=== PATIENT | female | born 1950 | race Caucasian/White ===

== ENCOUNTER 2019-05-23 21:09 | Emergency (ER) | payer OTHER ==
--- OUTSIDE RECORDS SUMMARY | 2019-05-23 21:11 | XMS REPORT ---
:1950 [facility] Address [address] [place] [address] Care Team Providers Name Role Phone Unavailable Unavailable Unavailable Problems This patient has no known problems. Allergies, Adverse Reactions, Alerts This patient has no known allergies or adverse reactions. Medications This patient has no known medications.
[2019-05-24] MEDS ORDERED: LIDOCAINE VISCOUS 2% SOLN 15 ML UDC ONE ×2 (00:35→01:09)
[2019-05-24] MEDS ORDERED: KETOROLAC 30 MG/ML INJ ONE (00:35)
[2019-05-24] MEDS ORDERED: TRAMADOL HCL 50 MG TAB ONE (00:35)
[2019-05-24] MEDS ORDERED: FLEET ENEMA ADULT PR ONE (01:15)
--- NOTE | 2019-05-24 01:43 | ER ---
Nurse's Notes [facility] [place] Name: Alejandra Coto Age: 68 yrs Sex: Female : 1950 Arrival Date: 05/23/2019 Time: 21:11 Bed 13 Private MD: Diagnosis: Constipation, unspecified Presentation: 05/23 21:28 Presenting complaint: Patient states: constipated X 1 week, Dr. Simental called in meds, iw has taken two doses, not getting relief. Transition of care: patient was not received from another setting of care. Onset of symptoms was May 17, 2019. Risk Assessment: Do you want to hurt yourself or someone else? Patient reports no desire to harm self or others. Initial Sepsis Screen: Does the patient meet any 2 criteria? No. Patient's initial sepsis screen is negative. Does the patient have a suspected source of infection? No. Patient's initial sepsis screen is negative. Care prior to arrival: None. 21:28 Method Of Arrival: Ambulatory iw 21:28 Acuity: JACOBY 3 iw Historical: - Allergies: 21:30 No Known Allergies; iw - PMHx: 21:30 allergies; constipation; Diabetes - IDDM; GERD; heart disease; High Cholesterol; iw Hypertension; meningitis; Myocardial infarction (August 2015); Pancreatitis; Vulva Cancer; ADD/ADHD; - PSHx: 21:30 Hysterectomy; Knee surgery; Vulva Cancer; Cholecystectomy; Heart stents; iw - Immunization history:: Adult Immunizations up to date. - Social history:: Smoking status: Patient/guardian denies using tobacco. - Ebola Screening: : Patient negative for fever greater than or equal to 101.5 degrees Fahrenheit, and additional compatible Ebola Virus Disease symptoms Patient denies exposure to infectious person Patient denies travel to an Ebola-affected area in the 21 days before illness onset No symptoms or risks identified at this time. Screenin:35 Abuse screen: Denies threats or abuse. Nutritional screening: No deficits noted. jb4 Tuberculosis screening: No symptoms or risk factors identified. Fall Risk None identified. Assessment: 21:35 General: Appears in no apparent distress. uncomfortable, Behavior is calm, cooperative, jb4 appropriate for age. Pain: Complains of pain in abdomen Pain does not radiate. Pain currently is 10 out of 10 on a pain scale. Quality of pain is described as crampy. Neuro: Level of Consciousness is awake, alert, obeys commands, Oriented to person, place, time, situation. Cardiovascular: Patient's skin is warm and dry. Respiratory: Airway is patent Respiratory effort is even, unlabored, Respiratory pattern is regular, symmetrical. GI: Abdomen is obese, Bowel sounds present X 4 quads. Abd is soft X 4 quads Abd is non tender in right upper quadrant and left upper quadrant Abdomen is tender to palpation in right lower quadrant and left lower quadrant. : No signs and/or symptoms were reported regarding the genitourinary system. EENT: No signs and/or symptoms were reported regarding the EENT system. Derm: Skin is intact, Skin is pink, warm \T\ dry. Musculoskeletal: Circulation, motion, and sensation intact. Range of motion: intact in all extremities. 22:30 Reassessment: Patient appears in no apparent distress at this time. Patient and/or jb4 family updated on plan of care and expected duration. Pain level reassessed. Patient is alert, oriented x 3, equal unlabored respirations, skin warm/dry/pink. 23:06 Reassessment: Patient appears in no apparent distress at this time. Patient and/or jb4 family updated on plan of care and expected duration. Pain level reassessed. Patient is alert, oriented x 3, equal unlabored respirations, skin warm/dry/pink. 05/24 00:03 Reassessment: Patient appears in no apparent distress at this time. Patient and/or jb4 family updated on plan of care and expected duration. Pain level reassessed. Patient is alert, oriented x 3, equal unlabored respirations, skin warm/dry/pink. 01:30 Reassessment: Patient appears in no apparent distress at this time. Patient and/or jb4 family updated on plan of care and expected duration. Pain level reassessed. Patient is alert, oriented x 3, equal unlabored respirations, skin warm/dry/pink. Patient states feeling better. 01:52 Reassessment: Patient appears in no apparent distress at this time. Patient and/or jb4 family updated on plan of care and expected duration. Pain level reassessed. Patient is alert, oriented x 3, equal unlabored respirations, skin warm/dry/pink. Vital Signs: 05/23 21:30 BP 124 / 58; Pulse 90; Resp 16; Temp 97.8; Pulse Ox 96% on R/A; Weight 129.27 kg; iw Height 5 ft. 3 in. (160.02 cm); Pain 10/10; 23:00 BP 129 / 82; Pulse 87; Resp 16; Pulse Ox 96% on R/A; jb4 05/24 00:15 BP 132 / 85; Pulse 72; Resp 16; Pulse Ox 97% on R/A; jb4 01:45 BP 145 / 90; Pulse 86; Resp 16; Pulse Ox 98% on R/A; jb4 05/23 21:30 Body Mass Index 50.48 (129.27 kg, 160.02 cm) iw ED Course: 05/23 21:11 Patient arrived in ED. ds1 21:29 Triage completed. iw 21:30 Arm band placed on. iw 21:35 Patient has correct armband on for positive identification. Bed in low position. Call jb4 light in reach. Side rails up X 1. Pulse ox on. NIBP on. 21:43 Craig Song RN is Primary Nurse. jb4 21:49 Jacobo Pleitez MD is Attending Physician. tw4 05/24 01:05 XRAY Abdomen 1 View (KUB) In Process Unspecified. EDMS 01:54 No provider procedures requiring assistance completed. Patient did not have IV access jb4 during this emergency room visit. Administered Medications: 00:40 Drug: TORadol 60 mg Route: IM; Site: right gluteus; jb4 01:10 Follow up: Response: No adverse reaction; Pain is decreased jb4 00:40 Drug: traMADol 50 mg {Note: rass score 0.} Route: PO; jb4 01:10 Follow up: Response: No adverse reaction; Pain is decreased jb4 01:00 Drug: Viscous Lidocaine Liquid (4 %) 2 application {Note: administered by ER jb4 provider..} Route: Mucous Membrane; 01:58 Follow up: Response: No adverse reaction jb4 01:25 Drug: Fleet Enema 133 ml Route: UT; jb4 01:29 Follow up: Response: No adverse reaction jb4 Outcome: 01:42 Discharge ordered by . tw4 01:54 Discharged to home ambulatory, with family. jb4 01:54 Condition: stable 01:54 Discharge instructions given to patient, family, Instructed on discharge instructions, follow up and referral plans. medication usage, Demonstrated understanding of instructions, follow-up care, medications, Prescriptions given X 3. 01:58 Patient left the ED. jb4 Signatures: Dispatcher [employer] [facility] Viviana Moe ds1 Anila Lopez, RN Craig Roblero RN RN jb4 Jacobo Pleitez MD MD tw4
--- NOTE | 2019-05-24 01:43 | EDPHYS ---
Physician Documentation [facility] Name: Alejandra Coto Age: 68 yrs Sex: Female : 1950 Arrival Date: 05/23/2019 Time: 21:11 Bed 13 Private MD: ED Physician Jacobo Plietez HPI: 05/24 03:24 This 68 yrs old Female presents to ER via Ambulatory with complaints of tw4 Constipation. 03:24 The patient presents to the emergency department with pain in the rectal area, that is tw4 moderate. 03:24 Onset: The symptoms/episode began/occurred 1 week(s) ago. Context: the patient has no tw4 known special context relating to the rectal area complaint(s). Modifying factors: The symptoms are alleviated by nothing, The symptoms are aggravated by bowel movement. The patient has not experienced similar symptoms in the past. Historical: - Allergies: 05/23 21:30 No Known Allergies; iw - PMHx: 21:30 allergies; constipation; Diabetes - IDDM; GERD; heart disease; High Cholesterol; iw Hypertension; meningitis; Myocardial infarction (August 2015); Pancreatitis; Vulva Cancer; ADD/ADHD; - PSHx: 21:30 Hysterectomy; Knee surgery; Vulva Cancer; Cholecystectomy; Heart stents; iw - Immunization history:: Adult Immunizations up to date. - Social history:: Smoking status: Patient/guardian denies using tobacco. - Ebola Screening: : Patient negative for fever greater than or equal to 101.5 degrees Fahrenheit, and additional compatible Ebola Virus Disease symptoms Patient denies exposure to infectious person Patient denies travel to an Ebola-affected area in the 21 days before illness onset No symptoms or risks identified at this time. ROS: 05/24 03:24 Constitutional: Negative for fever, chills, and weight loss, Eyes: Negative for injury, tw4 pain, redness, and discharge, Cardiovascular: Negative for chest pain, palpitations, and edema, Respiratory: Negative for shortness of breath, cough, wheezing, and pleuritic chest pain. MS/Extremity: Negative for injury and deformity, Skin: Negative for injury, rash, and discoloration. Abdomen/GI: Positive for constipation, Negative for abdominal pain, nausea and vomiting, nausea, vomiting, and diarrhea, nausea, vomiting, diarrhea, abdominal cramps, abdominal distension, anorexia, dysphagia, hematemesis, black/tarry stool, rectal pain. Exam: 03:24 Constitutional: This is a well developed, well nourished patient who is awake, alert, tw4 and in no acute distress. Head/Face: Normocephalic, atraumatic. Chest/axilla: Normal chest wall appearance and motion. Nontender with no deformity. No lesions are appreciated. Cardiovascular: Regular rate and rhythm with a normal S1 and S2. No gallops, murmurs, or rubs. Normal PMI, no JVD. No pulse deficits. Respiratory: Lungs have equal breath sounds bilaterally, clear to auscultation and percussion. No rales, rhonchi or wheezes noted. No increased work of breathing, no retractions or nasal flaring. Back: No spinal tenderness. No costovertebral tenderness. Full range of motion. MS/ Extremity: Pulses equal, no cyanosis. Neurovascular intact. Full, normal range of motion. Neuro: Awake and alert, GCS 15, oriented to person, place, time, and situation. Cranial nerves II-XII grossly intact. Motor strength 5/5 in all extremities. Sensory grossly intact. Cerebellar exam normal. Normal gait. 03:24 Abdomen/GI: Inspection: abdomen appears normal, Bowel sounds: normal, Palpation: abdomen is soft and non-tender, Rectal exam: rectal tone normal, Stool: hemorrhoid(s), external, without bleeding, without inflammation, without thrombosis, without pain, mass, is not appreciated, fecal impaction, that is mild. Vital Signs: 05/23 21:30 BP 124 / 58; Pulse 90; Resp 16; Temp 97.8; Pulse Ox 96% on R/A; Weight 129.27 kg; iw Height 5 ft. 3 in. (160.02 cm); Pain 10/10; 23:00 BP 129 / 82; Pulse 87; Resp 16; Pulse Ox 96% on R/A; jb4 05/24 00:15 BP 132 / 85; Pulse 72; Resp 16; Pulse Ox 97% on R/A; jb4 01:45 BP 145 / 90; Pulse 86; Resp 16; Pulse Ox 98% on R/A; jb4 05/23 21:30 Body Mass Index 50.48 (129.27 kg, 160.02 cm) iw Procedures: 03:24 Fecal disimpaction: digital disimpaction was performed, with a small amount of stool tw4 expressed. The patient tolerated the intervention well. MDM: 05/23 21:49 Patient medically screened. tw4 05/24 03:24 Differential diagnosis: hemorrhoids. Data reviewed: vital signs, nurses notes. Data tw4 interpreted: Pulse oximetry: Interpretation: normal. Counseling: I had a detailed discussion with the patient and/or guardian regarding: the historical points, exam findings, and any diagnostic results supporting the discharge/admit diagnosis. Medication response: FLEETS. Response to treatment: the patient's symptoms have mildly improved after treatment, and as a result, I will discharge patient. Special discussion: Based on the patient's Hx, exam, and Dx evaluation, there is no indication for emergent surgery or inpatient Tx. It is understood by the patient/guardian that if the Sx's persist or worsen they need to return immediately for re-evaluation. I discussed with the patient/guardian in detail that at this point there is no indication for admission to the hospital. It is understood, however, that if the symptoms persist or worsen the patient needs to return immediately for re-evaluation. 05/23 22:54 Order name: XRAY Abdomen 1 View (KUB) ak1 Administered Medications: 00:40 Drug: TORadol 60 mg Route: IM; Site: right gluteus; jb4 01:10 Follow up: Response: No adverse reaction; Pain is decreased jb4 00:40 Drug: traMADol 50 mg {Note: rass score 0.} Route: PO; jb4 01:10 Follow up: Response: No adverse reaction; Pain is decreased jb4 01:00 Drug: Viscous Lidocaine Liquid (4 %) 2 application {Note: administered by ER jb4 provider..} Route: Mucous Membrane; 01:58 Follow up: Response: No adverse reaction jb4 01:25 Drug: Fleet Enema 133 ml Route: HI; jb4 01:29 Follow up: Response: No adverse reaction [facility] Disposition: 05/24/19 01:42 Discharged to Home. Impression: Constipation, unspecified. - Condition is Stable. - Discharge Instructions: Constipation, Adult, High-Fiber Diet. - Prescriptions for Fleet Enema Extra - insert 1 application by RECTAL route 1-2 times daily; 1 Container. Colace 100 mg Oral Tablet - take 1 tablet by ORAL route every 12 hours; 14 tablet. Dulcolax 10 mg Rectal Suppository - insert 1 suppository by RECTAL route every 6 hours As needed; 10 suppository. - Medication Reconciliation Form, Thank You Letter, Antibiotic Education, Prescription Opioid Use form. - Follow up: Private Physician; When: Upon discharge from the Emergency Department; Reason: Recheck today's complaints, Continuance of care. - Problem is new. - Symptoms have improved. Signatures: Dispatcher [employer] EDAnila Kuhn RN RN Craig Song RN RN jb4 Jacobo Pleitez MD MD tw4 Corrections: (The following items were deleted from the chart) 01:58 01:42 05/24/2019 01:42 Discharged to Home. Impression: Constipation, unspecified. jb4 Condition is Stable. Forms are Medication Reconciliation Form, Thank You Letter, Antibiotic Education, Prescription Opioid Use. Follow up: Private Physician; When: Upon discharge from the Emergency Department; Reason: Recheck today's complaints, Continuance of care. Problem is new. Symptoms have improved. tw4
[2019-05-24 03:42] VITALS: TEMP 97.8
[2019-05-24 03:46] VITALS: BP 145/90; O2SAT 98
--- NOTE | 2019-05-24 08:58 | RAD REPORT ---
EXAM DESCRIPTION: RAD - Abdomen 1 View (KUB) - 05/24/2019 1:02 am CLINICAL HISTORY: CONSTIPATION Abdominal pain COMPARISON: No comparisons FINDINGS: Large stool volume dilates the rectum. There is moderate stool volume filling but not dila ting distal sigmoid colon. There is moderate stool volume in the cecum, ascending and descending port ions of the colon. Air is present without dilatation of the transverse colon. No small bowel dilatation. No obstruction, free air or pneumatosis. No suspicious calcifications. No significant bony findings IMPRESSION: Moderate stool volume filling but not dilating the majority of the colon. There is a large stool volume dilating the rectum. No small bowel obstruction, free air or other emergent finding.
== END 2019-05-24 01:58 | disposition home or self-care (01) ==
LOC: ER 21:09
DX: K59.00 Constipation, unspecified (principal); I10 Essential (primary) hypertension; Z85.44 Personal history of malignant neoplasm of other female genital organs; Z95.818 Presence of other cardiac implants and grafts
CPT/HCPCS: 74018; 96372; 99284

== ENCOUNTER 2020-12-24 17:55 | Emergency (ER) | payer OTHER ==
--- OUTSIDE RECORDS SUMMARY | 2020-12-24 17:58 | XMS REPORT | Continuity of Care Document ---
:1950 Author Organization [facility] t Address [address] [place] [address] Care Team Providers Name Role Phone Unavailable Unavailable Unavailable Problems This patient has no known problems. Allergies, Adverse Reactions, Alerts This patient has no known allergies or adverse reactions. Social History Social Habit Start Date Stop Date Quantity Comments Source Sex Assigned At [birth year] [facility]ist 00:00:00 00:00:00 Medications Ordered Filled Start Stop Current Ordering Indication Dosage Frequency Signature Comments Components Source Medication Medication Date Date Medication? Clinician (SIG) Name Name Allopurinol Allopurinol 0 2020- No Jose A [address] [facility] 9-03 10-03 [facility] One Touch One Touch 0 Yes Jose A [address] [facility] Ultra Test Ultra Test 1-06 [facility] k[facility] - Strips Strips 00:00: [facility] Esomeprazol Esomeprazol Yes Jose A [address] [facility] Magnesium e Magnesium [facility] Nexium Nexium Yes Jose A [address] [facility] Aspirin 81 Aspirin 81 Yes Jose A [address] [facility] Linzess Linzess Yes Jose A [address] [facility] [address] [facility] at least [facility] 30 minutes [facility] before the l first meal Outpati of the day ent on an Clinics empty stomach Flonase Flonase Yes Jose A USE ONE [facility] SPRAY IN [facility] EACH [facility] NOSTRIL l ONCE DAILY Outpati ent Clinics Tradjenta Tradjenta Yes Jose A take [address] [facility] tablet by [facility] day [facility] HydrALAZINE HydrALAZINE Yes Jose A [address] [facility] HCl HCl [facility] with food [facility] OneTouch OneTouch Yes Jose A TEST ONCE [facility] Ultra Test Ultra Test [facility] A DAY [facility] Allopurinol Allopurinol Yes Jose A take [address] [facility] tablet by [facility] every day [facility] Zyrtec Zyrtec Yes Jose A [facility] Niacin Niacin Yes Jose [facility] with food [facility] Carvedilol Carvedilol Yes Jose A [address] [facility] Gabapentin Gabapentin Yes Jose A [address] [facility] Bumetanide Bumetanide Yes Jose A 1 1/[address] [facility] Dulcolax Dulcolax Yes Jose A [address] [facility] as needed [facility] BuPROPion BuPROPion Yes Jose A [address] [facility] HCl ER (SR) HCl ER (SR) [facility] orally bid [facility] Metolazone Metolazone Yes Jose A [address] [facility] Colace Colace Yes Jose A [address] [facility] Levemir Levemir Yes Jose A [address] [facility] FlexTouch FlexTouch [facility] units/Ml [facility] Zetia Zetia Yes Jose A [address] [facility] Atorvastati Atorvastati Yes Jose A take [address] [facility] n Calcium n Calcium [facility] tablet by [facility] day [facility] Victoza Victoza Yes Jose A inject [facility] 1.8mg [facility] daily [facility] subcutaneo l usly [facility] ent [facility] Atorvastati Atorvastati Yes Jose A take [address] [facility] n Calcium n Calcium [facility] tablet by [facility] every day [facility] Zetia Zetia Yes Jose A [address] [facility] Myrbetriq Myrbetriq Yes Jose A [address] [facility] Victoza Victoza Yes Ojse A inject [facility] 1.8mg [facility] daily [facility] subcutaneo l [facility]ly [facility] Procedures This patient has no known procedures. Plan of Care Planned Activity Planned Date Details Comments Source Future Scheduled 2021-01-18 INFLUENZA VACCINE [place] [facility] 00:00:00 [code = INFLUENZA VACCINE] Future Scheduled 2016-12-20 65+ PNEUMOCOCCAL [place] [facility] 00:00:00 VACCINE (1 of 1 - PPSV23) [code = 65+ PNEUMOCOCCAL VACCINE (1 of 1 - PPSV23)] Future Scheduled 2001-12-20 BREAST CANCER [facility] Test 00:00:00 SCREENING [code = BREAST CANCER SCREENING] Future Scheduled 2001-12-20 COLONOSCOPY SCREENING [facility] Test 00:00:00 [code = COLONOSCOPY SCREENING] Future Scheduled 2001-12-20 SHINGLES VACCINES (#1) [facility] 00:00:00 [code = SHINGLES VACCINES (#1)] Future Scheduled 1963 COVID-19 VACCINE (1) [facility] 00:00:00 [code = COVID-19 VACCINE (1)] Encounters Start End Encounter Admission Attending Care Care Encounter Source Date/Time Date/Time Type Type Clinicians Facility Department ID 2020-12-17 2020-12-17 Outpatient [facility] [id number] [facility] 2020-10-08 2020-10-08 Outpatient [facility] [id number] [facility] 2020-08-21 2020-08-21 Outpatient [facility] [id number] [facility] 2020-08-11 2020-08-11 Out[facility] [id number] [facility] 2020-07-04 2020-07-04 Out[facility] [id number] [facility] 2020-05-22 2020-05-22 Outpatient [facility] [id number] [facility] 2020-04-07 2020-04-07 Outpatient [facility] [id number] [facility] 2020-04-01 2020-04-01 Outpatient [facility] [id number] [facility] 2020-03-20 2020-03-20 Outpatient [facility] [id number] [facility] 2020-03-14 2020-03-14 Outpatient [facility] [id number] [facility] 2020-02-21 2020-02-21 [facility] [id number] [facility] 08:40:00 08:40:[address] [place] [address] [facility] Outpat[facility] ent Clinics 2019-11-21 2019-11-21 [facility] [id number] [facility] 14:00:00 14:00:[address] [place] [address] [facility] Out[facility] Clinics 2019-11-21 2019-11-21 [facility] [id number] [facility] 14:00:00 14:00:[address] [place] [address] [facility] Medicine l Medicine Outpati ent Clinics 2019-11-14 2019-11-14 [facility] [id number] [address] 10:33:00 10:33:00 t Flare Code [facility] Medicine Outpat[facility] Clinics 2019-07-09 2019-07-09 [facility] [id number] [facility] 15:31:00 15:31:00 t Flare Code [facility] Outpat[facility] Clin[facility] 2019-07-04 2019-07-04 [facility] [id number] [facility] 17:01:00 17:01:00 t Flare Code [facility] Out[facility] Clin[facility] 2019-07-04 2019-07-04 [facility] [id number] [facility] 13:30:00 13:30:00 t Flare Code [facility] Medicine Outpat[facility] Clinics Results This patient has no known results.
[2020-12-24 19:32] LABS: Absolute Lymphocytes (CBC) 1.5 K/uL (0.7-4.9); Hematocrit 44.2 % (36.0-45.0); MPV 9.3 fL (7.6-11.3); RBC Red Blood Cell Count 5.25 M/uL (3.86-4.86)
[2020-12-24] MEDS ORDERED: INSULIN -REGULAR HUMAN 50 UNIT/0.5 ML ML ONE (19:36)
[2020-12-24 19:47] LABS: Potassium 4.7 mmol/L (3.5-5.1)
[2020-12-24] MEDS ORDERED: ONDANSETRON 4 MG/2 ML VIAL ONE (19:50)
[2020-12-24] MEDS ORDERED: MORPHINE 4 MG/ML SYR ONE (19:50)
[2020-12-24 20:08] LABS: Urine Blood Negative (Negative); Urine Glucose 2+ (Negative); Urine Protein Negative (Negative); Urine Specific Gravity 1.015 (1.005-1.030); Urine pH 5.5 (5.0-7.0)
[2020-12-24 20:28] LABS: Blood Morphology Comment NOT SEEN (NOT SEEN); Platelet Estimate ADEQ; White Blood Cell Scan OK (OK)
--- NOTE | 2020-12-24 20:39 | EDPHYS ---
Physician Documentation [facility] Name: Alejandra Coto Age: 70 yrs Sex: Female : 1950 Arrival Date: 12/24/2020 Time: 17:58 Bed 5 Private MD: ED Physician Jacobo Pleitez HPI: 12/24 18:36 This 70 yrs old Female presents to ER via Ambulatory with complaints of High kdr Blood Sugar. 18:36 The patient or guardian reports diaphoresis, generalized fatigue, generalized weakness, kdr hyperglycemia, that was potentially precipitated by Unknown - the patient had a steroid injection in her knee by Dr. Marrero yesterday. Onset: The symptoms/episode began/occurred this morning. Associated signs and symptoms: Pertinent positives: diaphoresis, nausea, skin flushing. Current symptoms: In the emergency department the patient's symptoms are unchanged from the initial presentation. The patient has not experienced similar symptoms in the past. The patient has been recently seen by a physician: Dr. Urias. Historical: - Allergies: 18:21 No Known Drug Allergies; ll1 - PMHx: 18:21 constipation; Hypertension; Myocardial infarction (); Pancreatitis; meningitis; ll1 heart disease; High Cholesterol; GERD; Diabetes - IDDM; Vulva Cancer; allergies; ADD/ADHD; - Immunization history:: Client reports receiving the 2nd dose of the Covid vaccine, Flu vaccine is up to date. - Social history:: Smoking status: Patient denies any tobacco usage or history of. ROS: 18:36 Constitutional: Negative for fever, chills, and weight loss, Eyes: Negative for injury, kdr pain, redness, and discharge, ENT: Negative for injury, pain, and discharge, Neck: Negative for injury, pain, and swelling, Cardiovascular: Negative for chest pain, palpitations, and edema, Respiratory: Negative for shortness of breath, cough, wheezing, and pleuritic chest pain, Abdomen/GI: Negative for abdominal pain, nausea, vomiting, diarrhea, and constipation, Back: Negative for injury and pain, : Negative for injury, bleeding, discharge, and swelling, MS/Extremity: Negative for injury and deformity, Psych: Negative for depression, anxiety, suicide ideation, homicidal ideation, and hallucinations, Allergy/Immunology: Negative for hives, rash, and allergies, Endocrine: Negative for neck swelling, polydipsia, polyuria, polyphagia, and marked weight changes, Hematologic/Lymphatic: Negative for swollen nodes, abnormal bleeding, and unusual bruising. 18:36 Skin: Positive for diaphoresis, diffusely. 18:36 Neuro: Positive for dizziness, headache, weakness, Negative for altered mental status, seizure activity, speech changes, syncope, near syncope, tinnitus, tremor, visual changes. Exam: 18:36 Constitutional: This is a well developed, well nourished patient who is awake, alert, kdr and in no acute distress. Head/Face: Normocephalic, atraumatic. Eyes: Pupils equal round and reactive to light, extra-ocular motions intact. Lids and lashes normal. Conjunctiva and sclera are non-icteric and not injected. Cornea within normal limits. Periorbital areas with no swelling, redness, or edema. Neck: Trachea midline, no thyromegaly or masses palpated, and no cervical lymphadenopathy. Supple, full range of motion without nuchal rigidity, or vertebral point tenderness. No Meningismus. Chest/axilla: Normal chest wall appearance and motion. Nontender with no deformity. No lesions are appreciated. Cardiovascular: Regular rate and rhythm with a normal S1 and S2. No gallops, murmurs, or rubs. Normal PMI, no JVD. No pulse deficits. Respiratory: Lungs have equal breath sounds bilaterally, clear to auscultation and percussion. No rales, rhonchi or wheezes noted. No increased work of breathing, no retractions or nasal flaring. Abdomen/GI: Soft, non-tender, with normal bowel sounds. No distension or tympany. No guarding or rebound. No evidence of tenderness throughout. Back: No spinal tenderness. No costovertebral tenderness. Full range of motion. Skin: Warm, dry with normal turgor. Normal color with no rashes, no lesions, and no evidence of cellulitis. MS/ Extremity: Pulses equal, no cyanosis. Neurovascular intact. Full, normal range of motion. Neuro: Awake and alert, GCS 15, oriented to person, place, time, and situation. Cranial nerves II-XII grossly intact. Motor strength 5/5 in all extremities. Sensory grossly intact. Cerebellar exam normal. Normal gait. Psych: Awake, alert, with orientation to person, place and time. Behavior, mood, and affect are within normal limits. Vital Signs: 18:19 BP 160 / 76; Pulse 84; Resp 18; Temp 97.5; Pulse Ox 93% on R/A; Weight 130.18 kg; ll1 Height 5 ft. 3 in. (160.02 cm); Pain 7/10; 20:36 BP 132 / 103; Pulse 74; Resp 18 S; Pulse Ox 98% on R/A; ad5 18:19 Body Mass Index 50.84 (130.18 kg, 160.02 cm) ll1 MDM: 18:36 Data reviewed: vital signs, nurses notes, lab test result(s), radiologic studies. kdr Counseling: I had a detailed discussion with the patient and/or guardian regarding: the historical points, exam findings, and any diagnostic results supporting the discharge/admit diagnosis, lab results. 20:38 Patient medically screened. [facility] 12/24 18:26 Order name: CBC with Diff; Complete Time: 20:28 kdr 12/24 20:28 Interpretation: Normal except: RBC 5.25; WBC 16.30; LYM% 9.0; RACIEL% 86.5; NEUT A 14.1. [facility] 12/24 18:26 Order name: Chem 7; Complete Time: 20:28 kdr 12/24 20:29 Interpretation: Normal except: NA 133; GLUC 375; BUN 33; CRE 1.56; GFR 33. [facility] 12/24 20:07 Order name: Urine Dipstick-Ancillary; Complete Time: 20:28 [facility] 12/24 20:29 Interpretation: Normal except: UGLUC 2+. [facility] 12/24 20:28 Order name: CBC Smear Scan; Complete Time: 20:29 [facility] 12/24 20:29 Interpretation: Within normal limits. [facility] 12/24 20:34 Order name: Glucose, Ancillary Testing [facility] 12/24 18:26 Order name: Urine Dipstick-Ancillary (obtain specimen); Complete Time: 20:37 kdr Administered Medications: 19:23 Drug: Insulin Regular Human 10 units {Co-Signature: ad5 (Justice Rodriguez).} Route: IVP; ea Site: right antecubital; 20:37 Follow up: Response: No adverse reaction; RASS: Alert and Calm (0) ad5 19:32 Drug: morphine 4 mg Route: IVP; Site: right antecubital; ea 20:37 Follow up: Response: No adverse reaction; Pain is unchanged, physician notified; RASS: ad5 Alert and Calm (0) 19:33 Drug: Zofran (Ondansetron) 4 mg Route: IVP; Site: right antecubital; ea 20:36 Follow up: Response: No adverse reaction ad5 Disposition Summary: 12/24/20 20:38 Discharge Ordered Location: Home tw4 Problem: new tw4 Symptoms: have improved tw4 Condition: Stable tw4 Diagnosis - Hyperglycemia, unspecified tw4 Followup: tw4 - With: Private Physician - When: Upon discharge from the Emergency Department - Reason: Recheck today's complaints, Continuance of care, Re-evaluation by your physician Discharge Instructions: - Discharge Summary Sheet tw4 - Hyperglycemia tw4 Forms: - Medication Reconciliation Form tw4 - Thank You Letter tw4 - Antibiotic Education tw4 - Prescription Opioid Use tw4 Signatures: Dispatcher [employer] Santi Pyle MD MD kdr Heaven Maldonado RN RN Jacobo Nix MD MD tw4 Yani Marlow RN RN ll1 Justice Rodriguez ad5 Justice Rodriguez ad5
--- NOTE | 2020-12-24 20:39 | ER ---
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 Had ll1 steroid injection to knee yesterday, knee feels better. Her RN daughter made her come in for eval. Coronavirus screen: Client denies travel out of the [place] in the last 14 days. At this time, the client does not indicate any symptoms associated with coronavirus-19. Ebola Screen: Patient denies travel to an Ebola-affected area in the 21 days before illness onset. Initial Sepsis Screen: Does the patient meet any 2 criteria? No. Patient's initial sepsis screen is negative. Does the patient have a suspected source of infection? No. Patient's initial sepsis screen is negative. Risk Assessment: Do you want to hurt yourself or someone else? Patient reports no desire to harm self or others. Onset of symptoms was December 24, 2020. 18:19 Method Of Arrival: Ambulatory ll1 18:19 Acuity: JACOBY 3 ll1 Historical: - Allergies: 18:21 No Known Drug Allergies; ll1 - PMHx: 18:21 constipation; Hypertension; Myocardial infarction (); Pancreatitis; meningitis; ll1 heart disease; High Cholesterol; GERD; Diabetes - IDDM; Vulva Cancer; allergies; ADD/ADHD; - Immunization history:: Client reports receiving the 2nd dose of the Covid vaccine, Flu vaccine is up to date. - Social history:: Smoking status: Patient denies any tobacco usage or history of. Screenin:23 Abuse screen: Denies threats or abuse. Nutritional screening: No deficits noted. ea Tuberculosis screening: No symptoms or risk factors identified. Fall Risk None identified. Assessment: 19:24 General: Appears in no apparent distress. Behavior is calm, cooperative, appropriate ea for age. Pain: Denies pain. Neuro: Level of Consciousness is awake, alert, obeys commands, Oriented to person, place, time. Respiratory: Airway is patent Respiratory effort is even, unlabored, Respiratory pattern is regular, symmetrical. Derm: Skin is pink, warm \T\ dry. 20:35 Reassessment: Patient appears in no apparent distress at this time. Patient and/or ad5 family updated on plan of care and expected duration. Pain level reassessed. pt reports continued headache, MD aware. Resp even/unlabored, VSS. Will continue to monitor. Vital Signs: 18:19 BP 160 / 76; Pulse 84; Resp 18; Temp 97.5; Pulse Ox 93% on R/A; Weight 130.18 kg; ll1 Height 5 ft. 3 in. (160.02 cm); Pain 7/10; 20:36 BP 132 / 103; Pulse 74; Resp 18 S; Pulse Ox 98% on R/A; ad5 18:19 Body Mass Index 50.84 (130.18 kg, 160.02 cm) ll1 ED Course: 17:58 Patient arrived in ED. ds1 18:19 Arm band placed on Patient placed in an exam room, on a stretcher. ll1 18:20 Santi Montes MD is Attending Physician. kdr 18:21 Triage completed. ll1 19:11 Justice Rodriguez is Primary Nurse. ad5 19:23 Inserted saline lock: 20 gauge in right antecubital area, using aseptic technique. ea 19:24 Patient has correct armband on for positive identification. Bed in low position. Call ea light in reach. 20:24 Attending Physician role handed off by Santi Montes MD tw4 20:24 Jacobo Pleitez MD is Attending Physician. tw4 20:55 No provider procedures requiring assistance completed. IV discontinued, intact, ad5 bleeding controlled, No redness/swelling at site. Pressure dressing applied. Administered Medications: 19:23 Drug: Insulin Regular Human 10 units {Co-Signature: ad5 (Justice Rodriguez).} Route: IVP; ea Site: right antecubital; 20:37 Follow up: Response: No adverse reaction; RASS: Alert and Calm (0) ad5 19:32 Drug: morphine 4 mg Route: IVP; Site: right antecubital; ea 20:37 Follow up: Response: No adverse reaction; Pain is unchanged, physician notified; RASS: ad5 Alert and Calm (0) 19:33 Drug: Zofran (Ondansetron) 4 mg Route: IVP; Site: right antecubital; ea 20:36 Follow up: Response: No adverse reaction ad5 Outcome: 20:38 Discharge ordered by MD. bradshaw 20:55 Discharged to home ambulatory, with significant other. ad5 20:55 Condition: stable 20:55 Discharge instructions given to patient, Instructed on discharge instructions, follow up and referral plans. Demonstrated understanding of instructions, follow-up care. 20:56 Patient left the ED. ad5 Signatures: Santi Montes MD MD kdr Sanford, Demi ds1 Heaven Maldonado RN RN ea Wadley, Terrence, MD MD tw4 Yani Marlow RN RN ll1 Justice Rodriguez ad5 Justice Rodriguez ad5
[2020-12-24 21:27] VITALS: TEMP 97.5
[2020-12-24 21:28] VITALS: BP 132/103; O2SAT 98
== END 2020-12-24 20:56 | disposition home or self-care (01) ==
LOC: ER 17:55
DX: E11.65 Type 2 diabetes mellitus with hyperglycemia (principal); I10 Essential (primary) hypertension
CPT/HCPCS: 85025; 80048; 36415; 82947; 81003; 96375; 96374; 99283; J2405

== ENCOUNTER 2022-11-22 05:58 | Inpatient (IN) | payer OTHER ==
[2022-11-19 12:04] LABS: Absolute Lymphocytes (CBC) 1.6 K/uL (0.7-4.9); Hematocrit 37.6 % (36.0-45.0); Lymphocytes % 20.4 % (15.3-44.8); MCV 88.7 fL (80-100); MPV 8.4 fL (7.6-11.3); RBC Red Blood Cell Count 4.25 M/uL (3.86-4.86)
[2022-11-19 12:26] LABS: Potassium 3.7 mEq/L (3.5-5.1)
[2022-11-22] MEDS ORDERED: NA CHLORIDE 0.9% 1,000 ML ONE ×2 (06:26→08:54)
[2022-11-22] MEDS ORDERED: LIDOCAINE 2% MPF 5 ML VIAL ONE (06:29)
[2022-11-22] MEDS ORDERED: FENTANYL CITR 250 MCG/5 ML ONE (06:29)
[2022-11-22] MEDS ORDERED: dexAMETHasone 10 MG/ML VIAL ONE (06:29)
[2022-11-22] MEDS ORDERED: MIDAZOLAM HCL 2 MG/2 ML INJ ONE (06:29)
[2022-11-22] MEDS ORDERED: propofoL 200 MG/20 ML VIAL IV ONE ×5 (06:29→10:11)
[2022-11-22] MEDS ORDERED: ROCURONIUM 50 MG/5 ML VIAL IV ONE (06:29)
[2022-11-22] MEDS ORDERED: ONDANSETRON 4 MG/2 ML VIAL ONE (06:31)
[2022-11-22] MEDS ORDERED: THROMBIN 5000 UNITS/VIAL TOP ONE (06:44)
[2022-11-22] MEDS ORDERED: VANCOMYCIN 1 GM/VIAL ONE (06:44)
[2022-11-22] MEDS ORDERED: EPHEDRINE SULF 50 MG/ML VIAL ONE (07:17)
[2022-11-22] MEDS ORDERED: Phenylephrine HCl 10 MG/ML 1 ML VIAL ONE (07:17)
[2022-11-22] MEDS: CEFAZOLIN SODIUM 2 GM/VIAL ONE ×2 (07:45→08:39)
[2022-11-22] MEDS ORDERED: SUCCINYLCHOLINE 20 MG/ML (10 ML) IV ONE (07:50)
[2022-11-22] MEDS ORDERED: Mastisol Adhesive Liq ONE (08:02)
[2022-11-22] MEDS ORDERED: HYDRALAZINE HCL 20 MG/ML VIAL ONE (08:49)
[2022-11-22] MEDS ORDERED: NALOXONE 0.4 MG/ML VIAL ONE (10:47)
[2022-11-22] MEDS ORDERED: FLUMAZENIL 0.1 MG/ML (5 mL VIAL) IV ONE (11:04)
[2022-11-22] MEDS ORDERED: ALBUTEROL 2.5 MG/3 ML NEB SOL ONE (11:12)
[2022-11-22] MEDS: FENTANYL CITR 100 MCG/2 ML ONE ×2 (11:27→12:38)
[2022-11-22] MEDS ORDERED: KETOROLAC 30 MG/ML INJ ONE (11:27)
--- NOTE | 2022-11-22 11:39 | RAD REPORT ---
EXAM DESCRIPTION: RAD - Fluoroscopy <1 Hour - 11/22/2022 11:27 am CLINICAL HISTORY: C-spine discectomy FINDINGS: Localization of the cervical spine obtained prior to surgery The examination was performed by Dr. Baker Eleven fluoroscopic spot images obtained. Fluoroscopy time 0.3 minutes
--- OUTSIDE RECORDS SUMMARY | 2022-11-22 11:54 | XMS REPORT | Continuity of Care Document ---
:1950 Author Organization [facility] t Address [address] [place] [address]. [address] [place] [address] Care Team Providers Name Role Phone Jose A Addison DO Primary Care Physician [phone] Jose A Addison Attending Clinician Unavailable GARRICK HYMAN Attending Clinician Unavailable GARRICK HYMAN Attending Clinician Unavailable Garrick Hyman MD Attending Clinician GARRICK HYMAN Admitting Clinician Unavailable Payers Payer Name Policy Type Policy Number Effective Date Expiration Date S rossi AETNA MEDICARE [id number] 2022 PPO 00:00:00 AETNA 53 [id number] [facility] MEDICARE PART [id number] A \T\ B - MEDICARE INDEMNITY/TRAD [id number] 2021 ITIONAL CHOICE 00:00:00 - AETNA PPO/EPO - BCBS [id number] MEDICARE MB [id number] [facility] NOVITAS - [facility] Problems Condition Condition Condition Status Onset Resolution Last Treating Co mments Source Name Details Category Date Date Treatment Clinician Date 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 vascular 06-30 Colleg e disorder disorder 00:00: of due to due to 00 Medicin diabetes diabetes e mellitus mellitus (HCCode) (HCCode) Morbid Morbid Disease Active [facility] obesity obesity 06-30 College (HCCode) (HCCode) 00:00: of 00 Medicin e Other Other Disease Active [facility] allergy allergy 06-30 Cataract status, status, 00:00: of other than other than 00 Me dicin to drugs to drugs e and and biological biological substances substances Sciatica Sciatica Disease [place]act 00:00: of 00 Medicin e Peripheral Peripheral Disease [facility] venous venous 06-30 Cataract insufficie insufficie 00:00: of ncy ncy 00 Medicin e Significan Significan Disease Active April seay t disease t disease 06-30 [facility] of of 00:00: of coronary coronary 00 Medici n bypass bypass e graft graft Mixed Mixed Disease Active [facility] incontinen incontinen 06-30 Co llege ce ce 00:00: of 00 Medicin e Left Left Disease Active 2020-[address] [facility] rotator 0[facility]15 [facility] cuff tear cuff tear 00:00: Medi althea 00 Center Immunizati Immunizati Disease Active 2017-06 April seay on on 06-25 Cataract counseling counseling 00:00: of 00 Medicin e Positive Positive Disease Active 2017-06 [facility] MITCHELL MITCHELL 06-25 Cataract (antinucle (antinucle 00:00: of ar ar 00 Medicin antibody) antibody) e Primary Primary Disease Active 2017-06 [facility] osteoarthr osteoarthr 06-25 Co llege itis itis 00:00: of involving involving 00 Medi dylan multiple multiple e joints joints Biliary Biliary Disease Active [facility] stricture stricture 09-14 [facility] 00:00: of 00 Medicin e Obstructio Obstructio Disease Active B [facility] n of n of 09-14 College common common 00:00: of bile duct bile duct 00 Medi dylan e Carpal Carpal Problem Active 2022-04-30 Francesco koko tunnel tunnel 23:29:01 l syndrome syndrome Constantine n (disorder) (disorder) Active Problem 04/30/2022 [facility] Cervical Cervical Problem Active 2022-04-30 Memoria radiculopa radiculopa 23:29:01 l thy thy Deshawn (disorder) (disorder) Active Problem 04/30/2022 [facility] Diabetes Diabetes Problem Active 2022-04-30 Memoria mellitus mellitus 23:29:01 l (disorder) (disorder) He rmann Active Problem 04/30/2022 [facility] Hypertensi Problem Active 2022-04-30 M luricam ve Hypertensi 23:29:01 l disorder, ve [place] systemic disorder, arterial systemic (disorder) arterial (disorder) Active Problem 04/30/2022 [facility] Lumbar Lumbar Problem Active 2022-04-30 Francesco koko radiculopa radiculopa 23:29:01 l thy thy Deshawn (disorder) (disorder) Active Problem 04/30/2022 [facility] Renal Renal Problem Active 2022-04-30 Memor ia impairment impairment 23:29:01 l (disorder) (disorder) He rmann Active Problem 04/30/2022 [facility] [id number] Pain, Problem Commo n [id number] joint, [facility] shoulder, - [facility] right [facility] [id number] Primary Problem Comm on osteoarthr Spirit itis of - [facility]I right knee [facility] [id number] [place], [place] [id number] joint, [facility] knee, - [facility] right [facility] [id number] Pain, Problem Commo n [id number] joint, Spirit foot, - [facility] right [facility] [id number] Achilles Problem Commo n tendinitis Spirit of right - [facility] lower [facility] [id number] Primary Problem Comm on osteoarthr Spirit itis of [facility] left knee [facility] [id number] Pain in Problem Comm on left knee [facility] Obstructiv TESHA Problem Commo n e sleep (obstructi Spiri t apnea ve sleep - CHI syndrome apnea) [facility] [id number] Moderate Problem Comm on episode of Spirit [facility] major 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[facility] stage 3B disease (disorder) [facility] Vitamin D Vitamin D Problem Com mon deficiency deficiency Sp macarena - [facility] [id number] Body mass Problem Com mon index [facility] (BMI) - [facility] 50.0-59.9, [facility] [id number] Chronic Problem Commo n kidney Spirit disease, - [facility] stage IV (severe) [facility] [id number] Venous Problem Common insufficie Spirit ncy of - [facility] both lower [facility] [id number] Polyp of Problem Commo n colon, [facility] unspecifie - [facility] d part of [facility] unspecifie Medica l d type Center Hyperlipid Hyperlipid Problem C ommon emia emia [facility] Urine Urine Problem Common incontinen incontinen macarena ce ce [facility] [id number] Depression Problem Co mmon with Spirit anxiety [facility] Diabetes Diabetes Problem Commo n mellitus mellitus Spirit type 2 type 2, - [facility] uncontroll [facility] [id number] Environmen Problem Co mmon lexie Spirit allergies [facility] [id number] Coronary Problem Comm on artery Spirit disease - [facility] involving coronary [facility] bypass Medical graft of Center [place] [facility] without angina pectoris [id number] Lumbago Problem Commo n with Spirit sciatica, - CHI right side [facility] [id number] USP Problem Com mon (current) Spirit use of - [facility]I insulin [facility] [id number] Current Problem Common moderate Spirit episode of - CHI major depressive [facility] Medical without Center prior episode [id number] History of Problem Co mmon cancer of Spirit vulva - [facility] [id number] Mixed Problem Common stress and Spirit urge - CHI urinary [facility] [id number] Morbid Problem Commo n 9104 (severe) Spirit obesity - [facility] due to [facility] [id number] Constipati Problem Com mon on, Spirit unspecifie - CHI d constipati [facility] on type Medical Center [id number] Neuropathy Problem Co mmon Spirit - [facility] [id number] Glaucoma Problem Commo n of both Spirit eyes with - [facility]I increased episcleral [facility] venous Medical pressure Center [id number] Other Problem Common chronic Spirit pain - [facility] [id number] Generalize Problem Com mon d anxiety Spirit disorder - [facility] [id number] Overactive Problem Co mmon bladder Spirit - [facility] [id number] Iron Problem Common deficiency Spirit anemia, - CHI unspecifie St d iron [facility] deficiency Medica l anemia Center type [id number] +5th digit Problem Co mmon eff Spirit 03/20/20*Ch - CHI ronic kidney [facility] disease, Medical stage 3 Center (moderate) [id number] Chronic Problem Commo n respirator Spirit y failure - [facility] with [facility] [id number] Dependence Problem C ommon 07 on Spirit supplement - CHI al oxygen [facility] Anemia Anemia Disease Active [facility] of Medicin e Allergies, Adverse Reactions, Alerts Allergy Allergy Status Severity Reaction(s) Onset Inactive Treating Comm ents Source Name Type Date Date Clinician NIACIN Allergy Active Med Rash 2020-[address] [facility] [facility] Niacin Propensi Active Rash 2020-06 pills [facility] ty to 0-13 Cataract adverse 00:00: of reaction 00 Medicin s to e drug Niacin Drug Active Rash 2020-[address] [facility] OTHER Allergy Active Low Rash 2020-[address] [facility] [facility] Center Other Propensi Active Rash 2020-[address] ty to 0-11 [facility] adverse 00:00: Medical reaction 00 Center s CONTACT Allergy Active 2020-06 [facility] METAL 0-11 AGENT 00:00: 00 Other Propensi Active Rash 1999-0 Metals [facility] ty to 4-11 College adverse 00:00: of reaction 00 Medicin s e No Known No Known Active Memori a Medicati Medicati l on on Deshawn hutson Social History Social Habit Start Date Stop Date Quantity Comments Source History of Tobacco [facility] - Use [facility] Gender identity [facility] Sexual orientation [facility] Exposure to Not sure [facility] Colleg e SARS-CoV-2 (event) of Med icine Alcohol intake 2021-04-06 2021-04-06 Ex-drinker SANJUANA Nelson es 00:00:00 00:00:00 (finding) [facility] Tobacco use and 2021-04-02 2021-04-02 Smokeless SANJUANA Kelly exposure 00:00:00 00:00:00 tobacco non-user [facility] Tobacco Comment 2021-04-02 2021-04-02 Quit at age 33 SANJUANA Lord 00:00:00 00:00:00 [facility] Sex Assigned At [birth year] SANJUANA Kelly 00:00:00 00:00:00 [facility] Smoking Status Start Date Stop Date Source Tobacco smoking [facility] consumption unknown Tobacco smoking status 2021-01-08 16:24:41 2021-01-08 Memor shirley Hess 16:24:41 Never smoked tobacco [facility] Medications Ordered Filled Start Stop Current Ordering Indication Dosage Frequency Signature Comments Components Source Medication Medication Date Date Medication? Clinician (SIG) Name Name May Olvera No 40mg Common (Triamcinol (Triamcinol 1-25 S pirit one) one) 00:00: - [facility] Lidocaine Lidocaine No 10mg Com mon 1-25 Spirit 00:00: - [facility] Mounjaro 5 Mounjaro 5 2021-06- No Mounjaro 5 MG/0.5ML MG/0.5ML -28 12-28 MG/0.5ML 00:00: 00:00 00 :00 Mounjaro Mounjaro 2021-06- No Mounjaro 7.5 7.5 -28 12-28 7.5 MG/0.5ML MG/0.5ML 00:00: 00:00 MG/0.5ML 00 :00 Mounjaro Mounjaro 2021-06- No Mounjaro 2.5 2.5 - 12-28 2.5 MG/0.5ML MG/0.5ML 00:00: 00:00 MG/0.5ML 00 :00 Amoxicillin Amoxicillin 2021-06- No 1{table BID Amoxicilli -Pot -Pot 0-14 10-24 t} n-Pot Clavulanate Clavulanate 00:00: 00:00 Clavulanat 875-125 MG 875-125 MG 00 :00 e 875-125 MG Amoxicillin Amoxicillin 2021-06- No 1{table BID Amoxicilli -Pot -Pot 0-14 10-24 t} n-Pot Clavulanate Clavulanate 00:00: 00:00 Clavulanat 875-125 MG 875-125 MG 00 :00 e 875-125 MG gabapentin 2021-06 Yes = 1 cap, Mem oria 300 mg oral 0-11 PO, Daily, l capsule 16:32: # 30 [place] 00 unknown unit, 5 Refill(s), Pharmacy: [facility] STORE [id number], 160.02, cm, 10/21/21 10:53:00 CDT, Height, 133.636, kg, 10/21/21 10:53:00 CDT, Weight Benzonatate Benzonatate 2021-06- No 1{capsu Benzonatat 200 MG 200 MG 0-04-05 le_as_n e 200 MG 00:00: 00:00 eeded} 00 :00 Benzonatate Benzonatate 2021-06- No 1{capsu Benzonatat 200 MG 200 MG 0-04-05 le_as_n e 200 MG 00:00: 00:00 eeded} 00 :00 Benzonatate Benzonatate 2021-06- No 1{capsu Benzonatat 200 MG 200 MG 0-04-05 le_as_n e 200 MG 00:00: 00:00 eeded} 00 :00 Benzonatate Benzonatate 2021-06- No 1{capsu Benzonatat 200 MG 200 MG 0-03 10-17 le_as_n e 200 MG 00:00: 00:00 eeded} 00 :00 Escitalopra Escitalopra No 1{table QD Escitalopr m Oxalate m Oxalate 8-09 t} am Oxalate 20 MG 20 MG 00:00: 20 MG 00 Escitalopra Escitalopra 2-0 No 1{table QD Escitalopr m Oxalate m Oxalate 8-09 t} am Oxalate 20 MG 20 MG 00:00: 20 MG 00 Escitalopra Escitalopra 2021-0 No 1{table QD Escitalopr m Oxalate m Oxalate 7-08 t} am Oxalate 10 MG 10 MG 00:00: 10 MG 00 Escitalopra Escitalopra 2021-0 No 1{table QD Escitalopr m Oxalate m Oxalate 7-08 t} am Oxalate 10 MG 10 MG 00:00: 10 MG 00 Escitalopra Escitalopra 2-0 No 1{table QD Escitalopr m Oxalate m Oxalate 7-08 t} am Oxalate 10 MG 10 MG 00:00: 10 MG 00 Escitalopra Escitalopra 2021-0 No 1{table QD Escitalopr m Oxalate m Oxalate 7-08 t} am Oxalate 20 MG 20 MG 00:00: 20 MG 00 Lidocaine Lidocaine 2-0 No 10mg Com 09-16 Spirit 00:00: - [facility]I 00 [facility] Kenalog Kenalog 2-0 No 40mg Common (Triamcinol (Triamcinol 3-30 S pirit one) one) 00:00: - [facility] Lidocaine Lidocaine 2-0 No 10mg Com 09-16 Spirit 00:00: - [facility]I 00 [facility] Kenalog Kenalog 2-0 No 40mg Common (Triamcinol (Triamcinol 3-30 S pirit one) one) 00:00: - CHI 00 [facility] Lidocaine Lidocaine 2-0 No 10mg Com 09-16 Spirit 00:00: - [facility]I 00 [facility] Kenalog Kenalog 2-0 No 40mg Common (Triamcinol (Triamcinol 3-30 S pirit one) one) 00:00: - CHI 00 [facility] Lidocaine Lidocaine 2-0 No 10mg Com 09-16 Spirit 00:00: - [facility] Kenalog Kenalog 2-0 No 40mg Common (Triamcinol (Triamcinol 3-30 S pirit one) one) 00:00: - [facility] Lidocaine Lidocaine 2-0 No 10mg Com mon 3-30 Spirit 00:00: - [facility] Kenalog Kenalog 2-0 No 40mg Common (Triamcinol (Triamcinol 3-30 S pirit one) one) 00:00: - CHI 00 [facility] Lidocaine Lidocaine 2-0 No 10mg Com mon 330 Spirit 00:00: - [facility]I 00 [facility] Kenalog Kenalog 2-0 No 40mg Common (Triamcinol (Triamcinol 3-30 S pirit one) one) 00:00: - [facility]I 00 [facility] Lidocaine Lidocaine 2-0 No 10mg Com mon 330 [facility] 00:00: - [facility] Kenalog Kenalog 2-0 No 40mg Common (Triamcinol (Triamcinol 3-30 S pirit one) one) 00:00: - [facility] Lidocaine Lidocaine 2-0 No 10mg Com tue 3 Spirit 00:00: - [facility] Kenalog Kenalog 2-0 No 40mg Common (Triamcinol (Triamcinol 3-30 S pirit one) one) 00:00: - [facility] Lidocaine Lidocaine 2-0 No 10mg Com mon 330 [facility] 00:00: - [facility] Kenalog Kenalog 2-0 No 40mg Common (Triamcinol (Triamcinol 3-30 S pirit one) one) 00:00: - [facility] Lidocaine Lidocaine 2-0 No 10mg Com mon 330 [facility] 00:00: - CHI 00 [facility] Kenalog Kenalog 2-0 No 40mg Common (Triamcinol (Triamcinol 3-30 S pirit one) one) 00:00: - [facility] Lidocaine Lidocaine 2022-0 No 10mg Com mon 330 [facility] 00:00: - CHI 00 [facility] Kenalog Kenalog 2-0 No 40mg Common (Triamcinol (Triamcinol 3-30 S pirit one) one) 00:00: - [facility] Lidocaine Lidocaine 2022-0 No 10mg Com mon 3-30 Spirit 00:00: - [facility] Kenalog Kenalog 2021-0 No 40mg Common (Triamcinol (Triamcinol 3-30 S pirit one) one) 00:00: - [facility] Lidocaine Lidocaine 2021-0 No 10mg Com 09-16 Spirit 00:00: - [facility] Kenalog Kenalog 2021-0 No 40mg Common (Triamcinol (Triamcinol 3-30 S pirit one) one) 00:00: - [facility] Lidocaine Lidocaine 2021-0 No 10mg Com 09-16 Spirit 00:00: - [facility] Kenalog Kenalog 2021-0 No 40mg Common (Triamcinol (Triamcinol 3-30 S pirit one) one) 00:00: - [facility] Lidocaine Lidocaine 2-0 No 10mg Com 09-16 Spirit 00:00: - [facility] Kenalog Kenalog 2021-0 No 40mg Common (Triamcinol (Triamcinol 3-30 S pirit one) one) 00:00: - [facility] Lidocaine Lidocaine 2021-0 No 10mg Com 09-16 Spirit 00:00: - [facility] Kenalog Kenalog 2021-0 No 40mg Common (Triamcinol (Triamcinol 3-30 S pirit one) one) 00:00: - [facility] gabapentin 2021-0 Yes = 1 cap, Mem oria 300 MG Oral 3-21 PO, Daily, l Capsule 16:35: # 30 cap, Elma nn 00 5 Refill(s), Pharmacy: [facility] cy #[id number], 160.02, cm, 09/07/21 11:05:00 CDT, Height, 134.205, kg, 09/07/21 11:05:00 CDT, Weight oxybutynin Yes TAKE 1 Memor ia 5 mg oral 3-21 TABLET BY l tablet 16:29: MOUTH [place] 00 EVERY DAY losartan 25 2021- Yes TAKE 1/2 Me moria mg oral 3-21 TABLET BY l tablet 16:29: MOUTH Deshawn 00 DAILY Docusate Yes 50 mg = 1 Francesco koko Sodium 50 3-21 cap, PO, l MG Oral 16:29: BID, 0 [place] Capsule 00 Refill(s) [Colace] Vitamin C 0 Yes Daily, 0 Francesco koko 3-21 Refill(s) l 16:29: [place] 00 Colace 50 Yes 50 mg = 1 Mem oria mg oral 3-21 cap, PO, l capsule 16:29: BID, 0 [place] 00 Refill(s) lubiproston Yes 24 Memori a e 0.024 MG 3-21 microgram l Oral 16:28: = 1 cap, Deshawn Capsule 00 PO, BID, # [Amitiza] 60 cap, 0 Refill(s) 24 HR Yes 2.5 mg = 1 Memori a Glipizide 3-21 tab, PO, l 2.5 MG 16:28: Breakfast, Elma nn Extended 00 # 30 tab, Release 1 Tablet Refill(s) Niacin Yes PO, 0 Memoria 3-21 Refill(s) l 16:28: [place] 00 Amitiza 24 0 Yes 24 Memoria mcg oral 3-21 microgram l capsule 16:28: = 1 cap, Constantine n 00 PO, BID, # 60 cap, 0 Refill(s) glipiZIDE Yes 2.5 mg = 1 Me moria 2.5 mg oral 3-21 tab, PO, l tablet, 16:28: Breakfast, Herm johnny extended 00 # 30 tab, release 1 Refill(s) niacin 0 Yes PO, 0 Memoria 3-21 Refill(s) l 16:28: Deshawn 00 Esomeprazol Yes 0 Memori a e 3-21 Refill(s) l 16:27: [place] esomeprazol 0 Yes 0 Memori a e 3-21 Refill(s) l 16:27: [place] 00 ondansetron Yes 4 mg = 1 Me moria 4 mg oral 3-21 tab, PO, l tablet 16:26: BID, # 10 Constantine n 00 tab, 0 Refill(s) Claritin 2-0 Yes Daily, 0 Memor ia 3-21 Refill(s) l 16:26: [place] 00 spironolact 2-0 Yes 50 mg = 1 M emoria one 50 mg 3-21 tab, PO, l oral tablet 16:26: Daily, # He rmann 00 30 tab, 1 Refill(s) Claritin 2022-0 Yes Daily, 0 Memor ia 3-21 Refill(s) l 16:26: [place] 00 Lidocaine Lidocaine 2-0 No 10mg Com tue 2 Spirit 00:00: - [facility] Kenalog Kenalog 2-0 No 40mg Common (Triamcinol (Triamcinol 2-24 S pirit one) one) 00:00: - [facility] Lidocaine Lidocaine 2-0 No 10mg Com 08-13 Spirit 00:00: - [facility] Kenalog Kenalog 2-0 No 40mg Common (Triamcinol (Triamcinol 2-24 S pirit one) one) 00:00: - [facility] Lidocaine Lidocaine 2-0 No 10mg Com 08-13 Spirit 00:00: - [facility] Kenalog Kenalog 2-0 No 40mg Common (Triamcinol (Triamcinol 2-24 S pirit one) one) 00:00: - [facility] Lidocaine Lidocaine 2-0 No 10mg Com 08-13 Spirit 00:00: - [facility] Kenalog Kenalog 2-0 No 40mg Common (Triamcinol (Triamcinol 2-24 S pirit one) one) 00:00: - [facility] Lidocaine Lidocaine 2-0 No 10mg Com 08-13 Spirit 00:00: - [facility] Kenalog Kenalog 2-0 No 40mg Common (Triamcinol (Triamcinol 2-24 S pirit one) one) 00:00: - [facility] Lidocaine Lidocaine 2022-0 No 10mg Com mon 2 Spirit 00:00: - [facility] Kenalog Kenalog 2-0 No 40mg Common (Triamcinol (Triamcinol 2-24 S pirit one) one) 00:00: - CHI 00 [facility] Lidocaine Lidocaine 2-0 No 10mg Com mon 2-24 Spirit 00:00: - CHI 00 [facility] Kenalog Kenalog 2-0 No 40mg Common (Triamcinol (Triamcinol 2-24 S pirit one) one) 00:00: - CHI 00 [facility] Lidocaine Lidocaine 2022-0 No 10mg Com mon 2-24 Spirit 00:00: - CHI 00 [facility] Kenalog Kenalog 2-0 No 40mg Common (Triamcinol (Triamcinol 2-24 S pirit one) one) 00:00: - CHI 00 [facility] Lidocaine Lidocaine 2-0 No 10mg Com mon 2- Spirit 00:00: - [facility] Kenalog Kenalog 2-0 No 40mg Common (Triamcinol (Triamcinol 2-24 S pirit one) one) 00:00: - CHI 00 [facility] Lidocaine Lidocaine 2-0 No 10mg Com mon 2- Spirit 00:00: - CHI 00 [facility] Kenalog Kenalog 2-0 No 40mg Common (Triamcinol (Triamcinol 2-24 S pirit one) one) 00:00: - CHI 00 [facility] Lidocaine Lidocaine 2-0 No 10mg Com mon 2-24 Spirit 00:00: - CHI 00 [facility] Kenalog Kenalog 2-0 No 40mg Common (Triamcinol (Triamcinol 2-24 S pirit one) one) 00:00: - CHI 00 [facility] Lidocaine Lidocaine 2-0 No 10mg Com mon 2-24 Spirit 00:00: - [facility] Kenalog Kenalog 2-0 No 40mg Common (Triamcinol (Triamcinol 2-24 S pirit one) one) 00:00: - CHI 00 [facility] Lidocaine Lidocaine 2022-0 No 10mg Com mon 2-24 Spirit 00:00: - CHI 00 [facility] Kenalog Kenalog 2-0 No 40mg Common (Triamcinol (Triamcinol 2-24 S pirit one) one) 00:00: - CHI 00 [facility] Lidocaine Lidocaine 2-0 No 10mg Com mon 08-13 Spirit 00:00: - CHI 00 [facility] Kenalog Kenalog 2021-0 No 40mg Common (Triamcinol (Triamcinol 2-24 S pirit one) one) 00:00: - [facility] Lidocaine Lidocaine 2-0 No 10mg Com 08-13 Spirit 00:00: - CHI 00 [facility] Kenalog Kenalog 2021-0 No 40mg Common (Triamcinol (Triamcinol 2-24 S pirit one) one) 00:00: - CHI 00 [facility] Lidocaine Lidocaine 2-0 No 10mg Com 08-13 Spirit 00:00: - [facility] Kenalog Kenalog 2021-0 No 40mg Common (Triamcinol (Triamcinol 2-24 S pirit one) one) 00:00: - CHI 00 [facility] Lidocaine Lidocaine 2-0 No 10mg Com 08-13 Spirit 00:00: - CHI 00 [facility] Kenalog Kenalog 2021-0 No 40mg Common (Triamcinol (Triamcinol 2-24 S pirit one) one) 00:00: - CHI 00 [facility] Lidocaine Lidocaine 2-0 No 10mg Com 08-13 Spirit 00:00: - [facility] Kenalog Kenalog 2021-0 No 40mg Common (Triamcinol (Triamcinol 2-24 S pirit one) one) 00:00: - CHI 00 [facility] cetirizine, 2021-0 Yes 10mg Take 10 mg [facility] ZYRTEC, 10 2-22 by mouth Colle ge MG tablet 13:10: daily. of 30 Medicin e aspirin 81 2021-0 Yes 81mg Take 81 mg B aylor MG tablet 2-22 by mouth Colleg e 13:10: daily. of 30 Medicin e oxybutynin 2021-0 Yes 5mg Take 5 mg Ba ylor (DITROPAN) 2-22 by mouth 3 Col lege 5 MG tablet 13:10: times of 30 daily. Medicin e albuterol Yes 2{puff} 2 Puffs by [facility] 108 (90 2-22 Inhalation Colleg e base) 13:10: -By Mouth of mcg/act 30 route Medicin inhaler every 6 e hours as needed. cyanocobala Yes 500ug Take 500 B aylor min 500 MCG 2-22 mcg by Colleg e tablet 13:10: mouth of 30 daily. Medicin e Ferrous Yes Take by [facility] Sulfate 142 2-22 mouth. Colleg e (45 Fe) MG 13:10: of TBCR 30 Medicin e ondansetron Yes 4mg Take 4 mg B aylor (ZOFRAN) 4 2-22 by mouth. [facility] MG tablet 13:10: of 30 Medicin e niacin 500 Yes 500mg Take 500 Ba ylor MG tablet 2-22 mg by Cataract 13:10: mouth. of 30 Medicin e Cholecalcif Yes 2000U Take 2,000 [facility] kaitlynn 50 MCG 2-22 Units by [facility] (1999 [place]) 13:10: mouth. of TABS 30 Medicin e Insulin Yes Inject [facility] Detemir 2- into the College (LEVEMIR 13:10: skin. of FLEXTOUCH) 30 Medicin 100 UNIT/ML e SOPN [place] Yes TAKE 1 Bayl or e 24 MCG 2-09 CAPSULE BY Disha ge CAPS 00:00: MOUTH of 00 TWICE A Medicin DAY e nystatin-tr Yes APPLY Baylo r iamcinolone 1-12 DAILY TO Carson ramone (MYCOLOG) 00:00: SKIN TO of ointment 00 AFFECTED Medicin AREA TWICE e A DAY FOR 30 DAYS cetirizine, 0 Yes 10mg Take 10 mg Robin ZYRTEC, 10 1-11 by mouth Colle ge MG tablet 13:29: daily. of 36 Medicin e aspirin 81 Yes 81mg Take 81 mg B aylor MG tablet 1-11 by mouth Colleg e 13:29: daily. of 36 Medicin e oxybutynin Yes 5mg Take 5 mg Ba ylor (DITROPAN) 1-11 by mouth 3 [facility] 5 MG tablet 13:29: times of 36 daily. Medicin e albuterol Yes 2{puff} 2 Puffs by [facility] 108 (90 -11 Inhalation [facility] [employer]) 13:29: -By Mouth of mcg/act 36 route Medicin inhaler every 6 e hours as needed. cyanocobala Yes 500ug Take 500 [facility] min 500 MCG -11 mcg by [facility] e tablet 13:29: mouth of 36 daily. Medicin e Ferrous Yes Take by [facility] Sulfate 142 11 mouth. Dishag e (45 Fe) MG 13:29: of TBCR 36 Medicin e ondansetron Yes 4mg Take 4 mg [facility] (ZOFRAN) 4 11 by mouth. [facility] MG tablet 13:29: of 36 Medicin e niacin 500 Yes 500mg Take 500 [facility] MG tablet 11 mg by [facility] 13:29: mouth. of 36 Medicin e Cholecalcif Yes 2000U Take 2,000 [facility] kaitlynn 50 MCG -11 Units by [facility] egnevin (1999 UT) 13:29: mouth. of TABS 36 Medicin e Insulin Yes Inject [facility] Detemir 11 into the College (LEVEMIR 13:29: skin. of FLEXTOUCH) 36 Medicin 100 UNIT/ML e SOPN atenolol 2021- No 100mg Take 100 [place] lori (TENORMIN) 06-30 mg by [facility] 100 MG 13:29: 00:00 mouth of tablet 21 :00 daily. Medicin e ascorbic 2021- No 500mg Take 500 [place] lori acid 500 [facility] 00:00 mouth of 18 :00 daily. Medicin e fenofibrate 2021- No 145mg Take 145 [facility] (TRICOR) 06-3011 mg by [facility] 145 MG 13:28: 00:00 mouth of tablet 23 :00 daily. Medicin e pioglitazon 2021-2021- No 30mg Take 30 mg [facility] e (ACTOS) 1-11 01-11 by mouth [facility]le [facility] 30 MG 13:28: 00:00 daily. of tablet 05 :00 Medicin e lorazepam 2021- No .5mg Take 0.5 [place] lori (ATIVAN) 06-30 mg by College 0.5 MG 13:25: 00:00 mouth of tablet 27 :00 every 8 Medicin hours as e needed. losartan 2020-06 Yes [facility] (COZAAR) 25 2-02 [facility] MG tablet 00:00: of 00 Medicin e losartan 2020-06 Yes [facility] (COZAAR) 25 2-02 [facility] MG tablet 00:00: of 00 Medicin e acetaminoph 2020-06 Yes [facility] en-codeine 2 [facility] (TYLENOL 00:00: of #3) 300-30 00 Medicin MG per e tablet acetaminoph 2020-06 Yes [facility] en-codeine 07-21 [facility] (TYLENOL 00:00: of #3) 300-30 00 Medicin MG per e tablet esomeprazol 2020-06- No 40mg Take 40 mg [facility] e (NEXIUM) 07-19 11-30 by mouth [facility] 40 MG 13:51: 00:00 every of capsule 18 :00 morning Medicin (before e breakfast) . zolpidem 2020-06- No 10mg Take 10 mg [facility] (AMBIEN) 10 07-19 11-30 by mouth [facility] MG tablet 13:28: 00:00 nightly as o f 02 :00 needed. Medicin e pioglitazon 2020-06 Yes 30mg Take 30 mg [facility] e (ACTOS) 1-30 by mouth Colleg e 30 MG 13:27: daily. of tablet 40 Medicin e cetirizine, 2020-06 Yes 10mg Take 10 mg [facility] ZYRTEC, 10 1-30 by mouth Colle [facility] MG tablet 13:27: daily. of 40 Medicin e atenolol 2020-06 Yes 100mg Take 100 [facility] (TENORMIN) 1-30 mg by [facility] 100 MG 13:27: mouth of tablet 40 daily. Medicin e aspirin 81 2020-06 Yes 81mg Take 81 mg [facility] MG tablet 1-30 by mouth Colleg e 13:27: daily. of 40 Medicin e fenofibrate 2020-06 Yes 145mg Take 145 [facility] (TRICOR) 1-30 mg by [facility] 145 MG 13:27: mouth of tablet 40 daily. Medicin e oxybutynin 2020-06 Yes 5mg Take 5 mg [facility] (DITROPAN) 1-30 by mouth 3 [facility] 5 MG tablet 13:27: times of 40 daily. Medicin e albuterol 2020-06 Yes 2{puff} 2 Puffs by [facility] 108 (90 1-30 Inhalation [facility] [employer]) 13:27: -By Mouth of mcg/act 40 route Medicin inhaler every 6 e hours as needed. cyanocobala 2020-06 Yes 500ug Take 500 [facility] min 500 MCG 1-30 mcg by [facility] e tablet 13:27: mouth of 40 daily. Medicin e lorazepam 2020-06 Yes .5mg Take 0.5 [facility] (ATIVAN) 1-30 mg by [facility] 0.5 MG 13:27: mouth of tablet 40 every 8 Medicin hours as e needed. ascorbic 2020-06 Yes 500mg Take 500 [facility] acid 500 MG 1-30 mg by [facility] tablet 13:27: mouth of 40 daily. Medicin e Ferrous 2020-06 Yes Take by [facility] Sulfate 142 1-30 mouth. Disha nevin (45 Fe) MG 13:27: of TBCR 40 Medicin e ondansetron 2020-06 Yes 4mg Take 4 mg [facility] (ZOFRAN) 4 1-30 by mouth. [place] [facility] MG tablet 13:27: of 40 Medicin e niacin 500 2020-06 Yes 500mg Take 500 [facility] MG tablet 1-30 mg by [facility] 13:27: mouth. of 40 Medicin e Cholecalcif 2020-06 Yes 2000U Take 2,000 [facility] kaitlynn 50 MCG 1-30 Units by [facility] argueta (1999 [place]) 13:27: mouth. of TABS 40 Medicin e Insulin 2020-06 Yes Inject [facility] Detemir 1-30 into the [facility] (LEVEMIR 13:27: skin. of FLEXTOUCH) 40 Medicin 100 UNIT/ML e SOPN Insulin 2020-06 Yes Inject [facility] Detemir 0-21 into the [facility] (LEVEMIR 14:26: skin. of FLEXTOUCH) 34 Medicin 100 UNIT/ML e SOPN Cholecalcif 2020-06 Yes 2000U Take 2,000 [facility] kaitlynn 50 MCG 0-21 Units by [facility] (1999) 14:25: mouth. of TABS 54 Medicin e pioglitazon 2020-06 Yes 30mg Take 30 mg [facility] e (ACTOS) 0-21 by mouth Colleg e 30 MG 14:25: daily. of tablet 54 Medicin e cetirizine 2020-06 Yes 10mg Take 10 mg [facility] (ZYRTEC) 10 0-21 by mouth [facility] MG tablet 14:25: daily. of 54 Medicin e atenolol 2020-06 Yes 100mg Take 100 [facility] (TENORMIN) 0-21 mg by [facility] 100 MG 14:25: mouth of tablet 54 daily. Medicin e aspirin 81 2020-06 Yes 81mg Take 81 mg [facility] MG tablet 0-21 by mouth Colleg e 14:25: daily. of 54 Medicin e esomeprazol 2020-06 Yes 40mg Take 40 mg [facility] e (NEXIUM) 0-21 by mouth Colle [facility] 40 MG 14:25: every of capsule 54 morning Medicin (before e breakfast) . fenofibrate 2020-06 Yes 145mg Take 145 [facility] (TRICOR) 0-21 mg by [facility] 145 MG 14:25: mouth of tablet 54 daily. Medicin e oxybutynin 2020-06 Yes 5mg Take 5 mg [facility] (DITROPAN) 0-21 by mouth 3 [facility] 5 MG tablet 14:25: times of 54 daily. Medicin e albuterol 2020-06 Yes 2{puff} 2 Puffs by [facility] (PROAIR 0-21 Inhalation [facility] HFA) 108 14:25: -By Mouth of (90 BASE) 54 route Medicin MCG/ACT every 6 e inhaler hours as needed. zolpidem 2020-06 Yes 10mg Take 10 mg [place] lori (AMBIEN) 10 0-21 by mouth [facility] MG tablet 14:25: nightly as of 54 needed. Medicin e cyanocobala 2020-06 Yes 500ug Take 500 [facility] min (B-12) 0-21 mcg by [facility] 500 MCG 14:25: mouth of tablet 54 daily. Medicin e lorazepam 2020-06 Yes .5mg Take 0.5 [facility] (ATIVAN) 0-21 mg by [facility] 0.5 MG 14:25: mouth of tablet 54 every 8 Medicin hours as e needed. ascorbic 2020-06 Yes 500mg Take 500 [facility] acid 500 MG 0-21 mg by College tablet 14:25: mouth of 54 daily. Medicin e Ferrous 2020-06 Yes Take by [facility] Sulfate 0-21 mouth. College (SLOW FE) 14:25: of 142 (45 FE) 54 Medicin MG TBCR e ondansetron 2020-06 Yes 4mg Take 4 mg [facility] (ZOFRAN) 4 0-21 by mouth. [facility] MG tablet 14:25: of 54 Medicin e niacin 500 2020-06 Yes 500mg Take 500 [facility] MG tablet 0-21 mg by [facility] 14:25: mouth. of 54 Medicin e aspirin 2020-06 Yes QD daily . [facility] (Aspir-81) 0-15 [facility] 81 MG EC 19:08: Medical tablet 12 [place] carvediloL 2020-06 Yes 2 (two) [facility] (COREG) 25 0-15 times [facility] MG tablet 19:08: daily with Va dical 12 breakfast Center and dinner . gabapentin 2020-06 Yes 1{capsu QD [address] [facility] (NEURONTIN) 0-15 le} daily HS. [facility] 300 MG 19:08: Medical capsule 12 [facility] insulin 2020-06 Yes QD Inject [facility] detemir 0-15 subcutaneo [facility] U-100 19:08: [facility] Medical (LEVEMIR) 12 nightly SS Cent er 100 unit/mL BID (3 mL) InPn usually injection 30-40 units BID . ondansetron 2020-06 Yes 4mg Take [address] (ZOFRAN) 4 0-15 by mouth 2 [facility] MG tablet 19:08: (two) Medical 12 times [facility] daily as needed for Nausea. atorvastati 2020-06 Yes 80mg QD Take [address] [facility] n (LIPITOR) 0-15 by mouth [facility] 80 MG 19:08: daily. Medical tablet 12 [facility] liraglutide 2020-[address] [facility] 0.6 mg/0.1 0-15 subcutaneo [facility] es mL (18 mg/3 19:08: usly 1.8 Me dical mL) PnIj 12 mg daily . Cente r fluticasone 2020-06 Yes 2{spray QD [address] [facility] (VERAMYST) 0-15 } by Nasal [facility] 27.5 19:08: route Medical mcg/actuati 12 daily. Center on nasal spray levocetiriz 2020-06 Yes 5mg QD Take [address] ine (XYZAL) 0-15 by mouth Luke s 5 MG tablet 19:08: every Medic al 12 evening. [facility] oxybutynin 2020-06 Yes 5mg QD Take [address] [facility] [address] [facility] (DITROPAN-X 0-15 by mouth [facility] L) 5 MG 24 19:08: daily. Medic al hr tablet 12 [facility] esomeprazol 2020-06 Yes 40mg QD Take [address] [facility] e (NexIUM) 0-15 by mouth [facility] 40 MG 19:08: daily. Medical capsule 12 [facility] ezetimibe 2020-06 Yes 10mg QD Take [address] [facility] [address] [facility] (ZETIA) 10 0-15 by mouth [facility] mg tablet 19:08: daily. Medica l 12 [facility] lubiproston 2020-06 Yes 24ug Q.5D Take [address] [facility] e (AMITIZA) 0-15 mcg by [facility] 24 MCG 19:08: mouth 2 Medical capsule 12 (two) Center times daily. ferrous 2020-06 Yes 325mg Take 325 [facility] sulfate 325 0-15 mg by [facility] (65 FE) MG 19:08: mouth Medica l tablet 12 daily with Center breakfast. acetaminoph 2020-06 Yes 1{tbl} Take [address] [facility] [address] [facility] en-codeine 0-15 tablet by Luke [facility] (TYLENOL 19:08: mouth Medical #3) 300-30 12 every 6 Center mg per (six) tablet hours as needed for Pain (Q 12 PRN). TiZANidine 2020-06 Yes 4mg QD Take [address] [facility] [address] [facility] (ZANAFLEX) 0-15 by mouth [facility] 4 MG 19:08: daily HS . Medical capsule 12 [place] niacin 250 2020-06 Yes 250mg Take [address] [facility] MG tablet 0-15 mg by [facility] 19:08: mouth Medical 12 daily with Center breakfast. docusate 2020-06 Yes 50 Q.5D Take by [facility] sodium 0-15 mouth 2 [facility] (COLACE) 50 19:08: (two) Medic al MG capsule 12 times Center daily. cholecalcif 2020-06 Yes QD Take by [facility] kaitlynn, 0-15 mouth [facility] vitamin D3, 19:08: daily. Medi althea 50 mcg 12 Center (2,000 unit) Cap ascorbic 2020-06 Yes 500mg QD Take [address] [facility] acid, 0-15 mg by [facility] vitamin C, 19:08: mouth Medica l (VITAMIN C) 12 daily. Center 500 MG tablet aspirin 2020-06 Yes QD daily . [facility] (Aspir-81) 0-15 [facility] 81 MG EC 19:08: Medical tablet 12 [facility] carvediloL 2020-06 Yes 2 (two) [facility] (COREG) 25 0-15 times [facility] MG tablet 19:08: daily with Me dical 12 breakfast Center and dinner . gabapentin 2020-06 Yes 1{capsu QD [address] [facility] (NEURONTIN) 0-15 le} daily HS. [facility] 300 MG 19:08: Medical capsule 12 [facility] insulin 2020-06 Yes QD Inject [facility] detemir 0-15 subcutaneo [facility] U-100 19:08: usly Medical (LEVEMIR) 12 nightly SS Cent er 100 unit/mL BID (3 mL) InPn usually injection 30-40 units BID . ondansetron 2020-06 Yes 4mg Take [address] (ZOFRAN) 4 0-15 by mouth 2 [facility] MG tablet 19:08: (two) Medical 12 times Center daily as needed for Nausea. atorvastati 2020-06 Yes 80mg QD Take [address] [facility] n (LIPITOR) 0-15 by mouth [facility] 80 MG 19:08: daily. Medical tablet 12 Center liraglutide 2020-[address] [facility] 0.6 mg/0.1 0-15 subcutaneo [facility] mL (18 mg/3 19:08: usly 1.8 Me dical mL) PnIj 12 mg daily . Cente r fluticasone 2020-06 Yes 2{spray QD [address] [facility] (VERAMYST) 0-15 } by Nasal [facility] 27.5 19:08: route Medical mcg/actuati 12 daily. Center on nasal spray levocetiriz 2020-06 Yes 5mg QD Take [address] ine (XYZAL) 0-15 by mouth Luke s 5 MG tablet 19:08: every Medic al 12 evening. [facility] oxybutynin 2020-06 Yes 5mg QD Take [address] [facility] [address] [facility] (DITROPAN-X 0-15 by mouth Luke s L) 5 MG 24 19:08: daily. Medic al hr tablet 12 [facility] esomeprazol 2020-06 Yes 40mg QD Take [address] [facility] e (NexIUM) 0-15 by mouth [facility] 40 MG 19:08: daily. Medical capsule 12 [facility] ezetimibe 2020-06 Yes 10mg QD Take [address] [facility] [address] [facility] (ZETIA) 10 0-15 by mouth [facility] mg tablet 19:08: daily. Medica l 12 [facility] lubiproston 2020-06 Yes 24ug Q.5D Take [address] [facility] e (AMITIZA) 0-15 mcg by [facility] 24 MCG 19:08: mouth 2 Medical capsule 12 (two) Center times daily. ferrous 2020-06 Yes 325mg Take 325 [facility] sulfate 325 0-15 mg by [facility] (65 FE) MG 19:08: mouth Medica l tablet 12 daily with Center breakfast. acetaminoph 2020-06 Yes 1{tbl} Take [address] [facility] [address] [facility] en-codeine 0-15 tablet by Luke s (TYLENOL 19:08: mouth Medical #3) 300-30 12 every 6 Center mg per (six) tablet hours as needed for Pain (Q 12 PRN). TiZANidine 2020-06 Yes 4mg QD Take [address] [facility] [address] [facility] (ZANAFLEX) 0-15 by mouth [facility] 4 MG 19:08: daily HS . Medical capsule 12 [place] niacin 250 2020-06 Yes 250mg Take [address] MG tablet 0-15 mg by [facility] 19:08: mouth Medical 12 daily with Center breakfast. docusate 2020-06 Yes 50 Q.5D Take by [facility] sodium 0-15 mouth 2 [facility] (COLACE) 50 19:08: (two) Medic al MG capsule 12 times Center daily. cholecalcif 2020-06 Yes QD Take by [facility] kait[facility]nn, 0-15 mouth [facility] vitamin D3, 19:08: daily. Medi althea 50 mcg 12 Center (2,000 unit) Cap ascorbic 2020-06 Yes 500mg QD Take [address] [facility] acid, 0-15 mg by [facility] vitamin C, 19:08: mouth Medica l (VITAMIN C) 12 daily. Center 500 MG tablet hydrocodone 2020-06 Yes [id number] Take 1 tab [facility] -acetaminop 0-15 by mouth [facility] hen ([place]) 00:00: every 6 of 7.5-325 MG 00 hours as Medic in per tablet needed for e pain. promethazin 2020-06 Yes [id number] 25mg Take 1 [facility] e 0-15 Tablet by [facility] (PHENERGAN) 00:00: mouth of 25 MG 00 every 6 Medicin tablet hours as e needed. hydrocodone 2020-06 Yes [id number] Take 1 tab [facility] -acetaminop 0-15 by mouth [facility] hen ([place]) 00:00: every 6 of 7.5-325 MG 00 hours as Medic in per tablet needed for e pain. promethazin 2020-06 Yes [id number] 25mg Take 1 [facility] e 0-15 Tablet by [facility] (PHENERGAN) 00:00: mouth of 25 MG 00 every 6 Medicin tablet hours as e needed. hydrocodone 2020-06 Yes [id number] Take 1 tab [facility] -acetaminop 0-15 by mouth [facility] hen ([place]) 00:00: every 6 of 7.5-325 MG 00 hours as Medic in per tablet needed for e pain. promethazin 2020-06 Yes [id number] 25mg Take 1 [facility] e 0-15 Tablet by [facility] (PHENERGAN) 00:00: mouth of 25 MG 00 every 6 Medicin tablet hours as e needed. hydrocodone 2020-06 Yes [id number] Take 1 tab [facility] -acetaminop 0-15 by mouth [facility] hen (NORCO) 00:00: every 6 of 7.5-325 MG 00 hours as Medic in per tablet needed for e pain. promethazin 2020-06 Yes [id number] 25mg Take 1 [facility] e 0-15 Tablet by [facility] (PHENERGAN) 00:00: mouth of 25 MG 00 every 6 Medicin tablet hours as e needed. carvedilol 2020-06 Yes [facility] (COREG) 25 0-12 College MG tablet 00:00: of 00 Medicin e carvedilol 2020-06 Yes [facility] (COREG) 25 0-12 College MG tablet 00:00: of 00 Medicin e carvedilol 2020-06 Yes [facility] (COREG) 25 0-12 College MG tablet 00:00: of 00 Medicin e carvedilol 2020-06 Yes [facility] (COREG) 25 0-12 College MG tablet 00:00: of 00 Medicin e tizanidine 2020-06 Yes [facility] (ZANAFLEX) 0-07 College 4 MG tablet 00:00: of 00 Medicin e tizanidine 2020-06 Yes [facility] (ZANAFLEX) 0-07 College 4 MG tablet 00:00: of 00 Medicin e tizanidine 2020-06 Yes [facility] (ZANAFLEX) 0-07 [facility] 4 MG tablet 00:00: of 00 Medicin e tizanidine 2020-06 Yes [facility] (ZANAFLEX) 0-07 [facility] 4 MG tablet 00:00: of 00 Medicin e ondansetron 2020-06 Yes 4mg Take 4 mg [facility] (ZOFRAN) 4 0-05 by mouth. [facility] MG tablet 15:10: of 49 Medicin e niacin 500 2020-06 Yes 500mg Take 500 [facility] MG tablet 0-05 mg by College 15:10: mouth. of 49 Medicin e Cholecalcif 2020-06 Yes 2000U Take 2,000 [facility] kaitlynn 50 MCG 0-05 Units by [facility] (1999 [place]) 15:10: mouth. of TABS 49 Medicin e bumetanide 2020-06- No 1mg Take 1 mg [facility] (BUMEX) 1 0-05 10-05 by mouth Colle ge MG tablet 15:10: 00:00 daily. of 03 :00 Medicin e pioglitazon 2020-06 Yes 30mg Take 30 mg [facility] e (ACTOS) 0-05 by mouth Colleg e 30 MG 15:04: daily. of tablet 30 Medicin e cetirizine 2020-06 Yes 10mg Take 10 mg [facility] (ZYRTEC) 10 0-05 by mouth [facility] MG tablet 15:04: daily. of 30 Medicin e atenolol 2020-06 Yes 100mg Take 100 [facility] (TENORMIN) 0-05 mg by [facility] 100 MG 15:04: mouth of tablet 30 daily. Medicin e aspirin 81 2020-06 Yes 81mg Take 81 mg [facility] MG tablet 0-05 by mouth Colleg e 15:04: daily. of 30 Medicin e esomeprazol 2020-06 Yes 40mg Take 40 mg [facility] e (NEXIUM) 0-05 by mouth Colle ge 40 MG 15:04: every of capsule 30 morning Medicin (before e breakfast) . fenofibrate 2020-06 Yes 145mg Take 145 [facility] (TRICOR) 0-05 mg by College 145 MG 15:04: mouth of tablet 30 daily. Medicin e oxybutynin 2020-06 Yes 5mg Take 5 mg [facility] (DITROPAN) 0-05 by mouth 3 [facility] 5 MG tablet 15:04: times of 30 daily. Medicin e albuterol 2020-06 Yes 2{puff} 2 Puffs by [facility] (PROAIR 0-05 Inhalation Colleg [facility] HFA) 108 15:04: -By Mouth of (90 BASE) 30 route Medicin MCG/ACT every 6 e inhaler hours as needed. zolpidem 2020-06 Yes 10mg Take 10 mg [place] [facility] (AMBIEN) 10 0-05 by mouth [facility] MG tablet 15:04: nightly as of 30 needed. Medicin e cyanocobala 2020-06 Yes 500ug Take 500 [facility] min (B-12) 0-05 mcg by [facility] 500 MCG 15:04: mouth of tablet 30 daily. Medicin e lorazepam 2020-06 Yes .5mg Take 0.5 [facility] (ATIVAN) 0-05 mg by [facility] 0.5 MG 15:04: mouth of tablet 30 every 8 Medicin hours as e needed. ascorbic 2020-06 Yes 500mg Take 500 [facility] acid 500 MG 0-05 mg by [facility] tablet 15:04: mouth of 30 daily. Medicin e Ferrous 2020-06 Yes Take by [facility] Sulfate 0-05 mouth. College (SLOW FE) 15:04: of 142 (45 FE) 30 Medicin MG TBCR e ezetimibe 2020-06 Yes [facility] (ZETIA) 10 0-03 College MG tablet 00:00: of 00 Medicin e ezetimibe 2020-06 Yes [facility] (ZETIA) 10 0-03 College MG tablet 00:00: of Medicin e ezetimibe 2020-06 Yes [facility] (ZETIA) 10 0-03 College MG tablet 00:00: Medicin e ezetimibe 2020-06 Yes [facility] (ZETIA) 10 0-03 College MG tablet 00:00: Medicin e ezetimibe 2020-06 Yes [facility] (ZETIA) 10 0-03 College MG tablet 00:00: of 00 Medicin e spironolact Yes 1{tbl} QD Take [address] [facility] [address] [facility] one 9-26 tablet by [facility] (ALDACTONE) 00:00: mouth Medic al 50 MG 00 daily. Center tablet spironolact Yes 1{tbl} QD Take [address] [facility] one 9-26 tablet by [facility] (ALDACTONE) 00:00: mouth Medic al 50 MG 00 daily. Center tablet spironolact Yes TAKE 1 [facility] one 9-26 TABLET BY [facility] (ALDACTONE) 00:00: MOUTH of 50 MG 00 EVERY DAY Medicin tablet e spironolact Yes TAKE 1 [facility] one 9-26 TABLET BY [facility] (ALDACTONE) 00:00: MOUTH of 50 MG 00 EVERY DAY Medicin tablet e spironolact Yes TAKE 1 [facility] one 9-26 TABLET BY [facility] (ALDACTONE) 00:00: MOUTH of 50 MG 00 EVERY DAY Medicin tablet e spironolact Yes TAKE 1 [facility] one 9-26 TABLET BY [facility] (ALDACTONE) 00:00: MOUTH of 50 MG 00 EVERY DAY Medicin tablet e spironolact 0 Yes TAKE 1 [facility] one 9-26 TABLET BY [facility] (ALDACTONE) 00:00: MOUTH of 50 MG 00 EVERY DAY Medicin tablet e VICTOZA 18 Yes INJECT [facility] MG/3ML SOPN 9-23 1.8MG [facility] 00:00: DAILY of 00 SUBCUTANEO Medicin USLY ONCE e A DAY FOR 90 DAYS VICTOZA 18 Yes INJECT [facility] MG/3ML SOPN 9-23 1.8MG [facility] 00:00: DAILY of 00 SUBCUTANEO Medicin USLY ONCE e A DAY FOR 90 DAYS VICTOZA 18 Yes INJECT [facility] MG/3ML SOPN 9-23 1.8MG [facility] 00:00: DAILY of 00 SUBCUTANEO Medicin USLY ONCE e A DAY FOR 90 DAYS VICTOZA 18 Yes INJECT [facility] MG/3ML SOPN 9-23 1.8MG [facility] 00:00: DAILY of 00 SUBCUTANEO Medicin USLY ONCE e A DAY FOR 90 DAYS VICTOZA Yes INJECT [facility] MG/3ML SOPN 9-23 1.8MG [facility] 00:00: DAILY of 00 SUBCUTANEO Medicin USLY ONCE e A DAY FOR 90 DAYS atorvastati Yes TAKE 1 [facility] (LIPITOR) 8-31 TABLET BY Col [facility]ge 80 MG 00:00: MOUTH of tablet 00 EVERY DAY Medicin e bumetanide Yes TAKE 1 [facility] (BUMEX) 2 8-31 TABLET BY Colle ge MG tablet 00:00: MOUTH of 00 EVERY DAY Medicin e atorvastati Yes TAKE 1 [facility] (LIPITOR) 8-31 TABLET BY [facility] 80 MG 00:00: MOUTH of tablet 00 EVERY DAY Medicin e bumetanide Yes TAKE 1 [facility] (BUMEX) 2 8-31 TABLET BY Colle ge MG tablet 00:00: MOUTH of 00 EVERY DAY Medicin e atorvastati Yes TAKE 1 [facility] (LIPITOR) 8-31 TABLET BY [facility] 80 MG 00:00: MOUTH of tablet 00 EVERY DAY Medicin e bumetanide Yes TAKE 1 [facility] (BUMEX) 2 8-31 TABLET BY Colle ge MG tablet 00:00: MOUTH of 00 EVERY DAY Medicin e atorvastati Yes TAKE 1 [facility] (LIPITOR) 8-31 TABLET BY [facility] 80 MG 00:00: MOUTH of tablet 00 EVERY DAY Medicin e bumetanide Yes TAKE 1 [facility] (BUMEX) 2 8-31 TABLET BY Colle ge MG tablet 00:00: MOUTH of 00 EVERY DAY Medicin e atorvastati Yes TAKE 1 [facility] (LIPITOR) 8-31 TABLET BY Col [facility]ge 80 MG 00:00: MOUTH of tablet 00 EVERY DAY Medicin e bumetanide Yes TAKE 1 [facility] (BUMEX) 2 8-31 TABLET BY Colle ge MG tablet 00:00: MOUTH of 00 EVERY DAY Medicin e allopurinoL Yes 1{tbl} QD Take [address] [facility] [address] [facility] (ZYLOPRIM) 8-27 tablet by [facility] 100 MG 00:00: mouth Medical tablet 00 daily. [facility] allopurinoL Yes 1{tbl} QD Take [address] [facility] (ZYLOPRIM) 8-27 tablet by [facility] 100 MG 00:00: mouth Medical tablet 00 daily. [facility] allopurinol Yes TAKE 1 [facility] (ZYLOPRIM) 8-27 TABLET BY [facility] 100 MG 00:00: MOUTH of tablet 00 EVERY DAY Medicin e allopurinol Yes TAKE 1 [facility] (ZYLOPRIM) 8-27 TABLET BY [facility] 100 MG 00:00: MOUTH of tablet 00 EVERY DAY Medicin e allopurinol Yes TAKE 1 [facility] (ZYLOPRIM) 8-27 TABLET BY [facility] 100 MG 00:00: MOUTH of tablet 00 EVERY DAY Medicin e allopurinol Yes TAKE 1 [facility] (ZYLOPRIM) 8-27 TABLET BY [facility] 100 MG 00:00: MOUTH of tablet 00 EVERY DAY Medicin e allopurinol Yes TAKE 1 [facility] (ZYLOPRIM) 8-27 TABLET BY [facility] 100 MG 00:00: MOUTH of tablet 00 EVERY DAY Medicin e glipiZIDE Yes 1{tbl} Take [address] [facility] (GLUCOTROL 8-25 tablet by [facility] XL) 2.5 MG 00:00: mouth 2 [facility]i [facility]a 24 hr 00 (two) Center tablet times daily with breakfast and dinner. glipiZIDE Yes 1{tbl} Take [address] [facility] (GLUCOTROL 8-25 tablet by [facility] XL) 2.5 MG 00:00: mouth 2 Medi althea 24 hr 00 (two) Center tablet times daily with breakfast and dinner. glipiZIDE Yes TAKE 1 [facility] (GLUCOTROL) 8-25 TABLET BY Col [facility]ge 2.5 MG CR 00:00: MOUTH of tablet 00 TWICE A Medicin DAY WITH e FOOD glipiZIDE Yes TAKE 1 [facility] (GLUCOTROL) 8-25 TABLET BY Col [facility]ge 2.5 MG CR 00:00: MOUTH of tablet 00 TWICE A Medicin DAY WITH e FOOD glipiZIDE Yes TAKE 1 [facility] (GLUCOTROL) 8-25 TABLET BY Col [facility]ge 2.5 MG CR 00:00: MOUTH of tablet 00 TWICE A Medicin DAY WITH e FOOD glipiZIDE Yes TAKE 1 [facility] (GLUCOTROL) 8-25 TABLET BY Col [facility]ge 2.5 MG CR 00:00: MOUTH of tablet 00 TWICE A Medicin DAY WITH e FOOD glipiZIDE Yes TAKE 1 [facility] (GLUCOTROL) 8-25 TABLET BY Col lege 2.5 MG CR 00:00: MOUTH of tablet 00 TWICE A Medicin DAY WITH e FOOD esomeprazol Yes TAKE 1 [facility] (NEXIUM) 8-05 CAPSULE BY Col [facility]ge 40 MG 00:00: MOUTH of capsule 00 EVERY DAY Medicin e esomeprazol Yes TAKE 1 [facility] (NEXIUM) 8-05 CAPSULE BY Col [facility]ge 40 MG 00:00: MOUTH of capsule 00 EVERY DAY Medicin e esomeprazol Yes TAKE 1 [facility] (NEXIUM) 8-05 CAPSULE BY Col [facility] 40 MG 00:00: MOUTH of capsule 00 EVERY DAY Medicin e esomeprazol Yes TAKE 1 [facility] (NEXIUM) 8-05 CAPSULE BY Col [facility] 40 MG 00:00: MOUTH of capsule 00 EVERY DAY Medicin e esomeprazol Yes TAKE 1 [facility] (NEXIUM) 8-05 CAPSULE BY Col [facility] 40 MG 00:00: MOUTH of capsule 00 EVERY DAY Medicin e buPROPion Yes [address] [facility] (WELLBUTRIN 7-18 orally bid Sade kes SR) 150 MG 00:00: Medical 12 hr 00 Center tablet buPROPion Yes [address] [facility] (WELLBUTRIN 7-18 orally bid Sade kes SR) 150 MG 00:00: Medical 12 hr 00 Center tablet buPROPion Yes TAKE 1 [facility] (WELLBUTRIN 7-18 TABLET BY CHRISTIANA Baker) 00:00: MOUTH of 150 MG SR 00 TWICE A Medicin tablet DAY e buPROPion Yes TAKE 1 [facility] (WELLBUTRIN 7-18 TABLET BY CHRISTIANA Baker) 00:00: MOUTH of 150 MG SR 00 TWICE A Medicin tablet DAY e buPROPion Yes TAKE 1 [facility] (WELLBUTRIN 7-18 TABLET BY CHRISTIANA Baker) 00:00: MOUTH of 150 MG SR 00 TWICE A Medicin tablet DAY e buPROPion Yes TAKE 1 [facility] (WELLBUTRIN 7-18 TABLET BY CHRISTIANA Baker) 00:00: MOUTH of 150 MG SR 00 TWICE A Medicin tablet DAY e buPROPion Yes TAKE 1 [facility] (WELLBUTRIN 7-18 TABLET BY CHRISTIANA Baker) 00:00: MOUTH of 150 MG SR 00 TWICE A Medicin tablet DAY e Niacin Yes See Memoria 07-17 Instructio l 20:30: ns, PO, 0 Deshawn 00 Refill(s) Vitamin D3 Yes 1,000 Memori a 1000 intl 07-17 IntlUnit = l units oral 20:30: 1 cap, PO, H ermann capsule 00 Daily, # 100 cap, 0 Refill(s) ferrous Yes 325 mg = 1 Francesco koko sulfate 325 07-17 tab, PO, l mg oral 20:30: Daily, # [place] n enteric 00 30 tab, 0 coated Refill(s) tablet Vitamin D3 Yes 1,000 Memori a 1000 intl 07-17 IntlUnit = l units oral 20:30: 1 cap, PO, H ermann capsule 00 Daily, # 100 cap, 0 Refill(s) cetirizine Yes 10 mg = 1 Me moria hydrochlori 07-17 tab, PO, l de 10 MG 20:24: Daily, # Elma nn Oral Tablet 00 90 tab, 0 [Zyrtec] Refill(s) Fluticasone Yes 1 spray, Me moria propionate 07-17 NASAL, l 0.05 20:24: BID, # 16 Deshawn MG/ACTUAT 00 gm, 0 Metered Refill(s) Dose Nasal [place] [Flonase] 24 HR Yes 50 mg = 1 Memoria mirabegron 07-17 tab, PO, l 50 MG 20:24: Daily, # [place] Extended 00 30 tab, 0 Release Refill(s) Tablet [Myrbetriq] Esomeprazol Yes 40 mg = 1 M emoria e 40 MG 07-17 cap, PO, l Enteric 20:24: Daily, # [place] n Coated 00 30 cap, 0 Capsule Refill(s) Aspirin Yes 81 mg, PO, Francesco koko 07-17 Daily, 0 l 20:24: Refill(s) Deshawn 00 Docusate Yes 100 mg = 1 Mem oria Sodium 100 07-17 cap, PO, l MG Oral 20:24: BID, 0 [place] Capsule 00 Refill(s) [Colace] Flonase Yes 1 spray, Memori a 0.05 mg/inh 07-17 NASAL, l nasal spray 20:24: BID, # 16 H ermann 00 gm, 0 Refill(s) aspirin Yes 81 mg, PO, Francesco koko 07-17 Daily, 0 l 20:24: Refill(s) Deshawn 00 tizanidine 2019-06 Yes See Memoria 0-23 Instructio l 14:56: ns, 4 mg Deshawn 00 PO, 0 Refill(s) Acetaminoph 2019-06 Yes 1 tab, PO, Memoria en 300 MG / 0-23 PRN, 0 l Codeine 14:56: Refill(s) Elma nn Phosphate 00 30 MG Oral Tablet [Tylenol with Codeine #3] tizanidine 2019-06 Yes See Memoria 0-23 Instructio l 14:56: ns, 4 mg [place] 00 PO, 0 Refill(s) Tylenol 2019-06 Yes 1 tab, PO, Francesco koko with 0-23 PRN, 0 l Codeine #3 14:56: Refill(s) He rmann oral tablet 00 Allopurinol Allopurinol 2020-0 2020- No Jose A 1 tablet Common 02-20 10 [facility] 00:00: 00:00 - [facility] 00 :00 [facility] Famotidine 2019-0 Yes 20 mg = 1 Me moria 4-29 tab, PO, l 15:13: BID, # 60 [place] 00 tab, 0 Refill(s) gabapentin 2020-0 Yes 300 mg = 1 M emoria 300 MG Oral 1-30 cap, PO, l Capsule 01:40: Daily, # [place] n 00 30 cap, 3 Refill(s), Pharmacy: [facility] #[id number] One Touch One Touch 2019-0 Yes Jose A 1 strip Common Ultra Test Ultra Test 1-06 [facility] Strips Strips 00:00: - [facility] 00 [facility] One Touch One Touch 2019-0 No QD One Touch Ultra Test Ultra Test 1-06 Ultra Test Strips 1 Strips 1 00:00: Strips 1 00 One Touch One Touch 2019-0 No QD One Touch Ultra Test Ultra Test 1-06 Ultra Test Strips 1 Strips 1 00:00: Strips 1 00 One Touch One Touch 2020-0 No QD One Touch Ultra Test Ultra Test 1-06 Ultra Test Strips 1 Strips 1 00:00: Strips 1 00 One Touch One Touch 2020-0 No QD One Touch Ultra Test Ultra Test 1-06 Ultra Test Strips 1 Strips 1 00:00: Strips 1 00 One Touch One Touch 2020-0 No QD One Touch Ultra Test Ultra Test 1-06 Ultra Test Strips 1 Strips 1 00:00: Strips 1 00 One Touch One Touch 2020-0 No QD One Touch Ultra Test Ultra Test 1-06 Ultra Test Strips 1 Strips 1 00:00: Strips 1 00 One Touch One Touch 2020-0 No QD One Touch Ultra Test Ultra Test 1-06 Ultra Test Strips 1 Strips 1 00:00: Strips 1 00 One Touch One Touch 2020-0 No QD One Touch Ultra Test Ultra Test 1-06 Ultra Test Strips 1 Strips 1 00:00: Strips 1 00 One Touch One Touch 2019-0 No QD One Touch Ultra Test Ultra Test 1-06 Ultra Test Strips 1 Strips 1 00:00: Strips 1 00 One Touch One Touch 2020-0 No QD One Touch Ultra Test Ultra Test 1-06 Ultra Test Strips 1 Strips 1 00:00: Strips 1 00 One Touch One Touch 2019-0 No QD One Touch Ultra Test Ultra Test 1-06 Ultra Test Strips 1 Strips 1 00:00: Strips 1 00 One Touch One Touch No QD One Touch Ultra Test Ultra Test 1-06 Ultra Test Strips 1 Strips 1 00:00: Strips 1 00 One Touch One Touch No QD One Touch Ultra Test Ultra Test 1-06 Ultra Test Strips 1 Strips 1 00:00: Strips 1 00 One Touch One Touch No QD One Touch Ultra Test Ultra Test 1-06 Ultra Test Strips 1 Strips 1 00:00: Strips 1 00 One Touch One Touch No QD One Touch Ultra Test Ultra Test 1-06 Ultra Test Strips 1 Strips 1 00:00: Strips 1 00 gabapentin 2018-06 Yes 300 mg = 1 M emoria 300 MG Oral 2-17 cap, PO, l Capsule 18:19: BID, # 60 Elma nn 00 cap, 3 Refill(s), Pharmacy: [facility] #[id number] Lorazepam 2018-06 Yes See Memoria 0.5 MG Oral 1-06 Instructio l Tablet 14:31: ns, Take 1 Elma nn [Ativan] 00 tab po 1 hour prior to MRI, may repeat q 15 min. if still anxious, # 5 tab, 0 Refill(s), called to pharmacy 3 ML 2018-06 Yes 0 Memoria liraglutide 1-06 Refill(s) l 6 MG/ML 00:19: Deshawn Prefilled 00 Syringe [Victoza] Linagliptin 2018-06 Yes 0 Memori a 5 MG Oral 1-06 Refill(s) l Tablet 00:19: [place] [Tradjenta] 00 oxybutynin 2018-06 Yes 0 Memoria 5 mg oral 1-06 Refill(s) l tablet, 00:19: Deshawn extended 00 release 3 ML 2018-06 Yes 0 Memoria insulin 1-06 Refill(s) l detemir 100 00:19: [place] n UNT/ML 00 Prefilled Syringe [Levemir] Victoza 18 2018-06 Yes 0 Memoria mg/3 mL 1-06 Refill(s) l subcutaneou 00:19: [place] n s injection 00 Levemir 2018-06 Yes 0 Memoria FlexTouch 1-06 Refill(s) l 100 00:19: Deshawn units/mL 00 subcutaneou s solution allopurinol 2019-1 Yes 0 Memori a 100 mg oral 1-06 Refill(s) l tablet 00:18: atorvastati 2018- Yes 0 Memori a n 80 mg 1-06 Refill(s) l oral tablet 00:18: [place] n 00 bumetanide 2018- Yes 0 Memoria 2 mg oral 1-06 Refill(s) l tablet 00:18: [place] buPROPion 2018-06 Yes 0 Memoria 150 mg/12 1-06 Refill(s) l hours (SR) 00:18: oral 00 tablet, extended release carvedilol 2018-06 Yes 0 Memoria 25 mg oral 1-06 Refill(s) l tablet 00:18: Esomeprazol 2018-06 Yes 0 Memori a e 40 MG 1-06 Refill(s) l Enteric 00:18: Deshawn Coated 00 Capsule ezetimibe 2018-06 Yes 0 Memoria 10 mg oral 1-06 Refill(s) l tablet 00:18: Hydralazine 2018-06 Yes 0 Memori a Hydrochlori 1-06 Refill(s) l de 10 MG 00:18: Oral Tablet 00 tramadol Yes 50mg Take 50 mg [place] lori (ULTRAM) 50 4-07 by mouth 3 [facility] MG tablet 00:00: times of 00 daily. Medicin e docusate Yes 100mg Take 100 [place] or sodium 4-07 mg by [place] (COLACE) 00:00: mouth of 100 MG 00 daily. Medicin capsule e Coenzyme Yes 400mg Take 400 [place] or Q10 (CO Q 4-07 mg by College 10 OR) 00:00: mouth of 00 daily. Medicin e Hydrocodone Yes Take by [place] lori -APAP-Dieta 4-07 mouth as [place] ege ry Prod 00:00: needed. of (HYDROCODON 00 Medicin E-APAP-NUTR e IT SUPP) 5-500 MG MISC docusate Yes 100mg Take 100 [place] or sodium 4-07 mg by [facility] (COLACE) 00:00: mouth of 100 MG 00 daily. Medicin capsule e docusate Yes 100mg Take 100 [place] or sodium 4-07 mg by [place] (COLACE) 00:00: mouth of 100 MG 00 daily. Medicin capsule e tramadol Yes 50mg Take 50 mg [place] lori (ULTRAM) 50 4-07 by mouth 3 [facility] MG tablet 00:00: times of 00 daily. Medicin e docusate Yes 100mg Take 100 [place] sodium 4-07 mg by [place] (COLACE) 00:00: mouth of 100 MG 00 daily. Medicin capsule e Coenzyme Yes 400mg Take 400 [place] or Q10 (CO Q 4-07 mg by [facility] 10 OR) 00:00: mouth of 00 daily. Medicin e Hydrocodone Yes Take by [place] lori -APAP-Dieta 09-24 mouth as [place] ege ry Prod 00:00: needed. of (HYDROCODON Medicin E-APAP-NUTR e IT SUPP) 5-500 MG MISC tramadol Yes 50mg Take 50 mg [place] lori (ULTRAM) 50 4-07 by mouth 3 [facility] MG tablet 00:00: times of 00 daily. Medicin e docusate Yes 100mg Take 100 [place] sodium 4-07 mg by [place] (COLACE) 00:00: mouth of 100 MG 00 daily. Medicin capsule e Coenzyme Yes 400mg Take 400 [place] or Q10 (CO Q 4-07 mg by [place] 10 OR) 00:00: mouth of 00 daily. Medicin e Hydrocodone Yes Take by [place] lori -APAP-Dieta 09-24 mouth as [place] ege ry Prod 00:00: needed. of (HYDROCODON Medicin E-APAP-NUTR e IT SUPP) 5-500 MG MISC tramadol 2021- No 50mg Take 50 mg [place] (ULTRAM) 50 09-24 by mouth 3 C [facility] MG tablet 00:00: 00:00 times of 00 :00 daily. Medicin e Coenzyme 2021- No 400mg Take 400 [place] lori Q10 (CO Q 09-24-11 mg by [facility] 10 OR) 00:00: 00:00 mouth of 00 :00 daily. Medicin e Hydrocodone 2021- No Take by [place] -APAP-Dieta 09-24 mouth as [facility] lege ry Prod 00:00: 00:00 needed. of (HYDROCODON 00 :00 Medicin E-APAP-NUTR e IT SUPP) 5-500 MG MISC hydrALAZINE hydrALAZINE No 1{table hydrALAZIN HCl 25 MG HCl 25 MG t_with_ E HCl 25 food} MG Spironolact Spironolact No Spironolac one 50 MG one 50 MG tone 50 MG Levemir Levemir No BID Levemir FlexTouch FlexTouch FlexTouch 100 UNIT/ML 100 UNIT/ML 100 UNIT/ML Losartan Losartan No QD Losartan Potassium Potassium Potassium 25 MG 25 MG 25 MG Esomeprazol Esomeprazol No 1{capsu QD Esomeprazo e Magnesium e Magnesium le} le 40 MG 40 MG Magnesium 40 MG Bumetanide Bumetanide No QD Bumetanide 2 MG 2 MG 2 MG Carvedilol Carvedilol No 1{table BID Carvedilol 25 mg 25 mg t} 25 mg Ipratropium Ipratropium No 2{spray TID Ipratropiu [place] s_in_ea m [place] 0.06 % 0.06 % ch_nost 0.06 % ril} Gabapentin Gabapentin No 1{capsu BID Gabapentin 300 MG 300 MG le} 300 MG Zetia 10 MG Zetia 10 MG No 1{table QD Zetia 10 t} MG Myrbetriq Myrbetriq No 1{table QD Myrbetriq 50 MG 50 MG t} 50 MG Ferrous Ferrous No 1{table BID Ferrous Sulfate 325 Sulfate 325 t} Sulfate (65 Fe) MG (65 Fe) MG 325 (65 Fe) MG Oxybutynin Oxybutynin No Oxybutynin Chloride 5 Chloride 5 Chloride 5 MG MG MG glipiZIDE glipiZIDE No 1{table BID glipiZIDE ER 2.5 MG ER 2.5 MG t_with_ ER 2.5 MG food} Lubiproston Lubiproston No BID Lubiprosto e 24 MCG e 24 MCG ne 24 MCG glipiZIDE glipiZIDE No glipiZIDE ER 2.5 MG ER 2.5 MG ER 2.5 MG Escitalopra Escitalopra No 1{table QD Escitalopr m Oxalate m Oxalate t} am Oxalate 20 MG 20 MG 20 MG Colace 50 Colace 50 No 1{capsu QD Colace 50 MG MG le} MG Atorvastati Atorvastati No QD Atorvastat n Calcium n Calcium in Calcium 80 MG 80 MG 80 MG Ondansetron Ondansetron No 1{table QD Ondansetro HCl 4 MG HCl 4 MG t} n HCl 4 MG Escitalopra Escitalopra No Escitalopr m Oxalate m Oxalate am Oxalate 20 MG 20 MG 20 MG Aspirin 81 Aspirin 81 No 1{table QD Aspirin 81 81 MG 81 MG t} 81 MG Allopurinol Allopurinol No Allopurino 100 MG 100 MG l 100 MG Ezetimibe Ezetimibe No Ezetimibe 10 MG 10 MG 10 MG Dulcolax 5 Dulcolax 5 No 1{table Dulcolax 5 MG MG t_as_ne MG eded} Atorvastati Atorvastati No Atorvastat n Calcium n Calcium in Calcium 80 MG 80 MG 80 MG Levemir Levemir No Levemir FlexTouch FlexTouch FlexTouch 100 UNIT/ML 100 UNIT/ML 100 UNIT/ML Flonase 50 Flonase 50 No QD Flonase 50 MCG/DOSE MCG/DOSE MCG/DOSE Levemir Levemir No Levemir FlexTouch FlexTouch FlexTouch 100 UNIT/ML 100 UNIT/ML 100 UNIT/ML Niacin 250 Niacin 250 No 1{table QD Niacin 250 MG MG t_with_ MG food} hydrALAZINE hydrALAZINE No 1{table hydrALAZIN HCl 25 MG HCl 25 MG t_with_ E HCl 25 food} MG Escitalopra Escitalopra No Escitalopr m Oxalate m Oxalate am Oxalate 20 MG 20 MG 20 MG OneTouch OneTouch No OneTouch Ultra Test Ultra Test Ultra Test - - - Esomeprazol Esomeprazol No 1{capsu QD Esomeprazo e Magnesium e Magnesium le} le 40 MG 40 MG Magnesium 40 MG glipiZIDE glipiZIDE No glipiZIDE ER 2.5 MG ER 2.5 MG ER 2.5 MG ZyrTEC ZyrTEC No 1{table QD ZyrTEC Allergy 10 Allergy 10 t} Allergy 10 MG MG MG Atorvastati Atorvastati No Atorvastat n Calcium n Calcium in Calcium 80 MG 80 MG 80 MG metOLazone metOLazone No 1{table metOLazone Areds2 Areds2 t} Areds2 Ferrous Ferrous No 1{table BID Ferrous Sulfate 325 Sulfate 325 t} Sulfate (65 Fe) MG (65 Fe) MG 325 (65 Fe) MG Myrbetriq Myrbetriq No 1{table QD Myrbetriq 50 MG 50 MG t} 50 MG Allopurinol Allopurinol No Allopurino 100 MG 100 MG l 100 MG Carvedilol Carvedilol No 1{table BID Carvedilol 25 mg 25 mg t} 25 mg Gabapentin Gabapentin No 1{capsu BID Gabapentin 300 MG 300 MG le} 300 MG Allopurinol Allopurinol No Allopurino 100 MG 100 MG l 100 MG Lubiproston Lubiproston No BID Lubiprosto e 24 MCG e 24 MCG ne 24 MCG Dulcolax 5 Dulcolax 5 No 1{table Dulcolax 5 MG MG t_as_ne MG eded} Ezetimibe Ezetimibe No Ezetimibe 10 MG 10 MG 10 MG Aspirin 81 Aspirin 81 No 1{table QD Aspirin 81 81 MG 81 MG t} 81 MG tiZANidine tiZANidine No tiZANidine HCl 4 MG HCl 4 MG HCl 4 MG Spironolact Spironolact No Spironolac one 50 MG one 50 MG tone 50 MG Colace 50 Colace 50 No 1{capsu QD Colace 50 MG MG le} MG Linzess 72 Linzess 72 No QD Linzess 72 MCG MCG MCG Zetia 10 MG Zetia 10 MG No 1{table QD Zetia 10 t} MG Bumetanide Bumetanide No QD Bumetanide 2 MG 2 MG 2 MG Oxybutynin Oxybutynin No Oxybutynin Chloride 5 Chloride 5 Chloride 5 MG MG MG Flonase 50 Flonase 50 No QD Flonase 50 MCG/DOSE MCG/DOSE MCG/DOSE Tylenol Tylenol No Tylenol with with with Codeine #4 Codeine #4 Codeine #4 Ondansetron Ondansetron No 1{table QD Ondansetro HCl 4 MG HCl 4 MG t} n HCl 4 MG Victoza Victoza No Victoza Ipratropium Ipratropium No 2{spray TID Ipratropiu [place] s_in_ea m [place] 0.06 % 0.06 % ch_nost 0.06 % ril} Losartan Losartan No QD Losartan Potassium Potassium Potassium 25 MG 25 MG 25 MG buPROPion buPROPion No buPROPion HCl ER (SR) HCl ER (SR) HCl ER 150 MG 150 MG (SR) 150 MG Atorvastati Atorvastati No Atorvastat n Calcium n Calcium in Calcium 80 MG 80 MG 80 MG buPROPion buPROPion No buPROPion HCl ER (SR) HCl ER (SR) HCl ER 150 MG 150 MG (SR) 150 MG Ferrous Ferrous No 1{table BID Ferrous Sulfate 325 Sulfate 325 t} Sulfate (65 Fe) MG (65 Fe) MG 325 (65 Fe) MG glipiZIDE glipiZIDE No glipiZIDE ER 2.5 MG ER 2.5 MG ER 2.5 MG Levemir Levemir No BID Levemir FlexTouch FlexTouch FlexTouch 100 UNIT/ML 100 UNIT/ML 100 UNIT/ML glipiZIDE glipiZIDE No 1{table BID glipiZIDE ER 2.5 MG ER 2.5 MG t_with_ ER 2.5 MG food} Allopurinol Allopurinol No Allopurino 100 MG 100 MG l 100 MG glipiZIDE glipiZIDE No glipiZIDE ER 5 MG ER 5 MG ER 5 MG Aspirin 81 Aspirin 81 No 1{table QD Aspirin 81 81 MG 81 MG t} 81 MG OneTouch OneTouch No OneTouch Ultra - Ultra - Ultra - Oxybutynin Oxybutynin No Oxybutynin Chloride 5 Chloride 5 Chloride 5 MG MG MG Linzess 72 Linzess 72 No QD Linzess 72 MCG MCG MCG Niacin 250 Niacin 250 No 1{table QD Niacin 250 MG MG t_with_ MG food} Bumetanide Bumetanide No QD Bumetanide 2 MG 2 MG 2 MG Gabapentin Gabapentin No 1{capsu BID Gabapentin 300 MG 300 MG le} 300 MG hydrALAZINE hydrALAZINE No 1{table hydrALAZIN HCl 25 MG HCl 25 MG t_with_ E HCl 25 food} MG Ezetimibe Ezetimibe No Ezetimibe 10 MG 10 MG 10 MG Esomeprazol Esomeprazol No 1{capsu QD Esomeprazo e Magnesium e Magnesium le} le 40 MG 40 MG Magnesium 40 MG Atorvastati Atorvastati No QD Atorvastat n Calcium n Calcium in Calcium 80 MG 80 MG 80 MG Tradjenta 5 Tradjenta 5 No Tradjenta MG MG 5 MG Colace 50 Colace 50 No 1{capsu QD Colace 50 MG MG le} MG tiZANidine tiZANidine No tiZANidine HCl 4 MG HCl 4 MG HCl 4 MG Myrbetriq Myrbetriq No 1{table QD Myrbetriq 50 MG 50 MG t} 50 MG OneTouch OneTouch No OneTouch Ultra Test Ultra Test Ultra Test - - - Victoza 18 Victoza 18 No QD Victoza 18 MG/3ML MG/3ML MG/3ML NexIUM 40 NexIUM 40 No 1{capsu QD NexIUM 40 MG MG le} MG Spironolact Spironolact No Spironolac one 50 MG one 50 MG tone 50 MG Carvedilol Carvedilol No 1{table BID Carvedilol 25 mg 25 mg t} 25 mg Ferrous Ferrous No Ferrous Sulfate 325 Sulfate 325 Sulfate (65 Fe) MG (65 Fe) MG 325 (65 Fe) MG Zetia 10 MG Zetia 10 MG No 1{table QD Zetia 10 t} MG Dulcolax 5 Dulcolax 5 No 1{table Dulcolax 5 MG MG t_as_ne MG eded} Flonase 50 Flonase 50 No QD Flonase 50 MCG/DOSE MCG/DOSE MCG/DOSE ZyrTEC ZyrTEC No 1{table QD ZyrTEC Allergy 10 Allergy 10 t} Allergy 10 MG MG MG Amitiza 24 Amitiza 24 No Amitiza 24 MCG MCG MCG Flonase 50 Flonase 50 No Flonase 50 MCG/DOSE MCG/DOSE MCG/DOSE Myrbetriq Myrbetriq No 1{table QD Myrbetriq 50 MG 50 MG t} 50 MG Victoza 18 Victoza 18 No Victoza 18 MG/3ML MG/3ML MG/3ML metOLazone metOLazone No 1{table metOLazone Areds2 Areds2 t} Areds2 glipiZIDE glipiZIDE No glipiZIDE ER 5 MG ER 5 MG ER 5 MG Victoza 18 Victoza 18 No Victoza 18 MG/3ML MG/3ML MG/3ML Atorvastati Atorvastati No Atorvastat n Calcium n Calcium in Calcium 80 MG 80 MG 80 MG Levemir Levemir No Levemir FlexTouch FlexTouch FlexTouch 100 UNIT/ML 100 UNIT/ML 100 UNIT/ML metOLazone metOLazone No 1{table metOLazone Areds2 Areds2 t} Areds2 Carvedilol Carvedilol No 1{table BID Carvedilol 25 mg 25 mg t} 25 mg Ezetimibe Ezetimibe No Ezetimibe 10 MG 10 MG 10 MG glipiZIDE glipiZIDE No glipiZIDE ER 2.5 MG ER 2.5 MG ER 2.5 MG Bumetanide Bumetanide No QD Bumetanide 2 MG 2 MG 2 MG Colace 50 Colace 50 No 1{capsu QD Colace 50 MG MG le} MG Gabapentin Gabapentin No 1{capsu BID Gabapentin 300 MG 300 MG le} 300 MG ZyrTEC ZyrTEC No 1{table QD ZyrTEC Allergy 10 Allergy 10 t} Allergy 10 MG MG MG Ferrous Ferrous No Ferrous Sulfate 325 Sulfate 325 Sulfate (65 Fe) MG (65 Fe) MG 325 (65 Fe) MG Dulcolax 5 Dulcolax 5 No 1{table Dulcolax 5 MG MG t_as_ne MG eded} Flonase 50 Flonase 50 No QD Flonase 50 MCG/DOSE MCG/DOSE MCG/DOSE buPROPion buPROPion No buPROPion HCl ER (SR) HCl ER (SR) HCl ER 150 MG 150 MG (SR) 150 MG buPROPion buPROPion No buPROPion HCl ER (SR) HCl ER (SR) HCl ER 150 MG 150 MG (SR) 150 MG hydrALAZINE hydrALAZINE No 1{table hydrALAZIN HCl 25 MG HCl 25 MG t_with_ E HCl 25 food} MG Linzess 72 Linzess 72 No QD Linzess 72 MCG MCG MCG Tradjenta 5 Tradjenta 5 No Tradjenta MG MG 5 MG OneTouch OneTouch No OneTouch Ultra - Ultra - Ultra - Zetia 10 MG Zetia 10 MG No 1{table QD Zetia 10 t} MG OneTouch OneTouch No OneTouch Ultra Test Ultra Test Ultra Test - - - Amitiza 24 Amitiza 24 No Amitiza 24 MCG MCG MCG Spironolact Spironolact No Spironolac one 50 MG one 50 MG tone 50 MG Oxybutynin Oxybutynin No Oxybutynin Chloride 5 Chloride 5 Chloride 5 MG MG MG Allopurinol Allopurinol No Allopurino 100 MG 100 MG l 100 MG Myrbetriq Myrbetriq No 1{table QD Myrbetriq 50 MG 50 MG t} 50 MG tiZANidine tiZANidine No tiZANidine HCl 4 MG HCl 4 MG HCl 4 MG Niacin 250 Niacin 250 No 1{table QD Niacin 250 MG MG t_with_ MG food} Aspirin 81 Aspirin 81 No 1{table QD Aspirin 81 81 MG 81 MG t} 81 MG Flonase 50 Flonase 50 No Flonase 50 MCG/DOSE MCG/DOSE MCG/DOSE Myrbetriq Myrbetriq No 1{table QD Myrbetriq 50 MG 50 MG t} 50 MG Esomeprazol Esomeprazol No 1{capsu QD Esomeprazo e Magnesium e Magnesium le} le 40 MG 40 MG Magnesium 40 MG NexIUM 40 NexIUM 40 No 1{capsu QD NexIUM 40 MG MG le} MG Zetia 10 MG Zetia 10 MG No 1{table QD Zetia 10 t} MG Niacin 250 Niacin 250 No 1{table QD Niacin 250 MG MG t_with_ MG food} glipiZIDE glipiZIDE No 1{table BID glipiZIDE ER 2.5 MG ER 2.5 MG t_with_ ER 2.5 MG food} tiZANidine tiZANidine No tiZANidine HCl 4 MG HCl 4 MG HCl 4 MG glipiZIDE glipiZIDE No glipiZIDE ER 2.5 MG ER 2.5 MG ER 2.5 MG Allopurinol Allopurinol No Allopurino 100 MG 100 MG l 100 MG Myrbetriq Myrbetriq No 1{table QD Myrbetriq 50 MG 50 MG t} 50 MG hydrALAZINE hydrALAZINE No 1{table hydrALAZIN HCl 25 MG HCl 25 MG t_with_ E HCl 25 food} MG Amitiza 24 Amitiza 24 No Amitiza 24 MCG MCG MCG Atorvastati Atorvastati No QD Atorvastat n Calcium n Calcium in Calcium 80 MG 80 MG 80 MG Atorvastati Atorvastati No Atorvastat n Calcium n Calcium in Calcium 80 MG 80 MG 80 MG Ferrous Ferrous No 1{table BID Ferrous Sulfate 325 Sulfate 325 t} Sulfate (65 Fe) MG (65 Fe) MG 325 (65 Fe) MG Spironolact Spironolact No Spironolac one 50 MG one 50 MG tone 50 MG Oxybutynin Oxybutynin No Oxybutynin Chloride 5 Chloride 5 Chloride 5 MG MG MG Levemir Levemir No Levemir FlexTouch FlexTouch FlexTouch 100 UNIT/ML 100 UNIT/ML 100 UNIT/ML Esomeprazol Esomeprazol No 1{capsu QD Esomeprazo e Magnesium e Magnesium le} le 40 MG 40 MG Magnesium 40 MG Myrbetriq Myrbetriq No 1{table QD Myrbetriq 50 MG 50 MG t} 50 MG Aspirin 81 Aspirin 81 No 1{table QD Aspirin 81 81 MG 81 MG t} 81 MG Tradjenta 5 Tradjenta 5 No Tradjenta MG MG 5 MG Ezetimibe Ezetimibe No Ezetimibe 10 MG 10 MG 10 MG Linzess 72 Linzess 72 No QD Linzess 72 MCG MCG MCG NexIUM 40 NexIUM 40 No 1{capsu QD NexIUM 40 MG MG le} MG Levemir Levemir No BID Levemir FlexTouch FlexTouch FlexTouch 100 UNIT/ML 100 UNIT/ML 100 UNIT/ML Dulcolax 5 Dulcolax 5 No 1{table Dulcolax 5 MG MG t_as_ne MG eded} OneTouch OneTouch No OneTouch Ultra - Ultra - Ultra - Ferrous Ferrous No Ferrous Sulfate 325 Sulfate 325 Sulfate (65 Fe) MG (65 Fe) MG 325 (65 Fe) MG OneTouch OneTouch No OneTouch Ultra Test Ultra Test Ultra Test - - - buPROPion buPROPion No buPROPion HCl ER (SR) HCl ER (SR) HCl ER 150 MG 150 MG (SR) 150 MG Carvedilol Carvedilol No 1{table BID Carvedilol 25 mg 25 mg t} 25 mg Gabapentin Gabapentin No 1{capsu BID Gabapentin 300 MG 300 MG le} 300 MG Victoza 18 Victoza 18 No Victoza 18 MG/3ML MG/3ML MG/3ML ZyrTEC ZyrTEC No 1{table QD ZyrTEC Allergy 10 Allergy 10 t} Allergy 10 MG MG MG Flonase 50 Flonase 50 No Flonase 50 MCG/DOSE MCG/DOSE MCG/DOSE glipiZIDE glipiZIDE No glipiZIDE ER 5 MG ER 5 MG ER 5 MG Bumetanide Bumetanide No QD Bumetanide 2 MG 2 MG 2 MG Victoza 18 Victoza 18 No QD Victoza 18 MG/3ML MG/3ML MG/3ML metOLazone metOLazone No 1{table metOLazone Areds2 Areds2 t} Areds2 buPROPion buPROPion No buPROPion HCl ER (SR) HCl ER (SR) HCl ER 150 MG 150 MG (SR) 150 MG Flonase 50 Flonase 50 No QD Flonase 50 MCG/DOSE MCG/DOSE MCG/DOSE Colace 50 Colace 50 No 1{capsu QD Colace 50 MG MG le} MG Niacin 250 Niacin 250 No 1{table QD Niacin 250 MG MG t_with_ MG food} Esomeprazol Esomeprazol No 1{capsu QD Esomeprazo e Magnesium e Magnesium le} le 40 MG 40 MG Magnesium 40 MG Victoza 18 Victoza 18 No Victoza 18 MG/3ML MG/3ML MG/3ML Tradjenta 5 Tradjenta 5 No Tradjenta MG MG 5 MG Linzess 72 Linzess 72 No QD Linzess 72 MCG MCG MCG Ferrous Ferrous No Ferrous Sulfate 325 Sulfate 325 Sulfate (65 Fe) MG (65 Fe) MG 325 (65 Fe) MG OneTouch OneTouch No OneTouch Ultra Test Ultra Test Ultra Test - - - hydrALAZINE hydrALAZINE No 1{table hydrALAZIN HCl 25 MG HCl 25 MG t_with_ E HCl 25 food} MG Atorvastati Atorvastati No QD Atorvastat n Calcium n Calcium in Calcium 80 MG 80 MG 80 MG Levemir Levemir No Levemir FlexTouch FlexTouch FlexTouch 100 UNIT/ML 100 UNIT/ML 100 UNIT/ML Ezetimibe Ezetimibe No Ezetimibe 10 MG 10 MG 10 MG Zetia 10 MG Zetia 10 MG No 1{table QD Zetia 10 t} MG Levemir Levemir No BID Levemir FlexTouch FlexTouch FlexTouch 100 UNIT/ML 100 UNIT/ML 100 UNIT/ML Spironolact Spironolact No Spironolac one 50 MG one 50 MG tone 50 MG buPROPion buPROPion No buPROPion HCl ER (SR) HCl ER (SR) HCl ER 150 MG 150 MG (SR) 150 MG tiZANidine tiZANidine No tiZANidine HCl 4 MG HCl 4 MG HCl 4 MG Atorvastati Atorvastati No Atorvastat n Calcium n Calcium in Calcium 80 MG 80 MG 80 MG Oxybutynin Oxybutynin No Oxybutynin Chloride 5 Chloride 5 Chloride 5 MG MG MG glipiZIDE glipiZIDE No glipiZIDE ER 5 MG ER 5 MG ER 5 MG Flonase 50 Flonase 50 No Flonase 50 MCG/DOSE MCG/DOSE MCG/DOSE buPROPion buPROPion No buPROPion HCl ER (SR) HCl ER (SR) HCl ER 150 MG 150 MG (SR) 150 MG Amitiza 24 Amitiza 24 No Amitiza 24 MCG MCG MCG Myrbetriq Myrbetriq No 1{table QD Myrbetriq 50 MG 50 MG t} 50 MG Victoza 18 Victoza 18 No QD Victoza 18 MG/3ML MG/3ML MG/3ML Dulcolax 5 Dulcolax 5 No 1{table Dulcolax 5 MG MG t_as_ne MG eded} Bumetanide Bumetanide No QD Bumetanide 2 MG 2 MG 2 MG glipiZIDE glipiZIDE No glipiZIDE ER 2.5 MG ER 2.5 MG ER 2.5 MG glipiZIDE glipiZIDE No 1{table BID glipiZIDE ER 2.5 MG ER 2.5 MG t_with_ ER 2.5 MG food} ZyrTEC ZyrTEC No 1{table QD ZyrTEC Allergy 10 Allergy 10 t} Allergy 10 MG MG MG Carvedilol Carvedilol No 1{table BID Carvedilol 25 mg 25 mg t} 25 mg Gabapentin Gabapentin No 1{capsu BID Gabapentin 300 MG 300 MG le} 300 MG Allopurinol Allopurinol No Allopurino 100 MG 100 MG l 100 MG Aspirin 81 Aspirin 81 No 1{table QD Aspirin 81 81 MG 81 MG t} 81 MG Ferrous Ferrous No 1{table BID Ferrous Sulfate 325 Sulfate 325 t} Sulfate (65 Fe) MG (65 Fe) MG 325 (65 Fe) MG Flonase 50 Flonase 50 No QD Flonase 50 MCG/DOSE MCG/DOSE MCG/DOSE Colace 50 Colace 50 No 1{capsu QD Colace 50 MG MG le} MG Myrbetriq Myrbetriq No 1{table QD Myrbetriq 50 MG 50 MG t} 50 MG OneTouch OneTouch No OneTouch Ultra - Ultra - Ultra - NexIUM 40 NexIUM 40 No 1{capsu QD NexIUM 40 MG MG le} MG metOLazone metOLazone No 1{table metOLazone Areds2 Areds2 t} Areds2 Flonase 50 Flonase 50 No QD Flonase 50 MCG/DOSE MCG/DOSE MCG/DOSE Oxybutynin Oxybutynin No Oxybutynin Chloride 5 Chloride 5 Chloride 5 MG MG MG glipiZIDE glipiZIDE No glipiZIDE ER 2.5 MG ER 2.5 MG ER 2.5 MG Esomeprazol Esomeprazol No 1{capsu QD Esomeprazo e Magnesium e Magnesium le} le 40 MG 40 MG Magnesium 40 MG OneTouch OneTouch No OneTouch Ultra Test Ultra Test Ultra Test - - - Ezetimibe Ezetimibe No Ezetimibe 10 MG 10 MG 10 MG Allopurinol Allopurinol No Allopurino 100 MG 100 MG l 100 MG metOLazone metOLazone No 1{table metOLazone Areds2 Areds2 t} Areds2 buPROPion buPROPion No buPROPion HCl ER (SR) HCl ER (SR) HCl ER 150 MG 150 MG (SR) 150 MG Ferrous Ferrous No 1{table BID Ferrous Sulfate 325 Sulfate 325 t} Sulfate (65 Fe) MG (65 Fe) MG 325 (65 Fe) MG Dulcolax 5 Dulcolax 5 No 1{table Dulcolax 5 MG MG t_as_ne MG eded} Tradjenta 5 Tradjenta 5 No Tradjenta MG MG 5 MG Aspirin 81 Aspirin 81 No 1{table QD Aspirin 81 81 MG 81 MG t} 81 MG Zetia 10 MG Zetia 10 MG No 1{table QD Zetia 10 t} MG Victoza 18 Victoza 18 No Victoza 18 MG/3ML MG/3ML MG/3ML Linzess 72 Linzess 72 No QD Linzess 72 MCG MCG MCG Colace 50 Colace 50 No 1{capsu QD Colace 50 MG MG le} MG glipiZIDE glipiZIDE No glipiZIDE ER 5 MG ER 5 MG ER 5 MG Myrbetriq Myrbetriq No 1{table QD Myrbetriq 50 MG 50 MG t} 50 MG Atorvastati Atorvastati No QD Atorvastat n Calcium n Calcium in Calcium 80 MG 80 MG 80 MG Levemir Levemir No Levemir FlexTouch FlexTouch FlexTouch 100 UNIT/ML 100 UNIT/ML 100 UNIT/ML glipiZIDE glipiZIDE No 1{table BID glipiZIDE ER 2.5 MG ER 2.5 MG t_with_ ER 2.5 MG food} Spironolact Spironolact No Spironolac one 50 MG one 50 MG tone 50 MG tiZANidine tiZANidine No tiZANidine HCl 4 MG HCl 4 MG HCl 4 MG Atorvastati Atorvastati No Atorvastat n Calcium n Calcium in Calcium 80 MG 80 MG 80 MG Victoza 18 Victoza 18 No QD Victoza 18 MG/3ML MG/3ML MG/3ML Bumetanide Bumetanide No QD Bumetanide 2 MG 2 MG 2 MG NexIUM 40 NexIUM 40 No 1{capsu QD NexIUM 40 MG MG le} MG Levemir Levemir No BID Levemir FlexTouch FlexTouch FlexTouch 100 UNIT/ML 100 UNIT/ML 100 UNIT/ML ZyrTEC ZyrTEC No 1{table QD ZyrTEC Allergy 10 Allergy 10 t} Allergy 10 MG MG MG Ferrous Ferrous No Ferrous Sulfate 325 Sulfate 325 Sulfate (65 Fe) MG (65 Fe) MG 325 (65 Fe) MG OneTouch OneTouch No OneTouch Ultra - Ultra - Ultra - Myrbetriq Myrbetriq No 1{table QD Myrbetriq 50 MG 50 MG t} 50 MG buPROPion buPROPion No buPROPion HCl ER (SR) HCl ER (SR) HCl ER 150 MG 150 MG (SR) 150 MG Amitiza 24 Amitiza 24 No Amitiza 24 MCG MCG MCG Flonase 50 Flonase 50 No Flonase 50 MCG/DOSE MCG/DOSE MCG/DOSE Carvedilol Carvedilol No 1{table BID Carvedilol 25 mg 25 mg t} 25 mg Niacin 250 Niacin 250 No 1{table QD Niacin 250 MG MG t_with_ MG food} hydrALAZINE hydrALAZINE No 1{table hydrALAZIN HCl 25 MG HCl 25 MG t_with_ E HCl 25 food} MG Gabapentin Gabapentin No 1{capsu BID Gabapentin 300 MG 300 MG le} 300 MG Flonase 50 Flonase 50 No QD Flonase 50 MCG/DOSE MCG/DOSE MCG/DOSE Tradjenta 5 Tradjenta 5 No Tradjenta MG MG 5 MG Aspirin 81 Aspirin 81 No 1{table QD Aspirin 81 81 MG 81 MG t} 81 MG Zetia 10 MG Zetia 10 MG No 1{table QD Zetia 10 t} MG OneTouch OneTouch No OneTouch Ultra Test Ultra Test Ultra Test - - - Ferrous Ferrous No Ferrous Sulfate 325 Sulfate 325 Sulfate (65 Fe) MG (65 Fe) MG 325 (65 Fe) MG glipiZIDE glipiZIDE No glipiZIDE ER 2.5 MG ER 2.5 MG ER 2.5 MG metOLazone metOLazone No 1{table metOLazone Areds2 Areds2 t} Areds2 glipiZIDE glipiZIDE No glipiZIDE ER 5 MG ER 5 MG ER 5 MG Ferrous Ferrous No 1{table BID Ferrous Sulfate 325 Sulfate 325 t} Sulfate (65 Fe) MG (65 Fe) MG 325 (65 Fe) MG Dulcolax 5 Dulcolax 5 No 1{table Dulcolax 5 MG MG t_as_ne MG eded} buPROPion buPROPion No buPROPion HCl ER (SR) HCl ER (SR) HCl ER 150 MG 150 MG (SR) 150 MG Levemir Levemir No BID Levemir FlexTouch FlexTouch FlexTouch 100 UNIT/ML 100 UNIT/ML 100 UNIT/ML Levemir Levemir No Levemir FlexTouch FlexTouch FlexTouch 100 UNIT/ML 100 UNIT/ML 100 UNIT/ML Linzess 72 Linzess 72 No QD Linzess 72 MCG MCG MCG Colace 50 Colace 50 No 1{capsu QD Colace 50 MG MG le} MG Victoza 18 Victoza 18 No Victoza 18 MG/3ML MG/3ML MG/3ML Myrbetriq Myrbetriq No 1{table QD Myrbetriq 50 MG 50 MG t} 50 MG Niacin 250 Niacin 250 No 1{table QD Niacin 250 MG MG t_with_ MG food} OneTouch OneTouch No OneTouch Ultra - Ultra - Ultra - glipiZIDE glipiZIDE No 1{table BID glipiZIDE ER 2.5 MG ER 2.5 MG t_with_ ER 2.5 MG food} tiZANidine tiZANidine No tiZANidine HCl 4 MG HCl 4 MG HCl 4 MG Amitiza 24 Amitiza 24 No Amitiza 24 MCG MCG MCG Ezetimibe Ezetimibe No Ezetimibe 10 MG 10 MG 10 MG Victoza 18 Victoza 18 No QD Victoza 18 MG/3ML MG/3ML MG/3ML Bumetanide Bumetanide No QD Bumetanide 2 MG 2 MG 2 MG NexIUM 40 NexIUM 40 No 1{capsu QD NexIUM 40 MG MG le} MG Spironolact Spironolact No Spironolac one 50 MG one 50 MG tone 50 MG ZyrTEC ZyrTEC No 1{table QD ZyrTEC Allergy 10 Allergy 10 t} Allergy 10 MG MG MG Atorvastati Atorvastati No Atorvastat n Calcium n Calcium in Calcium 80 MG 80 MG 80 MG Allopurinol Allopurinol No Allopurino 100 MG 100 MG l 100 MG Myrbetriq Myrbetriq No 1{table QD Myrbetriq 50 MG 50 MG t} 50 MG buPROPion buPROPion No buPROPion HCl ER (SR) HCl ER (SR) HCl ER 150 MG 150 MG (SR) 150 MG Oxybutynin Oxybutynin No Oxybutynin Chloride 5 Chloride 5 Chloride 5 MG MG MG Flonase 50 Flonase 50 No Flonase 50 MCG/DOSE MCG/DOSE MCG/DOSE Carvedilol Carvedilol No 1{table BID Carvedilol 25 mg 25 mg t} 25 mg Esomeprazol Esomeprazol No 1{capsu QD Esomeprazo e Magnesium e Magnesium le} le 40 MG 40 MG Magnesium 40 MG hydrALAZINE hydrALAZINE No 1{table hydrALAZIN HCl 25 MG HCl 25 MG t_with_ E HCl 25 food} MG Gabapentin Gabapentin No 1{capsu BID Gabapentin 300 MG 300 MG le} 300 MG Myrbetriq Myrbetriq No 1{table QD Myrbetriq 50 MG 50 MG t} 50 MG Niacin 250 Niacin 250 No 1{table QD Niacin 250 MG MG t_with_ MG food} Carvedilol Carvedilol No 1{table BID Carvedilol 25 mg 25 mg t} 25 mg Oxybutynin Oxybutynin No Oxybutynin Chloride 5 Chloride 5 Chloride 5 MG MG MG Myrbetriq Myrbetriq No 1{table QD Myrbetriq 50 MG 50 MG t} 50 MG buPROPion buPROPion No buPROPion HCl ER (SR) HCl ER (SR) HCl ER 150 MG 150 MG (SR) 150 MG Flonase 50 Flonase 50 No Flonase 50 MCG/DOSE MCG/DOSE MCG/DOSE Ferrous Ferrous No 1{table BID Ferrous Sulfate 325 Sulfate 325 t} Sulfate (65 Fe) MG (65 Fe) MG 325 (65 Fe) MG OneTouch OneTouch No OneTouch Ultra Test Ultra Test Ultra Test - - - OneTouch OneTouch No OneTouch Ultra - Ultra - Ultra - NexIUM 40 NexIUM 40 No 1{capsu QD NexIUM 40 MG MG le} MG Zetia 10 MG Zetia 10 MG No 1{table QD Zetia 10 t} MG Tradjenta 5 Tradjenta 5 No Tradjenta MG MG 5 MG buPROPion buPROPion No buPROPion HCl ER (SR) HCl ER (SR) HCl ER 150 MG 150 MG (SR) 150 MG Allopurinol Allopurinol No Allopurino 100 MG 100 MG l 100 MG glipiZIDE glipiZIDE No 1{table BID glipiZIDE ER 2.5 MG ER 2.5 MG t_with_ ER 2.5 MG food} Atorvastati Atorvastati No Atorvastat n Calcium n Calcium in Calcium 80 MG 80 MG 80 MG Colace 50 Colace 50 No 1{capsu QD Colace 50 MG MG le} MG Ezetimibe Ezetimibe No Ezetimibe 10 MG 10 MG 10 MG Levemir Levemir No BID Levemir FlexTouch FlexTouch FlexTouch 100 UNIT/ML 100 UNIT/ML 100 UNIT/ML metOLazone metOLazone No 1{table metOLazone Areds2 Areds2 t} Areds2 tiZANidine tiZANidine No tiZANidine HCl 4 MG HCl 4 MG HCl 4 MG Linzess 72 Linzess 72 No QD Linzess 72 MCG MCG MCG Dulcolax 5 Dulcolax 5 No 1{table Dulcolax 5 MG MG t_as_ne MG eded} Spironolact Spironolact No Spironolac one 50 MG one 50 MG tone 50 MG glipiZIDE glipiZIDE No glipiZIDE ER 2.5 MG ER 2.5 MG ER 2.5 MG Aspirin 81 Aspirin 81 No 1{table QD Aspirin 81 81 MG 81 MG t} 81 MG Ferrous Ferrous No Ferrous Sulfate 325 Sulfate 325 Sulfate (65 Fe) MG (65 Fe) MG 325 (65 Fe) MG hydrALAZINE hydrALAZINE No 1{table hydrALAZIN HCl 25 MG HCl 25 MG t_with_ E HCl 25 food} MG Gabapentin Gabapentin No 1{capsu BID Gabapentin 300 MG 300 MG le} 300 MG Flonase 50 Flonase 50 No QD Flonase 50 MCG/DOSE MCG/DOSE MCG/DOSE Esomeprazol Esomeprazol No 1{capsu QD Esomeprazo e Magnesium e Magnesium le} le 40 MG 40 MG Magnesium 40 MG Amitiza 24 Amitiza 24 No Amitiza 24 MCG MCG MCG Victoza 18 Victoza 18 No Victoza 18 MG/3ML MG/3ML MG/3ML glipiZIDE glipiZIDE No glipiZIDE ER 5 MG ER 5 MG ER 5 MG ZyrTEC ZyrTEC No 1{table QD ZyrTEC Allergy 10 Allergy 10 t} Allergy 10 MG MG MG Victoza 18 Victoza 18 No QD Victoza 18 MG/3ML MG/3ML MG/3ML Bumetanide Bumetanide No QD Bumetanide 2 MG 2 MG 2 MG Levemir Levemir No Levemir FlexTouch FlexTouch FlexTouch 100 UNIT/ML 100 UNIT/ML 100 UNIT/ML Myrbetriq Myrbetriq No 1{table QD Myrbetriq 50 MG 50 MG t} 50 MG Niacin 250 Niacin 250 No 1{table QD Niacin 250 MG MG t_with_ MG food} Carvedilol Carvedilol No 1{table BID Carvedilol 25 mg 25 mg t} 25 mg Oxybutynin Oxybutynin No Oxybutynin Chloride 5 Chloride 5 Chloride 5 MG MG MG Myrbetriq Myrbetriq No 1{table QD Myrbetriq 50 MG 50 MG t} 50 MG buPROPion buPROPion No buPROPion HCl ER (SR) HCl ER (SR) HCl ER 150 MG 150 MG (SR) 150 MG Flonase 50 Flonase 50 No Flonase 50 MCG/DOSE MCG/DOSE MCG/DOSE Ferrous Ferrous No 1{table BID Ferrous Sulfate 325 Sulfate 325 t} Sulfate (65 Fe) MG (65 Fe) MG 325 (65 Fe) MG OneTouch OneTouch No OneTouch Ultra Test Ultra Test Ultra Test - - - OneTouch OneTouch No OneTouch Ultra - Ultra - Ultra - NexIUM 40 NexIUM 40 No 1{capsu QD NexIUM 40 MG MG le} MG Zetia 10 MG Zetia 10 MG No 1{table QD Zetia 10 t} MG Tradjenta 5 Tradjenta 5 No Tradjenta MG MG 5 MG buPROPion buPROPion No buPROPion HCl ER (SR) HCl ER (SR) HCl ER 150 MG 150 MG (SR) 150 MG Allopurinol Allopurinol No Allopurino 100 MG 100 MG l 100 MG glipiZIDE glipiZIDE No 1{table BID glipiZIDE ER 2.5 MG ER 2.5 MG t_with_ ER 2.5 MG food} Atorvastati Atorvastati No Atorvastat n Calcium n Calcium in Calcium 80 MG 80 MG 80 MG Colace 50 Colace 50 No 1{capsu QD Colace 50 MG MG le} MG Ezetimibe Ezetimibe No Ezetimibe 10 MG 10 MG 10 MG Levemir Levemir No BID Levemir FlexTouch FlexTouch FlexTouch 100 UNIT/ML 100 UNIT/ML 100 UNIT/ML metOLazone metOLazone No 1{table metOLazone Areds2 Areds2 t} Areds2 tiZANidine tiZANidine No tiZANidine HCl 4 MG HCl 4 MG HCl 4 MG Linzess 72 Linzess 72 No QD Linzess 72 MCG MCG MCG Dulcolax 5 Dulcolax 5 No 1{table Dulcolax 5 MG MG t_as_ne MG eded} Spironolact Spironolact No Spironolac one 50 MG one 50 MG tone 50 MG glipiZIDE glipiZIDE No glipiZIDE ER 2.5 MG ER 2.5 MG ER 2.5 MG Aspirin 81 Aspirin 81 No 1{table QD Aspirin 81 81 MG 81 MG t} 81 MG Ferrous Ferrous No Ferrous Sulfate 325 Sulfate 325 Sulfate (65 Fe) MG (65 Fe) MG 325 (65 Fe) MG hydrALAZINE hydrALAZINE No 1{table hydrALAZIN HCl 25 MG HCl 25 MG t_with_ E HCl 25 food} MG Gabapentin Gabapentin No 1{capsu BID Gabapentin 300 MG 300 MG le} 300 MG Flonase 50 Flonase 50 No QD Flonase 50 MCG/DOSE MCG/DOSE MCG/DOSE Esomeprazol Esomeprazol No 1{capsu QD Esomeprazo e Magnesium e Magnesium le} le 40 MG 40 MG Magnesium 40 MG Amitiza 24 Amitiza 24 No Amitiza 24 MCG MCG MCG Victoza 18 Victoza 18 No Victoza 18 MG/3ML MG/3ML MG/3ML glipiZIDE glipiZIDE No glipiZIDE ER 5 MG ER 5 MG ER 5 MG ZyrTEC ZyrTEC No 1{table QD ZyrTEC Allergy 10 Allergy 10 t} Allergy 10 MG MG MG Victoza 18 Victoza 18 No QD Victoza 18 MG/3ML MG/3ML MG/3ML Bumetanide Bumetanide No QD Bumetanide 2 MG 2 MG 2 MG Levemir Levemir No Levemir FlexTouch FlexTouch FlexTouch 100 UNIT/ML 100 UNIT/ML 100 UNIT/ML glipiZIDE glipiZIDE No glipiZIDE ER 5 MG ER 5 MG ER 5 MG Levemir Levemir No BID Levemir FlexTouch FlexTouch FlexTouch 100 UNIT/ML 100 UNIT/ML 100 UNIT/ML Niacin 250 Niacin 250 No 1{table QD Niacin 250 MG MG t_with_ MG food} Tradjenta 5 Tradjenta 5 No Tradjenta MG MG 5 MG Victoza 18 Victoza 18 No Victoza 18 MG/3ML MG/3ML MG/3ML buPROPion buPROPion No buPROPion HCl ER (SR) HCl ER (SR) HCl ER 150 MG 150 MG (SR) 150 MG glipiZIDE glipiZIDE No 1{table BID glipiZIDE ER 2.5 MG ER 2.5 MG t_with_ ER 2.5 MG food} OneTouch OneTouch No OneTouch Ultra - Ultra - Ultra - hydrALAZINE hydrALAZINE No 1{table hydrALAZIN HCl 25 MG HCl 25 MG t_with_ E HCl 25 food} MG Flonase 50 Flonase 50 No QD Flonase 50 MCG/DOSE MCG/DOSE MCG/DOSE Carvedilol Carvedilol No 1{table BID Carvedilol 25 mg 25 mg t} 25 mg Ferrous Ferrous No Ferrous Sulfate 325 Sulfate 325 Sulfate (65 Fe) MG (65 Fe) MG 325 (65 Fe) MG Flonase 50 Flonase 50 No Flonase 50 MCG/DOSE MCG/DOSE MCG/DOSE Myrbetriq Myrbetriq No 1{table QD Myrbetriq 50 MG 50 MG t} 50 MG Esomeprazol Esomeprazol No 1{capsu QD Esomeprazo e Magnesium e Magnesium le} le 40 MG 40 MG Magnesium 40 MG Dulcolax 5 Dulcolax 5 No 1{table Dulcolax 5 MG MG t_as_ne MG eded} Ferrous Ferrous No 1{table BID Ferrous Sulfate 325 Sulfate 325 t} Sulfate (65 Fe) MG (65 Fe) MG 325 (65 Fe) MG buPROPion buPROPion No buPROPion HCl ER (SR) HCl ER (SR) HCl ER 150 MG 150 MG (SR) 150 MG Zetia 10 MG Zetia 10 MG No 1{table QD Zetia 10 t} MG NexIUM 40 NexIUM 40 No 1{capsu QD NexIUM 40 MG MG le} MG Myrbetriq Myrbetriq No 1{table QD Myrbetriq 50 MG 50 MG t} 50 MG Atorvastati Atorvastati No Atorvastat n Calcium n Calcium in Calcium 80 MG 80 MG 80 MG OneTouch OneTouch No OneTouch Ultra Test Ultra Test Ultra Test - - - metOLazone metOLazone No 1{table metOLazone Areds2 Areds2 t} Areds2 Oxybutynin Oxybutynin No Oxybutynin Chloride 5 Chloride 5 Chloride 5 MG MG MG Spironolact Spironolact No Spironolac one 50 MG one 50 MG tone 50 MG Colace 50 Colace 50 No 1{capsu QD Colace 50 MG MG le} MG Victoza 18 Victoza 18 No QD Victoza 18 MG/3ML MG/3ML MG/3ML Levemir Levemir No Levemir FlexTouch FlexTouch FlexTouch 100 UNIT/ML 100 UNIT/ML 100 UNIT/ML Gabapentin Gabapentin No 1{capsu BID Gabapentin 300 MG 300 MG le} 300 MG Ezetimibe Ezetimibe No Ezetimibe 10 MG 10 MG 10 MG ZyrTEC ZyrTEC No 1{table QD ZyrTEC Allergy 10 Allergy 10 t} Allergy 10 MG MG MG Allopurinol Allopurinol No Allopurino 100 MG 100 MG l 100 MG Aspirin 81 Aspirin 81 No 1{table QD Aspirin 81 81 MG 81 MG t} 81 MG Amitiza 24 Amitiza 24 No Amitiza 24 MCG MCG MCG Bumetanide Bumetanide No QD Bumetanide 2 MG 2 MG 2 MG glipiZIDE glipiZIDE No glipiZIDE ER 2.5 MG ER 2.5 MG ER 2.5 MG tiZANidine tiZANidine No tiZANidine HCl 4 MG HCl 4 MG HCl 4 MG Linzess 72 Linzess 72 No QD Linzess 72 MCG MCG MCG glipiZIDE glipiZIDE No glipiZIDE ER 5 MG ER 5 MG ER 5 MG Levemir Levemir No BID Levemir FlexTouch FlexTouch FlexTouch 100 UNIT/ML 100 UNIT/ML 100 UNIT/ML Niacin 250 Niacin 250 No 1{table QD Niacin 250 MG MG t_with_ MG food} Tradjenta 5 Tradjenta 5 No Tradjenta MG MG 5 MG Victoza 18 Victoza 18 No Victoza 18 MG/3ML MG/3ML MG/3ML buPROPion buPROPion No buPROPion HCl ER (SR) HCl ER (SR) HCl ER 150 MG 150 MG (SR) 150 MG glipiZIDE glipiZIDE No 1{table BID glipiZIDE ER 2.5 MG ER 2.5 MG t_with_ ER 2.5 MG food} OneTouch OneTouch No OneTouch Ultra - Ultra - Ultra - hydrALAZINE hydrALAZINE No 1{table hydrALAZIN HCl 25 MG HCl 25 MG t_with_ E HCl 25 food} MG Flonase 50 Flonase 50 No QD Flonase 50 MCG/DOSE MCG/DOSE MCG/DOSE Carvedilol Carvedilol No 1{table BID Carvedilol 25 mg 25 mg t} 25 mg Ferrous Ferrous No Ferrous Sulfate 325 Sulfate 325 Sulfate (65 Fe) MG (65 Fe) MG 325 (65 Fe) MG Flonase 50 Flonase 50 No Flonase 50 MCG/DOSE MCG/DOSE MCG/DOSE Myrbetriq Myrbetriq No 1{table QD Myrbetriq 50 MG 50 MG t} 50 MG Esomeprazol Esomeprazol No 1{capsu QD Esomeprazo e Magnesium e Magnesium le} le 40 MG 40 MG Magnesium 40 MG Dulcolax 5 Dulcolax 5 No 1{table Dulcolax 5 MG MG t_as_ne MG eded} Ferrous Ferrous No 1{table BID Ferrous Sulfate 325 Sulfate 325 t} Sulfate (65 Fe) MG (65 Fe) MG 325 (65 Fe) MG buPROPion buPROPion No buPROPion HCl ER (SR) HCl ER (SR) HCl ER 150 MG 150 MG (SR) 150 MG Zetia 10 MG Zetia 10 MG No 1{table QD Zetia 10 t} MG NexIUM 40 NexIUM 40 No 1{capsu QD NexIUM 40 MG MG le} MG Myrbetriq Myrbetriq No 1{table QD Myrbetriq 50 MG 50 MG t} 50 MG Atorvastati Atorvastati No Atorvastat n Calcium n Calcium in Calcium 80 MG 80 MG 80 MG OneTouch OneTouch No OneTouch Ultra Test Ultra Test Ultra Test - - - metOLazone metOLazone No 1{table metOLazone Areds2 Areds2 t} Areds2 Oxybutynin Oxybutynin No Oxybutynin Chloride 5 Chloride 5 Chloride 5 MG MG MG Spironolact Spironolact No Spironolac one 50 MG one 50 MG tone 50 MG Colace 50 Colace 50 No 1{capsu QD Colace 50 MG MG le} MG Victoza 18 Victoza 18 No QD Victoza 18 MG/3ML MG/3ML MG/3ML Levemir Levemir No Levemir FlexTouch FlexTouch FlexTouch 100 UNIT/ML 100 UNIT/ML 100 UNIT/ML Gabapentin Gabapentin No 1{capsu BID Gabapentin 300 MG 300 MG le} 300 MG Ezetimibe Ezetimibe No Ezetimibe 10 MG 10 MG 10 MG ZyrTEC ZyrTEC No 1{table QD ZyrTEC Allergy 10 Allergy 10 t} Allergy 10 MG MG MG Allopurinol Allopurinol No Allopurino 100 MG 100 MG l 100 MG Aspirin 81 Aspirin 81 No 1{table QD Aspirin 81 81 MG 81 MG t} 81 MG Amitiza 24 Amitiza 24 No Amitiza 24 MCG MCG MCG Bumetanide Bumetanide No QD Bumetanide 2 MG 2 MG 2 MG glipiZIDE glipiZIDE No glipiZIDE ER 2.5 MG ER 2.5 MG ER 2.5 MG tiZANidine tiZANidine No tiZANidine HCl 4 MG HCl 4 MG HCl 4 MG Linzess 72 Linzess 72 No QD Linzess 72 MCG MCG MCG Levemir Levemir No BID Levemir FlexTouch FlexTouch FlexTouch 100 UNIT/ML 100 UNIT/ML 100 UNIT/ML Myrbetriq Myrbetriq No 1{table QD Myrbetriq 50 MG 50 MG t} 50 MG Aspirin 81 Aspirin 81 No 1{table QD Aspirin 81 81 MG 81 MG t} 81 MG tiZANidine tiZANidine No tiZANidine HCl 4 MG HCl 4 MG HCl 4 MG buPROPion buPROPion No buPROPion HCl ER (SR) HCl ER (SR) HCl ER 150 MG 150 MG (SR) 150 MG Ferrous Ferrous No Ferrous Sulfate 325 Sulfate 325 Sulfate (65 Fe) MG (65 Fe) MG 325 (65 Fe) MG Tradjenta 5 Tradjenta 5 No Tradjenta MG MG 5 MG Atorvastati Atorvastati No Atorvastat n Calcium n Calcium in Calcium 80 MG 80 MG 80 MG Esomeprazol Esomeprazol No 1{capsu QD Esomeprazo e Magnesium e Magnesium le} le 40 MG 40 MG Magnesium 40 MG Spironolact Spironolact No Spironolac one 50 MG one 50 MG tone 50 MG OneTouch OneTouch No OneTouch Ultra Test Ultra Test Ultra Test - - - Linzess 72 Linzess 72 No QD Linzess 72 MCG MCG MCG Amitiza 24 Amitiza 24 No Amitiza 24 MCG MCG MCG Flonase 50 Flonase 50 No Flonase 50 MCG/DOSE MCG/DOSE MCG/DOSE NexIUM 40 NexIUM 40 No 1{capsu QD NexIUM 40 MG MG le} MG Bumetanide Bumetanide No QD Bumetanide 2 MG 2 MG 2 MG Ferrous Ferrous No 1{table BID Ferrous Sulfate 325 Sulfate 325 t} Sulfate (65 Fe) MG (65 Fe) MG 325 (65 Fe) MG hydrALAZINE hydrALAZINE No 1{table hydrALAZIN HCl 25 MG HCl 25 MG t_with_ E HCl 25 food} MG glipiZIDE glipiZIDE No glipiZIDE ER 2.5 MG ER 2.5 MG ER 2.5 MG Victoza 18 Victoza 18 No QD Victoza 18 MG/3ML MG/3ML MG/3ML Gabapentin Gabapentin No 1{capsu BID Gabapentin 300 MG 300 MG le} 300 MG Flonase 50 Flonase 50 No QD Flonase 50 MCG/DOSE MCG/DOSE MCG/DOSE metOLazone metOLazone No 1{table metOLazone Areds2 Areds2 t} Areds2 Myrbetriq Myrbetriq No 1{table QD Myrbetriq 50 MG 50 MG t} 50 MG glipiZIDE glipiZIDE No glipiZIDE ER 5 MG ER 5 MG ER 5 MG Oxybutynin Oxybutynin No Oxybutynin Chloride 5 Chloride 5 Chloride 5 MG MG MG Zetia 10 MG Zetia 10 MG No 1{table QD Zetia 10 t} MG Niacin 250 Niacin 250 No 1{table QD Niacin 250 MG MG t_with_ MG food} buPROPion buPROPion No buPROPion HCl ER (SR) HCl ER (SR) HCl ER 150 MG 150 MG (SR) 150 MG Levemir Levemir No Levemir FlexTouch FlexTouch FlexTouch 100 UNIT/ML 100 UNIT/ML 100 UNIT/ML Ezetimibe Ezetimibe No Ezetimibe 10 MG 10 MG 10 MG Carvedilol Carvedilol No 1{table BID Carvedilol 25 mg 25 mg t} 25 mg OneTouch OneTouch No OneTouch Ultra - Ultra - Ultra - Victoza 18 Victoza 18 No Victoza 18 MG/3ML MG/3ML MG/3ML Colace 50 Colace 50 No 1{capsu QD Colace 50 MG MG le} MG Allopurinol Allopurinol No Allopurino 100 MG 100 MG l 100 MG ZyrTEC ZyrTEC No 1{table QD ZyrTEC Allergy 10 Allergy 10 t} Allergy 10 MG MG MG Dulcolax 5 Dulcolax 5 No 1{table Dulcolax 5 MG MG t_as_ne MG eded} metOLazone metOLazone No 1{table metOLazone Areds2 Areds2 t} Areds2 Myrbetriq Myrbetriq No 1{table QD Myrbetriq 50 MG 50 MG t} 50 MG glipiZIDE glipiZIDE No 1{table BID glipiZIDE ER 2.5 MG ER 2.5 MG t_with_ ER 2.5 MG food} Victoza 18 Victoza 18 No Victoza 18 MG/3ML MG/3ML MG/3ML Ferrous Ferrous No 1{table BID Ferrous Sulfate 325 Sulfate 325 t} Sulfate (65 Fe) MG (65 Fe) MG 325 (65 Fe) MG Atorvastati Atorvastati No QD Atorvastat n Calcium n Calcium in Calcium 80 MG 80 MG 80 MG Colace 50 Colace 50 No 1{capsu QD Colace 50 MG MG le} MG Gabapentin Gabapentin No 1{capsu BID Gabapentin 300 MG 300 MG le} 300 MG Flonase 50 Flonase 50 No Flonase 50 MCG/DOSE MCG/DOSE MCG/DOSE NexIUM 40 NexIUM 40 No 1{capsu QD NexIUM 40 MG MG le} MG Levemir Levemir No Levemir FlexTouch FlexTouch FlexTouch 100 UNIT/ML 100 UNIT/ML 100 UNIT/ML Linzess 72 Linzess 72 No QD Linzess 72 MCG MCG MCG Niacin 250 Niacin 250 No 1{table QD Niacin 250 MG MG t_with_ MG food} Myrbetriq Myrbetriq No 1{table QD Myrbetriq 50 MG 50 MG t} 50 MG Allopurinol Allopurinol No Allopurino 100 MG 100 MG l 100 MG Tradjenta 5 Tradjenta 5 No Tradjenta MG MG 5 MG hydrALAZINE hydrALAZINE No 1{table hydrALAZIN HCl 25 MG HCl 25 MG t_with_ E HCl 25 food} MG Esomeprazol Esomeprazol No 1{capsu QD Esomeprazo e Magnesium e Magnesium le} le 40 MG 40 MG Magnesium 40 MG buPROPion buPROPion No buPROPion HCl ER (SR) HCl ER (SR) HCl ER 150 MG 150 MG (SR) 150 MG Carvedilol Carvedilol No 1{table BID Carvedilol 25 mg 25 mg t} 25 mg Zetia 10 MG Zetia 10 MG No 1{table QD Zetia 10 t} MG Spironolact Spironolact No Spironolac one 50 MG one 50 MG tone 50 MG Bumetanide Bumetanide No QD Bumetanide 2 MG 2 MG 2 MG glipiZIDE glipiZIDE No 1{table QD glipiZIDE ER 2.5 MG ER 2.5 MG t_with_ ER 2.[address]} Oxybutynin Oxybutynin No Oxybutynin Chloride 5 Chloride 5 Chloride 5 MG MG MG ZyrTEC ZyrTEC No 1{table QD ZyrTEC Allergy 10 Allergy 10 t} Allergy 10 MG MG MG Flonase 50 Flonase 50 No QD Flonase 50 MCG/DOSE MCG/DOSE MCG/DOSE OneTouch OneTouch No OneTouch Ultra - Ultra - Ultra - Atorvastati Atorvastati No Atorvastat n Calcium n Calcium in Calcium 80 MG 80 MG 80 MG glipiZIDE glipiZIDE No glipiZIDE ER 2.5 MG ER 2.5 MG ER 2.5 MG Amitiza 24 Amitiza 24 No Amitiza 24 MCG MCG MCG Dulcolax 5 Dulcolax 5 No 1{table Dulcolax 5 MG MG t_as_ne MG eded} tiZANidine tiZANidine No tiZANidine HCl 4 MG HCl 4 MG HCl 4 MG Aspirin 81 Aspirin 81 No 1{table QD Aspirin 81 81 MG 81 MG t} 81 MG Victoza 18 Victoza 18 No QD Victoza 18 MG/3ML MG/3ML MG/3ML OneTouch OneTouch No OneTouch Ultra Test Ultra Test Ultra Test - - - Ferrous Ferrous No Ferrous Sulfate 325 Sulfate 325 Sulfate (65 Fe) MG (65 Fe) MG 325 (65 Fe) MG Ezetimibe Ezetimibe No Ezetimibe 10 MG 10 MG 10 MG Levemir Levemir No BID Levemir FlexTouch FlexTouch FlexTouch 100 UNIT/ML 100 UNIT/ML 100 UNIT/ML Ferrous Ferrous No 1{table BID Ferrous Sulfate 325 Sulfate 325 t} Sulfate (65 Fe) MG (65 Fe) MG 325 (65 Fe) MG Atorvastati Atorvastati No Atorvastat n Calcium n Calcium in Calcium 80 MG 80 MG 80 MG Ferrous Ferrous No Ferrous Sulfate 325 Sulfate 325 Sulfate (65 Fe) MG (65 Fe) MG 325 (65 Fe) MG glipiZIDE glipiZIDE No glipiZIDE ER 2.5 MG ER 2.5 MG ER 2.5 MG glipiZIDE glipiZIDE No 1{table BID glipiZIDE ER 2.5 MG ER 2.5 MG t_with_ ER 2.5 MG food} methylPREDN methylPREDN No QD methylPRED ISolone 4 ISolone 4 NISolone 4 MG MG MG Carvedilol Carvedilol No 1{table BID Carvedilol 25 mg 25 mg t} 25 mg Levemir Levemir No Levemir FlexTouch FlexTouch FlexTouch 100 UNIT/ML 100 UNIT/ML 100 UNIT/ML buPROPion buPROPion No buPROPion HCl ER (SR) HCl ER (SR) HCl ER 150 MG 150 MG (SR) 150 MG Allopurinol Allopurinol No Allopurino 100 MG 100 MG l 100 MG Myrbetriq Myrbetriq No 1{table QD Myrbetriq 50 MG 50 MG t} 50 MG OneTouch OneTouch No OneTouch Ultra - Ultra - Ultra - Gabapentin Gabapentin No 1{capsu BID Gabapentin 300 MG 300 MG le} 300 MG Colace 50 Colace 50 No 1{capsu QD Colace 50 MG MG le} MG NexIUM 40 NexIUM 40 No 1{capsu QD NexIUM 40 MG MG le} MG Tradjenta 5 Tradjenta 5 No Tradjenta MG MG 5 MG Flonase 50 Flonase 50 No QD Flonase 50 MCG/DOSE MCG/DOSE MCG/DOSE Niacin 250 Niacin 250 No 1{table QD Niacin 250 MG MG t_with_ MG food} OneTouch OneTouch No OneTouch Ultra Test Ultra Test Ultra Test - - - Flonase 50 Flonase 50 No Flonase 50 MCG/DOSE MCG/DOSE MCG/DOSE hydrALAZINE hydrALAZINE No 1{table hydrALAZIN HCl 25 MG HCl 25 MG t_with_ E HCl 25 food} MG Victoza 18 Victoza 18 No QD Victoza 18 MG/3ML MG/3ML MG/3ML Linzess 72 Linzess 72 No QD Linzess 72 MCG MCG MCG Spironolact Spironolact No Spironolac one 50 MG one 50 MG tone 50 MG Escitalopra Escitalopra No Escitalopr m Oxalate m Oxalate am Oxalate 20 MG 20 MG 20 MG Amitiza 24 Amitiza 24 No Amitiza 24 MCG MCG MCG ZyrTEC ZyrTEC No 1{table QD ZyrTEC Allergy 10 Allergy 10 t} Allergy 10 MG MG MG glipiZIDE glipiZIDE No 1{table QD glipiZIDE ER 2.5 MG ER 2.5 MG t_with_ ER 2.[address]} tiZANidine tiZANidine No tiZANidine HCl 4 MG HCl 4 MG HCl 4 MG Dulcolax 5 Dulcolax 5 No 1{table Dulcolax 5 MG MG t_as_ne MG eded} Victoza 18 Victoza 18 No Victoza 18 MG/3ML MG/3ML MG/3ML Myrbetriq Myrbetriq No 1{table QD Myrbetriq 50 MG 50 MG t} 50 MG Bumetanide Bumetanide No QD Bumetanide 2 MG 2 MG 2 MG Aspirin 81 Aspirin 81 No 1{table QD Aspirin 81 81 MG 81 MG t} 81 MG Ezetimibe Ezetimibe No Ezetimibe 10 MG 10 MG 10 MG Esomeprazol Esomeprazol No 1{capsu QD Esomeprazo e Magnesium e Magnesium le} le 40 MG 40 MG Magnesium 40 MG Oxybutynin Oxybutynin No Oxybutynin Chloride 5 Chloride 5 Chloride 5 MG MG MG metOLazone metOLazone No 1{table metOLazone Areds2 Areds2 t} Areds2 Atorvastati Atorvastati No QD Atorvastat n Calcium n Calcium in Calcium 80 MG 80 MG 80 MG Zetia 10 MG Zetia 10 MG No 1{table QD Zetia 10 t} MG Ferrous Ferrous No 1{table BID Ferrous Sulfate 325 Sulfate 325 t} Sulfate (65 Fe) MG (65 Fe) MG 325 (65 Fe) MG Atorvastati Atorvastati No Atorvastat n Calcium n Calcium in Calcium 80 MG 80 MG 80 MG Ferrous Ferrous No Ferrous Sulfate 325 Sulfate 325 Sulfate (65 Fe) MG (65 Fe) MG 325 (65 Fe) MG glipiZIDE glipiZIDE No glipiZIDE ER 2.5 MG ER 2.5 MG ER 2.5 MG glipiZIDE glipiZIDE No 1{table BID glipiZIDE ER 2.5 MG ER 2.5 MG t_with_ ER 2.5 MG food} methylPREDN methylPREDN No QD methylPRED ISolone 4 ISolone 4 NISolone 4 MG MG MG Carvedilol Carvedilol No 1{table BID Carvedilol 25 mg 25 mg t} 25 mg Levemir Levemir No Levemir FlexTouch FlexTouch FlexTouch 100 UNIT/ML 100 UNIT/ML 100 UNIT/ML buPROPion buPROPion No buPROPion HCl ER (SR) HCl ER (SR) HCl ER 150 MG 150 MG (SR) 150 MG Allopurinol Allopurinol No Allopurino 100 MG 100 MG l 100 MG Myrbetriq Myrbetriq No 1{table QD Myrbetriq 50 MG 50 MG t} 50 MG OneTouch OneTouch No OneTouch Ultra - Ultra - Ultra - Gabapentin Gabapentin No 1{capsu BID Gabapentin 300 MG 300 MG le} 300 MG Colace 50 Colace 50 No 1{capsu QD Colace 50 MG MG le} MG NexIUM 40 NexIUM 40 No 1{capsu QD NexIUM 40 MG MG le} MG Tradjenta 5 Tradjenta 5 No Tradjenta MG MG 5 MG Flonase 50 Flonase 50 No QD Flonase 50 MCG/DOSE MCG/DOSE MCG/DOSE Niacin 250 Niacin 250 No 1{table QD Niacin 250 MG MG t_with_ MG food} OneTouch OneTouch No OneTouch Ultra Test Ultra Test Ultra Test - - - Flonase 50 Flonase 50 No Flonase 50 MCG/DOSE MCG/DOSE MCG/DOSE hydrALAZINE hydrALAZINE No 1{table hydrALAZIN HCl 25 MG HCl 25 MG t_with_ E HCl 25 food} MG Victoza 18 Victoza 18 No QD Victoza 18 MG/3ML MG/3ML MG/3ML Linzess 72 Linzess 72 No QD Linzess 72 MCG MCG MCG Spironolact Spironolact No Spironolac one 50 MG one 50 MG tone 50 MG Escitalopra Escitalopra No Escitalopr m Oxalate m Oxalate am Oxalate 20 MG 20 MG 20 MG Amitiza 24 Amitiza 24 No Amitiza 24 MCG MCG MCG ZyrTEC ZyrTEC No 1{table QD ZyrTEC Allergy 10 Allergy 10 t} Allergy 10 MG MG MG glipiZIDE glipiZIDE No 1{table QD glipiZIDE ER 2.5 MG ER 2.5 MG t_with_ ER 2.[address]} tiZANidine tiZANidine No tiZANidine HCl 4 MG HCl 4 MG HCl 4 MG Dulcolax 5 Dulcolax 5 No 1{table Dulcolax 5 MG MG t_as_ne MG eded} Victoza 18 Victoza 18 No Victoza 18 MG/3ML MG/3ML MG/3ML Myrbetriq Myrbetriq No 1{table QD Myrbetriq 50 MG 50 MG t} 50 MG Bumetanide Bumetanide No QD Bumetanide 2 MG 2 MG 2 MG Aspirin 81 Aspirin 81 No 1{table QD Aspirin 81 81 MG 81 MG t} 81 MG Ezetimibe Ezetimibe No Ezetimibe 10 MG 10 MG 10 MG Esomeprazol Esomeprazol No 1{capsu QD Esomeprazo e Magnesium e Magnesium le} le 40 MG 40 MG Magnesium 40 MG Oxybutynin Oxybutynin No Oxybutynin Chloride 5 Chloride 5 Chloride 5 MG MG MG metOLazone metOLazone No 1{table metOLazone Areds2 Areds2 t} Areds2 Atorvastati Atorvastati No QD Atorvastat n Calcium n Calcium in Calcium 80 MG 80 MG 80 MG Zetia 10 MG Zetia 10 MG No 1{table QD Zetia 10 t} MG Esomeprazol Esomeprazol No 1{capsu QD Esomeprazo e Magnesium e Magnesium le} le 40 MG 40 MG Magnesium 40 MG Niacin 250 Niacin 250 No 1{table QD Niacin 250 MG MG t_with_ MG food} Victoza 18 Victoza 18 No QD Victoza 18 MG/3ML MG/3ML MG/3ML Dulcolax 5 Dulcolax 5 No 1{table Dulcolax 5 MG MG t_as_ne MG eded} Ferrous Ferrous No Ferrous Sulfate 325 Sulfate 325 Sulfate (65 Fe) MG (65 Fe) MG 325 (65 Fe) MG OneTouch OneTouch No OneTouch Ultra - Ultra - Ultra - Zetia 10 MG Zetia 10 MG No 1{table QD Zetia 10 t} MG Carvedilol Carvedilol No 1{table BID Carvedilol 25 mg 25 mg t} 25 mg Ezetimibe Ezetimibe No Ezetimibe 10 MG 10 MG 10 MG buPROPion buPROPion No buPROPion HCl ER (SR) HCl ER (SR) HCl ER 150 MG 150 MG (SR) 150 MG hydrALAZINE hydrALAZINE No 1{table hydrALAZIN HCl 25 MG HCl 25 MG t_with_ E HCl 25 food} MG Escitalopra Escitalopra No Escitalopr m Oxalate m Oxalate am Oxalate 20 MG 20 MG 20 MG Oxybutynin Oxybutynin No Oxybutynin Chloride 5 Chloride 5 Chloride 5 MG MG MG Gabapentin Gabapentin No 1{capsu BID Gabapentin 300 MG 300 MG le} 300 MG Colace 50 Colace 50 No 1{capsu QD Colace 50 MG MG le} MG Tradjenta 5 Tradjenta 5 No Tradjenta MG MG 5 MG Victoza 18 Victoza 18 No Victoza 18 MG/3ML MG/3ML MG/3ML metOLazone metOLazone No 1{table metOLazone Areds2 Areds2 t} Areds2 Allopurinol Allopurinol No Allopurino 100 MG 100 MG l 100 MG Flonase 50 Flonase 50 No QD Flonase 50 MCG/DOSE MCG/DOSE MCG/DOSE glipiZIDE glipiZIDE No 1{table QD glipiZIDE ER 2.5 MG ER 2.5 MG t_with_ ER 2.[address]} methylPREDN methylPREDN No QD methylPRED ISolone 4 ISolone 4 NISolone 4 MG MG MG NexIUM 40 NexIUM 40 No 1{capsu QD NexIUM 40 MG MG le} MG glipiZIDE glipiZIDE No 1{table BID glipiZIDE ER 2.5 MG ER 2.5 MG t_with_ ER 2.5 MG food} Spironolact Spironolact No Spironolac one 50 MG one 50 MG tone 50 MG Myrbetriq Myrbetriq No 1{table QD Myrbetriq 50 MG 50 MG t} 50 MG Flonase 50 Flonase 50 No Flonase 50 MCG/DOSE MCG/DOSE MCG/DOSE tiZANidine tiZANidine No tiZANidine HCl 4 MG HCl 4 MG HCl 4 MG Ferrous Ferrous No 1{table BID Ferrous Sulfate 325 Sulfate 325 t} Sulfate (65 Fe) MG (65 Fe) MG 325 (65 Fe) MG Atorvastati Atorvastati No QD Atorvastat n Calcium n Calcium in Calcium 80 MG 80 MG 80 MG glipiZIDE glipiZIDE No glipiZIDE ER 2.5 MG ER 2.5 MG ER 2.5 MG OneTouch OneTouch No OneTouch Ultra Test Ultra Test Ultra Test - - - Lubiproston Lubiproston No BID Lubiprosto e 24 MCG e 24 MCG ne 24 MCG Myrbetriq Myrbetriq No 1{table QD Myrbetriq 50 MG 50 MG t} 50 MG Amitiza 24 Amitiza 24 No Amitiza 24 MCG MCG MCG Linzess 72 Linzess 72 No QD Linzess 72 MCG MCG MCG Aspirin 81 Aspirin 81 No 1{table QD Aspirin 81 81 MG 81 MG t} 81 MG Atorvastati Atorvastati No Atorvastat n Calcium n Calcium in Calcium 80 MG 80 MG 80 MG Levemir Levemir No Levemir FlexTouch FlexTouch FlexTouch 100 UNIT/ML 100 UNIT/ML 100 UNIT/ML Bumetanide Bumetanide No QD Bumetanide 2 MG 2 MG 2 MG ZyrTEC ZyrTEC No 1{table QD ZyrTEC Allergy 10 Allergy 10 t} Allergy 10 MG MG MG Esomeprazol Esomeprazol Yes Jose A 1 capsule Common e Magnesium e Magnesium Addison [facility] Nexium Nexium Yes Jose A 1 capsule Comm on Addison [facility] Aspirin 81 Aspirin 81 Yes Jose A 1 tablet Common Addison [facility] Linzess Linzess Yes Jose A 1 capsule Co mmon Addison at least [facility] 30 minutes - [facility] before the [facility] first meal [facility] day [facility] empty stomach Flonase Flonase Yes Jose A USE ONE Comm on Addison SPRAY IN [facility] EACH [facility] NOSTRIL [facility] ONCE DAILY [facility] Tradjenta Tradjenta Yes Jose A take 1 C ommon Addison tablet by Spirit mouth - [facility] every day [facility] HydrALAZINE HydrALAZINE Yes Jose A 1 tablet Common HCl HCl Addison with food [facility] OneTouch OneTouch Yes Jose A TEST ONCE Common Ultra Test Ultra Test Addison A DAY S pirit [facility] Allopurinol Allopurinol Yes Jose A take 1 Common Addison tablet by Spirit mouth - [facility] every day [facility] Zyrtec Zyrtec Yes Jose A 1 tablet Commo n Allergy Allergy Addison [facility] Niacin Niacin Yes Jose A 1 tablet Commo n Addison with food [facility] Carvedilol Carvedilol Yes Jose A 1 tablet Common Addison [facility] Gabapentin Gabapentin Yes Jose A 1 capsule Common [facility] Bumetanide Bumetanide Yes Jose A 1 1/2 tab Common [facility] Dulcolax Dulcolax Yes Jose A 1 tablet C ommon Addison as needed [facility] BuPROPion BuPROPion Yes Jose A 1 tablet Common HCl ER (SR) HCl ER (SR) Addison orally bid [facility] Metolazone Metolazone Yes Jose A 1 tablet Common Addison [facility] Colace Colace Yes Jose A 1 capsule Comm on Addison [facility] Levemir Levemir Yes Jose A 50 Common FlexTouch FlexTouch Addison units/Ml [facility] Zetia Zetia Yes Jose A 1 tablet Common [facility] Atorvastati Atorvastati Yes Jose A take 1 Common n Calcium n Calcium Addison tablet by Spirit mouth - [facility] every day [facility] Victoza Victoza Yes Jose A inject Commo n Addison 1.8mg [facility] daily [facility] subcutane[facility] Atorvasta Atorvastati Yes Jose A take 1 Common n Calcium n Calcium Addison tablet by [facility] mouth - [facility] every day [facility] Zetia Zetia Yes Jose A 1 tablet Common Addison [facility] Myrbetriq Myrbetriq Yes Jose A 1 tablet Common Addison [facility] Victoza Victoza Yes Jose A inject Commo n Addison 1.8mg [facility] daily - [facility] subcutane[facility] Allopurinol Allopurinol No Allopurino 100 MG 100 MG l 100 MG Esomeprazol Esomeprazol No 1{capsu QD Esomeprazo e Magnesium e Magnesium le} le 40 MG 40 MG Magnesium 40 MG tiZANidine tiZANidine No tiZANidine HCl 4 MG HCl 4 MG HCl 4 MG Ezetimibe Ezetimibe No Ezetimibe 10 MG 10 MG 10 MG Myrbetriq Myrbetriq No 1{table QD Myrbetriq 50 MG 50 MG t} 50 MG Aspirin 81 Aspirin 81 No 1{table QD Aspirin 81 81 MG 81 MG t} 81 MG Ferrous Ferrous No 1{table BID Ferrous Sulfate 325 Sulfate 325 t} Sulfate (65 Fe) MG (65 Fe) MG 325 (65 Fe) MG Levemir Levemir No Levemir FlexTouch FlexTouch FlexTouch 100 UNIT/ML 100 UNIT/ML 100 UNIT/ML glipiZIDE glipiZIDE No 1{table BID glipiZIDE ER 2.5 MG ER 2.5 MG t_with_ ER 2.5 MG food} Escitalopra Escitalopra No 1{table QD Escitalopr m Oxalate m Oxalate t} am Oxalate 20 MG 20 MG 20 MG Oxybutynin Oxybutynin No Oxybutynin Chloride 5 Chloride 5 Chloride 5 MG MG MG Linzess 72 Linzess 72 No QD Linzess 72 MCG MCG MCG Bumetanide Bumetanide No QD Bumetanide 2 MG 2 MG 2 MG Carvedilol Carvedilol No 1{table BID Carvedilol 25 mg 25 mg t} 25 mg OneTouch OneTouch No OneTouch Ultra Test Ultra Test Ultra Test - - - Colace 50 Colace 50 No 1{capsu QD Colace 50 MG MG le} MG Flonase 50 Flonase 50 No QD Flonase 50 MCG/DOSE MCG/DOSE MCG/DOSE Escitalopra Escitalopra No Escitalopr m Oxalate m Oxalate am Oxalate 20 MG 20 MG 20 MG Victoza 18 Victoza 18 No QD Victoza 18 MG/3ML MG/3ML MG/3ML ZyrTEC ZyrTEC No 1{table QD ZyrTEC Allergy 10 Allergy 10 t} Allergy 10 MG MG MG Lubiproston Lubiproston No BID Lubiprosto e 24 MCG e 24 MCG ne 24 MCG Spironolact Spironolact No Spironolac one 50 MG one 50 MG tone 50 MG Levemir Levemir No BID Levemir FlexTouch FlexTouch FlexTouch 100 UNIT/ML 100 UNIT/ML 100 UNIT/ML Dulcolax 5 Dulcolax 5 No 1{table Dulcolax 5 MG MG t_as_ne MG eded} Gabapentin Gabapentin No 1{capsu BID Gabapentin 300 MG 300 MG le} 300 MG metOLazone metOLazone No 1{table metOLazone Areds2 Areds2 t} Areds2 Zetia 10 MG Zetia 10 MG No 1{table QD Zetia 10 t} MG Atorvastati Atorvastati No QD Atorvastat n Calcium n Calcium in Calcium 80 MG 80 MG 80 MG hydrALAZINE hydrALAZINE No 1{table hydrALAZIN HCl 25 MG HCl 25 MG t_with_ E HCl 25 food} MG Niacin 250 Niacin 250 No 1{table QD Niacin 250 MG MG t_with_ MG food} Atorvastati Atorvastati No Atorvastat n Calcium n Calcium in Calcium 80 MG 80 MG 80 MG Esomeprazol Esomeprazol No 1{capsu QD Esomeprazo e Magnesium e Magnesium le} le 40 MG 40 MG Magnesium 40 MG Dulcolax 5 Dulcolax 5 No 1{table Dulcolax 5 MG MG t_as_ne MG eded} Myrbetriq Myrbetriq No 1{table QD Myrbetriq 50 MG 50 MG t} 50 MG tiZANidine tiZANidine No tiZANidine HCl 4 MG HCl 4 MG HCl 4 MG Levemir Levemir No Levemir FlexTouch FlexTouch FlexTouch 100 UNIT/ML 100 UNIT/ML 100 UNIT/ML Linzess 72 Linzess 72 No QD Linzess 72 MCG MCG MCG Ezetimibe Ezetimibe No Ezetimibe 10 MG 10 MG 10 MG Ferrous Ferrous No 1{table BID Ferrous Sulfate 325 Sulfate 325 t} Sulfate (65 Fe) MG (65 Fe) MG 325 (65 Fe) MG Bumetanide Bumetanide No QD Bumetanide 2 MG 2 MG 2 MG Escitalopra Escitalopra No 1{table QD Escitalopr m Oxalate m Oxalate t} am Oxalate 20 MG 20 MG 20 MG Spironolact Spironolact No Spironolac one 50 MG one 50 MG tone 50 MG OneTouch OneTouch No OneTouch Ultra Test Ultra Test Ultra Test - - - Gabapentin Gabapentin No 1{capsu BID Gabapentin 300 MG 300 MG le} 300 MG metOLazone metOLazone No 1{table metOLazone Areds2 Areds2 t} Areds2 ZyrTEC ZyrTEC No 1{table QD ZyrTEC Allergy 10 Allergy 10 t} Allergy 10 MG MG MG Lubiproston Lubiproston No BID Lubiprosto e 24 MCG e 24 MCG ne 24 MCG Levemir Levemir No BID Levemir FlexTouch FlexTouch FlexTouch 100 UNIT/ML 100 UNIT/ML 100 UNIT/ML Carvedilol Carvedilol No 1{table BID Carvedilol 25 mg 25 mg t} 25 mg Oxybutynin Oxybutynin No Oxybutynin Chloride 5 Chloride 5 Chloride 5 MG MG MG Escitalopra Escitalopra No Escitalopr m Oxalate m Oxalate am Oxalate 20 MG 20 MG 20 MG Aspirin 81 Aspirin 81 No 1{table QD Aspirin 81 81 MG 81 MG t} 81 MG Colace 50 Colace 50 No 1{capsu QD Colace 50 MG MG le} MG Flonase 50 Flonase 50 No QD Flonase 50 MCG/DOSE MCG/DOSE MCG/DOSE Victoza 18 Victoza 18 No QD Victoza 18 MG/3ML MG/3ML MG/3ML glipiZIDE glipiZIDE No glipiZIDE ER 2.5 MG ER 2.5 MG ER 2.5 MG hydrALAZINE hydrALAZINE No 1{table hydrALAZIN HCl 25 MG HCl 25 MG t_with_ E HCl 25 food} MG Zetia 10 MG Zetia 10 MG No 1{table QD Zetia 10 t} MG Niacin 250 Niacin 250 No 1{table QD Niacin 250 MG MG t_with_ MG food} Allopurinol Allopurinol No Allopurino 100 MG 100 MG l 100 MG Linzess 72 Linzess 72 No QD Linzess 72 MCG MCG MCG OneTouch OneTouch No OneTouch Ultra Test Ultra Test Ultra Test - - - Niacin 250 Niacin 250 No 1{table QD Niacin 250 MG MG t_with_ MG food} tiZANidine tiZANidine No tiZANidine HCl 4 MG HCl 4 MG HCl 4 MG metOLazone metOLazone No 1{table metOLazone Areds2 Areds2 t} Areds2 ZyrTEC ZyrTE No 1{table QD ZyrTEC Allergy 10 Allergy 10 t} Allergy 10 MG MG MG Immunizations Ordered Immunization Filled Immunization Date Status Commen ts Source Name Name Gil SARS-CoV-2 2020-07-29 Completed [facility] Vaccination 00:00:00 of Medicine Moderna SARS-CoV-2 2020-07-29 [facility] Moderna SARS-CoV-2 2020-07-29 Completed [facility] Vaccination 00:00:00 of Medicine Moderna SARS-CoV-2 2020-07-29 [facility] Moderna SARS-CoV-2 2020-07-29 Completed [facility] Vaccination 00:00:00 of Medicine Moderna SARS-CoV-2 2020-07-02 Completed [facility] Vaccination 00:00:00 of Medicine Moderna SARS-CoV-2 2020-07-02 [facility]:00 of Medicine Moderna SARS-CoV-2 2020-07-02 [facility] Moderna SARS-CoV-2 2020-07-02 [facility] Moderna SARS-CoV-2 2020-07-02 Completed [facility] Vacc[facility]:00 of Medicine Vital Signs Vital Name Observation Time Observation Value Comments Source height 2022-07-14 14:00:00 63 [in_i] [facility] weight 2022-07-14 14:00:00 312 [lb_av] [facility] temperature 2022-07-14 14:00:00 97.9 [degF] [facility] bmi 2022-07-14 14:00:00 55.26 kg/m2 [facility] blood pressure 2022-07-14 14:00:00 130 mm[Hg] [facility] blood pressure 2022-07-14 14:00:00 82 mm[Hg] [facility] - diastolic [facility] height 2022-05-17 14:30:00 63 [in_i] [facility] weight 2022-05-17 14:30:00 307.8 [lb_av] Common [facility] temperature 2022-05-17 14:30:00 97.4 [degF] Common S pirit [facility] bmi 2022-05-17 14:30:00 54.52 kg/m2 [facility] oximetry 2022-05-17 14:30:00 95 % [facility] respiratory rate 2022-05-17 14:30:00 16 /min Comm on [facility] blood pressure 2022-05-17 14:30:00 124 mm[Hg] Common [facility] - systolic [facility] blood pressure 2022-05-17 14:30:00 72 mm[Hg] Common [facility] - diastolic [facility] height 2022-04-02 08:00:00 63 [in_i] [facility] weight 2022-04-02 08:00:00 295 [lb_av] [facility] temperature 2022-04-02 08:00:00 98 [degF] Common [facility] bmi 2022-04-02 08:00:00 52.25 kg/m2 [facility] blood pressure 2022-04-02 08:00:00 127 mm[Hg] Common [facility] - systolic [facility] blood pressure 2022-04-02 08:00:00 77 mm[Hg] [facility] - diastolic [facility] height 2022-03-22 09:00:00 63 [in_i] Common S pirit [facility] weight 2022-03-22 09:00:00 297.2 [lb_av] Common [facility] bmi 2022-03-22 09:00:00 52.64 kg/m2 [facility] height 2022-02-10 14:10:00 63 [in_i] Common [facility] weight 2022-02-10 14:10:00 294.2 [lb_av] [facility] temperature 2022-02-10 14:10:00 97.2 [degF] [facility] bmi 2022-02-10 14:10:00 52.11 kg/m2 [facility] oximetry 2022-02-10 14:10:00 94 % [facility] respiratory rate 2022-02-10 14:10:00 16 /min Comm on [facility] blood pressure 2022-02-10 14:10:00 133 mm[Hg] [facility] - systolic [facility] blood pressure 2022-02-10 14:10:00 77 mm[Hg] [facility] diastolic [facility] height 2022-01-26 11:40:00 63 [in_i] [facility] weight 2022-01-26 11:40:00 297 [lb_av] [facility] bmi 2022-01-26 11:40:00 52.61 kg/m2 [facility] height 2021-12-25 08:40:00 63 [in_i] [facility] weight 2021-12-25 08:40:00 295 [lb_av] [facility] bmi 2021-12-25 08:40:00 52.25 kg/m2 [facility] height 2021-12-23 13:00:00 63 [in_i] [facility] weight 2021-12-23 13:00:00 295.8 [lb_av] [facility] temperature 2021-12-23 13:00:00 98.6 [degF] [facility] bmi 2021-12-23 13:00:00 52.39 kg/m2 [facility] oximetry 2021-12-23 13:00:00 92 % [facility] respiratory rate 2021-12-23 13:00:00 18 /min Comm on [facility] blood pressure 2021-12-23 13:00:00 109 mm[Hg] Common [facility] - systolic [facility] blood pressure 2021-12-23 13:00:00 68 mm[Hg] [facility] - [facility] height 2021-11-09 13:40:00 63 [in_i] Common [facility] weight 2021-11-09 13:40:00 295.3 [lb_av] Common [facility] temperature 2021-11-09 13:40:00 98.1 [degF] Common [facility] bmi 2021-11-09 13:40:00 52.3 kg/m2 [facility] oximetry 2021-11-09 13:40:00 97 % [facility] respiratory rate 2021-11-09 13:40:00 16 /min Comm on [facility] blood pressure 2021-11-09 13:40:00 129 mm[Hg] Common [facility] - systolic [facility] blood pressure 2021-11-09 13:40:00 82 mm[Hg] Common [facility] - diastolic [facility] height 2021-09-16 09:30:00 63 [in_i] Common [facility] weight 2021-09-16 09:30:00 284 [lb_av] Common [facility] bmi 2021-09-16 09:30:00 50.3 kg/m2 [facility] blood pressure 2021-09-16 09:30:00 128 mm[Hg] [facility] - systolic [facility] blood pressure 2021-09-16 09:30:00 72 mm[Hg] [facility] - diastolic [facility] height 2021-08-19 08:50:00 63 [in_i] Common [facility] weight 2021-08-19 08:50:00 284.2 [lb_av] Common [facility] temperature 2021-08-19 08:50:00 97.7 [degF] Common [facility] bmi 2021-08-19 08:50:00 50.34 kg/m2 [facility] oximetry 2021-08-19 08:50:00 95 % [facility] respiratory rate 2021-08-19 08:50:00 16 /min Comm on [facility] - [facility] blood pressure 2021-08-19 08:50:00 127 mm[Hg] [facility] - systolic [facility] blood pressure 2021-08-19 08:50:00 67 mm[Hg] [facility] - diastolic [facility] height 2021-08-13 08:00:00 63 [in_i] [facility] weight 2021-08-13 08:00:00 282 [lb_av] [facility] bmi 2021-08-13 08:00:00 49.95 kg/m2 [facility] blood pressure 2021-08-13 08:00:00 124 mm[Hg] [facility] - systolic [facility] blood pressure 2021-08-13 08:00:00 72 mm[Hg] [facility] - diastolic [facility] Body height 2021-08-11 19:09:00 160 cm [facility] Body weight 2021-08-11 19:09:00 127.007 kg [facility] BMI 2021-08-11 19:09:00 49.60 kg/m2 [facility] [employer] [facility] Body height 2021-06-30 19:21:00 160 cm [facility] [employer] [facility] Body weight 2021-06-30 19:21:00 127.007 kg [facility] [facility] 2021-06-30 19:21:00 49.60 kg/m2 [facility] [employer] height 2021-05-21 08:20:00 63 [in_i] [facility] weight 2021-05-21 08:20:00 282 [lb_av] Common [facility] temperature 2021-05-21 08:20:00 97.6 [degF] Common [facility] bmi 2021-05-21 08:20:00 49.95 kg/m2 [facility] blood pressure 2021-05-21 08:20:00 135 mm[Hg] [facility] - systolic [facility] blood pressure 2021-05-21 08:20:00 71 mm[Hg] [facility] - diastolic [facility] Body height 2021-05-19 19:27:00 160 cm [facility] Body weight 2021-05-19 19:27:00 127.007 kg [facility] [employer] 2021-05-19 19:27:00 49.60 kg/m2 [facility] Body height 2021-04-09 19:25:00 160 cm [facility] [employer] Body weight 2021-04-09 19:25:00 127.007 kg [facility] 2021-04-09 19:25:00 49.60 kg/m2 [facility] HEIGHT 2021-04-03 10:13:00 160 cm WEIGHT 2021-04-03 10:13:00 127.5 kg WEIGHT 2021-04-02 09:21:00 127.007 kg HEIGHT 2021-04-02 09:21:00 160 cm HEIGHT 2021-04-03 10:13:00 160 cm WEIGHT 2021-04-03 10:13:00 127.5 kg WEIGHT 2021-04-02 09:21:00 127.007 kg HEIGHT 2021-04-02 09:21:00 160 cm Body height 2021-03-24 20:13:00 160 cm [facility] [employer] [employer] Body weight 2021-03-24 20:13:00 127.007 kg [facility] [employer] [employer] BMI 2021-03-24 20:13:00 49.60 kg/m2 [facility] Systolic (mm Hg) 2021-10-21 15:53:00 Francesco Hess Diastolic (mm Hg) 2021-10-21 15:53:00 [facility] Heart Rate 2021-10-21 15:53:00 [facility] Respitory Rate 2021-10-21 15:53:00 [facility] [place] Height 2021-10-21 15:53:00 160.02 cm [facility] [place] Weight 2021-10-21 15:53:00 [facility] BMI Calculated 2021-10-21 15:53:00 [facility] Systolic (mm Hg) 2021-09-07 16:05:00 Francesco [facility] [place] Diastolic (mm Hg) 2021-09-07 16:05:00 [facility] [place] Heart Rate 2021-09-07 16:05:00 [facility] [place] Respitory Rate 2021-09-07 16:05:00 [facility] [place] Height 2021-09-07 16:05:00 160.02 cm [facility] Weight 2021-09-07 16:05:00 [facility] [place] BMI Calculated 2021-09-07 16:05:00 [facility] Respitory Rate 2021-01-08 16:24:00 [facility] Height 2021-01-08 16:24:00 160.02 cm [facility] Weight 2021-01-08 16:24:00 [facility] BMI Calculated 2021-01-08 16:24:00 [facility] Systolic (mm Hg) 2021-01-08 16:24:00 [facility] Diastolic (mm Hg) 2021-01-08 16:24:00 [facility] Heart Rate 2021-01-08 16:24:00 [facility] BMI Calculated 2020-07-17 19:53:00 [facility] Systolic (mm Hg) 2020-07-17 19:53:00 [facility] Diastolic (mm Hg) 2020-07-17 19:53:00 [facility] Heart Rate 2020-07-17 19:53:00 [facility] Height 2020-07-17 19:53:00 160.02 cm [facility] Weight 2020-07-17 19:53:00 [facility] Systolic (mm Hg) 2019-12-13 14:59:00 [facility] Diastolic (mm Hg) 2019-12-13 14:59:00 [facility] Heart Rate 2019-12-13 14:59:00 [facility] Respitory Rate 2019-12-13 14:59:00 [facility] Height 2019-12-13 14:59:00 160.02 cm [facility] Weight 2019-12-13 14:59:00 [facility] BMI Calculated 2019-12-13 14:59:00 [facility] Systolic (mm Hg) 2019-07-18 16:40:00 [facility] Diastolic (mm Hg) 2019-07-18 16:40:00 [facility] Heart Rate 2019-07-18 16:40:00 [facility] Respitory Rate 2019-07-18 16:40:00 [facility] Height 2019-07-18 16:40:00 157.48 cm [facility] Weight 2019-07-18 16:40:00 [facility] BMI Calculated 2019-07-18 16:40:00 [facility] Height 2019-06-05 17:44:00 160.02 cm [facility] Weight 2019-06-05 17:44:00 [facility] BMI Calculated 2019-06-05 17:44:00 [facility] Systolic (mm Hg) 2019-06-05 17:44:00 [facility] Diastolic (mm Hg) 2019-06-05 17:44:00 [facility] Heart Rate 2019-06-05 17:44:00 [facility] Respitory Rate 2019-06-05 17:44:00 [facility] Systolic (mm Hg) 2019-04-24 20:24:00 [facility] Diastolic (mm Hg) 2019-04-24 20:24:00 [facility] Heart Rate 2019-04-24 20:24:00 [facility] Respitory Rate 2019-04-24 20:24:00 [facility] Height 2019-04-24 20:24:00 160.02 cm [facility] Weight 2019-04-24 20:24:00 [facility] BMI Calculated 2019-04-24 20:24:00 [facility] Procedures Procedure Date / Time Performed Performing Clinician Sourc e Shoulder [facility] repair<sup>1</sup> Carpal tunnel release [facility] Plan of Care Planned Activity Planned Date Details Comments Source Future Scheduled 2023-02-[address] [facility] 00:00:00 (Season Ended) [code Medical Center = INFLUENZA VACCINE (Season Ended)] Future Scheduled 2022-09-23 COVID-19 [facility]ACCINE (#1) [facility] 10:01:50 [code = COVID-19 Hospital VACCINE (#1)] Future Scheduled 2022-09-23 BREAST CANCER [facility] 10:01:50 SCREENING [code = Hospital BREAST CANCER SCREENING] Future Scheduled 2022-09-23 COLONOSCOPY [facility]CREENING [facility] 10:01:50 [code = COLONOSCOPY Hospital SCREENING] Future Scheduled 2022-09-23 65+ [facility]OCOCCAL [facility] 10:01:50 VACCINE (1 - PCV) Hospital [code = 65+ PNEUMOCOCCAL VACCINE (1 - PCV)] Future Scheduled 2022-09-23 INFLUENZA VACCINE [facility] 10:01:50 [code = INFLUENZA Hospital VACCINE] Future Scheduled 2022-09-23 COVID-19 VACCINE (#1) [facility] 10:01:50 [code = COVID-19 Hospital VACCINE (#1)] Future Scheduled 2022-09-23 BREAST CANCER [facility] 10:01:50 SCREENING [code = Hospital BREAST CANCER SCREENING] Future Scheduled 2022-09-23 Screening for [facility] 10:01:50 malignant neoplasm of Hospit al colon (procedure) [code = 073884451] Future Scheduled 2022-09-23 SHINGLES VACCINES (1 [facility] 10:01:50 of 2) [code = Hospital SHINGLES VACCINES (1 of 2)] Future Scheduled 2022-09-23 SHINGLES VACCINES (1 [facility] 10:01:50 of 2) [code = Hospital SHINGLES VACCINES (1 of 2)] Future Scheduled 2022-09-23 65+ PNEUMOCOCCAL [facility] Test 10:01:50 VACCINE (1 - PCV) Hospital [code = 65+ PNEUMOCOCCAL VACCINE (1 - PCV)] Future Scheduled 2022-09-23 INFLUENZA VACCINE Method [facility] Test 10:01:50 [code = INFLUENZA Hospital VACCINE] Future Scheduled 2022-06-[address] [facility] 00:00:00 (12+) [code = Medical Center DEPRESSION SCREENING (12+)] Future Scheduled 2022-06-20 FALLS RISK SCREENING [facility] 00:00:00 [code = FALLS RISK Medical C enter SCREENING] Future Scheduled 2022-06-[address] [facility] Test 00:00:00 (12+) [code = Medical Center DEPRESSION SCREENING (12+)] Future Scheduled 2022-06-20 FALLS RISK SCREENING [facility] 00:00:00 [code = FALLS RISK Medical C enter SCREENING] Future Scheduled 2022-04-[address] [facility] Test 00:00:00 Counseling and Medical Cente r Screening (12+) [code = Tobacco Cessation Counseling and Screening (12+)] Future Scheduled 2022-04-[address] [facility] Test 00:00:00 Counseling and Medical Cente r Screening (12+) [code = Tobacco Cessation Counseling and Screening (12+)] Future Scheduled 2022-02-17 HEPATITIS B VACCINES [facility] 23:28:53 (1 of 3 - 3-dose Hospital series) [code = HEPATITIS B VACCINES (1 of 3 - 3-dose series)] Future Scheduled 2022-02-17 COVID-19 VACCINE (#1) [facility] 23:28:53 [code = COVID-19 Hospital VACCINE (#1)] Future Scheduled 2022-02-17 BREAST CANCER [facility] 23:28:53 SCREENING [code = Hospital BREAST CANCER SCREENING] Future Scheduled 2022-02-17 COLONOSCOPY SCREENING [facility] 23:28:53 [code = COLONOSCOPY Hospital SCREENING] Future Scheduled 2022-02-17 SHINGLES VACCINES (1 [facility] 23:28:53 of 2) [code = Hospital SHINGLES VACCINES (1 of 2)] Future Scheduled 2022-02-17 65+ [facility]UMOCOCCAL [facility] Test 23:28:53 VACCINE (1 - PCV) Hospital [code = 65+ PNEUMOCOCCAL VACCINE (1 - PCV)] Future Scheduled 2022-02-17 INFLUENZA VACCINE [facility] Test 23:28:53 [code = INFLUENZA Hospital VACCINE] Future Scheduled 2021-08-11 Screening for [facility] 14:33:53 malignant neoplasm of of Med icine colon (procedure) [code = 493832019] Future Scheduled 2021-08-11 Screening for [facility] Test 14:33:53 malignant neoplasm of of Med icine breast (procedure) [code = 387505376] Future Scheduled 2021-08-11 TETANUS SHOT (ADULT) [place] [facility] [employer] Test 14:33:53 [code = TETANUS SHOT of Medi cine (ADULT)] Future Scheduled 2021-08-11 Diabetic foot [facility] 14:33:53 examination of Medicine (regime/therapy) [code = 713856440] Future Scheduled 2021-08-11 ANNUAL DIABETIC [facility] Test 14:33:53 RETINOPATHY SCREENING of Med icine [code = ANNUAL DIABETIC RETINOPATHY SCREENING] Future Scheduled 2021-08-11 BMI FOLLOW UP PLAN [employer] Test 14:33:53 [code = BMI FOLLOW UP of Med icine PLAN] Future Scheduled 2021-08-11 Hepatitis C screening [facility] [employer] [facility] 14:33:53 (procedure) [code = of Medic ine 564291087] Future Scheduled 2021-08-11 ZOSTER VACCINE (1 of [facility] Test 14:33:53 2) [code = ZOSTER of Medicin e VACCINE (1 of 2)] Future Scheduled 2021-08-11 Screening for [facility] Test 14:33:53 osteoporosis of Medicine (procedure) [code = 681176778] Future Scheduled 2021-08-11 Pneumococcal 65+ (1 [employer] [facility] 14:33:53 of 1 - PPSV23) [code of Medi cine = Pneumococcal 65+ (1 of 1 - PPSV23)] Future Scheduled 2021-08-11 COVID-19 Vaccine (3 - [facility] Test 14:33:53 Booster) [code = of Medicine COVID-19 Vaccine (3 - Booster)] Future Scheduled 2021-08-11 FLU VACCINE > 6 Postponed from [facility] Test 14:33:53 MONTHS [code = FLU 01/18/2021 of Medici ne VACCINE > 6 MONTHS] (Postpone Reason: Patient declined today) Future Scheduled 2021-08-11 MEDICARE AWV [facility] Test 14:33:53 (Initial) [code = of Medicin e MEDICARE AWV (Initial)] Future Scheduled 2021-08-11 FALL SCREEN [code = [employer] [facility] 14:33:53 FALL SCREEN] of Medicine Future Scheduled 2021-07-18 Screening for [facility] Test 16:45:26 malignant neoplasm of of Med icine colon (procedure) [code = 596697375] Future Scheduled 2021-07-18 Screening for [facility] 16:45:26 malignant neoplasm of of Med icine breast (procedure) [code = 118826118] Future Scheduled 2021-07-18 TETANUS SHOT (ADULT) [place] [employer] Test 16:45:26 [code = TETANUS SHOT of Medi cine (ADULT)] Future Scheduled 2021-07-18 Diabetic foot [facility] Test 16:45:26 examination of Medicine (regime/therapy) [code = 402784427] Future Scheduled 2021-07-18 ANNUAL DIABETIC [facility] Test 16:45:26 RETINOPATHY SCREENING of Med icine [code = ANNUAL DIABETIC RETINOPATHY SCREENING] Future Scheduled 2021-07-18 BMI FOLLOW UP PLAN [facility] Test 16:45:26 [code = BMI FOLLOW UP of Med icine PLAN] Future Scheduled 2021-07-18 Hepatitis C screening [facility] Test 16:45:26 (procedure) [code = of Medic ine 709754295] Future Scheduled 2021-07-18 ZOSTER VACCINE (1 of [facility] Test 16:45:26 2) [code = ZOSTER of Medicin e VACCINE (1 of 2)] Future Scheduled 2021-07-18 Screening for [facility] Test 16:45:26 osteoporosis of Medicine (procedure) [code = 773353090] Future Scheduled 2021-07-18 Pneumococcal 65+ (1 [employer] Test 16:45:26 of 1 - PPSV23) [code of Medi cine = Pneumococcal 65+ (1 of 1 - PPSV23)] Future Scheduled 2021-07-18 COVID-19 Vaccine (3 - [facility] [employer] [facility] 16:45:26 Booster) [code = of Medicine COVID-19 Vaccine (3 - Booster)] Future Scheduled 2021-07-18 FLU VACCINE > 6 Postponed from [facility] Test 16:45:26 MONTHS [code = FLU 01/18/2021 of Medici ne VACCINE > 6 MONTHS] (Postpone Reason: Patient declined today) Future Scheduled 2021-07-18 MEDICARE AWV [facility] Test 16:45:26 (Initial) [code = of Medicin e MEDICARE AWV (Initial)] Future Scheduled 2021-07-18 FALL SCREEN [code = [employer] [facility] 16:45:26 FALL SCREEN] of Medicine Future Scheduled 2021-06-[address] [facility] 00:[facility] WELLNESS (YEAR 2 or Medical Center FIRST YEAR if no IPPE) [code = MEDICARE ANNUAL WELLNESS (YEAR 2 or FIRST YEAR if no IPPE)] Future Scheduled 2021-06-[address] [facility] 00:00:00 WELLNESS (YEAR 2 or Medical Center FIRST YEAR if no IPPE) [code = MEDICARE ANNUAL WELLNESS (YEAR 2 or FIRST YEAR if no IPPE)] Future Scheduled 2021-05-19 Screening for [facility] 14:22:12 malignant neoplasm of of Med icine colon (procedure) [code = 925665877] Future Scheduled 2021-05-19 Screening for [facility] Test 14:22:12 malignant neoplasm of of Med icine breast (procedure) [code = 142943883] Future Scheduled 2021-05-19 TETANUS SHOT (ADULT) [place] [employer] Test 14:22:12 [code = TETANUS SHOT of Medi cine (ADULT)] Future Scheduled 2021-05-19 BMI FOLLOW UP PLAN [employer] Test 14:22:12 [code = BMI FOLLOW UP of Med icine PLAN] Future Scheduled 2021-05-19 Hepatitis C screening [employer] Test 14:22:12 (procedure) [code = of Medic ine 222242833] Future Scheduled 2021-05-19 ZOSTER VACCINE (1 of [place] [employer] Test 14:22:12 2) [code = ZOSTER of Medicin e VACCINE (1 of 2)] Future Scheduled 2021-05-19 MEDICARE AWV [facility] Test 14:22:12 (Initial) [code = of Medicin e MEDICARE AWV (Initial)] Future Scheduled 2021-05-19 Screening for [facility] Test 14:22:12 osteoporosis of Medicine (procedure) [code = 369102620] Future Scheduled 2021-05-19 Pneumococcal 65+ (1 [employer] Test 14:22:12 of 1 - PPSV23) [code of Medi cine = Pneumococcal 65+ (1 of 1 - PPSV23)] Future Scheduled 2021-05-19 COVID-19 Vaccine (3 - [employer] [facility] 14:22:12 Booster) [code = of Medicine COVID-19 Vaccine (3 - Booster)] Future Scheduled 2021-05-19 FLU VACCINE > 6 Postponed from [facility] Test 14:22:12 MONTHS [code = FLU 01/18/2021 of Medici ne VACCINE > 6 MONTHS] (Postpone Reason: Patient declined today) Future Scheduled 2021-05-19 FALL SCREEN [code = [employer] Test 14:22:12 FALL SCREEN] of Medicine Future Scheduled 2021-04-16 Screening for [facility] Test 20:58:58 malignant neoplasm of of Med icine colon (procedure) [code = 923849841] Future Scheduled 2021-04-16 Screening for [facility] Test 20:58:58 malignant neoplasm of of Med icine breast (procedure) [code = 998164036] Future Scheduled 2021-04-16 TETANUS SHOT (ADULT) [place] [employer] Test 20:58:58 [code = TETANUS SHOT of Medi cine (ADULT)] Future Scheduled 2021-04-16 BMI FOLLOW UP PLAN [facility] Test 20:58:58 [code = BMI FOLLOW UP of Med icine PLAN] Future Scheduled 2021-04-16 Hepatitis C screening [facility] Test 20:58:58 (procedure) [code = of Medic ine 483520713] Future Scheduled 2021-04-16 ZOSTER VACCINE (1 of [facility] Test 20:58:58 2) [code = ZOSTER of Medicin e VACCINE (1 of 2)] Future Scheduled 2021-04-16 MEDICARE AWV [facility] Test 20:58:58 (Initial) [code = of Medicin e MEDICARE AWV (Initial)] Future Scheduled 2021-04-16 Screening for [facility] Test 20:58:58 osteoporosis of Medicine (procedure) [code = 451392789] Future Scheduled 2021-04-16 PNEUMOVAX >=65 [facility] Test 20:58:58 (PPSV23) [code = of Medicine PNEUMOVAX >=65 (PPSV23)] Future Scheduled 2021-04-16 FLU VACCINE > 6 Postponed from [facility] Test 20:58:58 MONTHS [code = FLU 01/18/2021 of Medici ne VACCINE > 6 MONTHS] (Postpone Reason: Patient declined today) Future Scheduled 2021-04-16 FALL SCREEN [code = [employer] Test 20:58:58 FALL SCREEN] of Medicine Future Scheduled 2021-04-09 ORT - XR SHOULDER Ordered: [facility] Test 14:26:55 LEFT 1V (CHARGE ONLY) 04/09/2021 of Med icine [code = 10005] Future Scheduled 2021-04-02 Screening for [facility] Test 09:44:04 malignant neoplasm of of Med icine colon (procedure) [code = 450446092] Future Scheduled 2021-04-02 Screening for [facility] Test 09:44:04 malignant neoplasm of of Med icine breast (procedure) [code = 126762201] Future Scheduled 2021-04-02 TETANUS SHOT (ADULT) [place] [employer] Test 09:44:04 [code = TETANUS SHOT of Medi cine (ADULT)] Future Scheduled 2021-04-02 BMI FOLLOW UP PLAN [employer] Test 09:44:04 [code = BMI FOLLOW UP of Med icine PLAN] Future Scheduled 2021-04-02 Hepatitis C screening [facility] Test 09:44:04 (procedure) [code = of Medic ine 239846495] Future Scheduled 2021-04-02 ZOSTER VACCINE (1 of [facility] Test 09:44:04 2) [code = ZOSTER of Medicin e VACCINE (1 of 2)] Future Scheduled 2021-04-02 MEDICARE AWV [facility] Test 09:44:04 (Initial) [code = of Medicin e MEDICARE AWV (Initial)] Future Scheduled 2021-04-02 Screening for [facility] Test 09:44:04 osteoporosis of Medicine (procedure) [code = 990396139] Future Scheduled 2021-04-02 PNEUMOVAX >=65 [facility] Test 09:44:04 (PPSV23) [code = of Medicine PNEUMOVAX >=65 (PPSV23)] Future Scheduled 2021-04-02 FLU VACCINE > 6 Postponed from [facility] Test 09:44:04 MONTHS [code = FLU 01/18/2021 of Medici ne VACCINE > 6 MONTHS] (Postpone Reason: Patient declined today) Future Scheduled 2021-04-02 FALL SCREEN [code = [employer] Test 09:44:04 FALL SCREEN] of Medicine Future Scheduled 2021-03-24 ORT - XR SHOULDER Ordered: [facility] Test 15:00:18 LEFT 4V (CHARGE ONLY) 03/24/2021 of Ankit iniguez [code = 08166] Future Scheduled 2020-09-23 COVID-19 VACCINE [facility] Booster for [facility] series) [code = COVID-19 VACCINE (3 - Booster for [facility] series)] Future Scheduled 2020-09-23 COVID-19 VACCINE (3 - [facility] 00:[facility]:00 Booster for [facility] series) [code = COVID-19 VACCINE (3 - Booster for [employer] series)] Future Scheduled 2016-12-20 PNEUMOCOCCAL 65+ YRS [facility] Test 00:00:00 (1 - PCV) [code = Medical Ce nter PNEUMOCOCCAL 65+ YRS (1 - PCV)] Future Scheduled 2016-12-20 PNEUMOCOCCAL 65+ YRS [facility] Test 00:00:00 (1 - PCV) [code = Medical Ce nter PNEUMOCOCCAL 65+ YRS (1 - PCV)] Future Scheduled 2001-12-20 SHINGLES VACCINES ([address] [facility] Test 00:00:00 of 2) [code = Medical Center SHINGLES VACCINES (1 of 2)] Future Scheduled 2001-12-20 SHINGLES VACCINES ([address] [facility] Test 00:00:00 of 2) [code = Medical Center SHINGLES VACCINES (1 of 2)] Future Scheduled 1970-12-20 DTAP/TDAP/TD [facility]ACCINES [facility] 00:00:00 (1 - Tdap) [code = Medical C enter DTAP/TDAP/TD VACCINES (1 - Tdap)] Future Scheduled 1970-12-20 DTAP/TDAP/TD [facility]ACCINES [facility] 00:00:00 (1 - Tdap) [code = Medical C enter DTAP/TDAP/TD VACCINES (1 - Tdap)] Future Scheduled 1969-12-20 HEPATITIS C [facility]CRE[facility]ING [facility]:00[facility]00 [code = HEPATITIS C Medical Center SCREENING] Future Scheduled 1969-12-20 [facility]PATITIS C [facility] 00:00:00 [code = HEPATITIS C Medical Center SCREENING] Future Scheduled [address] [facility] 00:[facility]:00 malignant neoplasm of Medica l Center breast (procedure) [code = 735030616] Future Scheduled [address] [facility] 00:00:00 (combo) [code = CT Medical C enter Colonography (combo)] Future Scheduled [address] [facility] Test 00:00:00 malignant neoplasm of Medica l Center colon (procedure) [code = 126894757] Future Scheduled [address] [facility] Test 00:00:00 malignant neoplasm of Medica l Center colon (procedure) [code = 615254324] Future Scheduled 1951 DXA SCAN [code = DXA [facility] Test 00:00:00 SCAN] [facility] Future Scheduled [address] [facility] Test 00:00:00 malignant neoplasm of Medica l Center colon (procedure) [code = 152221841] Future Scheduled [address] [facility] Test 00:00:00 malignant neoplasm of Medica l Center colon (procedure) [code = 582100574] Future Scheduled 1951 Sigmoidoscopy [facility]code [facility] S[facility]oidoscopy] [facility] Future Scheduled [address] [facility] 00:00:00 malignant neoplasm of Medica l Center breast (procedure) [code = 468971807] Future Scheduled [address] [facility] 00:00:00 (combo) [code = CT Medical C enter Colonography (combo)] Future Scheduled [address] [facility] Test 00:00:00 malignant neoplasm of Medica l Center colon (procedure) [code = 851561637] Future Scheduled [address] [facility] Test 00:00:00 malignant neoplasm of Medica l Center colon (procedure) [code = 549518635] Future Scheduled 1951 DXA SCAN [code = DXA [facility] Test 00:00:00 SCAN] [facility] Future Scheduled [address] [facility] Test 00:00:00 malignant neoplasm of Medica l Center colon (procedure) [code = 685589218] Future Scheduled [address] [facility] Test 00:00:00 malignant neoplasm of Medica Center colon (procedure) [code = 669224893] Future Scheduled 1951 Sigmoidoscopy [facility] S[facility]oscopy] Medical Addison r Encounters Start End Encounter Admission Attending Care Care Encounter Source Date/Time Date/Time Type Type Clinicians Facility Department ID 2022-10-01 Outpatient [facility] [id number] [place] 18:05:35 [id number] [facility] 2022-09-07 Outpatient Addison, STLMLC STLMLC [id number] Common 10:04:00 Jose A 05066 [facility] 2022-08-30 Outpatient Addison, STLMLC STLMLC [id number] Common 14:26:00 Jose A 47600 [facility] 2022-08-10 Outpatient Addison, STLMLC STLMLC [id number] Common 11:44:00 Jose A 66445 [facility] 2022-07-07 Outpatient Addison, STLMLC STLMLC [id number] Common 13:55:00 Jose A 94625 [facility] 2022-05-12 Outpatient Addison, STLMLC STLMLC [id number] Common 09:42:23 Jose A 60806 [facility] 2022-04-02 Outpatient Addison, STLMLC STLMLC [id number] Common 08:01:00 Jose A 57773 [facility] 2022-04-01 Outpatient Addison, STLMLC STLMLC [id number] Common 15:13:00 Jose A 63744 [facility] 2022-03-31 Outpatient Addison, STLMLC STLMLC [id number] Common 15:13:00 Jose A 97132 [facility] 2022-03-22 Outpatient Addison, STLMLC STLMLC [id number] Common 08:25:00 Jose A [facility] 2022-02-18 Outpatient Addison, STLMLC STLMLC [id number] Common 10:08:00 Jose A [facility] 2022-02-10 Outpatient Addison, STLMLC STLC [id number] Common 13:59:00 Jose A [facility] 2022-01-25 Outpatient Addison, STLMLC STLC [id number] Common 15:07:00 Jose A [facility] 2022-01-08 Outpatient Addison, STLMLC STLC [id number] Common 07:25:00 Jose A [facility] 2021-12-24 Outpatient Addison, STLMLC STLC [id number] Common 08:42:00 Jose A [facility] 2021-11-05 Outpatient Addison, STLMLC STLC [id number] Common 16:19:00 Jose A [facility] 2021-08-12 Outpatient Addison, STLMLC STLC [id number] Common 09:40:00 Jose A [facility] 2021-08-10 Outpatient Addison, STLMLC STLC [id number] Common 09:31:00 Jose A [facility] 2021-07-15 Outpatient Addison, STLMLC STLC [id number] Common 12:35:21 Jose A [facility] 2021-07-15 Outpatient Addison, STLMLC STLC [id number] Common 12:09:53 Jose A 43592 [facility] 2021-07-15 Outpatient Addison, STLMLC STLC [id number] Common 11:24:05 Jose A 22162 [facility] 2021-07-15 Outpatient Addison, STLMLC STLC [id number] Common 11:17:10 Jose A 01831 [facility] 2021-07-15 Outpatient Addison, STLMLC STLC [id number] Common 11:00:50 Jose A [id number] [facility] 2022-09-26 2022-09-26 Travel [facility] [id number] [facility] 00:00:00 00:00:00 [facility] 2022-07-14 2022-07-14 OFFICE STLMLC STLMLC [id number] Co mmon 00:00:00 00:00:00 VISIT EST Spir it PT LEVEL 3 - [facility] 2022-05-17 2022-05-17 OFFICE STLMLC STLMLC [id number] Co mmon 00:00:00 00:00:00 VISIT Spirit ESTAB PT - [facility] LEVEL 4 [facility] 2022-04-28 2022-04-28 Ambulatory nullFlavo MNA [id number] Memoria 17:00:00 17:00:00 Pre-Reg r Neurology 10 l Bertie Deshawn 2022-04-07 2022-04-07 (TEL) STLMLC STLMLC [id number] Co mmon 00:00:00 00:00:00 [facility] 2022-04-02 2022-04-02 (EST. STLMLC STLMLC [id number] Co mmon 00:00:00 00:00:00 VIDEO) EST Spi rit VIRTUAL - [facility] VIDEO [facility] 2022-03-30 2022-03-30 (TEL) STLMLC STLMLC [id number] Co mmon 00:00:00 00:00:00 [facility] - [facility] 2022-03-22 2022-03-22 OFFICE STLMLC STLMLC [id number] Co mmon 00:00:00 00:00:00 VISIT EST Spir it PT LEVEL 3 - [facility] 2022-03-18 2022-03-18 (TEL) STLMLC STLMLC [id number] Co mmon 00:00:00 00:00:00 [facility] - [facility] 2022-02-10 2022-02-10 OFFICE STLMLC STLMLC [id number] Co mmon 00:00:00 00:00:00 VISIT Spirit ESTAB PT - [facility] LEVEL 4 [facility] 2022-01-26 2022-01-26 OFFICE STLMLC STLMLC [id number] Co mmon 00:00:00 00:00:00 VISIT Spirit ESTAB PT - [facility] LEVEL 4 [facility] 2021-12-25 2021-12-25 OFFICE STLMLC STLMLC [id number] Co mmon 00:00:00 00:00:00 VISIT Spirit ESTAB PT - [facility] LEVEL 4 [facility] 2021-12-25 2021-12-25 (TEL) STLMLC STLMLC [id number] Co mmon 00:00:00 00:00:00 [facility] - [facility] 2021-12-23 2021-12-23 SUB ANNUAL STLMLC STLMLC [id number] Common 00:00:00 00:00:00 MCR [facility] WELLNESS - [facility] VISIT [facility] 2021-12-23 2021-12-23 (TEL) STLMLC STLMLC [id number] Co mmon 00:00:00 00:00:00 [facility] - [facility] 2021-12-22 2021-12-22 (TEL) STLMLC STLMLC [id number] Co mmon 00:00:00 00:00:00 [facility] - [facility] 2021-11-09 2021-11-09 OFFICE STLMLC STLMLC [id number] Co mmon 00:00:00 00:00:00 VISIT Spirit ESTAB PT - CHI LEVEL 4 [facility] 2021-10-21 2021-10-22 Outpatient nullFlavo MNA [id number] Memoria 15:45:00 04:59:59 r Neurology 09 l Bertie [place] 2021-09-16 2021-09-16 OFFICE STLMLC STLMLC [id number] Co mmon 00:00:00 00:00:00 VISIT EST Spir it PT LEVEL 3 - CHI [facility] 2021-09-07 2021-09-08 Outpatient nullFlavo MNA [id number] Memoria 16:00:00 04:59:59 r [facility] 2021-08[facility] 2021-08-19 OFFICE STLMLC STLMLC [id number] Co mmon 00:00:00 00:00:00 VISIT Spirit ESTAB PT - CHI LEVEL 4 [facility] 2021-08-13 2021-08-13 OFFICE STLMLC STLMLC [id number] Co mmon 00:00:00 00:00:00 VISIT EST Spir it PT LEVEL 3 - CHI [facility] 2021-08-11 2021-08-11 Office ERICKSON HYMAN [id number] [facility] 12:41:04 15:16:42 Visit GARRICK AMBULATOR 350.1.13.21 College Y 0.2.7.2.686 of [id number] Medi dylan 600 e 2021-06-30 2021-06-30 Office ERICKSON HYMAN [id number] [facility] 13:19:07 14:19:05 Visit GARRICK AMBULATOR 350.1.13.21 College Y 0.2.7.2.686 of [id number] Medi dylan 600 e 2021-05-21 2021-05-21 OFFICE [facility] [id number] Co mmon 00:00:00 00:00:00 VISIT Eriberto WILLIAMSON PT - CHI LEVEL 4 [facility] 2021-05-19 2021-05-19 Office ERICKSON HYMAN [id number] [facility] 13:22:25 14:12:05 Visit GARRICK AMBULATOR 350.1.13.21 College Y 0.2.7.2.686 of [id number] [facility] dylan 600 e 2021-04-09 2021-04-09 Office ERICKSON HYMAN [id number] [facility] 14:12:46 15:06:40 Visit GARRICK AMBULATOR 350.1.13.21 College Y 0.2.7.2.686 of [id number] [facility] dylan 600 e 2021-04-09 2021-04-09 Outpatient [facility] [id number] [facility] 14:27:32 14:27:32 Dishag e of Medicin e 2021-04-03 2021-04-03 Outpatient JACE MEDLEY Surgery [id number] [facility] 09:10:00 19:00:00 GARRICK 2021-04-02 2021-04-02 Outpatient LILY [facility] SLE [id number] SLE 09:46:53 23:59:00 2021-03-24 2021-03-24 Office ERICKSON Hyman [id number] [facility] 13:44:04 17:05:36 Visit Garrick Plascencia AMBULATOR 350.1.13.21 College Y 0.2.7.2.686 of [id number] Medi dylan 600 e 2021-03-24 2021-03-24 Outpatient [place] [id number] [facility] 15:01:31 15:01:31 Dishag e of Medicin e 2021-02-11 2021-02-11 Outpatient STLMLC STLMLC [id number] Common 00:00:00 00:00:00 [facility] 2021-01-15 2021-01-15 Outpatient STLMLC STLMLC [id number] Common 00:00:00 00:00:00 [facility] 2021-01-15 2021-01-15 Outpatient STLMLC STLMLC [id number] Common 00:00:00 00:00:00 [facility] 2021-01-08 2021-01-09 Outpatient nullFlavo MNA [id number] Memoria 16:15:00 04:59:59 r Neurology 06 l Oscar [place] 2020-12-26 2020-12-26 Outpatient STLMLC STLMLC [id number] Common 00:00:00 00:00:00 [facility] 2020-12-17 2020-12-17 Outpatient STLMLC STLMLC [id number] Common 00:00:00 00:00:00 [facility] 2020-10-08 2020-10-08 Outpatient STLMLC STLMLC [id number] Common 00:00:00 00:00:00 [facility] 2020-08-21 2020-08-21 Outpatient STLMLC STLMLC [id number] Common 00:00:00 00:00:00 [facility] 2020-08-11 2020-08-11 Outpatient STLMLC STLMLC [id number] Common 00:00:00 00:00:00 [facility] 2020-07-17 2020-07-18 Outpatient nullFlavo MNA [id number] Memoria 20:00:00 05:59:59 r Neurology 07 l Oscar Coon[place] 2020-07-04 2020-07-04 Outpatient STLMLC STLMLC [id number] Common 00:00:00 00:00:00 [facility] 2020-05-22 2020-05-22 Outpatient STLMLC STLMLC [id number] Common 00:00:00 00:00:00 [facility] 2020-04-11 2020-04-12 Outpatient nullFlavo MNA [id number] Memoria 14:45:00 04:59:59 r Neurology 05 l Oscar Coonann 2020-04-07 2020-04-07 Outpatient STLMLC STLMLC [id number] Common 00:00:00 00:00:00 [facility] 2020-04-01 2020-04-01 Outpatient STLMLC STLMLC [id number] Common 00:00:00 00:00:00 [facility] 2020-03-20 2020-03-20 Outpatient STLMLC STLMLC [id number] Common 00:00:00 00:00:00 [facility] 2020-03-14 2020-03-14 Outpatient STLMLC STLMLC [id number] Common 00:00:00 00:00:00 [facility] 2020-02-21 2020-02-21 [facility] [id number] Common 08:40:00 08:40:[address] [facility] 2019-12-13 2019-12-14 Outpatient nullFlavo MNA [id number] Memoria 14:45:00 04:59:59 r Neurology 04 l Oscar Hess 2019-11-21 2019-11-21 Out[facility] [id number] Common 14:00:00 14:00:[address] [facility] 2019-11-21 2019-11-21 Outpatient [facility] [id number] Common 14:00:00 14:00:[address] [facility] 2019-11-14 2019-11-14 Out[facility] [id number] Common 10:33:00 10:33:[address] [facility] 2019-10-17 2019-10-18 Outpatient nullFlavo MNA [id number] Memoria 15:00:00 04:59:59 r Neurology 03 l Oscar Coonann 2019-07-18 2019-07-19 Outpatient nullFlavo MNA [id number] Memoria 16:30:00 05:59:59 r Neurology 02 l Oscar Coonann 2019-07-09 2019-07-09 Out[facility] [id number] Common 15:31:00 15:31:[address] [facility] 2019-07-04 2019-07-04 Outpatient [facility] [id number] Common 17:01:00 17:01:[address] [facility] 2019-07-04 2019-07-04 Outpatient [facility] [id number] Common 13:30:00 13:30:[address] [employer] [address] [facility] 2019-06-05 2019-06-06 Outpatient nullFlavo MNA [id number] Memoria 17:30:00 05:59:59 r Neurology 01 l Bertie Deshawn 2019-04-24 2019-04-25 Outpatient nullFlavo MNA [id number] Memoria 20:15:00 05:59:59 r Neurology 00 l Bertie Deshawn Results Test Description Test Time Test Comments Results Result Comments Source POCT-GLUCOSE METER 2021-04-03 17:34:26 Test Item Value Reference Range Interpretation Comme [facility] POC-GLUCOSE METER (BEAKER) 149 mg/dL 70-110 H : TESTED AT [address] (test code = 1538) [place] [address]: Trestle Mechanic/Techni shahnaz ID = [id number] for JUAN ZURDO GUILLERMO BASIC METABOLIC [id number] 10:35:54 Test Item Value Reference Range Interpretation Comments SODIUM (BEAKER) 139 meq/L 136-145 (test code = 381) POTASSIUM (BEAKER) 4.0 meq/L 3.5-5.1 (test code = 379) CHLORIDE (BEAKER) 105 meq/L 98-107 (test code = 382) CO2 (BEAKER) (test 26 meq/L - code = 355) BLOOD UREA NITROGEN 15 mg/dL 7-21 (BEAKER) (test code = 354) CREATININE (BEAKER) 1.38 mg/dL 0.57-1.25 H (test code = 358) GLUCOSE RANDOM 118 mg/dL 70-105 H (BEAKER) (test code = 652) CALCIUM (BEAKER) 8.8 mg/dL 8.4-10.2 (test code = 697) EGFR (BEAKER) (test 38 mL/min/1.73 ESTIMA VILMA GFR IS code = 1092) sq m NOT ACCURATE CREATININE CLEARANCE IN PREDICTING GLOMERULAR FILTRATION RATE . ESTIMATED GFR I S NOT APPLICABLE FOR DIALYSIS PATIEN TS. [id number] 10:23:30 Test Item Value Reference Range Interpretation Comments HEMOGLOBIN (BEAKER) (test code = 13.9 GM/DL 11.2-15.7 410) POCT-GLUCOSE [id number] 10:21:36 Test Item Value Reference Range Interpretation Comments POC-GLUCOSE METER 119 mg/dL 70-110 H : TESTED A T [facility] 7200 (BEMARCELO) (test code CAMBBASILIOG Nevin BLDG A, = 1538) [facility] 770 0: Trestle Mechanic/Techni shahnaz ID = [id number] for Braydon asJaren Notes Date/Time Note Provider Source 2021-04-12 22:24:56-00:00 GARRICK HYMAN [facility] OPERATIVE/PROCEDURE REPORT ALEJANDRA GORDON FACILITY: [facility] Billing #: [id number] Room: [facility] MR #: [id number] : 1950 DATE OF PROCEDURE: 04/03/2021 SURGEON: Suhas Hyman MD LOCATION: [facility]. PREOPERATIVE DIAGNOSIS: Left shoulder rotator cu ff tear with impingement pathology. POSTOPERATIVE DIAGNOSES: 1. Left shoulder full-thickness supraspinatus ro tator cuff tear. 2. Left shoulder absent biceps tendon. 3. Left shoulder extensive subacromial and subde ltoid bursitis. 4. 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 5. Left shoulder impingement. 6. Left shoulder labral fraying. PROCEDURES PERFORMED: 1. Exam under anesthesia, left shoulder. 2. Diagnostic arthroscopy, left shoulder. 3. Arthroscopic extensive debridement of glenohu meral joint and subacromial space, left shoulder. 4. Arthroscopic subacromial decompression, left shoulder. 5. Arthroscopic six-anchor [place] supraspi natus rotator cuff repair, left shoulder. 6. Injection of marrow-derived platelet-enriched autologous mesenchymal stem cells (Biomet BioCUE system). CAMPUS RECEPTIONIST: TERI Eagle. 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 Note: A surgical consultant was medically necessa ry for this case in order to hold and manipulate the arm whi le the surgeon performed the arthroscopy and in order to hold t he arthroscope as the surgeon passed the sutures and secured th e fixation for the rotator cuff repair. SECOND CAMPUS RECEPTIONIST: Subhash Mcclellan DO, Orthopedic Sports Medicine fellow. THIRD CAMPUS RECEPTIONIST: Hari Velez MD, [facility] surgery resident. ANESTHESIA: General endotracheal plus intrascale ne block. ESTIMATED BLOOD LOSS: Minimal. COMPLICATIONS: None. SPECIMENS: None. IMPLANTS: Six Arthrex BioComposite SwiveLock anc hors with FiberTape suture. PREOPERATIVE INDICATIONS: The patient is a 70-ye ar-old female with a history of left shoulder pain and a preop erative evaluation including an MRI showing a full-thick ness supraspinatus rotator cuff tear. Preoperatively, she was counseled regarding the pros and cons of operati ve versus nonoperative treatment. She elected to undergo o perative treatment of her symptomatic left shoulder. OPERATIVE SUMMARY: The patient was placed in the supine position on the operating room table and after a dequate induction of general anesthesia, she was reposit ioned in a beach chair position. Her left shoulder and arm were examined and then prepped and draped in usual sterile man ner. Intravenous antibiotics were administered preope ratively per the Orthopedic Surgery protocol. An intrascalene block was administered preoperatively by Anesthesia for po stoperative pain control. The exam under anesthesia was unremarkable. The patient had full range of motion and a normal ligament exam. An arthroscopy port was established posteriorly into the glenohumeral joint and the outside-in technique was used to establish an anterior portal. The arthroscopic i nstruments were inserted and the diagnostic arthroscopy was performed. The following findings were noted in the left sh oulder glenohumeral joint: 1. A full-thickness supraspinatus rotator cuff t ear. 2. A torn and absent long head of the biceps ten don. 3. Fraying of the anterior superior and posterio r labrum. Remainder of the glenohumeral joint was normal. The articular cartilage surfaces were normal. There were no la bral detachments. The synovium was normal. The shaver was used to debride the glenohumeral joint. The frayed areas of labrum were debrided with shaver and a smooth, stable bed of remaining labrum was created in al l areas. The shaver was used to debride the stump of the biceps tendon that remained attached to the superior labrum. A ll the biceps was removed and a smooth, stable bed of remainin g labrum was created. The shaver was used to debride the fibrillated u ndersurface of the supraspinatus portion of the rotator cuff te ndon. All the fibrillated tissue was removed and a smooth, hea lthy bed of remaining tendon suitable for repair was created . The arthroscopic instruments were withdrawn from the glenohumeral joint and repositioned in the subac romial space. An accessory lateral portal was established for the operative instruments. Following findings were noted in th e left shoulder subacromial space: 1. The previously mentioned full-thickness supra spinatus rotator cuff tear. This is a fairly large cresce nt-shaped tear that involved all the supraspinatus and the ante rior most portion of the infraspinatus. 2. A marked amount of thickened proliferative bu rsal tissues. 3. A marked amount of scar tissue adhesions and arthrofibrosis throughout the subacromial and subdeltoid spaces . 4. A moderate downward curvature of the anterior acromion. 5. Marked thickening and stenosis of the coracoc lavicular ligament. The outward appearance of the acromioclavicular joint was normal. The shaver was used to debride the pathologic ar eas of the bursa and all the scar tissue adhesions. This re quired an extensive debridement as there was a marked amou nt of thickened and fibrotic bursal tissues and scar tissue adhe sions throughout the subacromial and subdeltoid spaces . All bleeders were cauterized. The bur was used to flatten the anterior and lat eral acromion. A flat, type 1 acromion was created. The coracoa cromial ligament was released with cautery and its edges were debrided with shaver. The greater tuberosity underneath the damaged ar ea of tendon was prepared with a curette and a shaver to crea te a fresh, bleeding bed of bone. Multiple additional arthro scopy ports were established to assist with the rotator cuff repair. Three Arthrex BioComposite SwiveLock anchors with Fibe rTape suture were placed into the prepared area of the greate r tuberosity on the medial most aspect adjacent to the articular cartilage. These FiberTape sutures were passed from the und ersurface of the tendon through to the superficial surface an d then pulled taut and fixed laterally with three additional S wiveLock anchors. An excellent, watertight repair was acc omplished. Bone marrow had been aspirated from the humeral head prior to the decompression and prepared using the myMatrixx system to create a solution of marrow-derived platelet- enriched autologous mesenchymal stem cells. This stem lópez l solution was now injected into the bone/tendon interface in t he area of the repair. The excess was injected over the top of the repair. Once the procedure was completed, the instrument s were removed and the portals were closed with a single nylon suture in each portal. Sterile dressings were applied. Cryother apy was applied. Immobilization was applied. The patient was transferred to her bed and then to the recovery room in stable condition. The patient tolerated the procedure well. There were no intraoperative or postoperative complications no vilma. All sponge and needle counts were correct. The estim ated blood loss was minimal. No tourniquet was used for the case. No specimens were sent for the case. Implants were six Arthrex BioComposite SwiveLock anchors with FiberTape rachel brooks. SUMAN/AURELIANO /[id number]
[2022-11-22] MEDS ORDERED: ONDANSETRON 4 MG/2 ML VIAL IV PRN (12:02)
[2022-11-22] MEDS ORDERED: MORPHINE 2 MG/ML SYR IV PRN (12:03)
[2022-11-22 12:30] LABS: Arterial Blood Carboxyhemoglob 1.2 % (0-1.5); Blood Gas Oxyhemoglobin 91.4 % (94-97); Blood O2 Saturation 93.9 % (92-98.5)
[2022-11-22] MEDS ORDERED: NA CHLORIDE 0.9% 1,000 ML IV SCH (13:00)
[2022-11-22] MEDS: MORPHINE 4 MG/ML SYR IV PRN ×2 (14:05→20:56)
[2022-11-22] MEDS ORDERED: IPRATROPIUM BROMIDE NAS PRN (14:17)
[2022-11-22] MEDS ORDERED: BISACODYL E.C. 5 MG TAB PO PRN (14:17)
[2022-11-22] MEDS ORDERED: DOCUSATE NA 100 MG CAP PO PRN (14:17)
--- NOTE | 2022-11-22 14:46 | P.CNS ---
Date of Consult: 11/22/22 Reason for Consult: Medical management Requesting Physician: Alex Baker Chief Complaint: Neck and Back pain History of Present Illness: Patient is a 71-year-old female with a past medical history significant for DM 2, hypertension, OAB, CAD, GERD, constipation, morbid obesity, gout, hyperlipidemia who presents for a planned procedure with orthopedic spine doctor. Patient reported that she has been having neck and back pain for the past 6 months. Patient reported that she has been having bilateral upper extremity weakness\numbness\tingling with episodes of frequent falls. Patient rated pain as 7 out of 10 in severity and described pain as aching in quality. Patient denies any other signs or symptoms. Symptoms are aggravated by movement and relieved by nothing. Patient has had chiropractic services, physical therapy and steroid injections but has not seen any improvement in symptoms. Patient agreed with her orthopedic spine doctor to perform a C3-C4, C4-C5, C5- C6, C6-C7 anterior cervical diskectomy and fusion with instrumentation. Patient presented to the hospital, had the procedure and patient had to be given Narcan by the anesthesiologist. At time of assessment patient is on BiPAP therapy and lethargic\drowsy. Patient is being admitted to ICU for close monitoring. Allergies niacin Allergy (Verified 11/19/22 11:25) Flushed/Rash Certain metals Adverse Reaction (Uncoded 11/19/22 11:25) Skin irritation Home medications list reviewed: No Home Medications: Aspirin [Aspirin EC 81 MG] 81 mg PO DAILY 01/22/16 allopurinoL [Zyloprim*] 100 mg PO DAILY 01/22/16 Ezetimibe [Zetia*] 10 mg PO DAILY 01/25/17 Bumetanide 2 mg PO DAILY 05/30/17 Docusate [Colace Cap*] 1 cap PO TIDP PRN 05/30/17 Insulin Detemir [Levemir Flextouch] 50 units SQ BID 05/30/17 Liraglutide [Victoza 2-Rony] 1.8 mg SQ DAILY 05/30/17 Oxybutynin Chloride 1 tab PO DAILY 05/30/17 Acetaminophen with Codeine [Tylenol with Codeine #4 Tablet] 1 each PO Q8HP PRN 03/28/22 Carvedilol [Coreg] 25 mg PO BID 03/28/22 Escitalopram Oxalate [Lexapro] 20 mg PO BEDTIME 03/28/22 Gabapentin 300 mg PO BEDTIME 03/28/22 Glipizide [Glipizide Xl] 2.5 mg PO BID 03/28/22 Losartan Potassium 25 mg PO DAILY 03/28/22 Lubiprostone 24 mcg PO BID 03/28/22 Ondansetron HCl 4 mg PO Q12HP PRN 03/28/22 Tizanidine [Zanaflex*] 4 mg PO BEDTIME 03/28/22 Atorvastatin Calcium [Lipitor] 80 mg PO BEDTIME 11/19/22 Cholecalciferol (Vitamin D3) [Vitamin D3] 2,000 unit PO TID 11/19/22 Esomeprazole Magnesium 40 mg PO DAILY 11/19/22 Fluticasone/Salmeterol [Advair 250-50 Diskus] 1 each IH BID 11/19/22 Ipratropium [place] 2 spray NS TIDP PRN 11/19/22 Loratadine [Claritin] 10 mg PO DAILY 11/19/22 bisacodyL [Dulcolax] 5 mg PO DAILYPRN PRN 11/19/22 - Past Medical/Surgical History Diabetic: Yes -: Hypertension -: MS 09/02 -: Dyslipidemia -: Coronary artery disease status post stents -: vitamin d and b deficiency -: Gastroesophageal reflux disease -: anemia -: PVD -: depression with anxiety -: lazy left eye -: menengitis 1988 -: IDDM x 3 years -: Cholecystectomy -: hysterectomy -: vulva cancer x2 -: left knee sx arthoscopic. needs bilat replacements -: endoscopy , 2008 -: colonoscopy 2008 -: blood transfusion 2010 -: heart cath, cardiac stents X2 - Family History Mother Medical History: Stroke, Cancer Notes: from cva Father Medical History: Heart disease Notes: etoh abuse Sister Medical History: Hypertension Brother Medical History: Heart disease, Hypertension, Cancer Notes: MS - Social History Smoking Status: Unknown if ever smoked Alcohol use: Yes CD- Drugs: No Caffeine use: Yes Place of Residence: Home Review of Systems General: Other (Lethagy ) Eyes: Unremarkable ENT: Unremarkable Respiratory: Unremarkable Cardiovascular: Unremarkable Gastrointestinal: Unremarkable Genitourinary: Unremarkable Musculoskeletal: Neck Pain, Back Pain Integumentary: Unremarkable Neurological: Unremarkable Lymphatics: Unremarkable Physical Examination Temp Pulse Resp BP Pulse Ox 97.1 F 98 H 16 138/71 93 11/22/22 12:43 11/22/22 12:43 11/22/22 14:05 11/22/22 12:43 11/22/22 14:05 General: Alert, In no apparent distress, Oriented x3, Cooperative, Other (Lethargic ) HEENT: Atraumatic, PERRLA, Mucous membr. moist/pink, EOMI, Sclerae nonicteric Neck: Supple, 2+ carotid pulse no bruit, No LAD, Without JVD or thyroid abnormality Respiratory: Clear to auscultation bilaterally, Normal air movement Cardiovascular: No edema, Regular rate/rhythm, Normal S1 S2 Capillary refill: <2 Seconds Gastrointestinal: Normal bowel sounds, No tenderness Musculoskeletal: Tenderness Integumentary: No rashes, No significant lesion Neurological: Normal speech, Normal tone, Normal affect Lymphatics: No axilla or inguinal lymphadenopathy Conclusions/Impression: .--Spondylosis with myelopathy. S\P C3-C4, C4-C5, C5-C6, C6-C7 anterior cervical diskectomy and fusion with instrumentation. Orthopedic spine doctor on board. Physical therapy consulted. Will await further recommendations. --Acute pain. We will resume current pain medication regiment when patient is fully alert. -- DM2 with Neuropathy. BS monitoring with sliding scale insulin and Lantus. Continue Gabapentin for her Neuropathy --OAB. Continue home medication. --Super obesity. BMI greater than 50. Patient will be counseled on diet and exercise therapy when appropriate. --History of constipation. Continue home medication. --Hyperlipidemia. Continue statin. --Gout. Continue home medication. --Depression. Continue home medication --GERD. Continue home medication. --History of CAD. Continue statin aspirin when appropriate. --Acute on chronic diastolic CHF exacerbation. Continue monitor strict. Continue diuresis with Lasix. -- Hypertension. Stable. Continue home medications. -- DVT prophylaxis with SCDs Physician Review: Patient Assessed, Agree with Above Assessment and Plan Critical Care: No
[2022-11-22 15:30] LABS: Magnesium 1.6 mg/dL (1.6-2.4); Phosphorus 4.4 mg/dL (2.5-4.9)
[2022-11-22] MEDS: FUROSEMIDE 20 MG/ 2ML VIAL IV SCH (16:30)
[2022-11-22] MEDS: INSULIN -REGULAR HUMAN 50 UNIT/0.5 ML ML SQ SCH ×2 (16:31→20:46)
[2022-11-22] MEDS: HYDROCODONE/APAP 10/325 TAB PO PRN (18:10)
[2022-11-22] MEDS: DULERA 100/5 (MOMETASONE/FORMOTEROL) INHALER IH SCH (20:45)
[2022-11-22] MEDS: carvediloL 25 MG TAB PO SCH (20:45)
[2022-11-22] MEDS: ESCITALOPRAM 20 MG TAB PO SCH (20:45)
[2022-11-22] MEDS: ATORVASTATIN 80 MG TAB PO SCH (20:46)
[2022-11-22] MEDS: GABAPENTIN 300 MG CAP PO SCH (20:46)
[2022-11-22] MEDS: VITAMIN D 1000 UNIT TAB PO SCH (20:46)
[2022-11-22] MEDS: INSULIN GLARGINE 100 UNIT/ML SQ SCH (20:46)
[2022-11-22] MEDS: TIZANIDINE 4 MG TABLET PO SCH (20:46)
[2022-11-22] MEDS ORDERED: HOME MED 1 EA UNK (Fluticasone/Salmeterol [Advair 250-50 Diskus] Blst.W.Dev) IH SCH (21:00)
[2022-11-22] MEDS ORDERED: INSULN SQ SCH (21:00)
[2022-11-22] MEDS ORDERED: INSULIN DETEMIR SQ SCH (21:00)
[2022-11-23 04:56] LABS: Hematocrit 36.4 % (36.0-45.0); Lymphocytes % 8.9 % (15.3-44.8); MCV 89.3 fL (80-100); RBC Red Blood Cell Count 4.08 M/uL (3.86-4.86)
[2022-11-23 05:11] LABS: Albumin 2.7 g/dL (3.4-5.0); Bilirubin Total 0.3 mg/dL (0.2-1.0); Magnesium 1.6 mg/dL (1.6-2.4); Phosphorus 4.8 mg/dL (2.5-4.9); Potassium 4.5 mEq/L (3.5-5.1); Protein, Total 6.1 g/dL (6.4-8.2)
[2022-11-23 05:30] LABS: Blood Morphology Comment NOT SEEN (NOT SEEN); Platelet Estimate ADEQ
--- NOTE | 2022-11-23 06:53 | P.PN ---
Date of Service: 11/23/22 Subjective: doing "alright" today Pain in left hand not resolved but improved somewhat with some numbness and tingling; goes up to elbow would like to be off BiPAP, mask bothers her does not wear at home swelling in b/l legs, improving over last few days -reports lymphedema flare started ~1 week ago, improving ROS: 10 point ROS as noted above, otherwise negative Physical Exam: GEN: Alert, oriented, slight discomfort HEENT: Normal conjunctiva, sclera anicteric, incision along anterior neck, without purulent drainage CV: Regular rate and rhythm, 1-2+ peripheral edema in bilateral lower legs Pulm: Nonlabored respirations on BiPAP, 90% FIO2; b/l diminished breath sounds ABD: Soft, nontender, nondistended Integumentary: b/l lower extremity lymphedema with erythema Neuro: Normal speech, normal affect vitals reviewed Problem List: Spondylosis with myelopathy s/p anterior cervical diskectomy and fusion on 11/22 NIDDM2 with Neuropathy Acute on chronic diastolic CHF exacerbation Obesity Hyperlipidemia Hypertension OAB Gout Depression GERD History of constipation Spondylosis with myelopathy s/p anterior cervical diskectomy and fusion on 11/22 S\\P C3-C4, C4-C5, C5-C6, C6-C7 anterior cervical diskectomy and fusion with instrumentation on 11/[address] Baker L arm paresthesia / pain, as to be expected per Dr. Baker PT consult continue pain medication NIDDM2 with Neuropathy BS monitoring with sliding scale insulin and Lantus. Continue Gabapentin acute hypoxemic and hypercapnic respiratory failure secondary to chf exacerbation, obesity hypoventilation syndrome, suspected sleep apnea obesity hypoventilation syndrome Acute on chronic diastolic CHF exacerbation. Continue Lasix; patient reports bumex at home, 2mg daily; will confirm dosing; sees nephrology regularly nephro consulted continue BiPAP CXR (11/23): ordered Pulmonology consulted NIDDM2 with Neuropathy BS monitoring with sliding scale insulin and Lantus. Continue Gabapentin Hyperlipidemia Continue statin. History of CAD Continue statin aspirin when appropriate. Hypertension OAB Gout Depression GERD History of constipation Continue home medications VTE: SCD Code: Full Dispo: Home ~2-3 days
[2022-11-23] MEDS ORDERED: MAGNESIUM SULFATE 1 gm IVPB 1 GM/100 ML BAG IV ONE (08:00)
[2022-11-23] MEDS: INSULIN GLARGINE 100 UNIT/ML SQ SCH ×2 (08:22→20:12)
[2022-11-23] MEDS: INSULIN -REGULAR HUMAN 50 UNIT/0.5 ML ML SQ SCH ×4 (08:22→20:08)
[2022-11-23] MEDS: EZETIMIBE 10 MG TAB PO SCH (08:23)
[2022-11-23] MEDS: FUROSEMIDE 20 MG/ 2ML VIAL IV SCH ×3 (08:23→20:09)
[2022-11-23] MEDS: VITAMIN D 1000 UNIT TAB PO SCH ×3 (08:23→20:10)
[2022-11-23] MEDS: PANTOPRAZOLE 40MG TABLET PO SCH (08:23)
[2022-11-23] MEDS: DULERA 100/5 (MOMETASONE/FORMOTEROL) INHALER IH SCH ×2 (08:23→20:09)
[2022-11-23] MEDS: oxyBUTYnin chloride 5 MG TAB PO SCH (08:23)
[2022-11-23] MEDS: ESCITALOPRAM 20 MG TAB PO SCH ×2 (08:25→20:11)
[2022-11-23] MEDS: carvediloL 25 MG TAB PO SCH ×2 (08:25→20:09)
[2022-11-23] MEDS: LORATADINE 10 MG TAB PO SCH (08:25)
[2022-11-23] MEDS: allopurinoL 100 MG TAB PO SCH (08:25)
[2022-11-23] MEDS: HYDROCODONE/APAP 10/325 TAB PO PRN ×3 (08:39→20:10)
[2022-11-23] MEDS ORDERED: HOME MED 1 EA UNK (Esomeprazole Magnesium [Esomeprazole Magnesium] 40 MG Capsule.Dr) PO SCH (09:00)
[2022-11-23 09:20] LABS: Blood Gas Oxyhemoglobin 91.9 % (94-97); Blood O2 Saturation 94.2 % (92-98.5)
--- NOTE | 2022-11-23 11:34 | P.CNS ---
Date of Consult: 11/23/22 Reason for Consult: Respiratory failure Chief Complaint: Respiratory failure History of Present Illness: Patient is 71 years of age she underwent a neck fusion surgery developed postoperative hypoxemia for rhina failure was admitted to the ICU currently doing better alert responsive cooperative on a BiPAP patient does have a history of sleep apnea refused to use a CPAP machine history of presumed chronic diastolic heart failure Allergies niacin Allergy (Verified 11/19/22 11:25) Flushed/Rash Certain metals Adverse Reaction (Uncoded 11/19/22 11:25) Skin irritation Home Medications: Aspirin [Aspirin EC 81 MG] 81 mg PO DAILY 01/22/16 allopurinoL [Zyloprim*] 100 mg PO DAILY 01/22/16 Ezetimibe [Zetia*] 10 mg PO DAILY 01/25/17 Bumetanide 2 mg PO DAILY 05/30/17 Docusate [Colace Cap*] 1 cap PO TIDP PRN 05/30/17 Insulin Detemir [Levemir Flextouch] 50 units SQ BID 05/30/17 Liraglutide [Victoza 2-Rony] 1.8 mg SQ DAILY 05/30/17 Oxybutynin Chloride 1 tab PO DAILY 05/30/17 Acetaminophen with Codeine [Tylenol with Codeine #4 Tablet] 1 each PO Q8HP PRN 03/28/22 Carvedilol [Coreg] 25 mg PO BID 03/28/22 Escitalopram Oxalate [Lexapro] 20 mg PO BEDTIME 03/28/22 Gabapentin 300 mg PO BEDTIME 03/28/22 Glipizide [Glipizide Xl] 2.5 mg PO BID 03/28/22 Losartan Potassium 25 mg PO DAILY 03/28/22 Lubiprostone 24 mcg PO BID 03/28/22 Ondansetron HCl 4 mg PO Q12HP PRN 03/28/22 Tizanidine [Zanaflex*] 4 mg PO BEDTIME 03/28/22 Atorvastatin Calcium [Lipitor] 80 mg PO BEDTIME 11/19/22 Cholecalciferol (Vitamin D3) [Vitamin D3] 2,000 unit PO TID 11/19/22 Esomeprazole Magnesium 40 mg PO DAILY 11/19/22 Fluticasone/Salmeterol [Advair 250-50 Diskus] 1 each IH BID 11/19/22 Ipratropium [place] 2 spray NS TIDP PRN 11/19/22 Loratadine [Claritin] 10 mg PO DAILY 11/19/22 bisacodyL [Dulcolax] 5 mg PO DAILYPRN PRN 11/19/22 - Past Medical/Surgical History Diabetic: Yes -: Hypertension. History of sleep apnea noncompliant -: [place] 09/02 -: Dyslipidemia -: Coronary artery disease status post stents -: vitamin d and b deficiency -: Gastroesophageal reflux disease -: anemia -: PVD -: depression with anxiety -: lazy left eye -: menengitis 1988 -: IDDM x 3 years -: Cholecystectomy -: hysterectomy -: vulva cancer x2 -: left knee sx arthoscopic. needs bilat replacements -: endoscopy , 2008 -: colonoscopy 2008 -: blood transfusion 2010 -: heart cath, cardiac stents X2 - Family History Mother Medical History: Stroke, Cancer Notes: from cva Father Medical History: Heart disease Notes: etoh abuse Sister Medical History: Hypertension Brother Medical History: Heart disease, Hypertension, Cancer Notes: [place] - Social History Smoking Status: Unknown if ever smoked Alcohol use: Yes CD- Drugs: No Caffeine use: Yes Place of Residence: Home Review of Systems is unable to be obtained Physical Examination Temp Pulse Resp BP Pulse Ox 97.1 F 81 20 130/73 92 11/23/22 08:00 11/23/22 11:00 11/23/22 11:00 11/23/22 11:00 11/23/22 11:00 General: Alert, Cooperative Neck: Supple Respiratory: Clear to auscultation bilaterally Cardiovascular: No edema, Regular rate/rhythm, Normal S1 S2 Laboratory Data (last 24 hrs) 11/23/22 04:37: Sodium 140, Potassium 4.5, BUN 19 H, Creatinine 1.19 H, Glucose 217 H, Phosphorus 4.8, Magnesium 1.6, Total Bilirubin 0.3, AST 11 L, ALT 26, Alkaline Phosphatase 77, Triglycerides 127, Cholesterol 183, HDL Cholesterol 40, Cholesterol/HDL Ratio 4.58 11/23/22 04:37: WBC 11.00 H, Hgb 11.9 L, Hct 36.4, Plt Count 255 11/22/22 14:54: Phosphorus 4.4, Magnesium 1.6 - Problems (1) Respiratory failure with hypoxia and hypercapnia Current Visit: Yes Status: Acute Plan: Patient is 71 years of age admitted with postop respiratory failure presumed acute on chronic has a history of mild sleep apnea noncompliant with CPAP presumed history of diastolic heart failure I suspect that she may have obesity hypoventilation syndrome and changer fixer to nasal cannula titrate sat to 90% labs reviewed mild renal insufficiency chest x-ray shows diminished lung volumes continue to monitor incentive spirometry Qualifiers: Chronicity: unspecified Qualified Code(s): J96.91 - Respiratory failure, unspecified with hypoxia; J96.92 - Respiratory failure, unspecified with hypercapnia; J96.92 - Respiratory failure, unspecified with hypercapnia
--- NOTE | 2022-11-23 11:51 | RAD REPORT ---
EXAM DESCRIPTION: RADChest Single View11/23/2022 10:13 am CLINICAL HISTORY: increased oxygen demand COMPARISON: Chest Single View dated 03/27/2022; Abdomen 1 View (KUB) dated 12/04/2019; Abdomen 1 View (KUB) dated 05/23/2019; Chest Single View dated 05/29/2017 TECHNIQUE: Portable AP view of the chest. FINDINGS: Patchy bibasilar airspace opacities, progressive since the prior exam. Decreased inspirato ry effort limits evaluation. No pneumothorax or effusion. The cardiomediastinal contours are unremar kable. IMPRESSION: Patchy bibasilar airspace opacities, raise concern for atelectasis or pneumonia.
[2022-11-23 12:47] LABS: Arterial Blood Carboxyhemoglob 1.1 % (0-1.5); Blood Gas Oxyhemoglobin 89.6 % (94-97); Blood O2 Saturation 91.9 % (92-98.5)
[2022-11-23] MEDS: MORPHINE 4 MG/ML SYR IV PRN ×2 (13:14→21:41)
[2022-11-23 14:02] VITALS: BMI 58.3
[2022-11-23] MEDS ORDERED: FUROSEMIDE 20 MG/ 2ML VIAL IV ONE (16:45)
[2022-11-23 18:24] LABS: Thyroid Stimulating Hormone 0.413 uIU/mL (0.358-3.740); Uric Acid 7.1 mg/dL (2.6-6.0)
[2022-11-23] MEDS: GABAPENTIN 300 MG CAP PO SCH (20:10)
[2022-11-23] MEDS: TIZANIDINE 4 MG TABLET PO SCH (20:11)
[2022-11-23] MEDS: ATORVASTATIN 80 MG TAB PO SCH (20:11)
[2022-11-24 05:11] LABS: Hematocrit 37.5 % (36.0-45.0); Lymphocytes % 16.8 % (15.3-44.8); MCV 90.5 fL (80-100); MPV 8.3 fL (7.6-11.3); RBC Red Blood Cell Count 4.14 M/uL (3.86-4.86)
[2022-11-24 05:18] LABS: Magnesium 1.9 mg/dL (1.6-2.4); Phosphorus 4.9 mg/dL (2.5-4.9); Potassium 4.2 mEq/L (3.5-5.1)
--- NOTE | 2022-11-24 07:01 | P.PN ---
Date of Service: 11/24/22 Subjective: Nursing reports patient was more somnolent this morning at breakfast time Retaining more CO2, pulmonology ordered Narcan Patient woke up agitated and pulling out her BiPAP, was then placed on Precedex Currently calm, lightly sedated on BiPAP swelling improved ROS: 10 point ROS as noted above, otherwise negative Physical Exam: GEN: Alert, oriented HEENT: Normal conjunctiva, sclera anicteric, incision along anterior neck, without purulent drainage CV: Regular rate and rhythm, trace-1+ peripheral edema in bilateral lower legs Pulm: Nonlabored respirations on BiPAP, b/l diminished breath sounds ABD: Soft, nontender, nondistended Integumentary: b/l lower extremity lymphedema with erythema Neuro: Normal speech, normal affect vitals reviewed Problem List: Spondylosis with myelopathy s/p anterior cervical diskectomy and fusion on 11/22 NIDDM2 with Neuropathy acute hypoxemic and hypercapnic respiratory failure secondary to chf exacerbation, obesity hypoventilation syndrome, sleep apnea Acute on chronic diastolic CHF exacerbation Obesity hypoventilation syndrome Hyperlipidemia Hypertension OAB Gout Depression GERD History of constipation Spondylosis with myelopathy s/p anterior cervical diskectomy and fusion on 11/22 S\P C3-C4, C4-C5, C5-C6, C6-C7 anterior cervical diskectomy and fusion with instrumentation on 11/[address] Baker L arm paresthesia / pain, as to be expected per Dr. Baker PT consult, no restrictions per Dr. Baker continue pain medication NIDDM2 with Neuropathy BS monitoring with sliding scale insulin and Lantus. Continue Gabapentin acute hypoxemic and hypercapnic respiratory failure secondary to chf exacerbation, obesity hypoventilation syndrome, sleep apnea obesity hypoventilation syndrome Acute on chronic diastolic CHF exacerbation. Continue Lasix; patient reports bumex at home, 2mg daily; sees nephrology regularly nephro consulted started lasix drip on 11/24 continue BiPAP CXR (11/23): Patchy bibasilar airspace opacities, raise concern for atelectasis or pneumonia CXR (11/24): Underinflated lungs noted with evidence bibasilar lung atelectasis Pulmonology following NIDDM2 with Neuropathy BS monitoring with sliding scale insulin and Lantus. Continue Gabapentin Hyperlipidemia History of CAD Continue statin aspirin when appropriate. Hypertension OAB Gout Depression GERD History of constipation Continue home medications VTE: SCD Code: Full Dispo: Home ~2-3 days
[2022-11-24] MEDS: LORATADINE 10 MG TAB PO SCH (07:51)
[2022-11-24] MEDS: VITAMIN D 1000 UNIT TAB PO SCH ×3 (07:51→20:37)
[2022-11-24] MEDS: EZETIMIBE 10 MG TAB PO SCH (07:51)
[2022-11-24] MEDS: allopurinoL 100 MG TAB PO SCH (07:51)
[2022-11-24] MEDS: PANTOPRAZOLE 40MG TABLET PO SCH (07:51)
[2022-11-24] MEDS: ASPIRIN EC 81 MG TAB PO SCH (07:51)
[2022-11-24] MEDS: INSULIN -REGULAR HUMAN 50 UNIT/0.5 ML ML SQ SCH ×4 (07:52→20:37)
[2022-11-24] MEDS: carvediloL 25 MG TAB PO SCH (07:53)
[2022-11-24] MEDS: DULERA 100/5 (MOMETASONE/FORMOTEROL) INHALER IH SCH ×2 (07:54→20:36)
[2022-11-24] MEDS: oxyBUTYnin chloride 5 MG TAB PO SCH (07:54)
[2022-11-24] MEDS: FUROSEMIDE 20 MG/ 2ML VIAL IV SCH (07:54)
[2022-11-24] MEDS: HYDROCODONE/APAP 10/325 TAB PO PRN (07:57)
[2022-11-24] MEDS: INSULIN GLARGINE 100 UNIT/ML SQ SCH ×2 (08:35→20:48)
[2022-11-24] MEDS ORDERED: NALOXONE 0.4 MG/ML VIAL IV ONE (09:45)
[2022-11-24] MEDS: DEXMEDETOMIDINE HCL 200 MCG in NA CHLORIDE 0.9% 98 ML IV SCH (10:26)
--- NOTE | 2022-11-24 12:00 | P.PN ---
Subjective Date of Service: 11/24/22 Chief Complaint: Respiratory failure No change in patient's condition she continues to require BiPAP and high concentrations of oxygen with hypercapnia this happened in the prior surgery Review of Systems is unable to be obtained Physical Examination - Vital Signs Temperature: 96.7 F Blood Pressure: 100/48 Pulse: 77 Respirations: 17 Pulse Ox (%): 91 - Physical Exam General: Unresponsive Neck: Supple Respiratory: Clear to auscultation bilaterally, Diminished Cardiovascular: No edema, Regular rate/rhythm, Normal S1 S2 - Studies Laboratory Data (last 24 hrs) 11/24/22 04:30: Sodium 138, Potassium 4.2, BUN 26 H, Creatinine 1.51 H, Glucose 164 H, Phosphorus 4.9, Magnesium 1.9 11/24/22 04:30: WBC 11.80 H, Hgb 12.0, Hct 37.5, Plt Count 258 11/23/22 17:52: Uric Acid 7.1 H Assessment And Plan - Current Problems (Diagnosis) (1) Respiratory failure with hypoxia and hypercapnia Current Visit: Yes Status: Acute Plan: Patient has respiratory failure still remains chronically hypoxic hypercapnic slightly worse today may be from excessive pain medication continue with BiPAP high flow patient's creatinine is a little worse he is on high doses of diure tics White count is mildly elevated probably has underlying postoperative atelectasis start patient on some dexmedetomidine Qualifiers: Chronicity: unspecified Qualified Code(s): J96.91 - Respiratory failure, unspecified with hypoxia; J96.92 - Respiratory failure, unspecified with hypercapnia; J96.92 - Respiratory failure, unspecified with hypercapnia Physician Review: Patient Assessed, Agree with Above Assessment and Plan
--- NOTE | 2022-11-24 12:26 | RAD REPORT ---
EXAM DESCRIPTION: RAD - Chest Single View - 11/24/2022 12:15 pm CLINICAL HISTORY: CHF Chest pain. COMPARISON: Chest Single View dated 11/23/2022; Chest Single View dated 03/27/2022; Abdomen 1 View (KUB ) dated 12/04/2019; Abdomen 1 View (KUB) dated 05/23/2019 FINDINGS: Portable technique limits examination quality. The lungs are underinflated with mild vascular prominence again noted. Atelectasis is likely present in both lung bases. The heart is moderately enlarged. Cervical hardware plate. IMPRESSION: Underinflated lungs noted with evidence bibasilar lung atelectasis.
[2022-11-24 12:59] LABS: Arterial Blood Carboxyhemoglob 1.2 % (0-1.5); Blood Gas Oxyhemoglobin 89.7 % (94-97); Blood O2 Saturation 92.1 % (92-98.5)
[2022-11-24 13:06] LABS: Arterial Blood Carboxyhemoglob 1.2 % (0-1.5); Blood Gas Oxyhemoglobin 86.8 % (94-97); Blood O2 Saturation 89.1 % (92-98.5)
--- NOTE | 2022-11-24 13:14 | CON ---
Date of Consultation: 11/24/2022 Reason For Consultation: Oliguria, fluid management, lymphedema. History Of Present Illness: This is a 71year-old female with significant past medical history of CAD, status post MD, status post PTCA back in 2015, hypertension since 1999, hyperlipidemia, osteoarthritis, diabetes since 1974 complicated with neuropathy, no retinopathy, chronic kidney disease secondary to hypertension nephrosclerosis/diabetes nephropathy. The patient admitted to the hospital with fracture. The patient after surgery has hypercapnic respiratory failure. Yesterday, the patient had been oliguric. For that reason, we have been consulted. Reviewing the record for the patient; the patient's baseline creatinine as outpatient up to August 2022 creatinine is 1.2 with GFR of 47. The patient denied taking any nonsteroidal or IV contrast. Yesterday, we increased the Lasix to 40 mg b.i.d. The patient's urine output improved from 150 to around 450 in the last shift. Today in the morning, the patient had again hypercapnic respiratory failure with CO2 jumped to 81. The patient received morphine over the night, antidote today in the morning after the incidents with Narcan, recovered. Past Medical History: Includes; 1. Diabetes complicated with neuropathy and nephropathy. 2. Hypertension. 3. Hyperlipidemia. 4. CAD, status post MD and PTCA back in 2015, no congestive heart failure, only has diastolic dysfunction with preserved ejection fraction as per echocardiogram. 5. Diabetes since 1974. 6. Chronic kidney disease with baseline creatinine 1.2, GFR of 47 as of August 2022 secondary to cardiorenal and hypertension nephrosclerosis/diabetes nephropathy. 7. Echocardiogram done in 2017, preserved ejection fraction of 70 with diastolic disease function. Allergies: TO NIACIN Family History: Positive for chronic kidney disease, CVA, and hypertension. Social History: Ex-smoker. Occasional alcohol. Denied any drugs abuse. Past Surgical History: Includes; 1. PTCA. 2. Orthopedic surgery. 3. Cholecystectomy. 4. Hysterectomy. 5. Vulvar cancer. 6. Endoscopy. 7. Colonoscopy. Review of Systems: None obtainable. Current Medications: In the hospital include allopurinol, atorvastatin, bisacodyl, carvedilol, docusate, gabapentin, Lasix, loratadine, oxybutynin, tizanidine. Home Medications: Include loratadine, breathing treatment, bisacodyl, atorvastatin, Tylenol, carvedilol, aspirin, Bumex 2 mg daily, losartan 25 mg, Victoza, insulin, glipizide, gabapentin 300 at bedtime, citalopram. Physical Examination: Vital Signs: When I saw the patient, the patient is on BiPAP, blood pressure down to 100/48, pulse of 77, afebrile. Chest: Decreased entry bilateral base. Heart: S1, S2. Systolic murmur. Abdomen: Soft, nontender. Morbidly obese. Could not appreciate any organomegaly. Extremity: Lymphedema bilateral with compression dressing. Neuro: The patient on BiPAP, sleepy. Moving 4 extremities. No focality. Laboratory Data: Hemoglobin is 12, WBC 11.8. Sodium 138, potassium 4.2, bicarb 34, chloride 102, BUN 26, creatinine 1.5, GFR of 37, calcium 8.4, phosphorus 4.9, magnesium 1.9, uric acid 7.1, ABG; pH 7.21, CO2 of 81; yesterday 7.27, CO2 68. Chest x-ray done yesterday showing cardiomegaly with congestion bilateral. Assessment And Plan: 1. Acute kidney injury, multifactorial, secondary to poor perfusion, ATN secondary to low blood pressure, slightly on the over volume side with marginal low blood pressure. I am going to go ahead and decrease her carvedilol to 3.125. I am going to discontinue the Lasix and start her on low dose of Lasix drip and we will follow up the patient. 2. Hypertension, currently blood pressure on the lower side with the presence of acute kidney injury. Decrease carvedilol to 3.125. Keep holding losartan, change to Lasix drip, and we will follow up the patient. 3. Hypercapnic respiratory failure secondary to chronic obstructive pulmonary disease, obstructive sleep apnea. We will follow up with Pulmonary. 4. Congestive heart failure, diastolic dysfunction as above with Lasix. Thank you, Dr. Bowling for allowing us to participate in the care of your patient. Time spent examining the patient [id number], reviewing the data, lab and radiology, discussing the case with the patient , discussing the case with the steam clothes press operator including nursing staff on the floor, placing order, discussing the case with the hospitalist more than 65 minutes. SHITAL Voice ID: [id number] Report ID: [id number] NASIR
[2022-11-24] MEDS: ALBUMIN HUMAN 25% 12.5 GM, FUROSEMIDE 100 MG in NA CHLORIDE 0.9% 40 ML IV SCH ×3 (13:19→23:00)
[2022-11-24 18:04] LABS: Arterial Blood Carboxyhemoglob 1.2 % (0-1.5); Blood O2 Saturation 91.5 % (92-98.5)
[2022-11-24 18:34] LABS: UR PROTEIN 13.7 mg/dL (<11.9); Urine Protein/Creatinine Ratio 0.14 ratio (<0.15)
[2022-11-24] MEDS: GABAPENTIN 100 MG CAP PO SCH (20:35)
[2022-11-24] MEDS: ATORVASTATIN 80 MG TAB PO SCH (20:35)
[2022-11-24] MEDS: carvediloL 3.125 MG TAB PO SCH (20:36)
[2022-11-24] MEDS: TIZANIDINE 4 MG TABLET PO SCH (20:38)
[2022-11-25] MEDS: ALBUMIN HUMAN 25% 12.5 GM, FUROSEMIDE 100 MG in NA CHLORIDE 0.9% 40 ML IV SCH ×4 (00:47→17:07)
[2022-11-25] MEDS: DEXMEDETOMIDINE HCL 200 MCG in NA CHLORIDE 0.9% 98 ML IV SCH (02:17)
[2022-11-25 04:58] LABS: Absolute Lymphocytes (CBC) 1.6 K/uL (0.7-4.9); Hematocrit 35.5 % (36.0-45.0); Lymphocytes % 21.6 % (15.3-44.8); MCV 88.6 fL (80-100); MPV 8.2 fL (7.6-11.3); RBC Red Blood Cell Count 4.01 M/uL (3.86-4.86)
[2022-11-25 05:07] LABS: Albumin 3.1 g/dL (3.4-5.0); Phosphorus 2.9 mg/dL (2.5-4.9); Potassium 3.7 mEq/L (3.5-5.1)
[2022-11-25 05:36] LABS: Arterial Blood Carboxyhemoglob 1.3 % (0-1.5); Blood Gas Oxyhemoglobin 92.9 % (94-97); Blood O2 Saturation 95.6 % (92-98.5)
--- NOTE | 2022-11-25 06:51 | P.PN ---
Date of Service: 11/25/22 Subjective: feeling better today off precedex since this morning CO2 levels improving; off BiPAP this morning otherwise no new / worsening problems non ambulatory since admission ROS: 10 point ROS as noted above, otherwise negative Physical Exam: GEN: Alert, oriented, answers appropriately, then slightly dozes off at times HEENT: Normal conjunctiva, sclera anicteric, incision along anterior neck, without purulent drainage CV: Regular rate and rhythm, trace+ peripheral edema in bilateral lower legs Pulm: Nonlabored respirations on HFNC, b/l diminished breath sounds ABD: Soft, nontender, nondistended Integumentary: b/l lower extremity lymphedema with mild erythema Neuro: Normal speech, normal affect vitals reviewed Problem List: Spondylosis with myelopathy s/p anterior cervical diskectomy and fusion on 11/22 NIDDM2 with Neuropathy acute hypoxemic and hypercapnic respiratory failure secondary to chf exacerbation, obesity hypoventilation syndrome, sleep apnea Acute on chronic diastolic CHF exacerbation Obesity hypoventilation syndrome Hyperlipidemia Hypertension OAB Gout Depression GERD History of constipation Spondylosis with myelopathy s/p anterior cervical diskectomy and fusion on 11/22 S\P C3-C4, C4-C5, C5-C6, C6-C7 anterior cervical diskectomy and fusion with instrumentation on 11/[address] Baker L arm paresthesia / pain, as to be expected per Dr. Baker; improving PT consult, no restrictions per Dr. Baker continue pain medication PT consult NIDDM2 with Neuropathy BS monitoring with sliding scale insulin and Lantus. Continue Gabapentin acute hypoxemic and hypercapnic respiratory failure secondary to chf exacerbation, obesity hypoventilation syndrome, sleep apnea obesity hypoventilation syndrome Acute on chronic diastolic CHF exacerbation. patient reports bumex at home, 2mg daily; sees nephrology regularly nephro consulted started lasix drip on 11/24 plan to swap to PO 11/26 continue BiPAP CXR (11/23): Patchy bibasilar airspace opacities, raise concern for atelectasis or pneumonia CXR (11/24): Underinflated lungs noted with evidence bibasilar lung atelectasis Pulmonology following CO2 improving monitor today in ICU, if stable and o2 weaning down, possible downgrade to floor tomorrow NIDDM2 with Neuropathy BS monitoring with sliding scale insulin and Lantus. Continue Gabapentin Hyperlipidemia History of CAD Continue statin aspirin when appropriate. Hypertension OAB Gout Depression GERD History of constipation Continue home medications hold losartan VTE: SCD Code: Full Dispo: Home ~2-3 days pending further improvement; wean oxygen has home oxygen setup
[2022-11-25] MEDS: INSULIN -REGULAR HUMAN 50 UNIT/0.5 ML ML SQ SCH ×4 (07:04→20:38)
--- NOTE | 2022-11-25 07:51 | RAD REPORT ---
EXAM DESCRIPTION: RADChest Single View11/25/2022 5:04 am CLINICAL HISTORY: hypoxia, hypercapnia, f/u opacities COMPARISON: Chest Single View dated 11/24/2022; Chest Single View dated 11/23/2022; Chest Single View da concetta 03/27/2022; Abdomen 1 View (KUB) dated 12/04/2019 TECHNIQUE: Portable AP view of the chest. FINDINGS: Stable cardiomegaly, suspected layering effusions, and central interstitial prominence. Mi ld bibasilar patchy opacities more pronounced on the left. Under aeration somewhat limits evaluation. No pneumothorax. The mediastinal contours are unchanged. IMPRESSION: Stable findings as above, which may relate to congestive heart failure. Underlying pneum onia cannot be entirely excluded.
[2022-11-25] MEDS: LORATADINE 10 MG TAB PO SCH (08:13)
[2022-11-25] MEDS: VITAMIN D 1000 UNIT TAB PO SCH ×3 (08:13→20:26)
[2022-11-25] MEDS: allopurinoL 100 MG TAB PO SCH (08:13)
[2022-11-25] MEDS: EZETIMIBE 10 MG TAB PO SCH (08:13)
[2022-11-25] MEDS: ASPIRIN EC 81 MG TAB PO SCH (08:13)
[2022-11-25] MEDS: PANTOPRAZOLE 40MG TABLET PO SCH (08:13)
[2022-11-25] MEDS: carvediloL 3.125 MG TAB PO SCH ×2 (08:14→20:26)
[2022-11-25] MEDS: DULERA 100/5 (MOMETASONE/FORMOTEROL) INHALER IH SCH ×2 (08:15→20:29)
[2022-11-25] MEDS: oxyBUTYnin chloride 5 MG TAB PO SCH (08:15)
--- NOTE | 2022-11-25 08:56 | P.PN ---
Subjective Date of Service: 11/25/22 Chief Complaint: Respiratory failure Patient is doing much better today more alert responsive on high flow nasal cannula Review of Systems General: Weakness Respiratory: Shortness of Breath Physical Examination - Vital Signs Temperature: 97.1 F Blood Pressure: 108/66 Pulse: 75 Respirations: 19 Pulse Ox (%): 95 - Physical Exam General: Alert, Oriented x3 Respiratory: Clear to auscultation bilaterally, Diminished Cardiovascular: No edema, Normal pulses - Studies Laboratory Data (last 24 hrs) 11/25/22 04:28: WBC 7.60, Hgb 11.7 L, Hct 35.5 L, Plt Count 239 11/25/22 04:28: Sodium 139, Potassium 3.7, BUN 27 H, Creatinine 1.18 H, Glucose 122 H, Phosphorus 2.9 Assessment And Plan - Current Problems (Diagnosis) (1) Respiratory failure with hypoxia and hypercapnia Current Visit: Yes Status: Acute Plan: Patient admitted with postop respiratory failure hypoventilation doing much better today currently on high flow hypercapnia and renal function have significantly improved continue titrate sat down to 8890% patient has a history of sleep apnea refused CPAP in the past chemistries labs reviewed reviewed once stable to downgrade to nasal cannula transferred to the floor Qualifiers: Chronicity: unspecified Qualified Code(s): J96.91 - Respiratory failure, unspecified with hypoxia; J96.92 - Respiratory failure, unspecified with hypercapnia; J96.92 - Respiratory failure, unspecified with hypercapnia Physician Review: Patient Assessed, Agree with Above Assessment and Plan
[2022-11-25] MEDS: INSULIN GLARGINE 100 UNIT/ML SQ SCH ×2 (09:26→20:40)
[2022-11-25] MEDS ORDERED: POTASSIUM CL SA 10 MEQ TAB PO ONE (09:43)
[2022-11-25 09:53] LABS: Magnesium 1.7 mg/dL (1.6-2.4)
[2022-11-25] MEDS ORDERED: MAGNESIUM SULFATE 1 gm IVPB 1 GM/100 ML BAG IV ONE (10:01)
--- NOTE | 2022-11-25 10:49 | PN ---
Date of Progress Note: 11/25/2022 Subjective: Patient was admitted to the hospital for surgery. Patient had hypercapnic respiratory failure/overvolume with acute kidney injury secondary to cardiorenal. Yesterday, we started the patient on Lasix drip. Patient converted from oliguric to nonoliguric kidney function, started improving. Patient had good urine output. Patient is currently more awake. Morphine was discontinued and antidote with Narcan. Physical Examination: Vital Signs: Blood pressure 126/52, pulse of 68, afebrile. Head and Neck: Has scar on the left carotid area with bruises. Abdomen: Soft, nontender. Chest: Crackles bilateral base with decreased entry on the left base. Heart: S1, S2. Systolic murmur. Extremities: Venous stasis change, +1 edema. Neuro: Patient is awake, oriented. Moving 4 extremities without any focality. Laboratory Data: Hemoglobin 11.7. Sodium 139, potassium 3.7, bicarb 35, BUN 27, creatinine 1.1. GFR 50, which is her baseline. Calcium 8.6. Phosphorus 2.9, magnesium 1.7. Albumin 3.1. Corrected calcium is 9.4. Chest x-ray: Cardiomegaly with congestion. Pleural effusion on the right side. Current Medications: Include Lasix drip, loratadine, Zanaflex, carvedilol 3.125, atorvastatin, Zetia, gabapentin 100 mg, pantoprazole, insulin, allopurinol, oxybutynin, cholecalciferol. Assessment And Plan: 1. Acute kidney injury secondary to cardiorenal still on the overvolume side. With the marginal blood pressure, I am going to continue current Lasix drip at 5 mg and plan to switch to oral by tomorrow. The dosage will be appropriate to be around 40-80 mg daily and we will continue to monitor the patient. 2. Hypertension. Currently, blood pressure marginally on the lower side. We decreased the carvedilol yesterday. I am going to continue on the Lasix drip. Keep holding the losartan and we will follow up the patient. 3. Respiratory failure, multifactorial secondary to overvolume, hypercapnic respiratory failure, status post BiPAP over the night. Patient is more awake. Currently, CO2 dropped to 60, will continue. 4. Congestive heart failure, diastolic dysfunction with exacerbation as above. 5. Hypokalemia. We will supplement. 6. Hypomagnesemia. We will supplement. Time spent examining the patient, more than 35 minutes. Time spent examining the patient [id number], reviewing the data, lab and radiology, discussing the case with the patient , discussing the case with the logistics team leader including nursing staff on the floor, placing order, discussing the case with the hospitalist more than 35 minutes. SHITAL Voice ID: [id number] Report ID: [id number] [facility]Bala
[2022-11-25] MEDS: HYDROCODONE/APAP 10/325 TAB PO PRN (13:56)
[2022-11-25] MEDS: ESCITALOPRAM 20 MG TAB PO SCH (20:26)
[2022-11-25] MEDS: GABAPENTIN 100 MG CAP PO SCH (20:26)
[2022-11-25] MEDS: ATORVASTATIN 80 MG TAB PO SCH (20:29)
[2022-11-25] MEDS: TIZANIDINE 4 MG TABLET PO SCH (21:00)
[2022-11-26 05:46] LABS: Albumin 3.3 g/dL (3.4-5.0); Magnesium 1.7 mg/dL (1.6-2.4); Phosphorus 2.4 mg/dL (2.5-4.9); Potassium 3.3 mEq/L (3.5-5.1)
[2022-11-26 06:39] LABS: Arterial Blood Carboxyhemoglob 1.4 % (0-1.5); Blood Gas Oxyhemoglobin 92.7 % (94-97); Blood O2 Saturation 95.4 % (92-98.5)
--- NOTE | 2022-11-26 07:05 | P.PN ---
Date of Service: 11/26/22 Subjective: Feeling better today no new / worsening problems remains of BiPAP ambulated with PT ROS: 10 point ROS as noted above, otherwise negative Physical Exam: GEN: Alert, oriented, answers appropriately HEENT: Normal conjunctiva, sclera anicteric, incision along anterior neck CV: Regular rate and rhythm, trace+ peripheral edema in bilateral lower legs Pulm: Nonlabored respirations on HFNC, b/l diminished breath sounds ABD: Soft, nontender, nondistended Integumentary: b/l lower extremity lymphedema with mild erythema Neuro: Normal speech, normal affect vitals reviewed Problem List: Spondylosis with myelopathy s/p anterior cervical diskectomy and fusion on 11/22 NIDDM2 with Neuropathy acute hypoxemic and hypercapnic respiratory failure secondary to chf exacerbation, obesity hypoventilation syndrome, sleep apnea Acute on chronic diastolic CHF exacerbation Obesity hypoventilation syndrome Hyperlipidemia Hypertension OAB Gout Depression GERD History of constipation Spondylosis with myelopathy s/p anterior cervical diskectomy and fusion on 11/22 S\P C3-C4, C4-C5, C5-C6, C6-C7 anterior cervical diskectomy and fusion with instrumentation on 11/[address] Baker L arm paresthesia / pain, as to be expected per Dr. Baker; improving PT consult, no restrictions per Dr. Baker continue pain medication - titrating to lowest effective dose PT consult NIDDM2 with Neuropathy BS monitoring with sliding scale insulin and Lantus. Continue Gabapentin acute hypoxemic and hypercapnic respiratory failure secondary to chf exacerbation, obesity hypoventilation syndrome, sleep apnea obesity hypoventilation syndrome Acute on chronic diastolic CHF exacerbation. patient reports bumex at home, 2mg daily; sees nephrology regularly nephro consulted started lasix drip on 11/24 tentative plan to swap to PO continue BiPAP CXR (11/23): Patchy bibasilar airspace opacities, raise concern for atelectasis or pneumonia CXR (11/24): Underinflated lungs noted with evidence bibasilar lung atelectasis Pulmonology following CO2 improving Downgrade from ICU 11/26 NIDDM2 with Neuropathy BS monitoring with sliding scale insulin and Lantus. Continue Gabapentin Hyperlipidemia History of CAD Continue statin aspirin when appropriate. Hypertension OAB Gout Depression GERD History of constipation Continue home medications hold losartan VTE: SCD Code: Full Dispo: Home ~2-3 days pending further improvement; wean oxygen has home oxygen setup Downgraded from ICU level of care 11/26
[2022-11-26] MEDS: INSULIN -REGULAR HUMAN 50 UNIT/0.5 ML ML SQ SCH ×4 (07:30→20:11)
[2022-11-26] MEDS ORDERED: MAGNESIUM SULFATE 1 gm IVPB 1 GM/100 ML BAG IV ONE (07:30)
[2022-11-26] MEDS: DULERA 100/5 (MOMETASONE/FORMOTEROL) INHALER IH SCH ×2 (08:05→20:10)
[2022-11-26] MEDS: EZETIMIBE 10 MG TAB PO SCH (08:06)
[2022-11-26] MEDS: INSULIN GLARGINE 100 UNIT/ML SQ SCH ×2 (08:06→21:04)
[2022-11-26] MEDS: VITAMIN D 1000 UNIT TAB PO SCH ×3 (08:06→20:07)
[2022-11-26] MEDS: ASPIRIN EC 81 MG TAB PO SCH (08:07)
[2022-11-26] MEDS: HYDROCODONE/APAP 5/325 MG TAB PO PRN ×3 (08:07→22:30)
[2022-11-26] MEDS: LORATADINE 10 MG TAB PO SCH (08:08)
[2022-11-26] MEDS: PANTOPRAZOLE 40MG TABLET PO SCH (08:08)
[2022-11-26] MEDS: carvediloL 3.125 MG TAB PO SCH ×2 (08:08→20:07)
[2022-11-26] MEDS: allopurinoL 100 MG TAB PO SCH (08:09)
[2022-11-26] MEDS: oxyBUTYnin chloride 5 MG TAB PO SCH (08:10)
[2022-11-26] MEDS ORDERED: POTASSIUM CL SA 10 MEQ TAB PO ONE (09:00)
--- NOTE | 2022-11-26 12:53 | P.PN ---
Subjective Date of Service: 11/26/22 Chief Complaint: Respiratory failure Patient is improving doing much better today sitting in a chair saturation satisfactory Review of Systems General: Weakness Respiratory: Shortness of Breath Physical Examination - Vital Signs Temperature: 97 F Blood Pressure: 157/65 Pulse: 68 Respirations: 14 Pulse Ox (%): 99 - Physical Exam General: Alert, Oriented x3 Neck: Supple Respiratory: Clear to auscultation bilaterally, Diminished Cardiovascular: Edema - Studies Laboratory Data (last 24 hrs) 11/26/22 05:20: Sodium 140, Potassium 3.3 L, BUN 26 H, Creatinine 1.00, Glucose 112 H, Phosphorus 2.4 L, Magnesium 1.7 Assessment And Plan - Current Problems (Diagnosis) (1) Respiratory failure with hypoxia and hypercapnia Current Visit: Yes Status: Acute Plan: Patient is 71 years of age admitted with postoperative hypoxic hypercapnic respiratory failure she is doing much better more alert responsive to titrate her oxygen down to a sat of 90% and is claustrophobic has refused CPAP in the past chemistries labs reviewed patient has oxygen at home continue with bronchodilator at home downgrade possible discharge renal function is back to normal Qualifiers: Chronicity: unspecified Qualified Code(s): J96.91 - Respiratory failure, unspecified with hypoxia; J96.92 - Respiratory failure, unspecified with hypercapnia; J96.92 - Respiratory failure, unspecified with hypercapnia Physician Review: Patient Assessed, Agree with Above Assessment and Plan
[2022-11-26] MEDS: ALBUMIN HUMAN 25% 12.5 GM, FUROSEMIDE 100 MG in NA CHLORIDE 0.9% 40 ML IV SCH (14:06)
--- NOTE | 2022-11-26 16:06 | P.PN ---
Subjective Date of Service: 11/26/22 Chief Complaint: Respiratory failure Subjective: No new changes, Other (Transferred out of ICU today.) Physical Examination - Vital Signs Temperature: 97 F Blood Pressure: 158/78 Pulse: 85 Respirations: 18 Pulse Ox (%): 94 - Physical Exam General: Other (Appears as her stated age) HEENT: Atraumatic, Normocephalic Neck: Supple Respiratory: Other (Symmetric chest expansion) Cardiovascular: No rubs, No murmurs Gastrointestinal: Soft and benign, No guarding Musculoskeletal: No clubbing Integumentary: No warmth Neurological: Normal speech, Normal tone Urinary: Other (No bladder distention) External genitalia: Deferred Rectal: Deferred - Studies Laboratory Data (last 24 hrs) 11/26/22 05:20: Sodium 140, Potassium 3.3 L, BUN 26 H, Creatinine 1.00, Glucose 112 H, Phosphorus 2.4 L, Magnesium 1.7 Assessment And Plan - Plan # ELAINE 2/2 prerenal state/diuretic use SCr improved to 1.0 D/c lasix/IV albumin Cont to hold losartan [place] po fluid intake at least 2L/day # Metabolic alkalosis 2/2 diuretics Dc IV lasix as above [place] po fluid intake as above K, Mg, Cl repletion prn # Acute hypoxic & hypercapnic respiratory failure secondary likely 2/2 to post- op atelectasis Hx chronic respi acidosis from obesity hypoventilation syndrome, sleep apnea TTE in May 2017 showed normal LVEF, +diastolic dysfxn Chest CT in Mar 2022 showed no pulmo Htn Chest CT no pulmo Htn CXR unimpressive BNP only slightly elevated Dc IV lasix/albumin O2 suppl, bipap prn Inhalers, neb, pulmo toilet Incentive spirometry q2h when awake F/u urine chem to assess for prerenal state vs secondary hyperaldo state # Htn Cont current med regimen # HypoK, hypoMg, HypoPO4 Lytes repletion prn # Anemia Monitor cbc # Cervical spondylosis with myelopathy S/p anterior cervical diskectomy and fusion on 11/22 Per other services # DM2 Mngt per primary team # HLD, CAD Cont cardioprudent meds Physician Review: Patient Assessed, Agree with Above Assessment and Plan
[2022-11-26] MEDS: CYCLOBENZAPRINE 10 MG TAB PO PRN (20:07)
[2022-11-26] MEDS: GABAPENTIN 100 MG CAP PO SCH (20:08)
[2022-11-26] MEDS: TIZANIDINE 4 MG TABLET PO SCH (20:08)
[2022-11-26] MEDS: ATORVASTATIN 80 MG TAB PO SCH (20:08)
[2022-11-26] MEDS: ESCITALOPRAM 20 MG TAB PO SCH (20:11)
[2022-11-27 05:18] LABS: Albumin 3.3 g/dL (3.4-5.0); Magnesium 1.9 mg/dL (1.6-2.4); Phosphorus 2.1 mg/dL (2.5-4.9); Potassium 2.9 mEq/L (3.5-5.1)
[2022-11-27] MEDS ORDERED: NA CHLORIDE 0.9% 500 ML ONE ×2 (05:58→12:16)
[2022-11-27] MEDS: KCL 20 MEQ/100 mL IVPB 20 MEQ/100 ML BAG IV SCH ×4 (06:19→14:33)
[2022-11-27] MEDS: HYDROCODONE/APAP 5/325 MG TAB PO PRN ×3 (06:19→17:28)
[2022-11-27] MEDS: POTASS/SODIUM PHOSPHATE 1 PKT POWD.PACK PO SCH ×2 (06:20→07:57)
--- NOTE | 2022-11-27 07:22 | P.PN ---
Date of Service: 11/27/22 Subjective: doing okay today, breathing is okay feels shes been improving a little day by day no new / worsening problems ROS: 10 point ROS as noted above, otherwise negative Physical Exam: GEN: Alert, oriented, answers appropriately HEENT: Normal conjunctiva, sclera anicteric, incision along anterior neck CV: Regular rate and rhythm, trace+ peripheral edema in bilateral lower legs Pulm: Nonlabored respirations on HFNC, b/l diminished breath sounds ABD: Soft, nontender, nondistended Integumentary: b/l lower extremity lymphedema Neuro: Normal speech, normal affect vitals reviewed Problem List: Spondylosis with myelopathy s/p anterior cervical diskectomy and fusion on 11/22 NIDDM2 with Neuropathy acute hypoxemic and hypercapnic respiratory failure secondary to chf exacerbation, obesity hypoventilation syndrome, sleep apnea Acute on chronic diastolic CHF exacerbation Obesity hypoventilation syndrome Hyperlipidemia Hypertension OAB Gout Depression GERD History of constipation Spondylosis with myelopathy s/p anterior cervical diskectomy and fusion on 11/22 S\P C3-C4, C4-C5, C5-C6, C6-C7 anterior cervical diskectomy and fusion with instrumentation on 11/[address] Baker L arm paresthesia / pain, as to be expected per Dr. Baker; improving PT consult, no restrictions per Dr. Baker continue pain medication - titrating to lowest effective dose PT consult NIDDM2 with Neuropathy BS monitoring with sliding scale insulin and Lantus. Continue Gabapentin acute hypoxemic and hypercapnic respiratory failure secondary to chf exacerbation, obesity hypoventilation syndrome, sleep apnea obesity hypoventilation syndrome Acute on chronic diastolic CHF exacerbation. patient reports bumex at home, 2mg daily; sees nephrology regularly nephro consulted started lasix drip on 11/24, DCd 11/26, restarted 11/27 40 MG IV tentative plan to swap to PO continue BiPAP CXR (11/23): Patchy bibasilar airspace opacities, raise concern for atelectasis or pneumonia CXR (11/24): Underinflated lungs noted with evidence bibasilar lung atelectasis Pulmonology following CO2 improving Downgrade from ICU 11/26 NIDDM2 with Neuropathy BS monitoring with sliding scale insulin and Lantus. Continue Gabapentin Hyperlipidemia History of CAD Continue statin aspirin when appropriate. Hypertension OAB Gout Depression GERD History of constipation Continue home medications hold losartan start spironolactone tomorrow per nephrology VTE: SCD Code: Full Dispo: Home ~2-3 days pending further improvement; wean oxygen has home oxygen setup Downgraded from ICU level of care 11/26
[2022-11-27] MEDS: INSULIN -REGULAR HUMAN 50 UNIT/0.5 ML ML SQ SCH ×4 (07:30→20:42)
[2022-11-27] MEDS: oxyBUTYnin chloride 5 MG TAB PO SCH (07:57)
[2022-11-27] MEDS: carvediloL 3.125 MG TAB PO SCH ×2 (07:57→20:39)
[2022-11-27] MEDS: LORATADINE 10 MG TAB PO SCH (07:57)
[2022-11-27] MEDS: DULERA 100/5 (MOMETASONE/FORMOTEROL) INHALER IH SCH ×2 (07:57→20:40)
[2022-11-27] MEDS: ASPIRIN EC 81 MG TAB PO SCH (07:57)
[2022-11-27] MEDS: PANTOPRAZOLE 40MG TABLET PO SCH (07:57)
[2022-11-27] MEDS: VITAMIN D 1000 UNIT TAB PO SCH ×3 (07:57→20:39)
[2022-11-27] MEDS: EZETIMIBE 10 MG TAB PO SCH (07:58)
[2022-11-27] MEDS: allopurinoL 100 MG TAB PO SCH (07:58)
[2022-11-27] MEDS: INSULIN GLARGINE 100 UNIT/ML SQ SCH ×2 (07:58→20:43)
[2022-11-27] MEDS: CYCLOBENZAPRINE 10 MG TAB PO PRN (08:56)
[2022-11-27] MEDS ORDERED: NA CHLORIDE 0.9% 0 ML ONE (12:14)
[2022-11-27] MEDS ORDERED: MAGNESIUM SULFATE 1 gm IVPB 1 GM/100 ML BAG IV ONE (13:30)
--- NOTE | 2022-11-27 14:32 | PN ---
Date of Progress Note: 11/27/2022 Subjective: The patient was admitted with hypercapnic respiratory failure. The patient had acute ki dney injury secondary to cardiorenal. Patient also started on Lasix, then Lasix drip. Kidney functi on recovered. Lasix has been discontinued yesterday. The patient on high-flow. Physical Examination: Vital Signs: When I saw the patient; blood pressure 168/84, pulse of 88. Chest: Crackles bilateral. Heart: S1, S2. Systolic murmur. Abdomen: Soft, nontender. Extremities: Venous stasis change bilateral with +1 edema. Neuro: Alert. No focality. Laboratory Data: WBC 7.6, H and H of 11.7/35.5. Sodium 137, potassium 2.9, bicarb 39, BUN 26, creat inine 0.9, GFR of 64. Calcium 9.3, phos 42.1, magnesium 1.9, albumin is 3.3, corrected calcium is 10 . Current Medications: The patient on include; 1.Loratadine. 2.Aspirin. 3.Carvedilol 3.125 b.i.d. 4.Atorvastatin. 5.Zetia. 6.Zofran. 7.Bisacodyl. 8.Allopurinol. 9.Oxybutynin. Assessment And Plan: 1.Acute kidney injury secondary to cardiorenal, stable. Recovered very well. We will continue to m onitor the patient. Resume Lasix, and we will follow up. 2.Hypertension, controlled, not optimal. Given pulmonary history, I am going to start the patient o n spironolactone. 3.Hypokalemia. We will supplement aggressively. 4.Hypomagnesemia. We will supplement. 5.Respiratory failure, multifactorial secondary to hypercapnic respiratory failure. with over volume. We will continue diuresis. Continue follow up with Pulmonary. Time spent examining the patient, [id number], reviewing data, lab, and radiology, placing orders, d iscussing the case with the patient, discussing the case with the cylinder steamer including hospitalist cam domínguez nursing staff more than 35 minutes. SHITAL Voice ID: [id number] Report ID: [id number]
[2022-11-27] MEDS: FUROSEMIDE 40 MG/4 ML VIAL IV SCH (17:28)
[2022-11-27] MEDS: ESCITALOPRAM 20 MG TAB PO SCH (20:38)
[2022-11-27] MEDS: TIZANIDINE 4 MG TABLET PO SCH (20:38)
[2022-11-27] MEDS: ATORVASTATIN 80 MG TAB PO SCH (20:38)
[2022-11-27] MEDS: GABAPENTIN 100 MG CAP PO SCH (20:39)
[2022-11-27] MEDS ORDERED: POTASSIUM 25 MEQ EFFERV TAB PO ONE (21:00)
[2022-11-28] MEDS: HYDROCODONE/APAP 5/325 MG TAB PO PRN ×3 (03:27→21:30)
[2022-11-28 04:10] LABS: Absolute Lymphocytes (CBC) 1.7 K/uL (0.7-4.9); Hematocrit 39.2 % (36.0-45.0); Lymphocytes % 22.3 % (15.3-44.8); MCV 87.7 fL (80-100); MPV 8.6 fL (7.6-11.3); RBC Red Blood Cell Count 4.47 M/uL (3.86-4.86)
[2022-11-28 04:21] LABS: Albumin 3.5 g/dL (3.4-5.0); Phosphorus 3.2 mg/dL (2.5-4.9); Potassium 3.4 mEq/L (3.5-5.1)
[2022-11-28] MEDS: INSULIN -REGULAR HUMAN 50 UNIT/0.5 ML ML SQ SCH ×4 (07:30→21:00)
[2022-11-28] MEDS: EZETIMIBE 10 MG TAB PO SCH (08:04)
[2022-11-28] MEDS: VITAMIN D 1000 UNIT TAB PO SCH ×3 (08:04→21:31)
[2022-11-28] MEDS: oxyBUTYnin chloride 5 MG TAB PO SCH (08:04)
[2022-11-28] MEDS: ASPIRIN EC 81 MG TAB PO SCH (08:04)
[2022-11-28] MEDS: LORATADINE 10 MG TAB PO SCH (08:05)
[2022-11-28] MEDS: allopurinoL 100 MG TAB PO SCH (08:05)
[2022-11-28] MEDS: FUROSEMIDE 40 MG/4 ML VIAL IV SCH (08:05)
[2022-11-28] MEDS: PANTOPRAZOLE 40MG TABLET PO SCH (08:05)
[2022-11-28] MEDS: carvediloL 3.125 MG TAB PO SCH ×2 (08:05→21:32)
[2022-11-28] MEDS: INSULIN GLARGINE 100 UNIT/ML SQ SCH ×2 (08:06→21:34)
[2022-11-28] MEDS: DULERA 100/5 (MOMETASONE/FORMOTEROL) INHALER IH SCH ×2 (08:06→21:32)
[2022-11-28] MEDS ORDERED: POTASSIUM 25 MEQ EFFERV TAB PO ONE (09:00)
[2022-11-28] MEDS ORDERED: SPIRONOLACTONE 25 MG TABLET PO SCH (09:00)
--- NOTE | 2022-11-28 12:39 | P.PN ---
Date of Service: 11/28/22 Subjective: doing okay today, breathing is slowly improving wanting to go home O2 weaning no new / worsening problems no further left hand pain/tingling over last few days ROS: 10 point ROS as noted above, otherwise negative Physical Exam: GEN: Alert, oriented, NAD HEENT: Normal conjunctiva, sclera anicteric, incision along anterior neck with mild bruising CV: Regular rate and rhythm, trace+ peripheral edema in bilateral lower legs Pulm: Nonlabored respirations on 10L NC, b/l diminished breath sounds at bases bilaterally ABD: Soft, nontender, nondistended Neuro: Normal speech, normal affect vitals reviewed Problem List: Spondylosis with myelopathy s/p anterior cervical diskectomy and fusion on 11/22 NIDDM2 with Neuropathy acute hypoxemic and hypercapnic respiratory failure secondary to chf exacerbation, obesity hypoventilation syndrome, sleep apnea Acute on chronic diastolic CHF exacerbation Obesity hypoventilation syndrome Hyperlipidemia Hypertension OAB Gout Depression GERD History of constipation Spondylosis with myelopathy s/p anterior cervical diskectomy and fusion on 11/22 S\P C3-C4, C4-C5, C5-C6, C6-C7 anterior cervical diskectomy and fusion with instrumentation on 11/[address] Baker L arm paresthesia / pain resolved PT consult, no restrictions per Dr. Baker continue pain medication - titrating to lowest effective dose NIDDM2 with Neuropathy BS monitoring with sliding scale insulin and Lantus. Continue Gabapentin acute hypoxemic and hypercapnic respiratory failure secondary to chf exacerbatio n, obesity hypoventilation syndrome, sleep apnea obesity hypoventilation syndrome Acute on chronic diastolic CHF exacerbation. patient reports bumex at home, 2mg daily; sees nephrology regularly nephro consulted started lasix drip on 11/24, DCd 11/26, restarted 11/27 40 MG IV tentative plan to swap to PO wean bipap / O12 CXR (11/23): Patchy bibasilar airspace opacities, raise concern for atelectasis or pneumonia CXR (11/24): Underinflated lungs noted with evidence bibasilar lung atelectasis Pulmonology following CO2 improving Downgrade from ICU 11/26 O2 requirement improving diuresis per nephrology Hyperlipidemia History of CAD Continue statin aspirin Hypertension OAB Gout Depression GERD History of constipation Continue home medications hold losartan spironolactone VTE: SCD Code: Full Dispo: Home ~1-2 days pending further improvement; wean oxygen has home oxygen setup Downgraded from ICU 11/26
--- NOTE | 2022-11-28 14:37 | PN ---
Date of Progress Note: 11/28/2022 Subjective: The patient was admitted with hypercapnic respiratory failure, acute kidney injury, anasarca. The patient was diuresed and responded very well. Physical Examination: Vital Signs: Blood pressure 160/74, pulse of 75, afebrile. Chest: Decreased entry bilateral base. Heart: S1, S2. Regular. Abdomen: Soft, morbidly obese. Could not appreciate any organomegaly. Extremities: Lymphedema +1 with venous stasis change. Laboratory Data: Hemoglobin 13.1. Sodium 136, potassium 3.4, bicarb 37, BUN 21, creatinine 1.1, GFR of 54, calcium 9.2, phosphorus 3.2, magnesium of 2, albumin 3.5, corrected calcium is 9.6. Current Medications: The patient on include; 1. Aspirin. 2. Loratadine. 3. Atorvastatin. 4. Carvedilol 3.125. 5. Spironolactone. 6. Gabapentin. 7. Lasix 40 b.i.d. 8. Pantoprazole. 9. Zofran. 10. Bisacodyl. 11. Allopurinol. Assessment And Plan: 1. Acute kidney injury secondary to cardiorenal, on the recovery phase. Had very good urine output yesterday. I am going to switch the Lasix to oral and we will follow up the patient. 2. Hypertension, controlled, not optimal. I am going to go ahead and increase her spironolactone to 50. Continue to monitor the patient. 3. Hypokalemia. Increase spironolactone. We will supplement. 4. Gout. Continue allopurinol. 5. Hypercapnic respiratory failure, recovered. 6. Lymphedema. Continue diuresis as above. Time spent examining the patient [id number], reviewing the data, lab and radiology, discussing the case with the patient , discussing the case with the marine steam fitter including nursing staff on the floor, placing order, discussing the case with the hospitalist more than 35 minutes. SHITAL Voice ID: [id number] Report ID: [id number] NASIR
[2022-11-28] MEDS ORDERED: POTASSIUM CL SA 10 MEQ TAB PO ONE (16:00)
[2022-11-28] MEDS: ESCITALOPRAM 20 MG TAB PO SCH (21:31)
[2022-11-28] MEDS: ATORVASTATIN 80 MG TAB PO SCH (21:31)
[2022-11-28] MEDS: GABAPENTIN 100 MG CAP PO SCH (21:31)
[2022-11-28] MEDS: TIZANIDINE 4 MG TABLET PO SCH (21:31)
[2022-11-28] MEDS: CYCLOBENZAPRINE 10 MG TAB PO PRN (21:40)
[2022-11-29] MEDS: HYDROCODONE/APAP 5/325 MG TAB PO PRN ×3 (04:29→15:53)
[2022-11-29 06:41] LABS: Albumin 3.2 g/dL (3.4-5.0); Phosphorus 3.6 mg/dL (2.5-4.9); Potassium 3.7 mEq/L (3.5-5.1)
--- NOTE | 2022-11-29 07:16 | P.PN ---
Date of Service: 11/29/22 Subjective: feeling better today, wanting to go home been on 5L NC since this morning; feels breathing is better ambulated around with improvement; less SOB on exertion, O2 sats stayed in the 90s otherwise no new / worsening problems ROS: 10 point ROS as noted above, otherwise negative Physical Exam: GEN: Alert, oriented, NAD HEENT: Normal conjunctiva, sclera anicteric, incision along anterior neck with mild bruising CV: Regular rate and rhythm, trace+ peripheral edema in bilateral lower legs Pulm: Nonlabored respirations on 10L NC, b/l diminished breath sounds at bases bilaterally ABD: Soft, nontender, nondistended Neuro: Normal speech, normal affect vitals reviewed Problem List: Spondylosis with myelopathy s/p anterior cervical diskectomy and fusion on 11/22 NIDDM2 with Neuropathy acute hypoxemic and hypercapnic respiratory failure secondary to chf exacerbation, obesity hypoventilation syndrome, sleep apnea Acute on chronic diastolic CHF exacerbation Obesity hypoventilation syndrome Hyperlipidemia Hypertension OAB Gout Depression GERD History of constipation Spondylosis with myelopathy s/p anterior cervical diskectomy and fusion on 11/22 S\P C3-C4, C4-C5, C5-C6, C6-C7 anterior cervical diskectomy and fusion with instrumentation on 11/[address] Baker L arm paresthesia / pain resolved PT consult, no restrictions per Dr. Baker continue pain medication - titrating to lowest effective dose NIDDM2 with Neuropathy BS monitoring with sliding scale insulin and Lantus. Continue Gabapentin acute hypoxemic and hypercapnic respiratory failure secondary to chf exacerbation, obesity hypoventilation syndrome, sleep apnea obesity hypoventilation syndrome Acute on chronic diastolic CHF exacerbation. patient reports bumex at home, 2mg daily; sees nephrology regularly nephro consulted started lasix drip on 11/24, DCd 11/26, restarted 11/27 40 MG IV tentative plan to swap to PO wean bipap / O12 CXR (11/23): Patchy bibasilar airspace opacities, raise concern for atelectasis or pneumonia CXR (11/24): Underinflated lungs noted with evidence bibasilar lung atelectasis Pulmonology following CO2 improving Downgrade from ICU 11/26 O2 requirement improving diuresis per nephrology Hyperlipidemia History of CAD Continue statin aspirin Hypertension OAB Gout Depression GERD History of constipation Continue home medications hold losartan spironolactone VTE: SCD Code: Full Dispo: Home ~1-2 days pending further improvement; wean oxygen has home oxygen setup Downgraded from ICU 11/26
[2022-11-29] MEDS: INSULIN -REGULAR HUMAN 50 UNIT/0.5 ML ML SQ SCH ×3 (07:30→16:30)
[2022-11-29] MEDS ORDERED: SPIRONOLACTONE 25 MG TABLET PO SCH (09:00)
[2022-11-29] MEDS ORDERED: FUROSEMIDE 40 MG TABLET PO SCH (09:00)
[2022-11-29] MEDS ORDERED: POTASSIUM CL SA 10 MEQ TAB PO ONE (09:00)
[2022-11-29] MEDS: oxyBUTYnin chloride 5 MG TAB PO SCH (09:06)
[2022-11-29] MEDS: ASPIRIN EC 81 MG TAB PO SCH (09:06)
[2022-11-29] MEDS: PANTOPRAZOLE 40MG TABLET PO SCH (09:06)
[2022-11-29] MEDS: EZETIMIBE 10 MG TAB PO SCH (09:06)
[2022-11-29] MEDS: allopurinoL 100 MG TAB PO SCH (09:07)
[2022-11-29] MEDS: VITAMIN D 1000 UNIT TAB PO SCH ×2 (09:07→13:06)
[2022-11-29] MEDS: carvediloL 3.125 MG TAB PO SCH (09:08)
[2022-11-29] MEDS: LORATADINE 10 MG TAB PO SCH (09:08)
[2022-11-29] MEDS: DULERA 100/5 (MOMETASONE/FORMOTEROL) INHALER IH SCH (09:08)
[2022-11-29] MEDS: INSULIN GLARGINE 100 UNIT/ML SQ SCH (09:09)
[2022-11-29] MEDS: CYCLOBENZAPRINE 10 MG TAB PO PRN (09:14)
[2022-11-29 13:24] VITALS: O2SAT 95
--- NOTE | 2022-11-29 14:43 | P.DS ---
Admission Date: 11/23/22 Discharge Date: 11/29/22 Reason for Admission: Respiratory failure Consultations: Nephrology - Dr. Da Silva Pulmonology - Dr. Cai Brief History of Present Illness: 71 yo F, PMH: DM 2, hypertension, OAB, CAD, GERD, constipation, morbid obesity, gout, hyperlipidemia Patient who presents for a planned procedure with orthopedic spine doctor. Patient reported that she has been having neck and back pain for the past 6 months. Patient reported that she has been having bilateral upper extremity weakness\numbness\tingling with episodes of frequent falls. Patient rated pain as 7 out of 10 in severity and described pain as aching in quality. Patient denies any other signs or symptoms. Symptoms are aggravated by movement and relieved by nothing. Patient has had chiropractic services, physical therapy and steroid injections but has not seen any improvement in symptoms. Patient agreed with her orthopedic spine doctor to perform a C3-C4, C4-C5, C5-C6, C6-C7 anterior cervical diskectomy and fusion with instrumentation. Patient presented to the hospital, had the procedure and patient had to be given Narcan by the anesthesiologist. At time of assessment patient is on BiPAP therapy and lethargic\drowsy. Hospital Course: Problem List: Spondylosis with myelopathy s/p anterior cervical diskectomy and fusion on 11/22 NIDDM2 with Neuropathy acute hypoxemic and hypercapnic respiratory failure secondary to chf exacerbation, obesity hypoventilation syndrome, sleep apnea Acute on chronic diastolic CHF exacerbation Obesity hypoventilation syndrome Hyperlipidemia Hypertension OAB Gout Depression GERD History of constipation Physical Exam: GEN: Alert, oriented, NAD HEENT: Normal conjunctiva, sclera anicteric, incision along anterior neck with mild bruising CV: Regular rate and rhythm, trace+ peripheral edema in bilateral lower legs Pulm: Nonlabored respirations on 5L NC, b/l diminished breath sounds at bases bilaterally ABD: Soft, nontender, nondistended Neuro: Normal speech, normal affect Vital Signs/Physical Exam: Temp Pulse Resp BP Pulse Ox 97.0 F 78 16 162/73 H 96 11/29/22 08:00 11/29/22 09:08 11/29/22 10:56 11/29/22 09:08 11/29/22 10:56 Laboratory Data at Discharge: WBC 7.70 thou/uL (4.3-10.9) 11/28/22 03:13 Hgb 13.1 g/dL (12.0-15.0) 11/28/22 03:13 Hct 39.2 % (36.0-45.0) 11/28/22 03:13 Plt Count 253 thou/uL (152-406) 11/28/22 03:13 Sodium 137 mEq/L (136-145) 11/29/22 06:11 Potassium 3.7 mEq/L (3.5-5.1) 11/29/22 06:11 BUN 18 mg/dL (7-18) 11/29/22 06:11 Creatinine 1.06 mg/dL (0.55-1.02) H 11/29/22 06:11 Glucose 115 mg/dL (74-106) H 11/29/22 06:11 Uric Acid 7.1 mg/dL (2.6-6.0) H 11/23/22 17:52 Phosphorus 3.6 mg/dL (2.5-4.9) 11/29/22 06:11 Magnesium 2.0 mg/dL (1.6-2.4) 11/28/22 03:13 Total Bilirubin 0.3 mg/dL (0.2-1.0) 11/23/22 04:37 AST 11 U/L (15-37) L 11/23/22 04:37 ALT 26 U/L (13-56) 11/23/22 04:37 Alkaline Phosphatase 77 U/L (45-117) 11/23/22 04:37 Triglycerides 127 mg/dL (<150) 11/23/22 04:37 Cholesterol 183 mg/dL (<200) 11/23/22 04:37 HDL Cholesterol 40 mg/dL (40-60) 11/23/22 04:37 Cholesterol/HDL Ratio 4.58 11/23/22 04:37 Home Medications: Aspirin [Aspirin EC 81 MG] 81 mg PO DAILY 01/22/16 allopurinoL [Zyloprim*] 100 mg PO DAILY 01/22/16 Ezetimibe [Zetia*] 10 mg PO DAILY 01/25/17 Bumetanide 2 mg PO DAILY 05/30/17 Docusate [Colace Cap*] 1 cap PO TIDP PRN 05/30/17 Insulin Detemir [Levemir Flextouch] 50 units SQ BID 05/30/17 Liraglutide [Victoza 2-Rony] 1.8 mg SQ DAILY 05/30/17 Oxybutynin Chloride 1 tab PO DAILY 05/30/17 Acetaminophen with Codeine [Tylenol with Codeine #4 Tablet] 1 each PO Q8HP PRN 03/28/22 Carvedilol [Coreg] 25 mg PO BID 03/28/22 Escitalopram Oxalate [Lexapro] 20 mg PO BEDTIME 03/28/22 Gabapentin 300 mg PO BEDTIME 03/28/22 Glipizide [Glipizide Xl] 2.5 mg PO BID 03/28/22 Losartan Potassium 25 mg PO DAILY 03/28/22 Lubiprostone 24 mcg PO BID 03/28/22 Ondansetron HCl 4 mg PO Q12HP PRN 03/28/22 Tizanidine [Zanaflex*] 4 mg PO BEDTIME 03/28/22 Atorvastatin Calcium [Lipitor] 80 mg PO BEDTIME 11/19/22 Cholecalciferol (Vitamin D3) [Vitamin D3] 2,000 unit PO TID 11/19/22 Esomeprazole Magnesium 40 mg PO DAILY 11/19/22 Fluticasone/Salmeterol [Advair 250-50 Diskus] 1 each IH BID 11/19/22 Ipratropium [place] 2 spray NS TIDP PRN 11/19/22 Loratadine [Claritin] 10 mg PO DAILY 11/19/22 bisacodyL [Dulcolax] 5 mg PO DAILYPRN PRN 11/19/22 Time spent managing pt's care (in minutes): 45
[2022-11-29 16:36] VITALS: BP 148/62; TEMP 97.1
--- NOTE | 2022-11-29 23:08 | PN ---
Date of Progress Note: 11/29/2022 Chief Complaint: Acute kidney injury, fluid overload, anasarca, hypercapnic respiratory failure. Subjective: The patient was diuresed and responded very well to diuretic therapy. Leg edema has imp roved. Review of Systems: Denies complaints. Physical Examination: Vital Signs: Blood pressure 145/70, heart rate 74. Cardiovascular: S1, S2. No pericardial friction or rub. Chest: Decreased breath sounds at bases. Abdomen: Soft, morbidly obese. Extremities: Lower extremity edema. Laboratory Data: Sodium 136, potassium 3.4, bicarbonate 37, BUN 21, creatinine 1.1, calcium 9.2, and phosphorus 3.2. Impression And Plan: 1.Acute kidney injury secondary to cardiorenal syndrome. Continue diuretic for volume control. Ang iotensin receptor baljinder is currently on hold due to risk of hyperkalemia. 2.Hypertension, control is not optimal and medications were adjusted. The patient will take spirono lactone. 3.Hypokalemia. Monitor and adjust replacement as needed. 4.Gout. Continue allopurinol. EB/MODL Voice ID: [id number] Report ID: [id number]
== END 2022-11-29 17:00 | disposition home or self-care (01) | DRG 518 ==
LOC: OR 05:58 → 2ND 11:43 → 3RD-ICU 12:23 → OBSVTOIN 11-23 12:37 → 4TH 11-26 15:25
PROVIDERS: ADMIT Orthopaedic Surgery; ATTEND Orthopaedic Surgery
PROC: 0RB30ZZ Excision of Cervical Vertebral Disc, Open Approach (ICD-10-PCS; principal; 2022-11-22 07:00)
PROC: 5A09557 Assistance with Respiratory Ventilation, Greater than 96 Consecutive Hours, Continuous Positive Airway Pressure (ICD-10-PCS; 2022-11-22 07:00)
DX: M47.12 Other spondylosis with myelopathy, cervical region (principal); I50.33 Acute on chronic diastolic (congestive) heart failure; J96.01 Acute respiratory failure with hypoxia; J96.02 Acute respiratory failure with hypercapnia; Z68.43 Body mass index [BMI] 50.0-59.9, adult; E66.2 Morbid (severe) obesity with alveolar hypoventilation; E87.3 Alkalosis; N17.9 Acute kidney failure, unspecified; I11.0 Hypertensive heart disease with heart failure; E11.51 Type 2 diabetes mellitus with diabetic peripheral angiopathy without gangrene; E11.40 Type 2 diabetes mellitus with diabetic neuropathy, unspecified; K21.9 Gastro-esophageal reflux disease without esophagitis; M10.9 Gout, unspecified; F32.A Depression, unspecified; K59.00 Constipation, unspecified; E83.42 Hypomagnesemia; N32.81 Overactive bladder; E87.6 Hypokalemia; E83.39 Other disorders of phosphorus metabolism; E78.5 Hyperlipidemia, unspecified; J44.9 Chronic obstructive pulmonary disease, unspecified; I25.10 Atherosclerotic heart disease of native coronary artery without angina pectoris; I25.2 Old myocardial infarction; Z88.8 Allergy status to other drugs, medicaments and biological substances; Z79.4 Long term (current) use of insulin; Z95.5 Presence of coronary angioplasty implant and graft; Z90.49 Acquired absence of other specified parts of digestive tract; Z79.82 Long term (current) use of aspirin; Z79.84 Long term (current) use of oral hypoglycemic drugs; Z90.710 Acquired absence of both cervix and uterus; Z79.899 Other long term (current) drug therapy
CPT/HCPCS: 36415; 36600; 71045; 76000; 80048; 80053; 80061; 80069; 82570; 82805; 82947; 83735; 83880; 83935; 84100; 84132; 84156; 84300; 84443; 84550; 85025; 94660; 94760; 97110; 97116; 97161; 97530; G0378; J0360; J1100; J1815; J1940; J2001; J2250; J2270; J2310; J2370; J2405; J2704; J3010; J3475; J3480; J3535; J7030; J7040; J7050; J7613; P9047

== ENCOUNTER 2023-04-11 11:08 | Emergency (ER) | payer OTHER ==
[2011-09-14 20:45] VITALS: BP 108/59
--- OUTSIDE RECORDS SUMMARY | 2023-04-11 11:19 | XMS REPORT | Continuity of Care Document ---
:1950 Author Organization Formerly [facility] t Address [address] [place] [address] [place] [id number] Care Team Providers Name Role Phone CLAUDINE ADDISON Primary Care Physician Unavailable Claudine Addison Attending Clinician Unavailable BRIAN MORRISON Attending Clinician Unavailable Heaven Carrasco MA Attending Clinician Unavailable Brian Morrison MD Attending Clinician [phone] [email or web address] Attending Clinician Unavailable GARRICK WHITE Attending Clinician Unavailable [email or web address] Admitting Clinician Unavailable GARRICK WHITE Admitting Clinician Unavailable Payers Payer Name Policy Type Policy Number Effective Date Expiration Date S rossi [employer]ET[employer] MEDICARE [id number] 2022 PPO 00:00:00 MEDICARE A B [id number] 2020 00:00:00 [employer]ET[employer] INDEMNITY [id number] 2016 NON CONTR 00:00:00 AET[employer] (MEDICARE [id number] 2022 REPLACEMENT PPO) 00:00:00 AETNA 53 [id number] [facility] MEDICARE NOVITAS MB [id number] Common [facility] Problems Condition Condition Condition Status Onset Resolution Last Treating Co mments Source Name Details Category Date Date Treatment Clinician Date Left Left Disease Active 2020-06 [facility] rotator rotator 0-15 [facility] cuff tear cuff tear 00:00: Medi althea 00 Center Carpal Carpal Problem Active 2022-04-30 Francesco koko tunnel tunnel 23:29:01 l syndrome syndrome Constantine n (disorder) (disorder) Active Problem 04/30/2022 [facility] Cervical Cervical Problem Active 2022-04-30 Memoria radiculopa radiculopa 23:29:01 l thy thy Deshawn (disorder) (disorder) Active Problem 04/30/2022 [facility] Diabetes Diabetes Problem Active 2022-04-30 Memoria mellitus mellitus 23:29:01 l (disorder) (disorder) He rmann Active Problem 04/30/2022 [facility] Hypertensi Hypertens Problem Active 2022-04-30 Memoria ve nick 23:29:01 l disorder, disorder, Herm johnny systemic systemic arterial arterial (disorder) (disorder) Active Problem 04/30/2022 [facility] Lumbar Lumbar Problem Active 2022-04-30 Francesco koko radiculopa radiculopa 23:29:01 l thy thy Warren (disorder) (disorder) Active Problem 04/30/2022 [facility] Renal Renal Problem Active 2022-04-30 Memor ia impairment impairment 23:29:01 l (disorder) (disorder) He rmann [facility] [id number] Pain, Problem Commo n [id number] joint, Spirit shoulder, - [facility]I right [facility] Hypertensi Hyp hrt & Problem Co mmon ve heart [facility] AND dis w hrt - CHI chronic fail and St kidney stg [facility] disease 1-4/unsp Medical with [facility] congestive heart failure 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 Spir it type 2 mellitus - CHI diabetes with mellitus hyperglyce [facility] 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 - CHI myelopathy , [facility] unspecifie Medica l [facility] [id number] Pain, [place] [address] joint, Spirit knee, left - [facility] [id number] Hypothyroi Problem Co mmon dism [facility] (acquired) [facility] [id number] Primary Problem Comm on osteoarthr Spirit itis of - CHI right knee [facility] [id number] Pain, [place] n [id number] joint, Spirit knee, - [facility] right [facility] [id number] Pain, Problem Commo n [id number] joint, Spirit foot, - [facility] right [facility] [id number] Achilles Problem Commo n tendinitis Spirit of right - CHI lower extremity [facility] [id number] Primary Problem Comm on osteoarthr [facility] itis of [facility] left knee [facility] [id number] Pain in Problem Comm on left knee [facility] Obstructiv TESHA Problem Commo n e sleep (obstructi Spiri t apnea ve sleep - [facility] syndrome apnea) [facility] [id number] 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[facility] major [facility] Dysphagia Dysphagia Problem Com mon Spirit [facility] Thyroid Thyroid Problem Common nodule nodule [facility] Gastroesop GERD Problem Commo n hageal (gastroeso Spirit reflux phageal [facility] disease reflux St disease) [facility] Fatty Fatty Problem Common liver liver [facility] Essential Benign Problem Common hypertensi essential Spi rit on HTN [facility] Chronic 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[facility] stage 3B disease (disorder) [facility] Vitamin D Vitamin D Problem Com mon deficiency deficiency Sp macarena - [facility] [id number] Body mass Problem Com mon index [facility] (BMI) - [facility] 50.0-59.9, [facility] [id number] Chronic Problem Commo n kidney Spirit disease, [facility] stage IV (severe) [facility] [id number] Venous Problem Common insufficie Spirit ncy of [facility] both lower [facility] [id number] Polyp of Problem Commo n colon, Spirit unspecifie - [facility] d part of [facility] unspecifie Medica l d type Center Hyperlipid Hyperlipid Problem C ommon emia emia [facility] Urine Urine Problem Common incontinen incontinen Sp macarena ce ce - [facility] [id number] Depression Problem Co mmon with Spirit anxiety - [facility] Diabetes Diabetes Problem Commo n mellitus mellitus Spirit type 2 type 2, - CHI uncontroll [facility] [id number] Environmen Problem Co mmon lexie Spirit allergies - [facility] [id number] Coronary Problem Comm on artery Spirit disease - [facility]I involving coronary [facility] bypass Medical graft of [facility] without angina pectoris [id number] Lumbago Problem Commo n with Spirit sciatica, - CHI right side [facility] [id number] chair springer Problem Com mon (current) Spirit use of - [facility]I insulin [facility] [id number] Current Problem Common moderate Spirit episode of - [facility]I major [facility] Medical without Center prior episode [id number] 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 - [facility] [id number] Mixed Problem Common stress and Spirit urge - [facility] [id number] Morbid Problem Commo n 9104 (severe) Spirit obesity - [facility]I due to [facility] [id number] Constipati Problem Com mon on, Spirit unspecifie - CHI d constipati [facility] on type Medical Center [id number] Neuropathy Problem Co mmon [facility] - [facility] [id number] Glaucoma Problem Commo n of both Spirit eyes with - CHI increased episcleral [facility] venous Medical pressure Center [id number] Other Problem Common chronic Spirit pain - [facility] [id number] Generalize Problem Com mon d anxiety Spirit disorder - [facility] [id number] Overactive Problem Co mmon bladder Spirit - [facility] [id number] Iron Problem Common deficiency Spirit anemia, - CHI unspecifie St d iron [facility] deficiency Medica l anemia Center type [id number] +5th digit Problem Co mmon eff Spirit 03/20/20*Ch - CHI ronic kidney [facility] disease, Medical stage 3 Center (moderate) [id number] Chronic Problem Commo n respirator Spirit y failure - [facility]I with [facility] [id number] Dependence Problem C ommon 07 on Spirit supplement - CHI al oxygen [facility] Allergies, Adverse Reactions, Alerts Allergy Allergy Status Severity Reaction(s) Onset Inactive Treating Comm ents Source Name Type Date Date Clinician Niacin Drug Active Rash 2020-[address] [facility] NIACIN Allergy Active Med Rash 2020-[address] [facility] [facility] Other Propensi Active Rash 2020-[address] [facility] adverse 00:00: Medical reaction 00 Center s OTHER Allergy Active Low Rash 2020-[address] [facility] [facility] Medical [facility] Center CONTACT Allergy Active 2020-06 [facility] METAL 0-11 AGENT 00:00: 00 No Known No Known Active Memori a Medicati Medicati l on on Deshawn Allergie Allergie s s Social History Social Habit Start Date Stop Date Quantity Comments Source [facility] History of tobacco [facility] smoker [facility] use [facility] Gender identity [facility] Alcohol intake 2023-03-24 2023-03-24 Ex-drinker [facility] 00:[facility]00 00:00:00 (finding) [facility] Tobacco Comment 2023-03-24 2023-03-24 [facility] age 33 [facility] Tobacco use and 2023-03-24 2023-03-[address] [facility] exposure 00:00:00 00:00:00 tobacco non-user [facility] Sex Assigned At [address] [facility] 00:00:00 00:00:00 [facility] Smoking Status Start Date Stop Date Source Tobacco smoking [facility] consumption unknown Ex-smoker 2023-03-24 00:00:00 2023-03-[address] [facility] 00:00:00 Center Medications Ordered Filled Start Stop Current Ordering Indication Dosage Frequency Signature Comments Components Source Medication Medication Date Date Medication? Clinician (SIG) Name Name Levothyroxi Levothyroxi No QD Levothyrox ne Sodium ne Sodium 8-16 ine Sodium 50 MCG 50 MCG 00:00: 50 MCG 00 Levothyroxi Levothyroxi No QD Levothyrox ne Sodium ne Sodium 8-16 ine Sodium 50 MCG 50 MCG 00:00: 50 MCG 00 Levothyroxi Levothyroxi 2023-0 No QD Levothyrox ne Sodium ne Sodium 8-16 ine Sodium 50 MCG 50 MCG 00:00: 50 MCG 00 Levothyroxi Levothyroxi 3-0 No QD Levothyrox ne Sodium ne Sodium 8-16 ine Sodium 50 MCG 50 MCG 00:00: 50 MCG 00 [facility] 3-0 No 2mL Com 11-19 Spirit 00:00: - [facility] OrthoVisc OrthoVisc 3-0 No 2mL Com 11-19 Spirit 00:00: - [facility] OrthoVisc OrthoVisc 3-0 No 2mL Com 11-19 Spirit 00:00: - [facility] OrthoVisc OrthoVisc 3-0 No 2mL Com 11-19 Spirit 00:00: - [facility] OrthoVisc OrthoVisc 3-0 No 2mL Com 11-04 Spirit 00:00: - [facility] OrthoVisc OrthoVisc 3-0 No 2mL Com 11-04 Spirit 00:00: - [facility] OrthoVisc OrthoVisc 3-0 No 2mL Com 11-04 Spirit 00:00: - [facility] OrthoVisc OrthoVisc 3-0 No 2mL Com 11-04 Spirit 00:00: - [facility] OrthoVisc OrthoVisc 3-0 No 2mL Com 10-28 Spirit 00:00: - [facility] OrthoVisc OrthoVisc 3-0 No 2mL Com 10-28 Spirit 00:00: - [facility] OrthoVisc OrthoVisc 3-0 No 2mL Com 10-28 Spirit 00:00: - [facility] OrthoVisc OrthoVisc 3-0 No 2mL Com 10-28 Spirit 00:00: - [facility] OrthoVisc OrthoVisc 3-0 No 2mL Com 10-21 Spirit 00:00: - [facility] OrthoVisc OrthoVisc 3-0 No 2mL Com 10-21 Spirit 00:00: - [facility] OrthoVisc OrthoVisc 2023-0 No 2mL Com 10-21 Spirit 00:00: - [facility] OrthoVisc OrthoVisc 3-0 No 2mL Com 10-21 Spirit 00:00: - [facility] OrthoVisc OrthoVisc 3-0 No 2mL Com 10-14 Spirit 00:00: - [facility] OrthoVisc OrthoVisc 3-0 No 2mL Com 10-14 Spirit 00:00: - [facility] OrthoVisc OrthoVisc 3-0 No 2mL Com 10-14 Spirit 00:00: - [facility] OrthoVisc OrthoVisc 3-0 No 2mL Com 10-14 Spirit 00:00: - [facility] OrthoVisc OrthoVisc 3-0 No 2mL Com 10-07 Spirit 00:00: - [facility] OrthoVisc OrthoVisc 3-0 No 2mL Com 10-07 Spirit 00:00: - [facility] OrthoVisc OrthoVisc 3-0 No 2mL Com 10-07 Spirit 00:00: - [facility] OrthoVisc OrthoVisc 3-0 No 2mL Com 10-07 Spirit 00:00: - [facility] Lidocaine Lidocaine 3-0 No 5mL Com 09-02 Spirit 00:00: - [facility] Kenalog Kenalog 3-0 No 2mL Common (Triamcinol (Triamcinol 3-16 S pirit one) one) 00:00: - [facility] Lidocaine Lidocaine 3-0 No 5mL Com 09-02 Spirit 00:00: - [facility] Kenalog Kenalog 3-0 No 2mL Common (Triamcinol (Triamcinol 3-16 S pirit one) one) 00:00: - CHI 00 [facility] Lidocaine Lidocaine 3-0 No 5mL Com 09-02 Spirit 00:00: - [facility] Kenalog Kenalog 3-0 No 2mL Common (Triamcinol (Triamcinol 3-16 S pirit one) one) 00:00: - [facility] Lidocaine Lidocaine 3-0 No 5mL Com 09-02 Spirit 00:00: - [facility] Kenalog Kenalog 0 No 2mL Common (Triamcinol (Triamcinol 3-16 S pirit one) one) 00:00: - [facility] Ozempic Ozempic 0 No Ozempic (0.25 or (0.25 or 3-01 (0.25 or 0.5 0.5 00:00: 0.5 MG/DOSE) 2 MG/DOSE) 2 00 MG/DOSE) 2 MG/1.5ML MG/1.5ML MG/1.5ML Ozempic Ozempic 0 No Ozempic (0.25 or (0.25 or 3-01 (0.25 or 0.5 0.5 00:00: 0.5 MG/DOSE) 2 MG/DOSE) 2 00 MG/DOSE) 2 MG/1.5ML MG/1.5ML MG/1.5ML Ozempic Ozempic 0 No Ozempic (0.25 or (0.25 or 3-01 (0.25 or 0.5 0.5 00:00: 0.5 MG/DOSE) 2 MG/DOSE) 2 00 MG/DOSE) 2 MG/1.5ML MG/1.5ML MG/1.5ML Ozempic Ozempic 0 No Ozempic (0.25 or (0.25 or 3-01 (0.25 or 0.5 0.5 00:00: 0.5 MG/DOSE) 2 MG/DOSE) 2 00 MG/DOSE) 2 MG/1.5ML MG/1.5ML MG/1.5ML Kenalog Kenalog 2022-0 No 40mg Common (Triamcinol (Triamcinol 1-25 S pirit one) one) 00:00: - [facility] Lidocaine Lidocaine 2022-0 No 10mg Com 07-14 Spirit 00:00: - [facility] Kenalog Kenalog 2022-0 No 40mg Common (Triamcinol (Triamcinol 1-25 S pirit one) one) 00:00: - CHI 00 [facility] Lidocaine Lidocaine 3-0 No 10mg Com mon 07-14 Spirit 00:00: - CHI 00 [facility] Kenalog Kenalog 3-0 No 40mg Common (Triamcinol (Triamcinol 1-25 S pirit one) one) 00:00: - CHI 00 [facility] Lidocaine Lidocaine 3-0 No 10mg Com 07-14 Spirit 00:00: - CHI 00 [facility] Kenalog Kenalog 3-0 No 40mg Common (Triamcinol (Triamcinol 1-25 S pirit one) one) 00:00: - CHI 00 [facility] Lidocaine Lidocaine 3-0 No 10mg Com 07-14 Spirit 00:00: - CHI 00 [facility] Kenalog Kenalog 2022-0 No 40mg Common (Triamcinol (Triamcinol 1-25 S pirit one) one) 00:00: - CHI 00 [facility] Lidocaine Lidocaine 3-0 No 10mg Com 07-14 Spirit 00:00: - CHI 00 [facility] Mounjaro 5 Mounjaro 5 2021-2021- No Mounjaro 5 MG/0.5ML MG/0.5ML -28 12-28 MG/0.5ML 00:00: 00:00 00 :00 Mounjaro Mounjaro 2021-1 2- No Mounjaro 7.5 7.5 -28 12-28 7.5 MG/0.5ML MG/0.5ML 00:00: 00:00 MG/0.5ML 00 :00 Mounjaro Mounjaro 2021-1 2- No Mounjaro 2.5 2.5 -28 12-28 2.5 MG/0.5ML MG/0.5ML 00:00: 00:00 MG/0.5ML 00 :00 Amoxicillin Amoxicillin 2021-2- No 1{table BID Amoxicilli -Pot -Pot 0-14 [...] PO, Daily, l capsule 16:32: # 30 Deshawn 00 unknown unit, 5 Refill(s), Pharmacy: [id number], 160.02, cm, 10/21/21 10:53:00 CDT, Height, 133.636, [...] 00:00: 00:00 eeded} 00 :00 Escitalopra Escitalopra 2021- No 1{table QD Escitalopr m Oxalate m [...] 00 Lidocaine Lidocaine 2-0 No 10mg Com mon 330 Spirit 00:00: - CHI 00 [facility] Kenalog Kenalog 2-0 No 40mg Common (Triamcinol (Triamcinol 3-30 S pirit one) one) 00:00: - CHI 00 [facility] Lidocaine Lidocaine 2-0 No 10mg Com mon 09-16 Spirit 00:00: - CHI 00 [facility] Kenalog Kenalog 2-0 No 40mg Common (Triamcinol (Triamcinol 3-30 S pirit one) one) 00:00: - CHI 00 [facility] Lidocaine Lidocaine 2-0 No 10mg Com 09-16 Spirit 00:00: - CHI 00 [facility] Kenalog Kenalog 2-0 No 40mg Common (Triamcinol (Triamcinol 3-30 S pirit one) one) 00:00: - CHI 00 [facility] Lidocaine Lidocaine 2-0 No 10mg Com mon 3 Spirit 00:00: - CHI 00 [facility] Kenalog Kenalog 2-0 No 40mg Common (Triamcinol (Triamcinol 3-30 S pirit one) one) 00:00: - CHI 00 [facility] Kenalog Kenalog 2-0 No 40mg Common (Triamcinol (Triamcinol 3-30 S pirit one) one) 00:00: - CHI 00 [facility] Lidocaine Lidocaine 2-0 No 10mg Com mon 3 Spirit 00:00: - CHI 00 [facility] Kenalog Kenalog 2-0 No 40mg Common (Triamcinol (Triamcinol 3-30 S pirit one) one) 00:00: - CHI 00 [facility] Lidocaine Lidocaine 2-0 No 10mg Com mon 3-30 Spirit 00:00: - [facility] Kenalog Kenalog 2-0 No 40mg Common (Triamcinol (Triamcinol 3-30 S pirit one) one) 00:00: - [facility] Lidocaine Lidocaine 2-0 No 10mg Com mon 330 Spirit 00:00: - CHI 00 [facility] Kenalog Kenalog 2-0 No 40mg Common (Triamcinol (Triamcinol 3-30 S pirit one) one) 00:00: - CHI 00 [facility] Lidocaine Lidocaine 2-0 No 10mg Com tue 3 Spirit 00:00: - [facility] Lidocaine Lidocaine 2-0 No 10mg Com mon 3 Spirit 00:00: - [facility] Kenalog Kenalog 2-0 No 40mg Common (Triamcinol (Triamcinol 3-30 S pirit one) one) 00:00: - [facility] Lidocaine Lidocaine 2-0 No 10mg Com 09-16 Spirit 00:00: - [facility] Kenalog Kenalog 2-0 No 40mg Common (Triamcinol (Triamcinol 3-30 S pirit one) one) 00:00: - [facility] Lidocaine Lidocaine 2-0 No 10mg Com mon 330 Spirit 00:00: - CHI 00 [facility] Kenalog Kenalog 2-0 No 40mg Common (Triamcinol (Triamcinol 3-30 S pirit one) one) 00:00: - [facility] Lidocaine Lidocaine 2-0 No 10mg Com mon 330 Spirit 00:00: - [facility] Kenalog Kenalog 2-0 No 40mg Common (Triamcinol (Triamcinol 3-30 S pirit one) one) 00:00: - [facility] Lidocaine Lidocaine 2022-0 No 10mg Com mon 330 Spirit 00:00: - [facility] Kenalog Kenalog 2-0 No 40mg Common (Triamcinol (Triamcinol 3-30 S pirit one) one) 00:00: - CHI 00 [facility] Lidocaine Lidocaine 2-0 No 10mg Com mon 3 Spirit 00:00: - CHI 00 [facility] Kenalog Kenalog 2-0 No 40mg Common (Triamcinol (Triamcinol 3-30 S pirit one) one) 00:00: - CHI 00 [facility] Lidocaine Lidocaine 2-0 No 10mg Com 09-16 Spirit 00:00: - CHI 00 [facility] Kenalog Kenalog 2-0 No 40mg Common (Triamcinol (Triamcinol 3-30 S pirit one) one) 00:00: - [facility] Lidocaine Lidocaine 2-0 No 10mg Com 09-16 Spirit 00:00: - [facility] Kenalog Kenalog 2-0 No 40mg Common (Triamcinol (Triamcinol 3-30 S pirit one) one) 00:00: - [facility] Lidocaine Lidocaine 2-0 No 10mg Com 09-16 Spirit 00:00: - [facility] Kenalog Kenalog 2-0 No 40mg Common (Triamcinol (Triamcinol 3-30 S pirit one) one) 00:00: - [facility] Lidocaine Lidocaine 2-0 No 10mg Com 09-16 Spirit 00:00: - [facility] Kenalog Kenalog 2-0 No 40mg Common (Triamcinol (Triamcinol 3-30 S pirit one) one) 00:00: - [facility] Lidocaine Lidocaine 2-0 No 10mg Com tue 3 Spirit 00:00: - [facility] Kenalog Kenalog 2-0 No 40mg Common (Triamcinol (Triamcinol 3-30 S pirit one) one) 00:00: - [facility] Lidocaine Lidocaine 2022-0 No 10mg Com tue 3-30 Spirit 00:00: - [facility] Kenalog Kenalog No 40mg Common (Triamcinol (Triamcinol 3-30 S pirit one) one) 00:00: - [facility] gabapentin Yes = 1 cap, Mem oria 300 MG Oral 3-21 PO, Daily, l Capsule 16:35: # 30 cap, Elma nn 00 5 Refill(s), Pharmacy: [facility] cy #[id number], 160.02, cm, 09/07/21 11:05:00 CDT, Height, 134.205, kg, 09/07/21 11:05:00 CDT, Weight oxybutynin Yes TAKE 1 Memor ia 5 mg oral 3-21 TABLET BY l tablet 16:29: MOUTH Deshawn 00 EVERY DAY losartan 25 Yes TAKE 1/2 Me moria mg oral 3-21 TABLET BY l tablet 16:29: MOUTH Deshawn 00 DAILY Docusate Yes 50 mg = 1 Francesco koko Sodium 50 3-21 cap, PO, l MG Oral 16:29: BID, 0 Deshawn Capsule 00 Refill(s) [Colace] Vitamin C Yes Daily, 0 Francesco koko 3-21 Refill(s) l 16:29: Warren 00 Colace 50 0 Yes 50 mg = 1 Mem oria mg oral 3-21 cap, PO, l capsule 16:29: BID, 0 Deshawn 00 Refill(s) lubiproston Yes 24 Memori a e 0.024 MG 3-21 microgram l Oral 16:28: = 1 cap, Deshawn Capsule 00 PO, BID, # [Amitiza] 60 cap, 0 Refill(s) 24 HR Yes 2.5 mg = 1 Memori a Glipizide 3-21 tab, PO, l 2.5 MG 16:28: Breakfast, Elma nn Extended 00 # 30 tab, Release 1 Tablet Refill(s) Niacin 0 Yes PO, 0 Memoria 3-21 Refill(s) l 16:28: Deshawn 00 Amitiza 24 Yes 24 Memoria mcg oral 3-21 microgram l capsule 16:28: = 1 cap, Constantine n 00 PO, BID, # 60 cap, 0 Refill(s) glipiZIDE 2021-0 Yes 2.5 mg = 1 Me moria 2.5 mg oral 3-21 tab, PO, l tablet, 16:28: Breakfast, Herm johnny extended 00 # 30 tab, release 1 Refill(s) niacin 2021-0 Yes PO, 0 Memoria 3-21 Refill(s) l 16:28: Warren 00 Esomeprazol 2021-0 Yes 0 Memori a e 3-21 Refill(s) l 16:27: Warren 00 esomeprazol 2021-0 Yes 0 Memori a e 3-21 Refill(s) l 16:27: Deshawn 00 ondansetron 2021-0 Yes 4 mg = 1 Me moria 4 mg oral 3-21 tab, PO, l tablet 16:26: BID, # 10 Constantine n 00 tab, 0 Refill(s) Claritin 2021-0 Yes Daily, 0 Memor ia 3-21 Refill(s) l 16:26: Deshawn 00 spironolact 2021-0 Yes 50 mg = 1 M emoria one 50 mg 3-21 tab, PO, l oral tablet 16:26: Daily, # He rmann 00 30 tab, 1 Refill(s) Claritin 2021-0 Yes Daily, 0 Memor ia 3-21 Refill(s) l 16:26: Warren 00 Lidocaine Lidocaine 2021-0 No 10mg Com 08-13 Spirit 00:00: - [facility] Kenalog Kenalog 0 No 40mg Common (Triamcinol (Triamcinol 2-24 S pirit one) one) 00:00: - [facility] Lidocaine Lidocaine 2021-0 No 10mg Com mon 08-13 Spirit 00:00: - [facility] Kenalog Kenalog 2021-0 No 40mg Common (Triamcinol (Triamcinol 2-24 S pirit one) one) 00:00: - [facility] Lidocaine Lidocaine 2021-0 No 10mg Com 08-13 Spirit 00:00: - [facility] Kenalog Kenalog 0 No 40mg Common (Triamcinol (Triamcinol 2-24 S pirit one) one) 00:00: - [facility] Lidocaine Lidocaine 2-0 No 10mg Com mon 2-24 Spirit 00:00: - [facility] 00 [facility] Kenalog Kenalog 2-0 No 40mg Common (Triamcinol (Triamcinol 2-24 S pirit one) one) 00:00: - [facility]I 00 [facility] Lidocaine Lidocaine 2-0 No 10mg Com mon 224 Spirit 00:00: - [facility] Kenalog Kenalog 2-0 No 40mg Common (Triamcinol (Triamcinol 2-24 S pirit one) one) 00:00: - [facility] Lidocaine Lidocaine 2-0 No 10mg Com mon 2 Spirit 00:00: - [facility] Kenalog Kenalog 2-0 No 40mg Common (Triamcinol (Triamcinol 2-24 S pirit one) one) 00:00: - [facility] Lidocaine Lidocaine 2-0 No 10mg Com mon 2 Spirit 00:00: - [facility] Kenalog Kenalog 2-0 No 40mg Common (Triamcinol (Triamcinol 2-24 S pirit one) one) 00:00: - [facility] 00 [facility] Lidocaine Lidocaine 2-0 No 10mg Com mon 2 Spirit 00:00: - [facility] Kenalog Kenalog 2-0 No 40mg Common (Triamcinol (Triamcinol 2-24 S pirit one) one) 00:00: - [facility] Lidocaine Lidocaine 2-0 No 10mg Com mon 2 Spirit 00:00: - [facility] Kenalog Kenalog 2-0 No 40mg Common (Triamcinol (Triamcinol 2-24 S pirit one) one) 00:00: - [facility] Lidocaine Lidocaine 2022-0 No 10mg Com mon 2-24 Spirit 00:00: - [facility] Kenalog Kenalog 2-0 No 40mg Common (Triamcinol (Triamcinol 2-24 S pirit one) one) 00:00: - [facility] Lidocaine Lidocaine 2-0 No 10mg Com mon 2-24 Spirit 00:00: - [facility] Center Kenalog Kenalog 2-0 No 40mg Common (Triamcinol (Triamcinol 2-24 S pirit one) one) 00:00: - [facility] Lidocaine Lidocaine 2022-0 No 10mg Com mon 2 Spirit 00:00: - [facility] Kenalog Kenalog 2-0 No 40mg Common (Triamcinol (Triamcinol 2-24 S pirit one) one) 00:00: - [facility] Lidocaine Lidocaine 2-0 No 10mg Com mon 08-13 Spirit 00:00: - [facility] Kenalog Kenalog 2-0 No 40mg Common (Triamcinol (Triamcinol 2-24 S pirit one) one) 00:00: - [facility] Lidocaine Lidocaine 2-0 No 10mg Com tue 2 Spirit 00:00: - [facility] Kenalog Kenalog 2-0 No 40mg Common (Triamcinol (Triamcinol 2-24 S pirit one) one) 00:00: - [facility] Lidocaine Lidocaine 2-0 No 10mg Com mon 2 Spirit 00:00: - [facility] Kenalog Kenalog 2-0 No 40mg Common (Triamcinol (Triamcinol 2-24 S pirit one) one) 00:00: - [facility] Lidocaine Lidocaine 2-0 No 10mg Com mon 2 Spirit 00:00: - [facility] Kenalog Kenalog 2-0 No 40mg Common (Triamcinol (Triamcinol 2-24 S pirit one) one) 00:00: - [facility] Lidocaine Lidocaine 2022-0 No 10mg Com mon 224 Spirit 00:00: - [facility] Kenalog Kenalog 2-0 No 40mg Common (Triamcinol (Triamcinol 2-24 S pirit one) one) 00:00: - [facility] Lidocaine Lidocaine 2021-0 No 10mg Com 08-13 Spirit 00:00: - [facility] Kenalog Kenalog 2021-0 No 40mg Common (Triamcinol (Triamcinol 2-24 S pirit one) one) 00:00: - [facility] Lidocaine Lidocaine 2021-0 No 10mg Com 08-13 Spirit 00:00: - [facility] Kenalog Kenalog 2021-0 No 40mg Common (Triamcinol (Triamcinol 2-24 S pirit one) one) 00:00: - [facility] Lidocaine Lidocaine 2021-0 No 10mg Com 08-13 Spirit 00:00: - [facility] Kenalog Kenalog 2021-0 No 40mg Common (Triamcinol (Triamcinol 2-24 S pirit one) one) 00:00: - [facility] Lidocaine Lidocaine 2021-0 No 10mg Com 08-13 Spirit 00:00: - [facility] Kenalog Kenalog 2021-0 No 40mg Common (Triamcinol (Triamcinol 2-24 S pirit one) one) 00:00: - [facility] Lidocaine Lidocaine 2021-0 No 10mg Com 08-13 Spirit 00:00: - [facility] Kenalog Kenalog 2021-0 No 40mg Common (Triamcinol (Triamcinol 2-24 S pirit one) one) 00:00: - [facility] aspirin 2020-06 Yes QD daily . [facility] (Aspir-81) 0-15 [facility] 81 MG EC 19:08: Medical tablet 12 [place] carvediloL 2020-06 Yes 2 (two) [facility] (COREG) 25 0-15 times [facility] MG tablet 19:08: daily with Me dical 12 breakfast Center and dinner . gabapentin 2020-06 Yes 1{capsu QD [address] [facility] [facility] (NEURONTIN) 0-15 le} daily HS. Charley es 300 MG 19:08: Medical capsule [address] [place] [address] insulin 2020-06 Yes QD Inject [facility] [...] 80 MG 19:08: daily. Medical tablet 12 [place] liraglutide 2020-[address] [facility] 0.6 mg/0.1 0-15 subcutaneo Charley es mL (18 mg/3 19:08: usly 1.8 Me dical mL) PnIj 12 mg daily . Cente r fluticasone 2020-06 Yes 2{spray QD [address] [facility] [facility] (VERAMYST) 0-15 } by Nasal [facility] 27.5 19:08: route Medical mcg/actuati 12 daily. [place] on nasal spray levocetiriz 2020-06 Yes 5mg QD Take [address] [facility] (XYZAL) 0-15 by mouth Luke s 5 MG tablet 19:08: every Medic al 12 evening. [place] oxybutynin 2020-06 Yes 5mg QD Take [address] (DITROPAN-X 0-15 by mouth Luke s L) 5 MG 24 19:08: daily. Medic al hr tablet 12 [place] esomeprazol 2020-06 Yes 40mg QD Take [address] [facility] [facility] (NexIUM) 0-15 by mouth [facility] 40 MG 19:08: daily. Medical capsule 12 [place] ezetimibe 2020-06 Yes 10mg QD Take [address] (ZETIA) 10 0-15 by mouth [facility] mg tablet 19:08: daily. Medica l 12 [place] lubiproston 2020-06 Yes 24ug Q.5D Take 24 [...] [facility] en-codeine 0-15 tablet by Perez hutson (TYLENOL 19:08: mouth Medical #3) 300-30 12 every 6 Center mg per (six) tablet hours as needed for Pain (Q 12 PRN). TiZANidine 2020-06 Yes 4mg QD Take [address] (ZANAFLEX) 0-15 by mouth [facility] 4 MG 19:08: daily HS . Medical capsule 12 Center niacin 250 2020-06 Yes 250mg Take 250 [...] C) 12 daily. Center 500 MG tablet docusate 2020-06 Yes 50 Q.5D Take by [...] 81 MG EC 19:08: Medical tablet 12 [facility] carvediloL 2020-06 Yes 2 (two) [facility] (COREG) 25 0-15 times [facility] MG tablet 19:08: daily with Me dical 12 breakfast Center and dinner . gabapentin 2020-06 Yes 1{capsu QD [address] [facility] [facility] (NEURONTIN) 0-15 le} daily HS. Charley es 300 MG 19:08: Medical capsule 12 [place] insulin 2020-06 Yes QD Inject [facility] [...] 80 MG 19:08: daily. Medical tablet 12 [place] liraglutide 2020-[address] [facility] 0.6 mg/0.1 0-15 subcutaneo Charley es mL (18 mg/3 19:08: usly 1.8 Me dical mL) PnIj 12 mg daily . Cente r fluticasone 2020-06 Yes 2{spray QD [address] [facility] (VERAMYST) 0-15 } by Nasal [facility] 27.5 19:08: route Medical mcg/actuati 12 daily. [place] on nasal spray levocetiriz 2020-06 Yes 5mg QD Take [address] [facility] (XYZAL) 0-15 by mouth Luke s 5 MG tablet 19:08: every Medic al 12 evening. [place] oxybutynin 2020-06 Yes 5mg QD Take [address] (DITROPAN-X 0-15 by mouth Luke s L) 5 MG 24 19:08: daily. Medic al hr tablet 12 [place] esomeprazol 2020-06 Yes 40mg QD Take [address] [facility] (NexIUM) 0-15 by mouth [facility] 40 MG 19:08: daily. Medical capsule 12 [place] ezetimibe 2020-06 Yes 10mg QD Take [address] (ZETIA) 10 0-15 by mouth [facility] mg tablet 19:08: daily. Medica l 12 [place] lubiproston 2020-06 Yes 24ug Q.5D Take 24 [...] 19:08: daily HS . Medical capsule 12 [place] niacin 250 2020-06 Yes 250mg Take 250 [...] 81 MG EC 19:08: Medical tablet 12 Center carvediloL 2020-06 Yes 2 (two) [facility] (COREG) 25 0-15 times [facility] MG tablet 19:08: daily with Md dical 12 breakfast Center and dinner . gabapentin 2020-06 Yes 1{capsu QD [address] [facility] [facility] (NEURONTIN) 0-15 le} daily HS. Charley es 300 MG 19:08: Medical capsule 12 [place] insulin 2020-06 Yes QD Inject [facility] [...] 80 MG 19:08: daily. Medical tablet 12 [place] liraglutide 2020-[address] [facility] 0.6 [...] tablet 19:08: every Medic al 12 evening. [place] oxybutynin 2020-06 Yes 5mg QD Take [address] (DITROPAN-X 0-15 by mouth Luke s L) 5 MG 24 19:08: daily. Medic al hr tablet 12 [place] esomeprazol 2020-06 Yes 40mg QD Take [address] [facility] (NexIUM) 0-15 by mouth [facility] 40 MG 19:08: daily. Medical capsule 12 [place] ezetimibe 2020-06 Yes 10mg QD Take [address] (ZETIA) 10 0-15 by mouth [facility] mg tablet 19:08: daily. Medica l 12 [place] lubiproston 2020-06 Yes 24ug Q.5D Take 24 [...] [facility] en-codeine 0-15 tablet by Perez s (TYLENOL 19:08: mouth Medical #3) 300-30 12 every 6 Center mg per (six) tablet hours as needed for Pain (Q 12 PRN). TiZANidine 2020-06 Yes 4mg QD Take [address] (ZANAFLEX) 0-15 by mouth [facility] 4 MG 19:08: daily HS . Medical capsule 12 [place] niacin 250 2020-06 Yes 250mg Take 250 [...] 81 MG EC 19:08: Medical tablet 12 [place] carvediloL 2020-06 Yes 2 (two) [facility] (COREG) 25 0-15 times [facility] MG tablet 19:08: daily with Md dical 12 breakfast Center and dinner . gabapentin 2020-06 Yes 1{capsu QD [address] [facility] (NEURONTIN) 0-15 le} daily HS. Charley es 300 MG 19:08: Medical capsule 12 [place] insulin 2020-06 Yes QD Inject [facility] detemir 0-15 subcutaneo [facility] U-100 19:08: [facility] (LEVEMIR) 12 nightly SS Cent er [...] 80 MG 19:08: daily. Medical tablet 12 [place] liraglutide 2020-[address] [facility] 0.6 [...] tablet 19:08: every Medic al 12 evening. [place] oxybutynin 2020-06 Yes 5mg QD Take [address] (DITROPAN-X 0-15 by mouth Luke s L) 5 MG 24 19:08: daily. Medic al hr tablet 12 [place] esomeprazol 2020-06 Yes 40mg QD Take [address] [facility] (NexIUM) 0-15 by mouth [facility] 40 MG 19:08: daily. Medical capsule 12 [place] ezetimibe 2020-06 Yes 10mg QD Take [address] (ZETIA) 10 0-15 by mouth [facility] mg tablet 19:08: daily. Medica l 12 [place] lubiproston 2020-06 Yes 24ug Q.5D Take 24 [...] 19:08: daily HS . Medical capsule 12 [place] niacin 250 2020-06 Yes 250mg Take [address] MG tablet 0-15 mg by [facility] 19:08: mouth Medical 12 daily with [place] breakfast. spironolact Yes 1{tbl} QD Take [address] one 9-26 tablet by [facility] (ALDACTONE) 00:00: mouth Medic al 50 MG 00 daily. [place] tablet spironolact Yes 1{tbl} QD Take [address] one 9-26 tablet by [facility] (ALDACTONE) 00:00: mouth Medic al 50 MG 00 daily. [place] tablet spironolact Yes 1{tbl} QD Take [address] one 9-26 tablet by [facility] (ALDACTONE) 00:00: mouth Medic al 50 MG 00 daily. [place] tablet spironolact Yes 1{tbl} QD Take [address] one 9-26 tablet by [facility] (ALDACTONE) 00:00: mouth Medic al 50 MG 00 daily. [place] tablet allopurinoL Yes 1{tbl} QD Take [address] (ZYLOPRIM) 8-27 tablet by Luke s 100 MG 00:00: mouth Medical tablet 00 daily. [place] allopurinoL Yes 1{tbl} QD Take [address] (ZYLOPRIM) 8-27 tablet by Luke s 100 MG 00:00: mouth Medical tablet 00 daily. [place] allopurinoL Yes 1{tbl} QD Take [address] (ZYLOPRIM) 8-27 tablet by Luke s 100 MG 00:00: mouth Medical tablet 00 daily. [place] allopurinoL Yes 1{tbl} QD Take [address] (ZYLOPRIM) 8-27 tablet by Luke s 100 MG 00:00: mouth Medical tablet 00 daily. [place] glipiZIDE Yes 1{tbl} Take [address] [facility] [facility] [...] tablet times daily with breakfast and dinner. buPROPion Yes [address] [facility] (WELLBUTRIN [...] 00:00: Medical 12 hr 00 Center tablet Niacin Yes See Memoria 07-17 Instructio l 20:30: ns, PO, 0 Deshawn 00 Refill(s) Vitamin D3 Yes 1,000 Memori a 1000 intl 07-17 IntlUnit = l units oral 20:30: 1 cap, PO, H ermann capsule 00 Daily, # 100 cap, 0 Refill(s) ferrous Yes 325 mg = 1 Francesco koko sulfate 325 -28 tab, PO, l mg oral 20:30: Daily, [...] NASAL, l 0.05 20:24: BID, # 16 Warren MG/ACTUAT 00 gm, 0 Metered Refill(s) Dose Nasal [place] [Flonase] 24 HR Yes 50 mg = 1 Memoria mirabegron 07-17 tab, PO, l 50 MG 20:24: Daily, # [place] Extended 00 30 tab, 0 Release Refill(s) [...] PO, l MG Oral 20:24: BID, 0 Deshawn Capsule 00 Refill(s) [Colace] Flonase Yes 1 spray, Memori a 0.05 mg/inh 07-17 NASAL, l nasal spray 20:24: BID, # 16 H ermann 00 gm, 0 Refill(s) aspirin Yes 81 mg, PO, Francesco koko 07-17 Daily, 0 l 20:24: Refill(s) Warren 00 tizanidine 2019-06 Yes See Memoria 0-23 Instructio l 14:56: ns, 4 mg Warren 00 PO, 0 Refill(s) Acetaminoph 2019-06 Yes 1 tab, PO, Memoria en 300 MG / 0-23 PRN, 0 l Codeine 14:56: Refill(s) Elma nn Phosphate 00 30 MG Oral Tablet [Tylenol with Codeine #3] tizanidine 2019-1 Yes See Memoria 0-23 Instructio l 14:56: ns, 4 mg Warren 00 PO, 0 Refill(s) Tylenol 2019- Yes 1 tab, PO, Francesco koko with 0-23 PRN, 0 l Codeine #3 14:56: Refill(s) He rmann oral tablet 00 Allopurinol Allopurinol 0 2020- No Claudine 1 tablet Common 02-20 [place] 00:00: 00:00 - [facility] :00 [facility] Famotidine 2019-0 Yes 20 mg = 1 Me moria 4-29 tab, PO, l 15:13: BID, # 60 Deshawn 00 tab, 0 Refill(s) gabapentin 2019-0 Yes 300 mg = 1 M emoria 300 MG Oral 1-30 cap, PO, l Capsule 01:40: Daily, # Constantine n 00 30 cap, 3 Refill(s), Pharmacy: [facility] cy #[id number] One Touch One Touch 0 Yes Claudine 1 strip Common Ultra Test Ultra Test 1-06 [facility] Sp macarena Strips Strips 00:00: - [facility] 00 [facility] One Touch One Touch 0 No QD One Touch Ultra Test Ultra [...] Elma nn 00 cap, 3 Refill(s), Pharmacy: [facility] cy #[id number] Lorazepam 2018-06 Yes See Memoria 0.5 MG Oral 06 Instructio l Tablet 14:31: ns, Take 1 Elma nn [Ativan] 00 tab po 1 hour prior to MRI, may repeat q 15 min. if still anxious, # 5 tab, 0 Refill(s), called to pharmacy 3 ML 2018-06 Yes 0 Memoria insulin -06 Refill(s) l detemir 100 00:19: Constantine n UNT/ML 00 Prefilled Syringe [Levemir] Victoza 18 2018-06 Yes 0 Memoria mg/3 mL -06 Refill(s) l subcutaneou 00:19: Constantine n s injection 00 Levemir 2018-06 Yes 0 Memoria FlexTouch -06 Refill(s) l 100 00:19: Warren units/mL 00 subcutaneou s solution 3 ML 2018-06 Yes 0 Memoria liraglutide -06 Refill(s) l 6 MG/ML 00:19: Deshawn Prefilled 00 Syringe [Victoza] Linagliptin 2018-06 Yes 0 Memori a 5 MG Oral 1-06 Refill(s) l Tablet 00:19: Warren [Tradjenta] 00 oxybutynin 2018-06 Yes 0 Memoria 5 mg oral 1-06 Refill(s) l tablet, 00:19: Deshawn extended 00 release allopurinol 2018-06 Yes 0 Memori a 100 mg oral 1-06 Refill(s) l tablet 00:18: atorvastati 2018-06 Yes 0 Memori a n 80 mg 1-06 Refill(s) l oral tablet 00:18: Constantine n 00 bumetanide 2018-06 Yes 0 Memoria 2 mg oral 1-06 Refill(s) l tablet 00:18: buPROPion 2018-06 Yes 0 Memoria 150 mg/12 1-06 Refill(s) l hours (SR) 00:18: Deshawn oral 00 tablet, extended release carvedilol 2018-06 Yes 0 Memoria 25 mg oral 1-06 Refill(s) l tablet 00:18: Esomeprazol 2018-06 Yes 0 Memori a e 40 MG 1-06 Refill(s) l Enteric 00:18: [place] Coated 00 Capsule ezetimibe 2018-06 Yes 0 Memoria 10 mg oral 1-06 Refill(s) l tablet 00:18: Hydralazine 2018-06 Yes 0 Memori a Hydrochlori 1-06 Refill(s) l de 10 MG 00:18: Warren Oral Tablet 00 Allopurinol Allopurinol No Allopurino 100 MG 100 [...] Victoza Ipratropium Ipratropium No 2{spray TID Ipratropiu [place] Valencia s_in_ea m Valencia 0.06 % 0.06 % ch_nost 0.06 % ril} Losartan Losartan No QD Losartan Potassium Potassium Potassium 25 MG 25 MG 25 MG buPROPion buPROPion No buPROPion HCl ER (SR) HCl ER (SR) HCl ER 150 MG 150 MG (SR) 150 MG Atorvastati Atorvastati No Atorvastat n Calcium n Calcium in Calcium 80 MG 80 MG 80 MG Advair Advair No 1{puff} BID Advair Diskus Diskus Diskus 250-50 250-50 250-50 MCG/ACT MCG/ACT MCG/ACT Levemir Levemir No Levemir FlexTouch FlexTouch FlexTouch 100 UNIT/ML 100 UNIT/ML 100 UNIT/ML Victoza Victoza No Victoza oxyBUTYnin oxyBUTYnin No oxyBUTYnin Chloride 5 Chloride 5 Chloride 5 MG MG MG Colace 50 Colace 50 No 1{capsu QD Colace 50 MG MG le} MG Levemir Levemir No BID Levemir FlexTouch FlexTouch FlexTouch 100 UNIT/ML 100 UNIT/ML 100 UNIT/ML glipiZIDE glipiZIDE No glipiZIDE ER 2.5 MG ER 2.5 MG ER 2.5 MG Allopurinol Allopurinol No Allopurino 100 MG 100 MG l 100 MG Ipratropium Ipratropium No 2{spray TID Ipratropiu [place] s_in_ea m Valencia 0.06 % 0.06 % ch_nost 0.06 % ril} Bumetanide Bumetanide No 1{table QD Bumetanide 2 MG 2 MG t} 2 MG buPROPion buPROPion No buPROPion HCl ER (SR) HCl ER (SR) HCl ER 150 MG 150 MG (SR) 150 MG metOLazone metOLazone No 1{table metOLazone Areds2 Areds2 t} Areds2 OneTouch OneTouch No OneTouch Ultra Test Ultra Test Ultra Test - - - Gabapentin Gabapentin No 1{capsu BID Gabapentin 300 MG 300 MG le} 300 MG Ezetimibe Ezetimibe No Ezetimibe 10 MG 10 MG 10 MG Flonase 50 Flonase 50 No QD Flonase 50 MCG/DOSE MCG/DOSE MCG/DOSE Spironolact Spironolact No Spironolac one 50 MG one 50 MG tone 50 MG Carvedilol Carvedilol No 1{table BID Carvedilol 25 mg 25 mg t} 25 mg Esomeprazol Esomeprazol No 1{capsu QD Esomeprazo e Magnesium e Magnesium le} le 40 MG 40 MG Magnesium 40 MG Atorvastati Atorvastati No Atorvastat n Calcium n Calcium in Calcium 80 MG 80 MG 80 MG Ferrous Ferrous No 1{table BID Ferrous Sulfate 325 Sulfate 325 t} Sulfate (65 Fe) MG (65 Fe) MG 325 (65 Fe) MG Escitalopra Escitalopra No Escitalopr m Oxalate m Oxalate am Oxalate 20 MG 20 MG 20 MG Linzess 72 Linzess 72 No QD Linzess 72 MCG MCG MCG Tylenol Tylenol No Tylenol with with with Codeine #4 Codeine #4 Codeine #4 Ferrous Ferrous No 1{table BID Ferrous Sulfate 325 Sulfate 325 t} Sulfate (65 Fe) MG (65 Fe) MG 325 (65 Fe) MG Losartan Losartan No QD Losartan Potassium Potassium Potassium 25 MG 25 MG 25 MG hydrALAZINE hydrALAZINE No 1{table hydrALAZIN HCl 25 MG HCl 25 MG t_with_ E HCl 25 food} MG Niacin 250 Niacin 250 No 1{table QD Niacin 250 MG MG t_with_ MG food} Myrbetriq Myrbetriq No 1{table QD Myrbetriq 50 MG 50 MG t} 50 MG Ondansetron Ondansetron No 1{table QD Ondansetro HCl 4 MG HCl 4 MG t} n HCl 4 MG glipiZIDE glipiZIDE No glipiZIDE ER 2.5 MG ER 2.5 MG ER 2.5 MG Zetia 10 MG Zetia 10 MG No 1{table QD Zetia 10 t} MG tiZANidine tiZANidine No tiZANidine HCl 4 MG HCl 4 MG HCl 4 MG Aspirin 81 Aspirin 81 No 1{table QD Aspirin 81 81 MG 81 MG t} 81 MG Lubiproston Lubiproston No BID Lubiprosto e 24 MCG e 24 MCG ne 24 MCG Dulcolax 5 Dulcolax 5 No 1{table Dulcolax 5 MG MG t_as_ne MG eded} ZyrTEC ZyrTEC No 1{table QD ZyrTEC Allergy 10 Allergy 10 t} Allergy 10 MG MG MG Levemir Levemir No BID Levemir FlexTouch FlexTouch FlexTouch 100 UNIT/ML 100 UNIT/ML 100 UNIT/ML glipiZIDE glipiZIDE No 1{table BID glipiZIDE ER 2.5 MG ER 2.5 MG t_with_ ER 2.5 MG food} Advair Advair No 1{puff} BID Advair Diskus Diskus Diskus 250-50 250-50 250-50 MCG/ACT MCG/ACT MCG/ACT Levemir Levemir No Levemir FlexTouch FlexTouch FlexTouch 100 UNIT/ML 100 UNIT/ML 100 UNIT/ML Victoza Victoza No Victoza oxyBUTYnin oxyBUTYnin No oxyBUTYnin Chloride 5 Chloride 5 Chloride 5 MG MG MG Colace 50 Colace 50 No 1{capsu QD Colace 50 MG MG le} MG Levemir Levemir No BID Levemir FlexTouch FlexTouch FlexTouch 100 UNIT/ML 100 UNIT/ML 100 UNIT/ML glipiZIDE glipiZIDE No glipiZIDE ER 2.5 MG ER 2.5 MG ER 2.5 MG Allopurinol Allopurinol No Allopurino 100 MG 100 MG l 100 MG Allopurinol Allopurinol No Allopurino 100 MG 100 MG l 100 MG Ipratropium Ipratropium No 2{spray TID Ipratropiu [place] s_in_ea m [place] 0.06 % 0.06 % ch_nost 0.06 % ril} Bumetanide Bumetanide No 1{table QD Bumetanide 2 MG 2 MG t} 2 MG metOLazone metOLazone No 1{table metOLazone Areds2 Areds2 t} Areds2 OneTouch OneTouch No OneTouch Ultra Test Ultra Test Ultra Test - - - Gabapentin Gabapentin No 1{capsu BID Gabapentin 300 MG 300 MG le} 300 MG Ezetimibe Ezetimibe No Ezetimibe 10 MG 10 MG 10 MG Flonase 50 Flonase 50 No QD Flonase 50 MCG/DOSE MCG/DOSE MCG/DOSE Spironolact Spironolact No Spironolac one 50 MG one 50 MG tone 50 MG Carvedilol Carvedilol No 1{table BID Carvedilol 25 mg 25 mg t} 25 mg glipiZIDE glipiZIDE No glipiZIDE ER 5 MG ER 5 MG ER 5 MG Esomeprazol Esomeprazol No 1{capsu QD Esomeprazo e Magnesium e Magnesium le} le 40 MG 40 MG Magnesium 40 MG Atorvastati Atorvastati No Atorvastat n Calcium n Calcium in Calcium 80 MG 80 MG 80 MG Escitalopra Escitalopra No Escitalopr m Oxalate m Oxalate am Oxalate 20 MG 20 MG 20 MG Linzess 72 Linzess 72 No QD Linzess 72 MCG MCG MCG Tylenol Tylenol No Tylenol with with with Codeine #4 Codeine #4 Codeine #4 Ferrous Ferrous No 1{table BID Ferrous Sulfate 325 Sulfate 325 t} Sulfate (65 Fe) MG (65 Fe) MG 325 (65 Fe) MG Losartan Losartan No QD Losartan Potassium Potassium Potassium 25 MG 25 MG 25 MG hydrALAZINE hydrALAZINE No 1{table hydrALAZIN HCl 25 MG HCl 25 MG t_with_ E HCl 25 food} MG Niacin 250 Niacin 250 No 1{table QD Niacin 250 MG MG t_with_ MG food} Aspirin 81 Aspirin 81 No 1{table QD Aspirin 81 81 MG 81 MG t} 81 MG Myrbetriq Myrbetriq No 1{table QD Myrbetriq 50 MG 50 MG t} 50 MG Ondansetron Ondansetron No 1{table QD Ondansetro HCl 4 MG HCl 4 MG t} n HCl 4 MG Zetia 10 MG Zetia 10 MG No 1{table QD Zetia 10 t} MG tiZANidine tiZANidine No tiZANidine HCl 4 MG HCl 4 MG HCl 4 MG Aspirin 81 Aspirin 81 No 1{table QD Aspirin 81 81 MG 81 MG t} 81 MG Lubiproston Lubiproston No BID Lubiprosto e 24 MCG e 24 MCG ne 24 MCG Dulcolax 5 Dulcolax 5 No 1{table Dulcolax 5 MG MG t_as_ne MG eded} ZyrTEC ZyrTEC No 1{table QD ZyrTEC Allergy 10 Allergy 10 t} Allergy 10 MG MG MG OneTouch OneTouch No OneTouch Ultra - Ultra - Ultra - Oxybutynin Oxybutynin No Oxybutynin Chloride 5 Chloride 5 Chloride 5 MG MG MG Advair Advair No 1{puff} BID Advair Diskus Diskus Diskus 250-50 250-50 250-50 MCG/ACT MCG/ACT MCG/ACT Levemir Levemir No Levemir FlexTouch FlexTouch FlexTouch 100 UNIT/ML 100 UNIT/ML 100 UNIT/ML Victoza Victoza No Victoza oxyBUTYnin oxyBUTYnin No oxyBUTYnin Chloride 5 Chloride 5 Chloride 5 MG MG MG Colace 50 Colace 50 No 1{capsu QD Colace 50 MG MG le} MG Levemir Levemir No BID Levemir FlexTouch FlexTouch FlexTouch 100 UNIT/ML 100 UNIT/ML 100 UNIT/ML Linzess 72 Linzess 72 No QD Linzess 72 MCG MCG MCG glipiZIDE glipiZIDE No glipiZIDE ER 2.5 MG ER 2.5 MG ER 2.5 MG Allopurinol Allopurinol No Allopurino 100 MG 100 MG l 100 MG Ipratropium Ipratropium No 2{spray TID Ipratropiu [place] s_in_ea m [place] 0.06 % 0.06 % ch_nost 0.06 % ril} Bumetanide Bumetanide No 1{table QD Bumetanide 2 MG 2 MG t} 2 MG metOLazone metOLazone No 1{table metOLazone Areds2 Areds2 t} Areds2 OneTouch OneTouch No OneTouch Ultra Test Ultra Test Ultra Test - - - Gabapentin Gabapentin No 1{capsu BID Gabapentin 300 MG 300 MG le} 300 MG Ezetimibe Ezetimibe No Ezetimibe 10 MG 10 MG 10 MG Flonase 50 Flonase 50 No QD Flonase 50 MCG/DOSE MCG/DOSE MCG/DOSE Niacin 250 Niacin 250 No 1{table QD Niacin 250 MG MG t_with_ MG food} Spironolact Spironolact No Spironolac one 50 MG one 50 MG tone 50 MG Carvedilol Carvedilol No 1{table BID Carvedilol 25 mg 25 mg t} 25 mg Esomeprazol Esomeprazol No 1{capsu QD Esomeprazo e Magnesium e Magnesium le} le 40 MG 40 MG Magnesium 40 MG Atorvastati Atorvastati No Atorvastat n Calcium n Calcium in Calcium 80 MG 80 MG 80 MG Escitalopra Escitalopra No Escitalopr m Oxalate m Oxalate am Oxalate 20 MG 20 MG 20 MG Linzess 72 Linzess 72 No QD Linzess 72 MCG MCG MCG Tylenol Tylenol No Tylenol with with with Codeine #4 Codeine #4 Codeine #4 Ferrous Ferrous No 1{table BID Ferrous Sulfate 325 Sulfate 325 t} Sulfate (65 Fe) MG (65 Fe) MG 325 (65 Fe) MG Losartan Losartan No QD Losartan Potassium Potassium Potassium 25 MG 25 MG 25 MG hydrALAZINE hydrALAZINE No 1{table hydrALAZIN HCl 25 MG HCl 25 MG t_with_ E HCl 25 food} MG Bumetanide Bumetanide No QD Bumetanide 2 MG 2 MG 2 MG Niacin 250 Niacin 250 No 1{table QD Niacin 250 MG MG t_with_ MG food} Myrbetriq Myrbetriq No 1{table QD Myrbetriq 50 MG 50 MG t} 50 MG Ondansetron Ondansetron No 1{table QD Ondansetro HCl 4 MG HCl 4 MG t} n HCl 4 MG Zetia 10 MG Zetia 10 MG No 1{table QD Zetia 10 t} MG tiZANidine tiZANidine No tiZANidine HCl 4 MG HCl 4 MG HCl 4 MG Aspirin 81 Aspirin 81 No 1{table QD Aspirin 81 81 MG 81 MG t} 81 MG Lubiproston Lubiproston No BID Lubiprosto e 24 MCG e 24 MCG ne 24 MCG Dulcolax 5 Dulcolax 5 No 1{table Dulcolax 5 MG MG t_as_ne MG eded} ZyrTEC ZyrTEC No 1{table QD ZyrTEC Allergy 10 Allergy 10 t} Allergy 10 MG MG MG Gabapentin Gabapentin No 1{capsu [...] Calcium 80 MG 80 MG 80 MG Advair Advair No 1{puff} BID Advair Diskus Diskus Diskus 250-50 250-50 250-50 MCG/ACT MCG/ACT MCG/ACT Tradjenta 5 Tradjenta 5 No Tradjenta MG MG 5 MG Levemir Levemir No Levemir FlexTouch FlexTouch FlexTouch 100 UNIT/ML 100 UNIT/ML 100 UNIT/ML Victoza Victoza No Victoza oxyBUTYnin oxyBUTYnin No oxyBUTYnin Chloride 5 Chloride 5 Chloride 5 MG MG MG Colace 50 Colace 50 No 1{capsu QD Colace 50 MG MG le} MG Levemir Levemir No BID Levemir FlexTouch FlexTouch FlexTouch 100 UNIT/ML 100 UNIT/ML 100 UNIT/ML glipiZIDE glipiZIDE No glipiZIDE ER 2.5 MG ER 2.5 MG ER 2.5 MG Allopurinol Allopurinol No Allopurino 100 MG 100 MG l 100 MG Ipratropium Ipratropium No 2{spray TID Ipratropiu [place] s_in_ea m [place] 0.06 % 0.06 % ch_nost 0.06 % ril} Bumetanide Bumetanide No 1{table QD Bumetanide 2 MG 2 MG t} 2 MG metOLazone metOLazone No 1{table metOLazone Areds2 Areds2 t} Areds2 Colace 50 Colace 50 No 1{capsu QD Colace 50 MG MG le} MG OneTouch OneTouch No OneTouch Ultra Test Ultra Test Ultra Test - - - Gabapentin Gabapentin No 1{capsu BID Gabapentin 300 MG 300 MG le} 300 MG Ezetimibe Ezetimibe No Ezetimibe 10 MG 10 MG 10 MG Flonase 50 Flonase 50 No QD Flonase 50 MCG/DOSE MCG/DOSE MCG/DOSE Spironolact Spironolact No Spironolac one 50 MG one 50 MG tone 50 MG Carvedilol Carvedilol No 1{table BID Carvedilol 25 mg 25 mg t} 25 mg Esomeprazol Esomeprazol No 1{capsu QD Esomeprazo e Magnesium e Magnesium le} le 40 MG 40 MG Magnesium 40 MG Atorvastati Atorvastati No Atorvastat n Calcium n Calcium in Calcium 80 MG 80 MG 80 MG Escitalopra Escitalopra No Escitalopr m Oxalate m Oxalate am Oxalate 20 MG 20 MG 20 MG tiZANidine tiZANidine No tiZANidine HCl 4 MG HCl 4 MG HCl 4 MG Linzess 72 Linzess 72 No QD Linzess 72 MCG MCG MCG Tylenol Tylenol No Tylenol with with with Codeine #4 Codeine #4 Codeine #4 Ferrous Ferrous No 1{table BID Ferrous Sulfate 325 Sulfate 325 t} Sulfate (65 Fe) MG (65 Fe) MG 325 (65 Fe) MG Losartan Losartan No QD Losartan Potassium Potassium Potassium 25 MG 25 MG 25 MG hydrALAZINE hydrALAZINE No 1{table hydrALAZIN HCl 25 MG HCl 25 MG t_with_ E HCl 25 food} MG Niacin 250 Niacin 250 No 1{table QD Niacin 250 MG MG t_with_ MG food} Myrbetriq Myrbetriq No 1{table QD Myrbetriq 50 MG 50 MG t} 50 MG Ondansetron Ondansetron No 1{table QD Ondansetro HCl 4 MG HCl 4 MG t} n HCl 4 MG Zetia 10 MG Zetia 10 MG No 1{table QD Zetia 10 t} MG Myrbetriq Myrbetriq No 1{table QD Myrbetriq 50 MG 50 MG t} 50 MG tiZANidine tiZANidine No tiZANidine HCl 4 MG HCl 4 MG HCl 4 MG Aspirin 81 Aspirin 81 No 1{table QD Aspirin 81 81 MG 81 MG t} 81 MG Lubiproston Lubiproston No BID Lubiprosto e 24 MCG e 24 MCG ne 24 MCG Dulcolax 5 Dulcolax 5 No 1{table Dulcolax 5 MG MG t_as_ne MG eded} ZyrTEC ZyrTEC No 1{table QD ZyrTEC Allergy 10 Allergy 10 t} Allergy 10 MG MG MG OneTouch OneTouch No OneTouch Ultra Test [...] 10 MG MG MG Esomeprazol Esomeprazol Yes Claudine 1 capsule Common e Magnesium e Magnesium Addison [facility] Nexium Nexium Yes Claudine 1 capsule Comm on Addison [facility] Aspirin 81 Aspirin 81 Yes Claudine 1 tablet Common [facility] Linzess Linzess Yes Claudine 1 capsule Co mmon Addison at least Spirit 30 minutes - CHI before the St first meal [facility] of the day Medical on an [place] empty stomach Flonase Flonase Yes Claudine USE ONE Comm on Addison SPRAY IN Spirit EACH - CHI NOSTRIL St ONCE DAILY [facility] Tradjenta Tradjenta Yes Claudine take 1 C ommon Addison tablet by Spirit mouth - [facility] every day [facility] HydrALAZINE HydrALAZINE Yes Claudine 1 tablet Common HCl HCl Addison with food [facility] OneTouch OneTouch Yes Claudine TEST ONCE Common Ultra Test Ultra Test Addison A DAY S pirit [facility] Allopurinol Allopurinol Yes Claudine take 1 Common Addison tablet by Spirit mouth - [facility]I every day [facility] Zyrtec Zyrtec Yes Claudine 1 tablet Commo n Allergy Allergy Addison [facility] Niacin Niacin Yes Claudine 1 tablet Commo n Addison with food [facility] Carvedilol Carvedilol Yes Claudine 1 tablet Common Addison [facility] Gabapentin Gabapentin Yes Claudine 1 capsule Common Addison [facility] Bumetanide Bumetanide Yes Claudine 1 1/2 tab Common Addison [facility] Dulcolax Dulcolax Yes Claudine 1 tablet C ommon Addison as needed [facility] BuPROPion BuPROPion Yes Claudine 1 tablet Common HCl ER (SR) HCl ER (SR) Addison orally bid [facility] Metolazone Metolazone Yes Claudine 1 tablet Common Addison [facility] Colace Colace Yes Claudine 1 capsule Comm on Addison [facility] Levemir Levemir Yes Claudine 50 Common FlexTouch FlexTouch Addison units/Ml [facility] Zetia Zetia Yes Claudine 1 tablet Common Addison [facility] Atorvasta Atorvastati Yes Claudine take 1 Common n Calcium n Calcium Addison tablet by Spirit mouth - [facility]I every day [facility] Victoza Victoza Yes Claudine inject Commo n Addison 1.8mg [facility] daily - [facility] subcutaneo [facility] Atorvastati Atorvastati Yes Claudine take 1 Common n Calcium n Calcium Addison tablet by Spirit mouth - [facility]I every day [facility] Zetia Zetia Yes Claudine 1 tablet Common Addison [facility] Myrbetriq Myrbetriq Yes Claudine 1 tablet Common Addison [facility] Victoza Victoza Yes Claudine inject Commo n Addison 1.8mg [facility] daily [facility] subcutaneo [facility] Allopurinol Allopurinol No Allopurino 100 MG 100 [...] 10 t} Allergy 10 MG MG MG hydrALAZINE hydrALAZINE No 1{table hydrALAZIN HCl [...] mg Ipratropium Ipratropium No 2{spray TID Ipratropiu Valencia Valencia s_in_ea m Valencia 0.06 % 0.06 % ch_nost 0.06 % [...] 81 MG 81 MG t} 81 MG Vital Signs Vital Name Observation Time Observation Value Comments Source height 2022-08-12 14:20:00 63 [in_i] [facility] weight 2022-08-12 14:20:00 298 [lb_av] [facility] temperature 2022-08-12 14:20:00 97.4 [degF] [facility] bmi 2022-08-12 14:20:00 52.78 kg/m2 [facility] oximetry 2022-08-12 14:20:00 94 % [facility] respiratory rate 2022-08-12 14:20:00 16 /min Comm on [facility] blood pressure 2022-08-12 14:20:00 146 mm[Hg] Common [facility] - systolic [facility] blood pressure 2022-08-12 14:20:00 72 mm[Hg] Common [facility] - diastolic [facility] height 2022-07-14 14:00:00 63 [in_i] [facility] weight 2022-07-14 14:00:00 312 [lb_av] [facility] temperature 2022-07-14 14:00:00 97.9 [degF] Common S pirit - [facility] bmi 2022-07-14 14:00:00 55.26 kg/m2 Common S pirit - [facility] blood pressure 2022-07-14 14:00:00 130 mm[Hg] Common [facility] - systolic [facility] blood pressure 2022-07-14 14:00:00 82 mm[Hg] Common [facility] - diastolic [facility] height 2022-05-17 14:30:00 63 [in_i] Common S pirit - [facility] weight 2022-05-17 14:30:00 307.8 [lb_av] Common [facility] temperature 2022-05-17 14:30:00 97.4 [facility]degF] [facility] bmi 2022-05-17 14:30:00 54.52 kg/m2 [facility] S pirit [facility] oximetry 2022-05-17 14:30:00 95 % [facility] S pirit [facility] respiratory rate 2022-05-17 14:30:00 16 /min Comm on [facility] blood pressure 2022-05-17 14:30:00 124 mm[Hg] Common [facility] - systolic [facility] blood pressure 2022-05-17 14:30:00 72 mm[Hg] Common [facility] - diastolic [facility] height 2022-04-02 08:00:00 63 [in_i] Common S pirit - [facility] weight 2022-04-02 08:00:00 295 [lb_av] Common S pirit - [facility] temperature 2022-04-02 08:00:00 98 [degF] Common S pirit [facility] bmi 2022-04-02 08:00:00 52.25 kg/m2 Common S pirit [facility] blood pressure 2022-04-02 08:00:00 127 mm[Hg] Common [facility] - systolic [facility] blood pressure 2022-04-02 08:00:00 77 mm[Hg] Common [facility] - diastolic [facility] height 2022-03-22 09:00:00 63 [in_i] Common [facility] weight 2022-03-22 09:00:00 297.2 [lb_av] [facility] bmi 2022-03-22 09:00:00 52.64 kg/m2 [facility] height 2022-02-10 14:10:00 63 [in_i] Common S [facility] weight 2022-02-10 14:10:00 294.2 [lb_av] [facility] temperature 2022-02-10 14:10:00 97.2 [degF] [facility] bmi 2022-02-10 14:10:00 52.11 kg/m2 [facility] oximetry 2022-02-10 14:10:00 94 % [facility] respiratory rate 2022-02-10 14:10:00 16 /min Comm on [facility] blood pressure 2022-02-10 14:10:00 133 mm[Hg] [facility] - systolic [facility] blood pressure 2022-02-10 14:10:00 77 mm[Hg] [facility] diastolic [facility] height 2022-01-26 11:40:00 63 [in_i] [facility] weight 2022-01-26 11:40:00 297 [lb_av] [facility] bmi 2022-01-26 11:40:00 52.61 kg/m2 [facility] S [facility] height 2021-12-25 08:40:00 63 [in_i] Common [facility] weight 2021-12-25 08:40:00 295 [lb_av] [facility] bmi 2021-12-25 08:40:00 52.25 kg/m2 [facility] height 2021-12-23 13:00:00 63 [in_i] [facility] 2021-12-23 13:00:00 295.8 [lb_av] Common [facility] temperature 2021-12-23 13:00:00 98.6 [degF] Common [facility] bmi 2021-12-23 13:00:00 52.39 kg/m2 Common S [facility] oximetry 2021-12-23 13:00:00 92 % Common [facility] respiratory rate 2021-12-23 13:00:00 18 /min Comm on [facility] blood pressure 2021-12-23 13:00:00 109 mm[Hg] Common [facility] - systolic [facility] blood pressure 2021-12-23 13:00:00 68 mm[Hg] Common [facility] - diastolic [facility] height 2021-11-09 13:40:00 63 [in_i] Common [facility] weight 2021-11-09 13:40:00 295.3 [lb_av] [facility] temperature 2021-11-09 13:40:00 98.1 [degF] Common [facility] bmi 2021-11-09 13:40:00 52.3 kg/m2 [facility] oximetry 2021-11-09 13:40:00 97 % Common [facility] respiratory rate 2021-11-09 13:40:00 16 /min Comm on [facility] blood pressure 2021-11-09 13:40:00 129 mm[Hg] Common [facility] - systolic [facility] blood pressure 2021-11-09 13:40:00 82 mm[Hg] Common [facility] - diastolic [facility] height 2021-09-16 09:30:00 63 [in_i] Common [facility] weight 2021-09-16 09:30:00 284 [lb_av] Common [facility] bmi 2021-09-16 09:30:00 50.3 kg/m2 Common S pirit - [facility] blood pressure 2021-09-16 09:30:00 128 mm[Hg] Common [facility] - systolic [facility] blood pressure 2021-09-16 09:30:00 72 mm[Hg] Common [facility] - diastolic [facility] height 2021-08-19 08:50:00 63 [in_i] [facility] weight 2021-08-19 08:50:00 284.2 [lb_av] Common [facility] - [facility] temperature 2021-08-19 08:50:00 97.7 [degF] Common [facility] bmi 2021-08-19 08:50:00 50.34 kg/m2 [facility] S [facility] oximetry 2021-08-19 08:50:00 95 % [facility] respiratory rate 2021-08-19 08:50:00 16 /min Comm on [facility] blood pressure 2021-08-19 08:50:00 127 mm[Hg] Common [facility] - systolic [facility] blood pressure 2021-08-19 08:50:00 67 mm[Hg] Common [facility] - diastolic [facility] height 2021-08-13 08:00:00 63 [in_i] Common [facility] weight 2021-08-13 08:00:00 282 [lb_av] Common S pirit [facility] bmi 2021-08-13 08:00:00 49.95 kg/m2 [facility] blood pressure 2021-08-13 08:00:00 124 mm[Hg] Common [facility] - systolic [facility] blood pressure 2021-08-13 08:00:00 72 mm[Hg] Common [facility] - diastolic [facility] height 2021-05-21 08:20:00 63 [in_i] Common S [facility] weight 2021-05-21 08:20:00 282 [lb_av] [facility] temperature 2021-05-21 08:20:00 97.6 [degF] Common S [facility] bmi 2021-05-21 08:20:00 49.95 kg/m2 Common [facility] blood pressure 2021-05-21 08:20:00 135 mm[Hg] Common [facility] - systolic [facility] blood pressure 2021-05-21 08:20:00 71 mm[Hg] Common [facility] - diastolic [facility] HEIGHT 2021-04-03 10:13:00 160 cm WEIGHT 2021-04-03 10:13:00 127.5 kg WEIGHT 2021-04-02 09:21:00 127.007 kg HEIGHT 2021-04-02 09:21:00 160 cm HEIGHT 2021-04-03 10:13:00 160 cm WEIGHT 2021-04-03 10:13:00 127.5 kg WEIGHT 2021-04-02 09:21:00 127.007 kg HEIGHT 2021-04-02 09:21:00 160 cm Systolic blood 2023-03-24 12:26:00 132 mm[Hg] [facility] Diastolic blood 2023-03-24 12:26:00 78 mm[Hg] [facility] Heart rate 2023-03-24 12:26:00 70 /min [facility] Body temperature 2023-03-24 12:26:00 36.39 Liz [facility] Body height 2023-03-24 12:26:00 165.1 cm [facility] Body weight 2023-03-24 12:26:00 129.457 kg [facility] BMI 2023-03-24 12:26:00 47.49 kg/m2 [facility] Systolic (mm Hg) 2021-10-21 15:53:00 Francesco Hess Diastolic (mm Hg) 2021-10-21 15:53:00 Mem orilinda [facility] Heart Rate 2021-10-21 15:53:00 [facility] Respitory Rate 2021-10-21 15:53:00 Howardori al [facility] Height 2021-10-21 15:53:00 160.02 cm [facility] Weight 2021-10-21 15:53:00 [facility] BMI Calculated 2021-10-21 15:53:00 Memori al [facility] Systolic (mm Hg) 2021-09-07 16:05:00 Francesco rial Deshawn Diastolic (mm Hg) 2021-09-07 16:05:00 Mem orial [facility] Heart Rate 2021-09-07 16:05:00 [facility] Respitory Rate 2021-09-07 16:05:00 Memori al Deshawn Height 2021-09-07 16:05:00 160.02 cm [facility] Weight 2021-09-07 16:05:00 [facility] BMI Calculated 2021-09-07 16:05:00 Memori al Deshawn Systolic (mm Hg) 2021-01-08 16:24:00 Francesco rial Warren Diastolic (mm Hg) 2021-01-08 16:24:00 Mem orial [facility] Heart Rate 2021-01-08 16:24:00 [facility] Respitory Rate 2021-01-08 16:24:00 Memori al [facility] Height 2021-01-08 16:24:00 160.02 cm [facility] Weight 2021-01-08 16:24:00 [facility] BMI Calculated 2021-01-08 16:24:00 Memori al [facility] BMI Calculated 2020-07-17 19:53:00 [facility] Systolic (mm Hg) 2020-07-17 19:53:00 Francesco rial Warren Diastolic (mm Hg) 2020-07-17 19:53:00 Mem orial [facility] Heart Rate 2020-07-17 19:53:00 [facility] Height 2020-07-17 19:53:00 160.02 cm [facility] Weight 2020-07-17 19:53:00 [facility] Systolic (mm Hg) 2019-12-13 14:59:00 Francesco rial Deshawn Diastolic (mm Hg) 2019-12-13 14:59:00 Mem orial [facility] Heart Rate 2019-12-13 14:59:00 [facility] Respitory Rate 2019-12-13 14:59:00 Memori al [facility] Height 2019-12-13 14:59:00 160.02 cm [facility] Weight 2019-12-13 14:59:00 [facility] BMI Calculated 2019-12-13 14:59:00 [facility] Systolic (mm Hg) 2019-07-18 16:40:00 Francesco rial Deshawn Diastolic (mm Hg) 2019-07-18 16:40:00 Mem orial [facility] Heart Rate 2019-07-18 16:40:00 [facility] Respitory Rate 2019-07-18 16:40:00 Memori al [facility] Height 2019-07-18 16:40:00 157.48 cm [facility] Weight 2019-07-18 16:40:00 [facility] BMI Calculated 2019-07-18 16:40:00 Memori al [facility] Height 2019-06-05 17:44:00 160.02 cm [facility] Weight 2019-06-05 17:44:00 [facility] BMI Calculated 2019-06-05 17:44:00 Memori al Deshawn Systolic (mm Hg) 2019-06-05 17:44:00 Francesco rial Warren Diastolic (mm Hg) 2019-06-05 17:44:00 Mem orial Deshawn Heart Rate 2019-06-05 17:44:00 [facility] Respitory Rate 2019-06-05 17:44:00 [facility]ori al [facility] Systolic (mm Hg) 2019-04-24 20:24:00 Francesco rial Deshawn Diastolic (mm Hg) 2019-04-24 20:24:00 Mem orial Deshawn Heart Rate 2019-04-24 20:24:00 [facility] Respitory Rate 2019-04-24 20:24:00 Memori al Deshawn Height 2019-04-24 20:24:00 160.02 cm [facility] Weight 2019-04-24 20:24:00 [facility] BMI Calculated 2019-04-24 20:24:00 Memori al [facility] Procedures Procedure Date / Time Performed Performing Clinician Sour e Shoulder [facility] repair<sup>1</sup> Carpal tunnel release [facility] H ermann Plan of Care Planned Activity Planned Date Details Comments Source Future Scheduled 2024-03-[address] [facility] Test 00:00:00 [facility] (12+) [code = Tobacco Cessation Counseling and Screening (12+)] Future Scheduled 2024-03-[address] [facility] Test 00:00:00 [facility] Screening (12+) [code = Tobacco Cessation Counseling and Screening (12+)] Future Scheduled 2023-04-04 Screening for [facility] Test 10:21:37 malignant neoplasm of colon (procedure) [code = 082533373] Future Scheduled 2023-04-04 Screening for [facility] Test 10:21:37 malignant neoplasm of colon (procedure) [code = 544988009] Future Scheduled 2023-04-04 SHINGLES VACCINES (1 Met [facility] Test 10:21:37 of 2) [code = SHINGLES VACCINES (1 of 2)] Future Scheduled 2023-04-04 RSV VACCINES > 60 YR Met [facility] Test 10:21:37 (1 - 1-dose 60+ series) [code = RSV VACCINES > 60 YR (1 - 1-dose 60+ series)] Future Scheduled 2023-04-04 65+ [facility] 10:21:37 VACCINE (1 - PCV) [code = 65+ PNEUMOCOCCAL VACCINE (1 - PCV)] Future Scheduled 2023-04-04 INFLUENZA VACCINE (#1) [facility] Test 10:21:37 [code = INFLUENZA VACCINE (#1)] Future Scheduled 2023-04-04 Screening for [facility] Test 10:21:37 malignant neoplasm of colon (procedure) [code = 154721913] Future Scheduled 2023-04-04 Screening for [facility] Test 10:21:37 malignant neoplasm of colon (procedure) [code = 432997139] Future Scheduled 2023-04-04 Screening for [facility] Test 10:21:37 malignant neoplasm of colon (procedure) [code = 408635495] Future Scheduled 2023-04-04 COVID-19 [facility] 10:21:37 [code = COVID-19 VACCINE (#1)] Future Scheduled 2023-04-04 BREAST CANCER [facility] Test 10:21:37 SCREENING [code = BREAST CANCER SCREENING] Future Scheduled 2023-02-20 Screening for [facility] Test 04:33:46 malignant neoplasm of colon (procedure) [code = 864746668] Future Scheduled 2023-02-20 Screening for [facility] Test 04:33:46 malignant neoplasm of colon (procedure) [code = 449800952] Future Scheduled 2023-02-20 SHINGLES VACCINES ([facility] Test 04:33:46 of 2) [code = SHINGLES VACCINES (1 of 2)] Future Scheduled 2023-02-20 65+ [facility]OCO[facility] Test 04:33:46 VACCINE (1 - PCV) [code = 65+ PNEUMOCOCCAL VACCINE (1 - PCV)] Future Scheduled 2023-02-20 INFLUENZA VACCINE (#1) [facility] Test 04:33:46 [code = INFLUENZA VACCINE (#1)] Future Scheduled 2023-02-20 Screening for [facility] Test 04:33:46 malignant neoplasm of colon (procedure) [code = 232773045] Future Scheduled 2023-02-20 Screening for [facility] Test 04:33:46 malignant neoplasm of colon (procedure) [code = 723388795] Future Scheduled 2023-02-20 Screening for [facility] Test 04:33:46 malignant neoplasm of colon (procedure) [code = 064831251] Future Scheduled 2023-02-20 COVID-19 VACCINE (#1) [facility] Test 04:33:46 [code = COVID-19 VACCINE (#1)] Future Scheduled 2023-02-20 BREAST CANCER [facility] Test 04:33:46 SCREENING [code = BREAST CANCER SCREENING] Future Scheduled 2023-02-18 Influenza Vaccine (#1[facility] [code = Influenza Medical Ce nter Vaccine (#1)] Future Scheduled 2023-02-18 Influenza Vaccine (#1) [facility] 00:00:00 [code = Influenza Medical Ce nter Vaccine (#1)] Future Scheduled 2023-02-[address] [facility] Test 00:00:00 (Season Ended) [code = Medic al Center INFLUENZA VACCINE (Season Ended)] Future Scheduled 2022-09-23 COVID-19 VACCINE (#1) [facility] Test 10:01:50 [code = COVID-19 VACCINE (#1)] Future Scheduled 2022-09-23 BREAST CANCER [facility] Test 10:01:50 SCREENING [code = BREAST CANCER SCREENING] Future Scheduled 2022-09-23 COLONOSCOPY SCREENING [facility] Test 10:01:50 [code = COLONOSCOPY SCREENING] Future Scheduled 2022-09-23 SHINGLES VACCINES (1 Met [facility] Test 10:01:50 of 2) [code = SHINGLES VACCINES (1 of 2)] Future Scheduled 2022-09-23 65+ [facility]OCOCCAL [facility] Test 10:01:50 VACCINE (1 - PCV) [code = 65+ PNEUMOCOCCAL VACCINE (1 - PCV)] Future Scheduled 2022-09-[address] [facility] Test 10:01:50 [code = INFLUENZA VACCINE] Future Scheduled 2022-09-23 COVID-19 VACCINE (#1) Me [facility] Test 10:01:50 [code = COVID-19 VACCINE (#1)] Future Scheduled 2022-09-23 BREAST CANCER [facility] Test 10:01:50 SCREENING [code = BREAST CANCER SCREENING] Future Scheduled 2022-09-23 Screening for [facility] Test 10:01:50 malignant neoplasm of colon (procedure) [code = 300939770] Future Scheduled 2022-09-23 SHINGLES VACCINES (1 Met [facility] Test 10:01:50 of 2) [code = SHINGLES VACCINES (1 of 2)] Future Scheduled 2022-09-23 65+ [facility]OCOCCAL [facility] Test 10:01:50 VACCINE (1 - PCV) [code = 65+ PNEUMOCOCCAL VACCINE (1 - PCV)] Future Scheduled 2022-09-[address] [facility] Test 10:01:50 [code = INFLUENZA VACCINE] Future Scheduled 2022-06-20 DEPRESSION SCREENING [facility]I [...] Future Scheduled 2022-02-17 HEPATITIS B VACCINES Met [facility] Test 23:28:53 (1 of 3 - 3-dose series) [code = HEPATITIS B VACCINES (1 of 3 - 3-dose series)] Future Scheduled 2022-02-17 COVID-19 VACCINE (#1) [facility] Test 23:28:53 [code = COVID-19 VACCINE (#1)] Future Scheduled 2022-02-17 BREAST CANCER [facility] Test 23:28:53 SCREENING [code = BREAST CANCER SCREENING] Future Scheduled 2022-02-17 COLONOSCOPY SCREENING [facility] Test 23:28:53 [code = COLONOSCOPY SCREENING] Future Scheduled 2022-02-17 SHINGLES VACCINES (1 Met [facility] Test 23:28:53 of 2) [code = SHINGLES VACCINES (1 of 2)] Future Scheduled 2022-02-17 65+ P[facility]OCOCCAL [facility] Test 23:28:53 VACCINE (1 - PCV) [code = 65+ PNEUMOCOCCAL VACCINE (1 - PCV)] Future Scheduled 2022-02-17 INFLUENZA VACCINE [facility] Test 23:28:53 [code = INFLUENZA VACCINE] Future Scheduled 2021-06-[address] [...] FIRST YEAR if no IPPE)] Future Scheduled 2020-09-23 COVID-19 VACCINE (3 - [...] [facility] of 2) [code = SHINGLES Medic al Center VACCINES (1 of 2)] Future Scheduled 2001-12-20 SHINGLES VACCINES ([address] [facility] Test 00:00:00 of 2) [code = SHINGLES Medic al Center VACCINES (1 of 2)] Future Scheduled 2001-12-20 SHINGLES VACCINES ([address] [facility] Test 00:00:00 of 2) [code = SHINGLES Medic al Center VACCINES (1 of 2)] Future Scheduled 2001-12-20 SHINGLES VACCINES ([address] [facility] Test 00:00:00 of 2) [code = SHINGLES Medic al Center VACCINES (1 of 2)] Future Scheduled 1970-12-20 [...] [facility] Test 00:00:00 [code = HEPATITIS C [facility] Center SCREENING] Future Scheduled [address] [facility] 00:[facility]:00 malignant neoplasm of Medica l Center breast (procedure) [code = 297266476] Future Scheduled [address] [facility] 00:00:00 (combo) [code = CT Medical C enter Colonography (combo)] Future Scheduled [address] [facility] Test 00:00:00 malignant neoplasm of Medica l Center colon (procedure) [code = 846435961] Future Scheduled [address] [facility] 00:00:00 malignant neoplasm of Medica l Center colon (procedure) [code = 610529001] Future Scheduled 1950 DXA SCAN [code = DXA [facility] Test 00:00:00 SCAN] [facility] Future Scheduled [address] [facility] Test 00:00:00 malignant neoplasm of Medica l Center colon (procedure) [code = 972710459] Future Scheduled [address] [facility] Test 00:00:00 malignant neoplasm of Medica l Center colon (procedure) [code = 711440505] Future Scheduled 1950 Sigmoidoscopy [facility] Future Scheduled [address] [facility] 00:00:00 malignant neoplasm of Medica l Center breast (procedure) [code = 572131183] Future Scheduled [address] [facility] 00:00:00 (combo) [code = CT Medical C enter Colonography (combo)] Future Scheduled [address] [facility] 00:00:00 malignant neoplasm of Medica l Center colon (procedure) [code = 086631364] Future Scheduled [address] [facility] 00:00:00 malignant neoplasm of Medica l Center colon (procedure) [code = 145504491] Future Scheduled 1951 DXA SCAN [code = DXA [facility] Test 00:00:00 SCAN] [facility] Future Scheduled 1950 [facility] colon (procedure) [code = 117183842] Future Scheduled [address] [facility] 00:[facility]:00 [facility] colon (procedure) [code = 072869159] Future Scheduled 1950 S[facility]oid[facility]code [facility] Future Scheduled [address] [facility] 00:00:00 malignant ne[facility] breast (procedure) [code = 299287600] Future Scheduled [address] [facility] 00:00:00 (combo) [code = CT Medical C enter Colonography (combo)] Future Scheduled [address] [facility] 00:00:00 [facility] colon (procedure) [code = 769111640] Future Scheduled [address] [facility] 00:00:00 [facility] colon (procedure) [code = 150182754] Future Scheduled 1951 DXA SCAN [code = [facility]XA [facility] 00:00:00 SCAN] [facility] Future Scheduled [address] [facility] 00:00:00 [facility] colon (procedure) [code = 109238775] Future Scheduled [address] [facility] 00:00:00 malignant [facility] colon (procedure) [code = 849197210] Future Scheduled 1951 [facility]oidoscopy [facility]] [facility] r Future Scheduled [address] [facility] 00:00:00 malignant ne[facility] breast (procedure) [code = 698179483] Future Scheduled [address] [facility] 00:00:00 (combo) [code = CT Medical C enter Colonography (combo)] Future Scheduled [address] [facility] 00:00:00 [facility] [code = 024236579] Future Scheduled [address] [facility] 00:00:00 malignant [facility] colon (procedure) [code = 426446675] Future Scheduled 1951 DXA SCAN [code = DXA [facility] 00:00:00 SCAN] [facility] Future Scheduled [address] [facility] 00:00:00 [facility] [code = 935077623] Future Scheduled [address] [facility] 00:00:00 [facility]) [code = 441371422] Future Scheduled 1951 S[facility]oidoscopy [facility]] [facility] Encounters Start End Encounter Admission Attending Care Care Encounter Source Date/Time Date/Time Type Type Clinicians Facility Department ID 2023-02-07 Outpatient Addison, STLMLC [facility] [id number] Common 13:46:00 [facility] [address] [facility] 2022-10-01 Outpatient [facility] [id number] 18:05:35 [id number] [facility] 2022-09-07 Outpatient Addison, STLMLC ST[facility] [id number] Common 10:04:00 [facility] [address] [facility] 2022-08-30 Outpatient Addison, STLMLC STLC [id number] Common 14:26:00 [place] [address] [facility] 2022-08-10 Outpatient Addison, STLMLC STLC [id number] Common 11:44:00 Claudine [address]1026 [facility] 2022-07-07 Outpatient Addison, STLMLC STLC [id number] Common 13:55:00 Claudine [address]8740 [facility] 2022-05-12 Outpatient Addison, STLMLC STLC [id number] Common 09:42:23 Claudine 06207 [facility] 2022-04-02 Outpatient Addison, STLMLC STLMLC [id number] Common 08:01:00 Claudine [facility] 2022-04-01 Outpatient Addison, STLMLC STLMLC [id number] Common 15:13:00 Claudine [facility] 2022-03-31 Outpatient Addison, STLMLC STLMLC [id number] Common 15:13:00 Claudine [facility] 2022-03-22 Outpatient Addison, STLMLC STLMLC [id number] Common 08:25:00 Claudine [facility] 2022-02-18 Outpatient Addison, STLMLC STLMLC [id number] Common 10:08:00 Claudine [facility] 2022-02-10 Outpatient Addison, STLMLC STLMLC [id number] Common 13:59:00 Claudine [facility] 2022-01-25 Outpatient Addison, STLMLC STLMLC [id number] Common 15:07:00 Claudine [facility] 2022-01-08 Outpatient Addison, STLMLC STLMLC [id number] Common 07:25:00 Claudine [facility] 2021-12-24 Outpatient Addison, STLMLC STLMLC [id number] Common 08:42:00 Claudine [facility] 2021-11-05 Outpatient Addison, STLMLC STLMLC [id number] Common 16:19:00 Claudine [facility] 2021-08-12 Outpatient Addison, STLMLC STLMLC [id number] Common 09:40:00 Claudine [facility] 2021-08-10 Outpatient Addison, STLMLC STLMLC [id number] Common 09:31:00 Claudine [facility] 2021-07-15 Outpatient Addison, STLMLC STLMLC [id number] Common 12:35:21 Claudine [facility] 2021-07-15 [facility] [id number] Common 12:09:53 Claudine [address] [facility] 2021-07-15 Outpatient Addison, STLC [facility] [id number] Common 11:24:05 Claudine 85803 [facility] 2021-07-15 [facility] [id number] Common 11:17:10 Claudine 06593 [facility] 2021-07-15 [facility] [id number] Common 11:00:50 Claudine 350[address] [facility] 2023-04-21 2023-04-21 Outpatient EL FADNER, [facility] [id number] 00:[facility] 00:00:00 [facility] 2023-03-28 2023-03-28 Telephone Luna, [facility] [id number] 00:[facility]00 00:00:00 [facility] 2023-03-24 2023-03-24 Office Fadner, [facility] [id number] 11:30:00 13:41:52 Visit [facility] 2023-03-24 2023-03-24 Office EL Fadner, [facility] [id number] 11:30:00 13:41:52 Visit [facility] 2023-03-21 2023-03-21 Telephone Luna, [facility] [id number] 00:00:00 00:00:00 [facility] 2023-03-21 2023-03-21 Telephone Luna, [facility] [id number] 00:00:00 00:00:00 [facility] 2023-03-02 2023-03-02 Outpatient GC_GCBZW_Ka PRIV PRIV [id number] [facility] 00:00:00 00:00:00 Pablo [id number] [facility] 2023-03-02 2023-03-02 Outpatient GC_GCBZW_Ka PRIV PRIV [id number] [facility] 00:00:00 00:00:00 diyala_S [id number] Medic al 2023-02-14 2023-02-14 Outpatient GC_GCBZW_Ka PRIV PRIV [id number] [facility] 00:00:00 00:00:00 diyala_S [id number] Medic al 2022-09-26 2022-09-26 Travel [facility] [id number] [facility] 00[facility]00 [facility] 2022-09-26 2022-09-26 Travel [facility] [id number] [facility] 00:[facility] 00:00:00 [facility] 2022-08-12 2022-08-12 OFFICE STLMLC STLMLC [id number] Co mmon 00:00:00 00:00:00 VISIT [facility] ESTAB PT - CHI LEVEL 4 [facility] 2022-08-03 2022-08-03 (WEB) STLMLC STLMLC [id number] Co mmon 00:00:00 00:00:00 [facility] 2022-08-01 2022-08-01 (WEB) STLMLC STLMLC [id number] Co mmon 00:00:00 00:00:00 [facility] 2022-07-29 2022-07-29 (WEB) STLMLC STLMLC [id number] Co mmon 00:00:00 00:00:00 [facility] 2022-07-14 2022-07-14 OFFICE STLMLC STLMLC [id number] Co mmon 00:00:00 00:00:00 VISIT EST Spir it PT LEVEL 3 - [facility] 2022-05-17 2022-05-17 OFFICE STLMLC STLMLC [id number] Co mmon 00:00:00 00:00:00 VISIT [facility] ESTAB PT - CHI LEVEL 4 [facility] 2022-04-28 2022-04-28 Ambulatory nullFlavo MNA [id number] [facility] 17:00:00 17:00:00 Pre-Reg r Neurology 10 l [place] 2022-04-07 2022-04-07 (TEL) STLMLC STLMLC [id number] Co mmon 00:00:00 00:00:00 Spirit - [facility] 2022-04-02 2022-04-02 (EST. STLMLC STLMLC [id number] Co mmon 00:00:00 00:00:00 VIDEO) EST Spi rit VIRTUAL - CHI VIDEO [facility] 2022-03-30 2022-03-30 (TEL) STLMLC STLMLC [id number] Co mmon 00:00:00 00:00:00 Spirit - [facility] 2022-03-22 2022-03-22 OFFICE STLMLC STLMLC [id number] Co mmon 00:00:00 00:00:00 VISIT EST Spir it PT LEVEL 3 - [facility] 2022-03-18 2022-03-18 (TEL) STLMLC STLMLC [id number] Co mmon 00:00:00 00:00:00 Spirit [facility] 2022-02-10 2022-02-10 OFFICE STLMLC STLMLC [id number] Co mmon 00:00:00 00:00:00 VISIT Spirit ESTAB PT - CHI LEVEL 4 [facility] 2022-01-26 2022-01-26 OFFICE STLMLC STLMLC [id number] Co mmon 00:00:00 00:00:00 VISIT [facility] ESTAB PT - CHI LEVEL 4 [facility] 2021-12-25 2021-12-25 OFFICE STLMLC STLMLC [id number] Co mmon 00:00:00 00:00:00 VISIT [facility] ESTAB PT - [facility]I LEVEL 4 [facility] 2021-12-25 2021-12-25 (TEL) STLMLC STLMLC [id number] Co mmon 00:00:00 00:00:00 Spirit - [facility] 2021-12-23 2021-12-23 SUB ANNUAL STLMLC STLMLC [id number] Common 00:00:00 00:00:00 MCR Spirit WELLNESS - CHI VISIT [facility] 2021-12-23 2021-12-23 (TEL) STLMLC STLMLC [id number] Co mmon 00:00:00 00:00:00 Spirit - [facility] 2021-12-22 2021-12-22 (TEL) STLMLC STLMLC [id number] Co mmon 00:00:00 00:00:00 Spirit - [facility] 2021-11-09 2021-11-09 OFFICE STLMLC STLMLC [id number] Co mmon 00:00:00 00:00:00 VISIT [facility] ESTAB PT - CHI LEVEL 4 [facility] 2021-10-21 2021-10-22 Outpatient nullFlavo MNA [id number] [facility] 15:45:00 04:59:59 [facility] 2021-09-16 2021-09-16 OFFICE STLMLC STLMLC [id number] Co mmon 00:00:00 00:00:00 VISIT EST Spir it PT LEVEL 3 - [facility] 2021-09-07 2021-09-08 Outpatient nullFlavo MNA [id number] [facility] 16:00:00 04:59:59 r Neurology 08 l [facility] 2021-08-19 2021-08-19 OFFICE STLMLC STLMLC [id number] Co mmon 00:00:00 00:00:00 VISIT [facility] ESTAB PT - [facility]I LEVEL 4 [facility] 2021-08-13 2021-08-13 OFFICE STLMLC STLMLC [id number] Co mmon 00:00:00 00:00:00 VISIT EST Spir it PT LEVEL 3 - [facility] 2021-05-21 2021-05-21 OFFICE STLMLC STLMLC [id number] Co mmon 00:00:00 00:00:00 VISIT [facility] ESTAB PT - [facility] LEVEL 4 [facility] 2021-04-03 2021-04-03 Outpatient EL CHRISTOPHER, [facility] [id number] SLE 09:10:00 19:00:00 GARRICK 2021-04-02 2021-04-02 Outpatient EL SLE SLE [id number] [facility] 09:46:53 23:59:00 2021-02-11 2021-02-11 Outpatient STLMLC STLMLC [id number] Common 00:00:00 00:00:00 [facility] 2021-01-15 2021-01-15 Outpatient STLMLC STLMLC [id number] Common 00:00:00 00:00:00 [facility] 2021-01-15 2021-01-15 Outpatient STLMLC STLMLC [id number] Common 00:00:00 00:00:00 [facility] 2021-01-08 2021-01-09 Outpatient nullFlavo MNA [id number] [facility] 16:15:00 04:59:59 r Neurology 06 l Oscar Coonann 2020-12-26 2020-12-26 Outpatient STLMLC STLMLC [id number] Common 00:00:00 00:00:00 [facility] 2020-12-17 2020-12-17 Outpatient STLMLC STLMLC [id number] Common 00:00:00 00:00:00 [facility] 2020-10-08 2020-10-08 Outpatient STLMLC STLMLC [id number] Common 00:00:00 00:00:00 [facility] 2020-08-21 2020-08-21 Outpatient STLMLC STLMLC [id number] Common 00:00:00 00:00:00 [facility] 2020-08-11 2020-08-11 Outpatient STLMLC STLMLC [id number] Common 00:00:00 00:00:00 [facility] 2020-07-17 2020-07-18 Outpatient nullFlavo MNA [id number] [facility] 20:00:00 05:59:59 r Neurology 07 l Oscar Hess 2020-07-04 2020-07-04 Outpatient STLMLC STLMLC [id number] Common 00:00:00 00:00:00 [facility] 2020-05-22 2020-05-22 Outpatient STLMLC STLMLC [id number] Common 00:00:00 00:00:00 [facility] 2020-04-11 2020-04-12 Outpatient nullFlavo MNA [id number] Memoria 14:45:00 04:59:59 r Neurology 05 l Oscar Hess 2020-04-07 2020-04-07 Outpatient STLMLC STLMLC [id number] Common 00:00:00 00:00:00 [facility] 2020-04-01 2020-04-01 Outpatient STLMLC STLMLC [id number] Common 00:00:00 00:00:00 [facility] 2020-03-20 2020-03-20 Outpatient STLMLC STLMLC [id number] Common 00:00:00 00:00:00 [facility] 2020-03-14 2020-03-14 Outpatient STLMLC STLMLC [id number] Common 00:00:00 00:00:00 [facility] 2020-02-21 2020-02-21 [id number] Common 08:40:00 08:40:[address] [facility] 2019-12-13 2019-12-14 Outpatient nullFlavo MNA [id number] [facility] 14:45:00 04:59:59 r Neurology 04 l Oscar Hess 2019-11-21 2019-11-21 [facility] [id number] Common 14:00:00 14:00:[address] [place] [address] [facility] 2019-11-21 2019-11-21 [facility] [id number] Common 14:00:00 14:00:00 [address] [place] [address] [facility] 2019-11-14 2019-11-14 [facility] [id number] Common 10:33:00 10:33:00 [address] [place] [address] [facility] 2019-10-17 2019-10-18 Outpatient nullFlavo MNA [id number] [facility] 15:00:00 04:59:59 r Neurology 03 l Oscar Hess 2019-07-18 2019-07-19 Outpatient nullFlavo MNA [id number] [facility] 16:30:00 05:59:59 r Neurology 02 l Oscar Hess 2019-07-09 2019-07-09 [facility] [id number] Common 15:31:00 15:31:00 [address] [place] [address] [facility] 2019-07-04 2019-07-04 [facility] [id number] Common 17:01:00 17:01:00 t [employer] [facility]ir [facility] 2019-07-04 2019-07-04 Out[facility] [id number] Common 13:30:00 13:30:00 t [employer] 2019-06-05 2019-06-06 Outpatient nullFlavo MNA [id number] [facility] 17:30:00 05:59:59 r Neurology 01 l Oscar Hess 2019-04-24 2019-04-25 Outpatient nullFlavo MNA [id number] [facility] 20:15:00 05:59:59 r Neurology 00 l Oscar Hess Results Test Description Test Time Test Comments Results Result Comments Source FERRITIN 2022-11-04 00:00:00 Test Item Value Reference Range Interpretation Comme nts FERRITIN (test code = 32 NG/ML See_Comment [Auto mated message] The system 68661-1) which generated this result transmitted ref erence range: 13-200 NG/ML. The refe rence range was not used to interpr et this result as normal/abnormal . URIC [id number] 00:00:00 Test Item Value Reference Range Interpretation Comments URIC ACID (test 5.6 MG/DL See_Comment [Automated message] The code = 2501-5) system which generated this result tra nsmitted reference range : 2.7-6.1 MG/DL. The refe rence range was not u sed to interpret this result as normal/abnormal . HEMOGLOBIN [id number] 00:00:00 Test Item Value Reference Range Interpretation Comments HEMOGLOBIN A1c (test 7.9 % See_Comment H [Autom ated message] The code = 4548-4) system which generated this result tra nsmitted reference range : 4.2-5.6 %. The referenc e range was not used to interpret this result as normal/abnormal . VITAMIN D, 25 [id number] 00:00:00 Test Item Value Reference Range Interpretation Comments VITAMIN D, 25 OH (test code = 27 NG/ML SEE BELOW NG/ML L 1988-) LIPID PANEL WITH REFLEX DIRECT [id number] 00:00:00 Test Item Value Reference Range Interpretation Comments CALC LDL CHOL (test 86 MG/DL See_Comment [Automa vilma message] code = 56567-7) The system [facility] generated this result transmit vilma reference range : <100 MG/DL. The reference range was not used to interpret this result as normal/abnormal . CHOLESTEROL (test code 145 MG/DL See_Comment [Aut omated message] = 2093-3) The system [facility] generated this result transmit vilma reference range : <200 MG/DL. The reference range was not used to interpret this result as normal/abnormal . HDL CHOLESTEROL (test 40 MG/DL See_Comment [Auto mated message] code = 2085-9) The system [facility] generated this result transmit vilma reference range : >39 MG/DL. The refe rence range was not u sed to interpret th is result as normal/abnormal . RISK RATIO LDL/HDL 2.15 RATIO See_Comment [Automat ed message] (test code = 96609-2) The sy stem which generated this result transmit vilma reference range : <3.22 RATIO. Th e reference range was not used to interpret this result as normal/abnormal . TRIGLYCERIDES (test 93 MG/DL See_Comment [Automa vilma message] code = 2571-8) The system [facility] generated this result transmit vilma reference range : <150 MG/DL. The reference range was not used to interpret this result as normal/abnormal . PATHOLOGIST SMEAR [id number] 00:00:00 Test Item Value Reference Range Interpretation Comments BASOPHILS (test code 0.3 % = 28876-3) COMMENTS (test code (NOTE) = 19734-5) DIAGNOSIS: (test (NOTE) code = 70375-6) EOSINOPHILS (test 2.0 % code = 89826-3) HEMATOCRIT (test 37.1 % See_Comment [Automated message] code = 33880-1) The system [facility] generated this result transmit vilma reference range : 34.0-45.0 %. Th e reference range was not used to interpret this result as normal/abnormal . HEMOGLOBIN (test 12.5 G/DL See_Comment [Automated message] code = 718-7) The system [facility] generated this result transmit vilma reference range : 11.5-15.5 G/DL. The reference range was not used to interpret this result as normal/abnormal . LYMPHOCYTES (test 25.2 % code = 21275-0) MCH (test code = 29.6 PG See_Comment [Automated message] 48133-7) The system [employer] generated this result transmit vilma reference range : 25.0-33.0 PG. T he reference range was not used to interpret this result as normal/abnormal . MCHC (test code = 33.7 G/DL See_Comment [Automate d message] 76903-2) The system [employer] generated this result transmit vilma reference range : 31.0-36.0 G/DL. The reference range was not used to interpret this result as normal/abnormal . MCV (test code = 87.7 fL See_Comment [Automated message] 18428-3) The system [employer] generated this result transmit vilma reference range : 80.0-99.0 fL. T he reference range was not used to interpret this result as normal/abnormal . MICROSCOPIC (NOTE) DESCRIPTION: (test code = 30576-3) MONOCYTES (test code 6.5 % = 95624-3) NEUTROPHILS (test 65.5 % code = 99113-2) NUCLEATED RBCS (test 0.0 /100 WBC'S See_Comment [Aut omated message] code = 82118-8) The system [employer] generated this result transmit vilma reference range : 0.0 /100 WBC'S. The reference range was not used to interpret this result as normal/abnormal . PATHOLOGIST: (test (NOTE) code = 28317-3) PLATELET COUNT (test 233 K/UL See_Comment [Autom ated message] code = 30405-7) The system [employer] generated this result transmit vilma reference range : 130-400 K/UL. T he reference range was not used to interpret this result as normal/abnormal . RBC (test code = 4.23 M/UL See_Comment [Automated message] 82347-9) The system [employer] generated this result transmit vilma reference range : 3.80-5.40 M/UL. The reference range was not used to interpret this result as normal/abnormal . RDW (test code = 14.2 % See_Comment [Automated message] 45333-1) The system [employer] generated this result transmit vilma reference range : 11.5-15.0 %. Th e reference range was not used to interpret this result as normal/abnormal . WBC (test code = 6.7 K/UL See_Comment [Automated message] 76693-1) The system [employer] generated this result transmit vilma reference range : 3.5-11.0 K/UL. The reference range was not used to interpret this result as normal/abnormal . ALBUMIN/CREATININE RATIO, RANDOM [id number] 00:00:00 Test Item Value Reference Range Interpretation Comments ALBUMIN, URINE, 1.8 MG/DL NOT ESTAB MG/DL RANDOM (test code = 77418-2) CALC ALBUMIN/CREAT, 7 MG/G See_Comment [Automa vilma message] RND (test code = The system which 63859-3) generated this result transmitted ref erence range: <30 MG/G . The reference range was not used to interpr et this result as normal/abnormal . CREATININE, URINE, 261.2 MG/DL NOT ESTAB MG/DL CONC. (test code = 2161-8) COMPREHENSIVE METABOLIC [id number] 00:00:00 Test Item Value Reference Range Interpretation Comments ALBUMIN (test code = 4.1 G/DL See_Comment [Autom ated message] 1751-7) The system [employer] generated this result transmit vilma reference range : 3.5-5.2 G/DL. T he reference range was not used to interpret this result as normal/abnormal . ALKALINE PHOSPHATASE 74 U/L See_Comment [Autom ated message] (test code = 6768-6) The sys tem which generated this result transmit vilma reference range : 40-142 U/L. The reference range was not used to interpret this result as normal/abnormal . BILIRUBIN, TOTAL 0.5 MG/DL See_Comment [Automated message] (test code = 1975-2) The sys tem which generated this result transmit vilma reference range : <=1.2 MG/DL. Th e reference range was not used to interpret this result as normal/abnormal . BUN (test code = 17 MG/DL See_Comment [Automated message] 3094-0) The system [employer] generated this result transmit vilma reference range : 8-23 MG/DL. The reference range was not used to interpret this result as normal/abnormal . CALCIUM (test code = 9.5 MG/DL See_Comment [Autom ated message] 78172-5) The system [employer] generated this result transmit vilma reference range : 8.5-10.5 MG/DL. The reference range was not used to interpret this result as normal/abnormal . CALC A/G RATIO (test 2.0 RATIO See_Comment [Autom ated message] code = 1759-0) The system [facility] generated this result transmit vilma reference range : 1.0-2.6 RATIO. The reference range was not used to interpret this result as normal/abnormal . CALC BUN/CREAT (test 14 RATIO See_Comment [Autom ated message] code = 3097-3) The system [facility] generated this result transmit vilma reference range : 6-28 RATIO. The reference range was not used to interpret this result as normal/abnormal . CALC GLOBULIN (test 2.1 G/DL See_Comment [Automa vilma message] code = 54750-1) The system [facility] generated this result transmit vilma reference range : 1.9-3.7 G/DL. T he reference range was not used to interpret this result as normal/abnormal . CARBON DIOXIDE (test 26 MEQ/L See_Comment [Autom ated message] code = 1963-8) The system [facility] generated this result transmit vilma reference range : 19-31 MEQ/L. Th e reference range was not used to interpret this result as normal/abnormal . CHLORIDE (test code 105 MEQ/L See_Comment [Automa vilma message] = 2074-0) The system [facility] generated this result transmit vilma reference range : 95-107 MEQ/L. T he reference range was not used to interpret this result as normal/abnormal . CREATININE (test 1.21 MG/DL See_Comment [Automated message] code = 2160-0) The system [facility] generated this result transmit vilma reference range : 0.60-1.30 MG/DL . The reference range was not used to interpret this result as normal/abnormal . eGFR (2020 CKD-EPI) 48 ML/MIN/1.73 See_Comment L [Auto mated message] (test code = The system [facility] 86048-8) generated this result transmit vilma reference range : >60 ML/MIN/1.73. Th e reference range was not used to interpret this result as normal/abnormal . GLUCOSE (test code = 147 MG/DL See_Comment H [Autom ated message] 1558-6) The system [facility] generated this result transmit vilma reference range : 70-99 MG/DL. Th e reference range was not used to interpret this result as normal/abnormal . POTASSIUM (test code 4.4 MEQ/L See_Comment [Autom ated message] = 5953-3) The system [facility] [employer] generated this result transmit vilma reference range : 3.5-5.4 MEQ/L. The reference range was not used to interpret this result as normal/abnormal . PROTEIN, TOTAL (test 6.2 G/DL See_Comment [Autom ated message] code = 2885-2) The system [facility] generated this result transmit vilma reference range : 6.1-8.3 G/DL. T he reference range was not used to interpret this result as normal/abnormal . AST (test code = 12 U/L See_Comment [Automated message] 1920-8) The system [facility] [employer] generated this result transmit vilma reference range : 9-40 U/L. The reference range was not used to interpret this result as normal/abnormal . ALT (test code = 17 U/L See_Comment [Automated message] 1742-6) The system [facility] [employer] generated this result transmit vilma reference range : 5-40 U/L. The reference range was not used to interpret this result as normal/abnormal . SODIUM (test code = 142 MEQ/L See_Comment [Automa vilma message] 4781-2) The system [facility] generated this result transmit vilma reference range : 133-146 MEQ/L. The reference range was not used to interpret this result as normal/abnormal . POCT-GLUCOSE [id number] 17:34:26 Test Item Value Reference Range Interpretation Comments POC-GLUCOSE METER 149 mg/dL 70-110 H : TESTED A T [facility] 7200 (BEAKER) (test code CAMBERYN E BLDG A, = 1538) [facility] 7703 0: Chemical Dependency Nurse/Techni shahnaz ID = [id number] for ELIZA ROSALES BASIC METABOLIC [id number] 10:35:54 Test Item Value Reference Range Interpretation Comments SODIUM (BEAKER) 139 meq/L 136-145 (test code = 381) POTASSIUM (BEAKER) 4.0 meq/L 3.5-5.1 (test code = 379) CHLORIDE (BEAKER) 105 meq/L 98-107 (test code = 382) CO2 (BEAKER) (test 26 meq/L 22-29 code = 355) BLOOD UREA NITROGEN 15 [...] S NOT APPLICABLE FOR DIALYSIS PATIEN TS. [id number] 10:23:30 Test Item Value Reference Range Interpretation Comments HEMOGLOBIN (BEAKER) (test code = 13.9 GM/DL 11.2-15.7 410) POCT-GLUCOSE [id number] 10:21:36 Test Item Value Reference Range Interpretation Comments POC-GLUCOSE METER 119 mg/dL 70-110 H : TESTED A T [facility] 7200 (BEAKER) (test code CAMBRIDG E BLDG A, = 1538) [facility] 3463 0: Chemical Dependency Nurse/Techni shahnaz ID = [id number] for Jaren Renteria
--- NOTE | 2023-04-11 12:38 | RAD REPORT ---
EXAM DESCRIPTION: CT - C Spine Wo Con - 04/11/2023 11:46 am CLINICAL HISTORY: Fall, pain COMPARISON: None. TECHNIQUE: Axial thin cut noncontrast CT images of the cervical spine were obtained with sagittal an d coronal reconstruction images generated and reviewed. All CT scans are performed using dose optimization technique as appropriate and may include automated exposure control or mA/KV adjustment according to patient size. FINDINGS: Cervical body height and alignment are normal. Interval anterior plating with interbody sp acers spanning C3- C7. Scattered residual facet and uncovertebral joint spurring all, contributes to variable degrees of neural foraminal narrowing, at least moderate on the right at C3-4 and on the lef t at C5-6. No fracture or acute bony abnormality. No paraspinal mass or hematoma. Bulky left thyroid lobe with ill-defined nodules and calcifications, probably stable. Ground-glass opacities in upper lungs, geographic in appearance, and nonspecific IMPRESSION: No acute osseous abnormality of the cervical spine. Interval sequelae of anterior fusion C3-C7, with re- demonstration of variable degrees of neural fora melyssa narrowing as detailed above. Ground-glass opacities in the upper lungs, nonspecific, but may reflect a degree of pulmonary edema. Stable appearance of bulky left thyroid lobe with calcifications. This can be further evaluated by de dicated thyroid ultrasound.
--- NOTE | 2023-04-11 12:48 | RAD REPORT ---
EXAM DESCRIPTION: CT - Spine Lumbar Wo Con - 04/11/2023 11:46 am CLINICAL HISTORY: fall, pain COMPARISON: No comparisons TECHNIQUE: Axial noncontrast CT imaging of the lumbar spine was performed with coronal and sagittal re-formatted images. All CT scans are performed using dose optimization technique as appropriate and may include automated exposure control or mA/KV adjustment according to patient size. FINDINGS: No acute lumbar spine fracture seen. No aggressive marrow pattern. Multilevel spondylolist hesis, minimal in degree, with degrees of retrolisthesis of T12 over L1, L1 over L2, and L2 over L3, not exceeding 3 millimeter. Focal mild levoconvex curvature with apex at L2-3, with asymmetric disc h eight loss on the left at L1-2, and on the right at L2-3 and L3-4. Scattered Schmorl's nodes. Paraspinal tissues are normal in thickness. No paraspinal abscess or hematoma seen. Intervertebral disc disease assessment is inherently limited by CT. Within these limitations, no high -grade canal stenosis suspected. Variable degrees of neural foraminal narrowing, up to moderate on t he left at L3-4 and [id number] on the right at L2-3 and L1-2. Calcifications along the right renal pelvis are favored to be vascular. Fusiform aneurysmal dilation of the abdominal aorta, measuring 3.5 cm in greatest caliber IMPRESSION: No acute osseous abnormality. Multilevel lumbar spine degenerative changes as above, with evidence of variable degrees of neural fo raminal narrowing, up to moderate on the left at L3-4 and [id number] on the right at L1-2 and L 2-3. No high-grade bony canal stenosis. Please consider MRI follow-up for assessment of disc disease if clinically desired.
--- NOTE | 2023-04-11 12:52 | RAD REPORT ---
EXAM DESCRIPTION: CT - Pelvis Wo Cont - 04/11/2023 11:46 am CLINICAL HISTORY: fall, pelvic pain COMPARISON: No comparisons TECHNIQUE: Thin cut axial CT imaging of the pelvis was performed without IV contrast. Multiplanar re formats were generated and reviewed. All CT scans are performed using dose optimization technique as appropriate and may include automated exposure control or mA/KV adjustment according to patient size. FINDINGS: No acute fracture. Mild bilateral hip joint degenerative changes, with osseous protuberanc e at the superior acetabular margin bilaterally, which can predispose to femoroacetabular impingement . Small fusiform aneurysmal dilation of the abdominal aorta, best appreciated on the lumbar spine CT, m easuring up to 3.3 cm in caliber. Mild degenerative changes of the sacroiliac joints and moderate degenerative changes at L5-S1, better evaluated on lumbar spine CT. No dilated bowel loops or bowel wall thickening. No free air, free fluid or inflammatory stranding. N o hernia, mass or bulky lymphadenopathy. The urinary bladder is without significant finding. No other suspicious bony findings. IMPRESSION: No acute osseous abnormality of the bony pelvis. Chronic findings as above, including mild fusiform aneurysmal dilation of the abdominal aorta.
--- NOTE | 2023-04-11 13:06 | RAD REPORT ---
EXAM DESCRIPTION: RAD - Knee Left 3 View - 04/11/2023 12:17 pm CLINICAL HISTORY: Left knee pain FINDINGS: No fracture or dislocation is seen. Marked osteoarthritis involves the medial compartment. Edema is present subcutaneous tissues. If patient continues to have symptoms to suggest an occult fracture, ligamentous or meniscal injury t hen MRI would be recommended
--- NOTE | 2023-04-11 13:08 | RAD REPORT ---
EXAM DESCRIPTION: RAD - Knee Right 3 View - 04/11/2023 12:18 pm CLINICAL HISTORY: Right knee pain status post injury FINDINGS: No fracture or dislocation is seen. Edema is present the subcutaneous tissues Moderate to marked osteoarthritis If the patient continues to have symptoms to suggest an occult fracture, ligamentous or meniscal inju ry then MRI would be recommended
--- NOTE | 2023-04-11 13:10 | RAD REPORT ---
EXAM DESCRIPTION: RAD - Foot Right 3 View - 04/11/2023 12:19 pm CLINICAL HISTORY: Right foot pain status post injury FINDINGS: No fracture or dislocation is seen Osteoporosis Large calcaneal spurs
--- NOTE | 2023-04-11 13:15 | RAD REPORT ---
EXAM DESCRIPTION: RAD - Foot Left 3 View - 04/11/2023 12:20 pm CLINICAL HISTORY: Left Foot pain FINDINGS: Osteoporosis Large calcaneal spurs Transverse lucency is present within the posterior calcaneal spur. This probably is chronic. However, it can be seen with an acute fracture of the spur. Clinical correlation is needed to see if the jazmin ent has point tenderness to suggest acuity Otherwise, no fracture or dislocation seen
[2023-04-11] MEDS ORDERED: HYDROCODONE/APAP 10/325 TAB ONE (13:42)
[2023-04-11] MEDS ORDERED: IBUPROFEN 400 MG TAB ONE (13:42)
[2023-04-11 13:59] LABS: Protime INR 1.02
[2023-04-11 14:10] LABS: Troponin High Sensitivity 5.8 pg/mL (<58.9)
[2023-04-11 14:29] LABS: Absolute Lymphocytes (CBC) 1.7 K/uL (0.7-4.9); Hematocrit 36.4 % (36.0-45.0); Lymphocytes % 20.4 % (15.3-44.8); MCV 83.4 fL (80-100); MPV 8.8 fL (7.6-11.3); Platelets 263 thou/uL (152-406); RBC Red Blood Cell Count 4.36 M/uL (3.86-4.86)
[2023-04-11] MEDS ORDERED: ONDANSETRON 4 MG/2 ML VIAL ONE (15:08)
[2023-04-11] MEDS ORDERED: MORPHINE 2 MG/ML SYR ONE (15:08)
--- NOTE | 2023-04-11 15:32 | RAD REPORT ---
EXAM DESCRIPTION: Fidel Single View04/11/2023 2:34 pm CLINICAL HISTORY: Shortness breath COMPARISON: November 2022 FINDINGS: The lungs appear clear of acute infiltrate. The heart is mildly enlarged IMPRESSION: No acute abnormalities displayed
--- NOTE | 2023-04-11 15:46 | ER ---
Nurse's Notes [facility] Name: Alejandra Coto Age: 72 yrs Sex: Female : 1950 Arrival Date: 04/11/2023 Time: 11:08 Bed 16 Private MD: Diagnosis: Repeated falls;Contusion of left knee, initial encounter;Strain of muscle, fascia and tendon of lower back, initial encounter Presentation: 04/11 11:29 Chief complaint: EMS states: "toned out for bilateral knee and neck pain after falling. mb9 Pt denies hitting head and LOC. Pt does not take blood thinners". Coronavirus screen: Vaccine status: Patient reports receiving the 2nd dose of the covid vaccine. Ebola Screen: No symptoms or risks identified at this time. Initial Sepsis Screen: Does the patient meet any 2 criteria? No. Patient's initial sepsis screen is negative. Does the patient have a suspected source of infection? No. Patient's initial sepsis screen is negative. Risk Assessment: Do you want to hurt yourself or someone else? Patient reports no desire to harm self or others. Onset of symptoms was April 11, 2023. 11:29 Method Of Arrival: EMS: [facility] mb9 11:29 Acuity: JACOBY 3 mb9 Triage Assessment: 11:31 General: Appears in no apparent distress. Behavior is calm, cooperative. Pain: mb9 Complains of pain in neck and bilateral knees Pain currently is 8 out of 10 on a pain scale. Quality of pain is described as throbbing, Pain began suddenly, Is continuous. EENT: No signs and/or symptoms were reported regarding the EENT system. Neuro: Mcdermott Agitation-Sedation Scale (RASS): 0 - Alert and Calm Level of Consciousness is awake, alert, obeys commands, Oriented to person, place, time, situation, Appropriate for age. Cardiovascular: Patient's skin is warm and dry. Respiratory: Airway is patent Respiratory effort is even, unlabored, Respiratory pattern is regular, symmetrical. GI: No signs and/or symptoms were reported involving the gastrointestinal system. : No signs and/or symptoms were reported regarding the genitourinary system. Derm: Skin is pink, warm \\T\\ dry. Musculoskeletal: Range of motion: limited in left knee and right knee. Historical: - Allergies: 11:30 Niacin; mb9 - PMHx: 11:30 ADD/ADHD; Diabetes - IDDM; Hypertension; Vulva Cancer; Pancreatitis; High Cholesterol; mb9 meningitis; heart disease; GERD; allergies; constipation; Myocardial infarction (); - PSHx: 11:30 Coronary Angioplasty; Appendectomy; Cholecystectomy; cardiac stents; hyst; Vulva CA SX mb9 (Ca); - Immunization history:: Adult Immunizations up to date. - Social history:: Smoking status: Patient denies any tobacco usage or history of. - Family history:: not pertinent. - Hospitalizations: : No recent hospitalization is reported. Screenin:32 [facility] ED Fall Risk Assessment (Adult) History of falling in the last 3 months, mb9 including since admission Yes- fall prone (multiple falls) (3 pts) Confusion or Disorientation No (0 pts) Intoxicated or Sedated No (0 pts) Impaired Gait Yes (1 pt) Mobility Assist Device Used Yes (1 pt) Altered Elimination No (0 pt) Score/Fall Risk Level 3 or more points = High Risk Oriented to surroundings, Maintained a safe environment, Educated pt \\T\\ family on fall prevention, incl call for assistance when getting out of bed. Abuse screen: Denies threats or abuse. Nutritional screening: No deficits noted. Tuberculosis screening: No symptoms or risk factors identified. Assessment: 11:32 Reassessment: see triage assessment. mb9 12:32 Reassessment: No changes from previously documented assessment. Patient and/or family mb9 updated on plan of care and expected duration. Pain level reassessed. Patient is alert, oriented x 3, equal unlabored respirations, skin warm/dry/pink. 13:32 Reassessment: Patient and/or family updated on plan of care and expected duration. Pain mb9 level reassessed. Patient is alert, oriented x 3, equal unlabored respirations, skin warm/dry/pink. Reassessment:. General: Appears uncomfortable, Behavior is anxious, crying. 14:26 Reassessment: No changes from previously documented assessment. Patient and/or family mb9 updated on plan of care and expected duration. Pain level reassessed. Patient is alert, oriented x 3, equal unlabored respirations, skin warm/dry/pink. 16:00 Reassessment: Patient and/or family updated on plan of care and expected duration. Pain mb9 level reassessed. Patient is alert, oriented x 3, equal unlabored respirations, skin warm/dry/pink. Patient states feeling better. Patient states symptoms have improved. Vital Signs: 11:29 BP 119 / 59; Pulse 69; Resp 18; Temp 97.9; Pulse Ox 95% on R/A; Weight 130.63 kg; mb9 Height 5 ft. 3 in. ; Pain 8/10; 12:32 BP 116 / 50; Pulse 65; Resp 16; Pulse Ox 95% on R/A; mb9 13:32 BP 129 / 57; Pulse 65; Resp 18; Pulse Ox 94% on R/A; mb9 15:05 BP 120 / 84; Pulse 62; Resp 16; Pulse Ox 99% on R/A; mb9 16:19 BP 115 / 78; Pulse 61; Resp 18; Pulse Ox 97% on R/A; mb9 11:29 Body Mass Index 51.02 (130.63 kg, 160.02 cm) mb9 11:29 Pain Scale: Adult mb9 ED Course: 11:22 Patient arrived in ED. rn 11:22 Jeff Bowling MD is Attending Physician. rn 11:29 Rea Nixon, DOMENICO is Primary Nurse. mb9 11:30 Triage completed. mb9 11:31 Arm band placed on. mb9 11:32 Bed in low position. Call light in reach. Side rails up X 1. Client placed on mb9 continuous cardiac and pulse oximetry monitoring. NIBP monitoring applied. 11:33 No provider procedures requiring assistance completed. mb9 11:47 CT C Spine In Process Unspecified. EDMS 11:47 CT Lumbar Spine Wo Con In Process Unspecified. EDMS 11:47 CT Pelvis wo Cont In Process Unspecified. EDMS 12:19 XRAY Knee LEFT 3 view In Process Unspecified. EDMS 12:19 XRAY Foot RIGHT 3 View In Process Unspecified. EDMS 12:19 XRAY Foot LEFT 3 View In Process Unspecified. EDMS 12:20 Knee Right 3 View In Process Unspecified. EDMS 14:35 XRAY Chest (1 view) In Process Unspecified. EDMS 16:25 IV discontinued, intact, bleeding controlled, No redness/swelling at site. Pressure mb9 dressing applied. Administered Medications: 13:33 Drug: [place] PO 10 mg-325 mg 1 tabs PO once Route: PO; mb9 15:04 Follow up: Response: No adverse reaction mb9 13:33 Drug: Ibuprofen PO 400 mg PO once Route: PO; mb9 15:04 Follow up: Response: No adverse reaction mb9 15:00 Drug: Ondansetron IVP 4 mg IVP once; over 2 minutes Route: IVP; Site: left hand; mb9 16:20 Follow up: Response: No adverse reaction mb9 15:03 Drug: morphine IVP or IV 2 mg IVP once over 4 mins Route: IVP; Infused Over: 4 mins; mb9 Site: left hand; 16:22 Follow up: Response: No adverse reaction mb9 Medication: 11:33 VIS not applicable for this client. mb9 Outcome: 15:46 Discharge ordered by . rn 16:25 Discharged to home via wheelchair, with family, mb9 16:25 Condition: stable 16:25 Discharge instructions given to patient, family, Instructed on discharge instructions, follow up and referral plans. Demonstrated understanding of instructions, follow-up care, 16:25 Patient left the ED. mb9 Signatures: Dispatcher [employer] EDMS Jeff Bowling MD MD rn Breneman, Mary Beth RN RN mb9 Corrections: (The following items were deleted from the chart) 12:40 12:32 Pulse 65bpm; Resp 16bpm; Pulse Ox 95% RA; mb9 mb9 14:26 11:29 Acuity: JACOBY 4 mb9 mb9
--- NOTE | 2023-04-11 15:46 | EDPHYS ---
Physician Documentation [facility] Name: Alejandra Coto Age: 72 yrs Sex: Female : 1950 Arrival Date: 04/11/2023 Time: 11:08 Bed 16 Private MD: ED Physician Jeff Bowling HPI: 04/11 13:39 This 72 yrs old Female presents to ER via EMS with complaints of fall. rn 13:39 Details of fall: The patient fell from an upright position. Onset: The symptoms/episode rn began/occurred this morning. Associated injuries: The patient sustained neck injury, injury to the low back, Left knee. Severity of symptoms: At their worst the symptoms were moderate, in the emergency department the symptoms are unchanged. The patient has experienced similar episodes in the past. The patient has not recently seen a physician. Patient reports recurrent falls lately. Had another fall this morning where she tripped on an area rug and fell forward onto her knees. Reports neck pain, mid back pain lower back pain, and left knee pain. Still hurts in right knee and feet from a fall 6 days ago. No meds given by EMS. No changes in medication. No LOC.. Historical: - Allergies: 11:30 Niacin; mb9 - PMHx: 11:30 ADD/ADHD; Diabetes - IDDM; Hypertension; Vulva Cancer; Pancreatitis; High Cholesterol; mb9 meningitis; heart disease; GERD; allergies; constipation; Myocardial infarction (); - PSHx: 11:30 Coronary Angioplasty; Appendectomy; Cholecystectomy; cardiac stents; hyst; Vulva CA SX mb9 (Ca); - Immunization history:: Adult Immunizations up to date. - Social history:: Smoking status: Patient denies any tobacco usage or history of. - Family history:: not pertinent. - Hospitalizations: : No recent hospitalization is reported. ROS: 13:39 Constitutional: Negative for fever, chills, and weight loss, Neck: Positive for neck rn pain Cardiovascular: Negative for chest pain, palpitations, and edema, Respiratory: Mild shortness of breath Abdomen/GI: Negative for abdominal pain, nausea, vomiting, diarrhea, and constipation, Back: Positive for low back pain MS/Extremity: Positive for left knee pain Exam: 13:39 Constitutional: This is a well developed, well nourished patient who is awake, alert, rn and in no acute distress. On EMS stretcher in hallway, no distress, no crying, does not appear in pain. Head/Face: Normocephalic, atraumatic. ENT: No oral trauma noted Chest/axilla: Nontender, no crepitus Cardiovascular: Regular rate and rhythm. No pulse deficits. Respiratory: No increased work of breathing, no retractions or nasal flaring. Abdomen/GI: Soft, non-tender Back: Lumbar paraspinal tenderness Skin: Warm, dry, signs of lymphedema bilateral lower extremities MS/ Extremity: Pulses equal, no cyanosis. Neurovascular intact. Painful range of motion and ecchymosis to left knee anteriorly. No gross deformity. No ecchymosis or deformities of the foot ankle or toes. No tenderness at the hips. Neuro: Awake and alert, GCS 15, oriented to person, place, time, and situation. 4 out of 5 strength throughout Vital Signs: 11:29 BP 119 / 59; Pulse 69; Resp 18; Temp 97.9; Pulse Ox 95% on R/A; Weight 130.63 kg; mb9 Height 5 ft. 3 in. ; Pain 8/10; 12:32 BP 116 / 50; Pulse 65; Resp 16; Pulse Ox 95% on R/A; mb9 13:32 BP 129 / 57; Pulse 65; Resp 18; Pulse Ox 94% on R/A; mb9 15:05 BP 120 / 84; Pulse 62; Resp 16; Pulse Ox 99% on R/A; mb9 16:19 BP 115 / 78; Pulse 61; Resp 18; Pulse Ox 97% on R/A; mb9 11:29 Body Mass Index 51.02 (130.63 kg, 160.02 cm) mb9 11:29 Pain Scale: Adult mb9 MDM: 11:22 Patient medically screened. rn 15:44 Differential diagnosis: closed head injury, contusion, fracture, sprain, strain. Data rn reviewed: vital signs, nurses notes, lab test result(s), EKG, radiologic studies, CT scan, plain films, and as a result, I will discharge patient. Counseling: I had a detailed discussion with the patient and/or guardian regarding the historical points, exam findings, and any diagnostic results supporting the discharge/admit diagnosis, lab results, radiology results, the need for outpatient follow up, to return to the emergency department if symptoms worsen or persist or if there are any questions or concerns that arise at home. Response to treatment: the patient's symptoms have markedly improved after treatment, and as a result, I will discharge patient. Special discussion: I discussed with the patient/guardian in detail that at this point there is no indication for admission to the hospital. It is understood, however, that if the symptoms persist or worsen the patient needs to return immediately for re-evaluation. ED course: I have personally reviewed all of the results, including but not limited to blood tests and imaging deemed necessary to safely discharge this patient at this time. I personally went over all the results with the patient and answered all questions. Patient will follow-up with PCP and or specialist as discussed. Return precautions given and understood.. 04/11 13:38 Order name: CBC with Diff; Complete Time: 14:33 rn 04/11 13:38 Order name: Protime (+inr); Complete Time: 14:33 rn 04/11 13:38 Order name: Ptt, Activated; Complete Time: 14:33 rn 04/11 13:38 Order name: BNP; Complete Time: 14:33 rn 04/11 13:38 Order name: Troponin High Sensitivity; Complete Time: 14:33 rn 04/11 11:24 Order name: CT C Spine; Complete Time: 12:56 rn 04/11 11:24 Order name: CT Lumbar Spine Wo Con; Complete Time: 12:56 rn 04/11 11:24 Order name: CT Pelvis wo Cont; Complete Time: 12:56 rn 04/11 11:24 Order name: XRAY Knee LEFT 3 view; Complete Time: 13:18 rn 04/11 11:24 Order name: XRAY Foot RIGHT 3 View; Complete Time: 13:18 rn 04/11 11:24 Order name: XRAY Foot LEFT 3 View; Complete Time: 13:18 rn 04/11 12:14 Order name: Knee Right 3 View; Complete Time: 13:18 EDMS 04/11 13:38 Order name: XRAY Chest (1 view); Complete Time: 15:36 rn 04/11 13:38 Order name: IV Start; Complete Time: 13:40 rn Administered Medications: 13:33 Drug: [place] PO 10 mg-325 mg 1 tabs PO once Route: PO; mb9 15:04 Follow up: Response: No adverse reaction mb9 13:33 Drug: Ibuprofen PO 400 mg PO once Route: PO; mb9 15:04 Follow up: Response: No adverse reaction mb9 15:00 Drug: Ondansetron IVP 4 mg IVP once; over 2 minutes Route: IVP; Site: left hand; mb9 16:20 Follow up: Response: No adverse reaction mb9 15:03 Drug: morphine IVP or IV 2 mg IVP once over 4 mins Route: IVP; Infused Over: 4 mins; mb9 Site: left hand; 16:22 Follow up: Response: No adverse reaction mb9 Disposition Summary: 04/11/23 15:46 Discharge Ordered Notes: Location: Home rn Problem: new rn Symptoms: have improved rn Condition: Stable rn Diagnosis - Repeated falls rn - Contusion of left knee, initial encounter rn - Strain of muscle, fascia and tendon of lower back, initial encounter rn Followup: rn - With: Private Physician - When: As needed - Reason: Recheck today's complaints, Re-evaluation by your physician Discharge Instructions: - Discharge Summary Sheet rn - Lumbosacral Strain rn - Contusion rn - Fall Prevention in the Home, Adult rn Forms: - Medication Reconciliation Form rn - Thank You Letter rn - Antibiotic air turning machine feeder - Prescription Opioid Use rn - Patient Portal Instructions rn - Leadership Thank You Letter rn Signatures: Dispatcher [employer] Jeff Jiménez MD MD rn Breneman, Mary Beth RN RN mb9 Corrections: (The following items were deleted from the chart) 13:41 13:39 Patient reports recurrent falls lately. Had another fall this morning where she rn tripped on an area rug and fell forward onto her knees. Reports neck pain, mid back pain lower back pain, and left knee pain. Still hurts in right knee and feet from a fall 6 days ago. No meds given by EMS.. rn
== END 2023-04-11 16:25 | disposition home or self-care (01) ==
LOC: ER 11:08
DX: S39.012A Strain of muscle, fascia and tendon of lower back, initial encounter (principal); S80.02XA Contusion of left knee, initial encounter; R29.6 Repeated falls; I10 Essential (primary) hypertension; Z95.818 Presence of other cardiac implants and grafts; Z88.8 Allergy status to other drugs, medicaments and biological substances
CPT/HCPCS: 85025; 36415; 85610; 85730; 84484; 83880; 72131; 72125; 72192; 71045; 73630 ×2; 73562 ×2; 96375; 96374; 99284; J2270; J2405

== ENCOUNTER 2023-08-11 13:45 | Inpatient (IN) | payer OTHER ==
[2023-08-11 16:31] LABS: Absolute Basophils 0.1 K/uL (0-0.5); Absolute Eosinophils 0.2 K/uL (0-0.5); Absolute Monocytes 0.6 K/uL (0.1-1.3); Absolute Neutrophil 6.1 K/uL (1.8-8.0); Basophils % 0.7 % (0-1.3); Hematocrit 42.1 % (36.0-45.0); Lymphocytes % 22.2 % (15.3-44.8); MCH 26.7 pg (27.0-35.0); MCHC 33.2 g/dL (32.0-36.0); MCV 80.3 fL (80-100); MPV 8.5 fL (7.6-11.3); Monocytes % 6.5 % (3.3-12.3); Neutrophils % 68.6 % (41.7-73.7); Nucleated Red Blood Cells % 0.1 % (0-0); Platelets 263 thou/uL (152-406); RBC Red Blood Cell Count 5.24 M/uL (3.86-4.86); Red Cell Distribution Width 15.2 % (12.1-15.2)
[2023-08-11 16:54] LABS: Albumin 3.6 g/dL (3.4-5.0); Albumin/Globulin Ratio 0.9 (1.1-1.8); Bilirubin Total 0.5 mg/dL (0.2-1.0); Globulin 4.2 g/dL (2.3-3.5); Protein, Total 7.8 g/dL (6.4-8.2)
--- NOTE | 2023-08-11 18:01 | RAD REPORT ---
EXAM DESCRIPTION: CT - Abdomen Pelvis W Contrast - 08/11/2023 5:20 pm CLINICAL HISTORY: Abd pain;Constipation COMPARISON: Abdomen Pelvis W Contrast dated 07/24/2016; CT ABD PELVIS W CONTRAST dated 09/28/2007 TECHNIQUE: Thin cut axial CT imaging of the abdomen and pelvis was performed following intravenous a dministration of iodinated contrast. Multiplanar reformats were generated and reviewed. All CT scans are performed using dose optimization technique as appropriate and may include automated exposure control or mA/KV adjustment according to patient size. FINDINGS: No suspicious findings in the lung bases. The liver, spleen, adrenal glands, and pancreas show no suspicious findings. Gallbladder was surgical ly removed Symmetric renal function is seen with no hydronephrosis or suspicious renal mass. No dilated bowel loops or bowel wall thickening. No free air, free fluid or inflammatory stranding. M oderate stool burden within the rectal bulb. No hernia, mass or bulky lymphadenopathy. The urinary bl adder is without significant finding. No suspicious bony findings. Hemangioma again noted within the right aspect of T10 vertebral body. IMPRESSION: No acute intra-abdominal process. Moderate stool burden within the rectal bulb.
--- NOTE | 2023-08-11 18:12 | EDPHYS ---
Physician Documentation [facility] Name: Alejandra Coto Age: 72 yrs Sex: Female : 1950 Arrival Date: 08/11/2023 Time: 13:45 Bed 13 Private MD: ED Physician Jeff Bowling HPI: 08/11 16:51 This 72 yrs old Female presents to ER via Ambulatory with complaints of Constipation. rn 16:51 The patient presents with abdominal pain in the lower abdomen. Onset: The rn symptoms/episode began/occurred at an unknown time. The symptoms do not radiate. Associated signs and symptoms: Pertinent positives: constipation, Pertinent negatives: nausea and vomiting, fever. The symptoms are described as crampy. Modifying factors: The symptoms are alleviated by nothing, the symptoms are aggravated by nothing. Severity of pain: At its worst the pain was mild in the emergency department the pain is unchanged. The patient has not experienced similar symptoms in the past. The patient has not recently seen a physician. Patient reports lower abdominal pain and constipation. Has not had a normal bowel movement for 2 weeks. Has been straining a lot and noticed a little bit of hemorrhoidal bleeding. No fever. No vomiting. Decreased appetite. Historical: - Allergies: 14:37 Niacin tablets; tl4 - Home Meds: 14:37 allopurinol 100 mg Oral tab 1 tab once daily [Active]; aspirin 81 mg Oral chew 1 tab tl4 once daily [Active]; atorvastatin 80 mg Oral tablet 1 tab daily [Active]; carvedilol 12.5 mg oral tablet 1 tab 2 times per day [Active]; Dulcolax (bisacodyl) 5 mg Oral tablet [Active]; Colace 50 mg Oral cap 1 cap 3-4 daily [Active]; esomeprazole magnesium 40 mg Oral cpDR 1 cap once daily [Active]; ipratropium bromide inhalation 2-3 times daily [Active]; glipizide 2.5 mg Oral tr24 1 tab twice a day [Active]; escitalopram oxalate 20 mg Oral tab 1 tab once daily [Active]; gabapentin 300 mg Oral cap 1 cap 2 times per day [Active]; Levemir 100 unit/mL subcutaneous soln 30-50 units BID [Active]; levothyroxine 50 mcg tablet 1 tabs daily [Active]; lubiprostone 24 mcg Oral cap 1 cap 2 times per day [Active]; ondansetron HCl 4 mg Oral tablet 1 tab [Active]; oxybutynin chloride 5 mg Oral tab 1 tab daily [Active]; tizanidine 4 mg Oral tab 1 tab nightly [Active]; Tylenol #4 Oral 1 tab every 8 hours [Active]; Vitamin D 2000 IU Oral twice a day [Active]; Zetia 10 mg Oral tab 1 tab once daily [Active]; Victoza 2-Rony subcutaneous 1.8 mg 1.8 mg daily [Active]; bumetanide 2 mg Oral tablet 1 tab daily [Active]; Wixela Inhub 250-50 mcg/dose inhalation Blister, With Inhalation Device 1 inhalation 2 times per day [Active]; Jardiance 10 mg oral tablet 1 tab daily [Active]; - PMHx: 14:37 ADD/ADHD; allergies; constipation; GERD; heart disease; Diabetes - IDDM; High tl4 Cholesterol; meningitis; Hypertension; Myocardial infarction (); Vulva Cancer; Pancreatitis; - PSHx: 14:37 Appendectomy; cardiac stents; Cholecystectomy; Coronary Angioplasty; Vulva CA SX; Total tl4 abdominal hysterectomy; - Family history:: not pertinent. - Social history:: Smoking status: unknown. - Hospitalizations: : No recent hospitalization is reported. ROS: 16:51 Constitutional: Negative for fever, chills, and weight loss, Cardiovascular: Negative rn for chest pain, palpitations, and edema, Respiratory: Negative for shortness of breath, cough, wheezing, and pleuritic chest pain, Abdomen/GI: Positive for lower abdominal pain and constipation MS/Extremity: Negative for injury and deformity, Skin: Negative for injury, rash, and discoloration, Neuro: Negative for headache, weakness, numbness, tingling, and seizure, Exam: 16:51 Constitutional: This is a well developed, well nourished patient who is awake, alert, rn and in no acute distress. Cardiovascular: Regular rate and rhythm. No pulse deficits. Respiratory: No increased work of breathing, no retractions or nasal flaring. Abdomen/GI: Soft, mild lower abdominal tenderness. No masses. No rebound. MS/ Extremity: Pulses equal, no cyanosis Neuro: Awake and alert, GCS 15 Vital Signs: 14:34 BP 138 / 55; Pulse 68; Resp 18; Temp 98(O); Pulse Ox 94% on R/A; Weight 121.56 kg; tl4 Height 5 ft. 3 in. ; Pain 8/10; 19:30 BP 158 / 81; Pulse 59; Resp 17 S; Pulse Ox 98% on R/A; ha1 21:16 BP 151 / 82; Pulse 67; Resp 17 S; Temp 97.9; Pulse Ox 97% on R/A; ha1 14:34 Body Mass Index 47.47 (121.56 kg, 160.02 cm) tl4 14:34 Pain Scale: Adult tl4 MDM: 14:47 Patient medically screened. rn 18:06 Differential diagnosis: bowel obstruction, constipation, fecal impaction. Data rn reviewed: vital signs, nurses notes, lab test result(s), radiologic studies, CT scan, and as a result, I will admit patient. Consideration of Admission/Observation Patient was admitted/placed on observation. Escalation of care including admission/observation considered. Counseling: I had a detailed discussion with the patient and/or guardian regarding the historical points, exam findings, and any diagnostic results supporting the discharge/admit diagnosis, lab results, radiology results, the need for further work-up and treatment in the hospital. 18:10 ED course: CT shows constipation and moderate fecal retention in the rectum. Patient rn states PCP and referring physician attempted manual disimpaction and was too high. Tried enemas at home and failed. Will admit for more aggressive bowel regimen, IV hydration and soapsuds enema. Hospitalist contacted regarding admission. 08/11 14:21 Order name: CBC with Diff; Complete Time: 17:06 rn 08/11 14:21 Order name: CMP; Complete Time: 17:06 rn 08/11 14:21 Order name: Lipase; Complete Time: 17:06 rn 08/11 19:28 Order name: Urinalysis w/ reflexes EDMS 08/11 19:28 Order name: CBC with Automated Diff EDMS 08/11 19:28 Order name: CBC with Automated Diff EDMS 08/11 19:28 Order name: Comprehensive Metabolic Panel EDMS 08/11 19:28 Order name: Comprehensive Metabolic Panel EDSC 08/11 14:21 Order name: CT Abd/Pelvis - IV Contrast Only; Complete Time: 18:02 rn 08/11 14:21 Order name: IV Saline Lock; Complete Time: 16:25 rn 08/11 14:21 Order name: Labs collected and sent; Complete Time: 16:25 rn Administered Medications: 19:20 Drug: NS 0.9% IV 500 ml IV at bolus once Route: IV; Rate: bolus; Site: right forearm; ha1 19:20 Drug: Fleet Enema WY 133 ml WY once; may repeat once Route: WY; ha1 20:07 Drug: Glycerin (Adult) WY Suppository 1 supp WY once Route: WY; ha1 21:00 Follow up: Response: No adverse reaction ha1 Disposition Summary: 08/11/23 18:11 Hospitalization Ordered Notes: Hospitalization Status: Observation rn Provider: Ana Barker rn Location: Telemetry/MedSurg (observation) rn Condition: Stable rn Problem: new rn Symptoms: have improved rn Bed/Room Type: Standard rn Room Assignment: 211(08/11/23 20:52) [email or web address] Diagnosis - Fecal impaction rn - Dehydration rn Forms: - Medication Reconciliation Form rn - SBAR form rn - Leadership Thank You Letter rn Signatures: Dispatcher [employer] Jeff Jiménez MD MD rn Bryson, James, RN RN jb4 Sonja Centeno, RN RN 1 Maury Groves RN RN tl4 Corrections: (The following items were deleted from the chart) 14:45 14:37 PSHx: hyst; tl4 tl4 20:52 18:11 rn [email or web address]
--- NOTE | 2023-08-11 18:12 | ER ---
Nurse's Notes [facility] Name: Alejandra Coto Age: 72 yrs Sex: Female : 1950 Arrival Date: 08/11/2023 Time: 13:45 Bed 13 Private MD: Diagnosis: Fecal impaction;Dehydration Presentation: 08/11 14:34 Chief complaint: Patient states: Pt c/o constipation x 10 days. Pt states no relief tl4 with multiple laxatives and stool softeners. Pt also c/o intermittent nausea, bloating, and lower abdominal pain. Coronavirus screen: At this time, the client does not indicate any symptoms associated with coronavirus-19. Ebola Screen: No symptoms or risks identified at this time. Initial Sepsis Screen: Does the patient meet any 2 criteria? No. Patient's initial sepsis screen is negative. Does the patient have a suspected source of infection? No. Patient's initial sepsis screen is negative. Risk Assessment: Do you want to hurt yourself or someone else? Patient reports no desire to harm self or others. Onset of symptoms was August 01, 2023. 14:34 Method Of Arrival: Ambulatory tl4 14:34 Acuity: JACOBY 3 tl4 Triage Assessment: 14:45 General: Appears uncomfortable, Behavior is calm, cooperative. Pain: Complains of pain tl4 in abdomen. EENT: No deficits noted. No signs and/or symptoms were reported regarding the EENT system. Neuro: No deficits noted. Cardiovascular: No deficits noted. Respiratory: No deficits noted. GI: Reports lower abdominal pain, bloating, constipation. : No deficits noted. No signs and/or symptoms were reported regarding the genitourinary system. Derm: No deficits noted. No signs and/or symptoms reported regarding the dermatologic system. Historical: - Allergies: 14:37 Niacin tablets; tl4 - Home Meds: 14:37 allopurinol 100 mg Oral tab 1 tab once daily [Active]; aspirin 81 mg Oral chew 1 tab tl4 once daily [Active]; atorvastatin 80 mg Oral tablet 1 tab daily [Active]; carvedilol 12.5 mg oral tablet 1 tab 2 times per day [Active]; Dulcolax (bisacodyl) 5 mg Oral tablet [Active]; Colace 50 mg Oral cap 1 cap 3-4 daily [Active]; esomeprazole magnesium 40 mg Oral cpDR 1 cap once daily [Active]; ipratropium bromide inhalation 2-3 times daily [Active]; glipizide 2.5 mg Oral tr24 1 tab twice a day [Active]; escitalopram oxalate 20 mg Oral tab 1 tab once daily [Active]; gabapentin 300 mg Oral cap 1 cap 2 times per day [Active]; Levemir 100 unit/mL subcutaneous soln 30-50 units BID [Active]; levothyroxine 50 mcg tablet 1 tabs daily [Active]; lubiprostone 24 mcg Oral cap 1 cap 2 times per day [Active]; ondansetron HCl 4 mg Oral tablet 1 tab [Active]; oxybutynin chloride 5 mg Oral tab 1 tab daily [Active]; tizanidine 4 mg Oral tab 1 tab nightly [Active]; Tylenol #4 Oral 1 tab every 8 hours [Active]; Vitamin D 2000 IU Oral twice a day [Active]; Zetia 10 mg Oral tab 1 tab once daily [Active]; Victoza 2-Rony subcutaneous 1.8 mg 1.8 mg daily [Active]; bumetanide 2 mg Oral tablet 1 tab daily [Active]; Wixela Inhub 250-50 mcg/dose inhalation Blister, With Inhalation Device 1 inhalation 2 times per day [Active]; Jardiance 10 mg oral tablet 1 tab daily [Active]; - PMHx: 14:37 ADD/ADHD; allergies; constipation; GERD; heart disease; Diabetes - IDDM; High tl4 Cholesterol; meningitis; Hypertension; Myocardial infarction (); Vulva Cancer; Pancreatitis; - PSHx: 14:37 Appendectomy; cardiac stents; Cholecystectomy; Coronary Angioplasty; Vulva CA SX; Total tl4 abdominal hysterectomy; - Family history:: not pertinent. - Social history:: Smoking status: unknown. - Hospitalizations: : No recent hospitalization is reported. Screenin:00 [facility] ED Fall Risk Assessment (Adult) History of falling in the last 3 months, ha1 including since admission Yes- single mechanical fall (1 pt) Confusion or Disorientation No (0 pts) Intoxicated or Sedated No (0 pts) Impaired Gait Yes (1 pt) Mobility Assist Device Used Yes (1 pt) Altered Elimination No (0 pt) Score/Fall Risk Level 3 or more points = High Risk Oriented to surroundings, Maintained a safe environment, Hourly rounding (assess needs \T\ fall precautionary measures) done, Used ambulatory aids as needed (educated on \T\ assisted with), Used gait belt as appropriate. Abuse screen: Denies threats or abuse. Denies injuries from another. Nutritional screening: No deficits noted. Tuberculosis screening: No symptoms or risk factors identified. Assessment: 19:28 General: Appears uncomfortable, Behavior is calm, cooperative. Pain: Complains of pain ha1 in abdomen Pain does not radiate. Pain currently is 7 out of 10 on a pain scale. Quality of pain is described as crampy. Neuro: Level of Consciousness is awake, alert, obeys commands, Oriented to person, place, time, situation. 19:28 Cardiovascular: Capillary refill < 3 seconds Patient's skin is warm and dry. ha1 Respiratory: Airway is patent Respiratory effort is even, unlabored, Respiratory pattern is regular, symmetrical. GI: Abdomen is round obese, Bowel sounds present X 4 quads. Abd is soft and non tender Reports constipation, gaseousness, nausea. Derm: Skin is normal, redness and edema present at lower limb. Musculoskeletal: Circulation, motion, and sensation intact. 20:40 Reassessment: PT. HAD A WATERY BOWEL MOVEMENT AFTER FLEET ENEMA. ASSISTED TO BEDSIDE ha1 COMMODE. Patient states feeling better. Patient states symptoms have improved. 21:00 Reassessment: attempted to give report. ha1 21:33 Reassessment: report given to DOMENICO Knight. ha1 Vital Signs: 14:34 BP 138 / 55; Pulse 68; Resp 18; Temp 98(O); Pulse Ox 94% on R/A; Weight 121.56 kg; tl4 Height 5 ft. 3 in. ; Pain 8/10; 19:30 BP 158 / 81; Pulse 59; Resp 17 S; Pulse Ox 98% on R/A; ha1 21:16 BP 151 / 82; Pulse 67; Resp 17 S; Temp 97.9; Pulse Ox 97% on R/A; ha1 14:34 Body Mass Index 47.47 (121.56 kg, 160.02 cm) tl4 14:34 Pain Scale: Adult tl4 ED Course: 13:50 Patient arrived in ED. kj1 13:56 Jeff Bowling MD is Attending Physician. rn 14:37 Triage completed. tl4 14:46 Arm band placed on right wrist. tl4 16:16 Radiology exam delayed due to lab results not completed at this time. (BUN/Creatinine). nj 16:17 Radiology exam delayed due to IV insertion attempt and/or patient not having nj appropriate IV at this time. 16:25 CBC with Diff Sent. bp 16:25 CMP Sent. bp 16:26 Lipase Sent. bp 16:26 Inserted saline lock: 22 gauge in right forearm, using aseptic technique. Blood bc6 collected. 16:36 Radiology exam delayed due to lab results not completed at this time. (BUN/Creatinine). ls3 17:21 CT Abd/Pelvis - IV Contrast Only In Process Unspecified. EDMS 18:11 Ana Barker MD is Hospitalizing Provider. rn 19:00 Patient has correct armband on for positive identification. Placed in gown. Bed in low ha1 position. Call light in reach. Side rails up X 1. 20:00 Provided Education on: medication administration . ha1 21:41 No provider procedures requiring assistance completed. Patient admitted, IV remains in ha1 place. Administered Medications: 19:20 Drug: NS 0.9% IV 500 ml IV at bolus once Route: IV; Rate: bolus; Site: right forearm; ha1 19:20 Drug: Fleet Enema AK 133 ml AK once; may repeat once Route: AK; ha1 20:07 Drug: Glycerin (Adult) AK Suppository 1 supp AK once Route: AK; ha1 21:00 Follow up: Response: No adverse reaction ha1 Medication: 21:42 VIS not applicable for this client. ha1 Outcome: 18:11 Decision to Hospitalize by Provider. rn 21:41 Admitted to Med/surg accompanied by tech, via stretcher, room 211, with chart, Report ha1 called to DOMENICO KNIGHT 21:41 Condition: stable 21:41 Discharge instructions given to patient, Instructed on the need for admit, Demonstrated understanding of instructions, 21:55 Patient left the ED. ha1 Signatures: Dispatcher [employer] EDMS Jeff Bowling MD MD rn Jordan, Nathan nj Peltier, Brian, RN RN bp Siler, Lynzie ls3 Yamilka Wilks kj1 Sonja Centeno RN RN 1 Angelic Ordaz bc6 Logdahl, Maury, RN RN tl4 Corrections: (The following items were deleted from the chart) 14:45 14:37 PSHx: hyst; tl4 tl4 21:16 21:16 BP 151 / 82; Pulse 67bpm; Resp 17bpm; Spontaneous; Pulse Ox 97% RA; ha1 ha1 21:26 21:25 Reassessment: ha1 ha1
[2023-08-11] MEDS ORDERED: GLYCERIN PEDI RECTAL SUPP PR ONE (19:11)
[2023-08-11] MEDS ORDERED: FLEET ENEMA ADULT PR ONE (19:11)
[2023-08-11] MEDS ORDERED: NA CHLORIDE 0.9% 500 ML ONE (19:11)
[2023-08-11] MEDS: FLEET ENEMA ADULT PR ONE (19:28)
--- NOTE | 2023-08-11 19:38 | P.HP ---
Certification for Inpatient Patient admitted to: Observation Practitioner: I am a practitioner with admitting privileges, knowledge of patient current condition, hospital course, and medical plan of care. Services: Services provided to patient in accordance with Admission requirements found in Title 42 Section 412.3 of the Code of Federal Regulations Patient History Date of Service: 08/11/23 History of Present Illness: 72 year old female with a past medical history significant for coronary artery disease s/p PCI, type 2 diabetes mellitus, chronic hypoxic respiratory failure, hypertension, CKD 3, dyslipidemia, hypothyroidism and vulvar cancer s/p surgery had presented to ED due to abdominal pain and nausea following intractable constipation. She has been having intermittent crampy abdominal pain at the lower quadrants that radiates to the upper quadrants there is has been ongoing for about 3 days and associated with nausea but no vomiting. Her last bowel movement was 10 days ago. After she tried to daily Colace, Amitiza and Dulcolax suppository without relief, her PCP had tried to treat with MiraLAX, she took about half a goal of about 2 days ago with only liquid stool produced and mother noticed infection which was also unsuccessful. Her only pain meds is Tylenol #4 which she takes as needed. On arrival to the ED her vitals are within normal limits. Lab findings are benign and stable with Cr of 1.25. CT abdomen and pelvis revealed moderate stool burden within the rectal bulb. Allergies niacin Allergy (Verified 11/19/22 11:25) Flushed/Rash Certain metals Adverse Reaction (Uncoded 11/19/22 11:25) Skin irritation Home Medications: Aspirin [Aspirin EC 81 MG] 81 mg PO DAILY 01/22/16 allopurinoL [Zyloprim*] 100 mg PO DAILY 01/22/16 Ezetimibe [Zetia*] 10 mg PO DAILY 01/25/17 Docusate [Colace Cap*] 1 cap PO TIDP PRN 05/30/17 Insulin Detemir [Levemir Flextouch] 50 units SQ BID 05/30/17 Liraglutide [Victoza 2-Rony] 1.8 mg SQ DAILY 05/30/17 Oxybutynin Chloride 1 tab PO DAILY 05/30/17 Acetaminophen with Codeine [Tylenol with Codeine #4 Tablet] 1 each PO Q8HP PRN 03/28/22 Carvedilol [Coreg] 25 mg PO BID 03/28/22 Escitalopram Oxalate [Lexapro] 20 mg PO BEDTIME 03/28/22 Gabapentin 300 mg PO BEDTIME 03/28/22 Glipizide [Glipizide Xl] 2.5 mg PO BID 03/28/22 Lubiprostone 24 mcg PO BID 03/28/22 Ondansetron HCl 4 mg PO Q12HP PRN 03/28/22 Tizanidine [Zanaflex*] 4 mg PO BEDTIME 03/28/22 Atorvastatin Calcium [Lipitor] 80 mg PO BEDTIME 11/19/22 Cholecalciferol (Vitamin D3) [Vitamin D3] 2,000 unit PO TID 11/19/22 Esomeprazole Magnesium 40 mg PO DAILY 11/19/22 Fluticasone/Salmeterol [Advair 250-50 Diskus] 1 each IH BID 11/19/22 Ipratropium [place] 2 spray NS TIDP PRN 11/19/22 Loratadine [Claritin*] 10 mg PO DAILY 11/19/22 bisacodyL [Dulcolax*] 5 mg PO DAILYPRN PRN 11/19/22 Spironolactone 50 mg PO DAILY 30 Days #30 tab 11/29/22 Bumetanide [Bumex*] 1 mg PO BID 03/27/23 Levothyroxine [Synthroid*] 50 mcg PO [id number] 03/27/23 - Past Medical/Surgical History Diabetic: Yes -: Hypertension. History of sleep apnea noncompliant -: [place] 09/02 -: Dyslipidemia -: Coronary artery disease status post stents -: vitamin d and b deficiency -: Gastroesophageal reflux disease -: anemia -: PVD -: depression with anxiety -: lazy left eye -: menengitis 1988 -: IDDM x 3 years -: Cholecystectomy -: hysterectomy -: vulva cancer x2 -: left knee sx arthoscopic. needs bilat replacements -: endoscopy , 2008 -: colonoscopy 2008 -: blood transfusion 2010 -: heart cath, cardiac stents X2 - Family History Mother -: Stroke, Cancer Notes: from cva Father -: Heart disease Notes: etoh abuse Sister -: Hypertension Brother -: Heart disease, Hypertension, Cancer Notes: AL - Social History Alcohol use: Yes CD- Drugs: No Caffeine use: Yes Review of Systems 10-point ROS is otherwise unremarkable Physical Examination - Vital Signs Temperature: 98 F Blood Pressure: 138/55 Pulse: 68 Respirations: 18 Pulse Ox (%): 94 (On 2 L of oxygen) - Physical Exam General: Alert, In no apparent distress, Oriented x3 HEENT: Atraumatic, Normocephalic Neck: JVD not distended Respiratory: Clear to auscultation bilaterally, Normal air movement Cardiovascular: No edema, Regular rate/rhythm, Normal S1 S2 Gastrointestinal: Normal bowel sounds, Soft and benign, Non-distended, No masses, Tenderness Musculoskeletal: No swelling, No erythema, No tenderness Integumentary: No rashes Neurological: Normal gait, Normal speech, Normal strength at 5/5 x4 extr, Normal tone - Studies Laboratory Data (last 24 hrs) 08/11/23 08/11/23 16:22 16:22 WBC 8.90 Hgb 14.0 Hct 42.1 Plt Count 263 Sodium 140 Potassium 4.0 BUN 13 Creatinine 1.25 H Glucose 118 H Total Bilirubin 0.5 AST 18 ALT 45 Alkaline Phosphatase 120 H Lipase 27 Assessment and Plan - Plan Fecal impaction Coronary artery disease s/p PCI Type 2 diabetes mellitus Chronic hypoxic respiratory failure Hypertension CKD 3 Dyslipidemia Hypothyroidism Plan Admit to observation Fleet enema Resume Dulcolax and Amitiza Can consider barium enema if no improvement Blood glucose control Resume chronic meds as appropriate - Advance Directives Does patient have a Living Will: No Does patient have a Durable POA for Healthcare: Yes
[2023-08-11] MEDS: BISACODYL E.C. 5 MG TAB PO ONE (19:45)
[2023-08-11] MEDS: INSULIN REGULAR (HUMAN) 100 UNIT/ML SQ SCH (21:00)
[2023-08-11] MEDS: ALBUTEROL 2.5 MG/3 ML NEB SOL NEB SCH (21:05)
[2023-08-12 00:24] VITALS: BMI 47.7
[2023-08-12] MEDS: GABAPENTIN 300 MG CAP PO SCH ×2 (00:25→22:00)
[2023-08-12] MEDS: ATORVASTATIN 80 MG TAB PO SCH (00:25)
[2023-08-12] MEDS: IPRATROPIUM BROM 0.5MG/2.5ML NEB SCH (02:00)
[2023-08-12 04:21] LABS: Absolute Basophils 0.1 K/uL (0-0.5); Absolute Eosinophils 0.2 K/uL (0-0.5); Absolute Lymphocytes (CBC) 2.1 K/uL (0.7-4.9); Absolute Monocytes 0.5 K/uL (0.1-1.3); Absolute Neutrophil 5.5 K/uL (1.8-8.0); Basophils % 1.2 % (0-1.3); Eosinophils % 1.9 % (0-4.4); Hematocrit 38.3 % (36.0-45.0); Hemoglobin 12.9 g/dL (12.0-15.0); Lymphocytes % 25.2 % (15.3-44.8); MCH 26.8 pg (27.0-35.0); MCHC 33.7 g/dL (32.0-36.0); MCV 79.5 fL (80-100); MPV 9.1 fL (7.6-11.3); Neutrophils % 65.7 % (41.7-73.7); Nucleated Red Blood Cells % 0.2 % (0-0); Platelets 244 thou/uL (152-406); RBC Red Blood Cell Count 4.81 M/uL (3.86-4.86); Red Cell Distribution Width 14.8 % (12.1-15.2)
[2023-08-12 04:48] LABS: Albumin 3.2 g/dL (3.4-5.0); Albumin/Globulin Ratio 0.9 (1.1-1.8); Anion Gap 10.3 mEq/L (5.0-15.0); Bilirubin Total 0.6 mg/dL (0.2-1.0); Globulin 3.5 g/dL (2.3-3.5); Potassium 3.3 mEq/L (3.5-5.1); Protein, Total 6.7 g/dL (6.4-8.2)
[2023-08-12] MEDS: carvediloL 12.5 MG TAB PO SCH (06:06)
[2023-08-12] MEDS: INFLUENZA VACCINE (for 6+ mo) 0.5 ML DOSE IMVAC ONE (08:00)
[2023-08-12] MEDS: PNEUMOCOCCAL VACCINE 0.5 ML IMVAC ONE (08:00)
[2023-08-12] MEDS: ACETAMINOPHEN 325 MG TABLET PO PRN (09:54)
--- NOTE | 2023-08-12 12:05 | RAD REPORT ---
EXAM DESCRIPTION: RAD - Abdomen Single View - 08/12/2023 11:49 am CLINICAL HISTORY: Fecal impaction, failed conservative therapy Pain COMPARISON: Abdomen Pelvis W Contrast dated 08/11/2023 FINDINGS: The bowel gas pattern is non-obstructive. No evidence of free air or pneumatosis. No signi ficant constipation seen. The majority of the colon is air filled. No significant bony findings. There is contrast in urinary bladder. IMPRESSION: There is no evidence of significant rectal fecal impaction or constipation present.
[2023-08-12] MEDS ORDERED: FLEET ENEMA ADULT PR PRN (12:49)
[2023-08-12 13:06] LABS: Urine Bacteria <20 /HPF (<20); Urine Bilirubin NEGATIVE (Negative); Urine Blood 1+ (Negative); Urine Clarity Extremely Turbid (Clear); Urine Color Yellow (Yellow); Urine Glucose 4+ (Over) (Negative); Urine Mucus Slight /HPF (None Seen); Urine Protein 1+ (Negative); Urine RBC 21-50 /HPF (None Seen); Urine Urobilinogen 1+ (Normal); Urine pH 5.5 (5.0-7.0)
[2023-08-12 13:07] LABS: Specific Gravity > 1.030 (1.005-1.030)
[2023-08-12] MEDS ORDERED: [UNRECOGNIZED DRUG - OTHER] PO PRN (13:22)
--- NOTE | 2023-08-12 13:22 | P.PN ---
Subjective Date of Service: 08/12/23 Patient reports no BM yet. She was placed on 1.5 L of oxygen by nasal cannula last night. She denies any abdominal pain. Physical Examination - Vital Signs Temperature: 97.6 F Blood Pressure: 140/63 Pulse: 58 Respirations: 23 Pulse Ox (%): 98 - Studies Laboratory Data (last 24 hrs) 08/11/23 08/11/23 16:22 16:22 WBC 8.90 Hgb 14.0 Hct 42.1 Plt Count 263 Sodium 140 Potassium 4.0 BUN 13 Creatinine 1.25 H Glucose 118 H Total Bilirubin 0.5 AST 18 ALT 45 Alkaline Phosphatase 120 H Lipase 27 Assessment And Plan - Plan Physical examination General: Alert and oriented x3, NAD, obese. Heart: Heart sounds 1 and 2 normal, regular rhythm, normal rate, no pedal edema Lungs: Clear to auscultation bilaterally, adequate breath sounds bilaterally, no rhonchi or crackles. Abdomen: Soft, nondistended, nontender, normal bowel sounds. Extremities: No tenderness, no deformity Skin: Normal skin turgor, no rash, no nodules or ulcers. Neuro: No focal motor deficit. Normal speech. Psychiatry: Normal mood, no agitation. Diagnosis Fecal impaction Coronary artery disease s/p PCI Type 2 diabetes mellitus Chronic hypoxic respiratory failure Hypertension CKD 3 Dyslipidemia Hypothyroidism Fecal Impaction/functional constipation Normal BM with enema yet. Repeat Fleet enema Trial of mag citrate. Monitor and optimize electrolytes Can consider barium enema if no improvement Surgical consult if no response. DM type II Blood glucose control with insulin sliding scale ADA diet Resume Lantus insulin. Hypothyroidism May be contributing to the constipation. Check TSH and adjust Synthroid dose. Chronic kidney stage III Stable Monitor renal function. Essential hypertension Coronary artery disease Hyperlipidemia Continue home antihypertensives. Hold aspirin in anticipation for possible surgery. Continue home dose statin. Chronic respiratory failure with hypoxia Patient is on her baseline oxygen DVT prophylaxis: Heparin SQ
[2023-08-12] MEDS: VITAMIN D 1000 UNIT TAB PO SCH (15:46)
[2023-08-12] MEDS: MAGNESIUM CITRATE 300 ML BOT PO SCH ×2 (15:54→16:04)
[2023-08-12] MEDS: HEPARIN 5000 UNIT/ML 1 ML VIAL SQ SCH (16:00)
[2023-08-12] MEDS ORDERED: INSULN SQ SCH (21:00)
[2023-08-12] MEDS ORDERED: carvediloL 25 MG TAB PO SCH (21:00)
[2023-08-12] MEDS ORDERED: HOME MED 1 EA UNK (Insulin Detemir [Levemir Flextouch] 25 UNITS) SQ SCH (21:00)
[2023-08-12] MEDS: HOME MED 1 EA UNK (Fluticasone Propion/Salmeterol [Wixela 250-50 Inhub] Blst.W.Dev) NAS SCH (21:00)
[2023-08-12] MEDS ORDERED: INSULIN DETEMIR SQ SCH (21:00)
[2023-08-12] MEDS ORDERED: LUBIPROSTONE 24 MCG CAP PO SCH (21:00)
[2023-08-12] MEDS: HOME MED [LUBIPROSTONE 24 MCG CAP] PO SCH (21:00)
[2023-08-12] MEDS: ESCITALOPRAM 20 MG TAB PO SCH (22:00)
[2023-08-12] MEDS: INSULIN GLARGINE 100 UNIT/ML SQ SCH (22:01)
[2023-08-12] MEDS: TIZANIDINE 4 MG TABLET PO SCH (23:41)
[2023-08-13] MEDS: LEVOTHYROXINE SOD 0.05 MG TABLET PO SCH (05:33)
[2023-08-13] MEDS: PANTOPRAZOLE 40MG TABLET PO SCH (08:29)
[2023-08-13] MEDS: Multi-VIT(Centravite Senior) 1 TAB TAB PO SCH (08:29)
[2023-08-13] MEDS: EZETIMIBE 10 MG TAB PO SCH (08:29)
[2023-08-13] MEDS: allopurinoL 100 MG TAB PO SCH (08:30)
[2023-08-13] MEDS: HOME MED 1 EA UNK (Empagliflozin [Jardiance] 10 MG Tablet) PO SCH (08:36)
[2023-08-13] MEDS ORDERED: HOME MED 1 EA UNK (Esomeprazole Magnesium [Esomeprazole Magnesium] 40 MG Capsule.Dr) PO SCH (09:00)
--- NOTE | 2023-08-13 12:31 | P.PN ---
Subjective Date of Service: 08/13/23 She reports no BM yet. She was placed on 1.5 L of oxygen by nasal cannula last night. She denies any abdominal pain. Status post enema x 2 and mag citrate. Physical Examination - Vital Signs Temperature: 97.1 F Blood Pressure: 100/56 Pulse: 51 Respirations: 20 Pulse Ox (%): 93 Assessment And Plan - Plan Physical examination General: Alert and oriented x3, NAD. Heart: Heart sounds 1 and 2 normal, regular rhythm, normal rate, no pedal edema Lungs: Clear to auscultation bilaterally, adequate breath sounds bilaterally, no rhonchi or crackles. Abdomen: Soft, nondistended, nontender, normal bowel sounds. Extremities: No tenderness, no deformity Skin: Normal skin turgor, no rash, no nodules or ulcers. Neuro: No focal motor deficit. Normal speech. Psychiatry: Normal mood, no agitation. Diagnosis Fecal impaction Coronary artery disease s/p PCI Type 2 diabetes mellitus Chronic hypoxic respiratory failure Hypertension CKD 3 Dyslipidemia Hypothyroidism Fecal Impaction/functional constipation No BM with enema x 2. Case discussed with Dr. Mcnair therefore recommended milk and molasses enema. Trial of milk and molasses enema today Stool softener. Monitor and optimize electrolytes Surgical consult if no response. DM type II Blood glucose control with insulin sliding scale ADA diet Home Lantus insulin resumed at half dose. Hypothyroidism May be contributing to the constipation. TSH is pending Continue home dose Synthroid. Chronic kidney stage III Stable Monitor renal function. Essential hypertension Coronary artery disease Hyperlipidemia Continue home antihypertensives. Hold aspirin in anticipation for possible surgery. Continue home dose statin. Chronic respiratory failure with hypoxia Patient is on her baseline oxygen DVT prophylaxis: Heparin SQ
[2023-08-13] MEDS: ALBUTEROL 2.5 MG/3 ML NEB SOL NEB SCH (13:00)
[2023-08-13] MEDS: MORPHINE 2 MG/ML SYR IV PRN (13:46)
[2023-08-13] MEDS: ONDANSETRON 4 MG/2 ML VIAL IV PRN (13:47)
[2023-08-13] MEDS ORDERED: IPRATROPIUM BROM 0.5MG/2.5ML NEB PRN (16:03)
[2023-08-13] MEDS: MORPHINE 4 MG/ML SYR IV ONE (16:24)
[2023-08-13] MEDS ORDERED: ALBUTEROL 2.5 MG/3 ML NEB SOL NEB PRN (17:36)
[2023-08-14 04:30] LABS: Absolute Basophils 0.2 K/uL (0-0.5); Absolute Eosinophils 0.2 K/uL (0-0.5); Absolute Lymphocytes (CBC) 2.6 K/uL (0.7-4.9); Absolute Monocytes 0.8 K/uL (0.1-1.3); Absolute Neutrophil 6.2 K/uL (1.8-8.0); Basophils % 1.9 % (0-1.3); Eosinophils % 2.4 % (0-4.4); Hematocrit 38.6 % (36.0-45.0); Hemoglobin 12.8 g/dL (12.0-15.0); Lymphocytes % 25.9 % (15.3-44.8); MCH 26.9 pg (27.0-35.0); MCHC 33.2 g/dL (32.0-36.0); Monocytes % 7.9 % (3.3-12.3); Neutrophils % 61.9 % (41.7-73.7); Nucleated Red Blood Cells % 0.1 % (0-0); Platelets 242 thou/uL (152-406); RBC Red Blood Cell Count 4.76 M/uL (3.86-4.86); Red Cell Distribution Width 15.1 % (12.1-15.2)
[2023-08-14 04:42] LABS: Anion Gap 8.9 mEq/L (5.0-15.0); Potassium 3.9 mEq/L (3.5-5.1)
--- NOTE | 2023-08-14 15:30 | P.PN ---
Subjective Date of Service: 08/14/23 Patient states she is doing better now. She had about 3 bowel movements yesterday. She states her abdominal pain is much better. She reports still feeling a lump in her rectum. Physical Examination - Vital Signs Temperature: 97.0 F Blood Pressure: 147/60 Pulse: 54 Respirations: 17 Pulse Ox (%): 94 Assessment And Plan - Plan Physical examination General: Alert and oriented x3, NAD. Heart: Heart sounds 1 and 2 normal, regular rhythm, normal rate, no pedal edema Lungs: Clear to auscultation bilaterally, adequate breath sounds bilaterally, no rhonchi or crackles. Abdomen: Soft, nondistended, nontender, normal bowel sounds. Extremities: No tenderness, no deformity Skin: No rash, no nodules. Neuro: No focal motor deficit. Normal speech. Psychiatry: Normal mood, no agitation. Diagnosis Fecal impaction Coronary artery disease s/p PCI Type 2 diabetes mellitus Chronic hypoxic respiratory failure Hypertension CKD 3 Dyslipidemia Hypothyroidism Fecal Impaction/functional constipation Watery BM with enema x 2. Case discussed with Dr. Paredes therefore recommended milk and molasses enema. Patient had diarrheal bowel movement after milk and molasses enema. She reports still feeling a lump in her rectum. KUB suggest fecal impaction has resolved. Obtain CT abdomen and pelvis with oral contrast to further evaluate Stool softener. Monitor and optimize electrolytes Consider surgical consult if fecal impaction still present on the CT. DM type II Blood sugar readings are within normal range. Blood glucose control with insulin sliding scale ADA diet Home Lantus insulin resumed at half dose. Hypothyroidism Normal TSH Continue home dose Synthroid. Chronic kidney stage III Stable Monitor renal function. Essential hypertension Coronary artery disease Hyperlipidemia Continue home antihypertensives. Hold aspirin in anticipation for possible surgery. Continue home dose statin. Chronic respiratory failure with hypoxia Patient is on her baseline oxygen DVT prophylaxis: Heparin SQ
--- NOTE | 2023-08-14 16:28 | RAD REPORT ---
EXAM DESCRIPTION: CT - Abdomen Pelvis Wo Contrast - 08/14/2023 4:15 pm CLINICAL HISTORY: Abdominal pain. Diarrhea COMPARISON: August 11, 2022 TECHNIQUE: Computed axial tomography of the abdomen and pelvis was obtained. IV was not requested. O ral contrast was given. All CT scans are performed using dose optimization technique as appropriate and may include automated exposure control or mA/KV adjustment according to patient size. FINDINGS: The evaluation of solid organs and vessels is limited secondary to the lack of contrast a dministration. The liver, spleen, pancreas, adrenals and kidneys appear grossly normal. There is no evidence of diverticulitis. Rectum is mildly to moderately distended with stool Nonspecific edema within subcutaneous fat Hysterectomy. No adnexal mass 3.2 centimeter abdominal aortic aneurysm. Followup imaging in 3 years recommended IMPRESSION: Rectum is mildly to moderately distended with stool 3.2 centimeter abdominal aortic aneurysm
[2023-08-15 04:36] LABS: Absolute Eosinophils 0.3 K/uL (0-0.5); Absolute Lymphocytes (CBC) 2.4 K/uL (0.7-4.9); Absolute Monocytes 0.5 K/uL (0.1-1.3); Absolute Neutrophil 3.6 K/uL (1.8-8.0); Basophils % 0.5 % (0-1.3); Eosinophils % 4.9 % (0-4.4); Hematocrit 35.1 % (36.0-45.0); Hemoglobin 11.7 g/dL (12.0-15.0); Lymphocytes % 34.7 % (15.3-44.8); MCH 26.8 pg (27.0-35.0); MCHC 33.5 g/dL (32.0-36.0); MPV 8.6 fL (7.6-11.3); Monocytes % 7.5 % (3.3-12.3); Neutrophils % 52.4 % (41.7-73.7); Nucleated Red Blood Cells % 0.1 % (0-0); Platelets 208 thou/uL (152-406); RBC Red Blood Cell Count 4.38 M/uL (3.86-4.86)
[2023-08-15] MEDS: CODEINE 30MG/APAP 300MG TAB ONE (11:44)
[2023-08-15] MEDS: MAGNESIUM CITRATE 300 ML BOT PO ONE (15:00)
[2023-08-15] MEDS: MINERAL OIL ENEMA 135 ML BTL PR SCH (15:00)
--- NOTE | 2023-08-15 15:37 | P.PN ---
Subjective Date of Service: 08/15/23 Patient reports no BM overnight. She denies abdominal pain today. She reports still feeling a lump in her rectum. Physical Examination - Vital Signs Temperature: 97.3 F Blood Pressure: 115/53 Pulse: 50 Respirations: 18 Pulse Ox (%): 93 Assessment And Plan - Plan Physical examination General: Alert and oriented x3, NAD. Heart: Heart sounds 1 and 2 normal, regular rhythm, normal rate, no pedal edema Lungs: Clear to auscultation bilaterally, adequate breath sounds bilaterally, no rhonchi or crackles. Abdomen: Soft, nondistended, nontender, normal bowel sounds. Extremities: No tenderness, no deformity Skin: No rash, no nodules. Neuro: No focal motor deficit. Normal speech. Psychiatry: Normal mood, no agitation. Diagnosis Fecal impaction Coronary artery disease s/p PCI Type 2 diabetes mellitus Chronic hypoxic respiratory failure Hypertension CKD 3 Dyslipidemia Hypothyroidism Fecal Impaction/functional constipation Watery BM with enema x 2. Case discussed with Dr. Paredes therefore recommended milk and molasses enema. Patient had diarrheal bowel movement after milk and molasses enema. She reports still feeling a lump in her rectum. CT abdomen and pelvis with oral contrast report persistent significant amount of stool in the rectum. General surgery consulted, patient seen by Dr. Paredes, mineral enema ordered for today. Stool softener. Monitor and optimize electrolytes DM type II Blood sugar readings are within normal range. Blood glucose control with insulin sliding scale ADA diet Home Lantus insulin resumed at half dose. Hypothyroidism Normal TSH Continue home dose Synthroid. Chronic kidney stage III Stable Monitor renal function. Essential hypertension Coronary artery disease Hyperlipidemia Continue home antihypertensives. Hold aspirin in anticipation for possible surgery. Continue home dose statin. Chronic respiratory failure with hypoxia Patient is on her baseline oxygen DVT prophylaxis: Heparin SQ
[2023-08-15] MEDS: MINERAL OIL ENEMA 135 ML BTL PR ONE (17:32)
[2023-08-16 04:34] LABS: Absolute Basophils 0.1 K/uL (0-0.5); Absolute Eosinophils 0.3 K/uL (0-0.5); Absolute Lymphocytes (CBC) 2.2 K/uL (0.7-4.9); Absolute Monocytes 0.5 K/uL (0.1-1.3); Absolute Neutrophil 4.8 K/uL (1.8-8.0); Basophils % 0.9 % (0-1.3); Eosinophils % 3.9 % (0-4.4); Hematocrit 37.5 % (36.0-45.0); Hemoglobin 12.3 g/dL (12.0-15.0); Lymphocytes % 27.8 % (15.3-44.8); MCH 26.6 pg (27.0-35.0); MCHC 32.7 g/dL (32.0-36.0); MCV 81.3 fL (80-100); Monocytes % 6.3 % (3.3-12.3); Neutrophils % 61.1 % (41.7-73.7); Nucleated Red Blood Cells % 0.1 % (0-0); Platelets 230 thou/uL (152-406); RBC Red Blood Cell Count 4.62 M/uL (3.86-4.86); Red Cell Distribution Width 14.7 % (12.1-15.2)
[2023-08-16 04:44] LABS: Anion Gap 6.1 mEq/L (5.0-15.0); Potassium 4.1 mEq/L (3.5-5.1)
[2023-08-16] MEDS: MAGNESIUM CITRATE 300 ML BOT PO SCH (09:26)
[2023-08-16] MEDS: MAGNESIUM CITRATE 300 ML BOT ONE (09:50)
--- NOTE | 2023-08-16 10:54 | P.PN ---
Date of Service: 08/16/23 Subjective: Feels ~same as yesterday. Hasn't had formed BM yet. small liquid / watery BM after enemas abdominal cramping pains and nausea ~same otherwise no new / worsening problems afebrile ROS: 10 point ROS as noted above, otherwise negative Physical Exam: GEN: Alert, oriented, NAD HEENT: Normal conjunctiva, sclera anicteric, CV: Regular rate and rhythm, no edema Pulm: Nonlabored respirations on 2L NC, clear bilaterally ABD: soft, nondistended, mild generalized discomfort Neuro: Normal speech, normal affect Problem List: Fecal Impaction/functional constipation Incidental 3.2 cm Abdominal aortic aneurysm Coronary artery disease s/p PCI x2 Hypertension Hyperlipidemia IDDM2 Hypothyroidism CKD3 Chronic respiratory failure with hypoxia, on home O2 Hx of vulvar cancer Fecal Impaction/functional constipation CT abd (08/11): moderate stool burden within rectal bulb. CT abd (08/14): rectum mild-mod distended with stool. 3.2 cm abdominal aortic aneurysm General surgery - Dr. Paredes following - to re-eval today s/p multiple mineral oil enema / magnesium citrate with minimal relief. Hasn't had formed BM yet. Small watery BM reported after enemas. Reports still feeling constipated / abdominal cramping pains ~same PRN analgesics / antiemetics Diet per surgery Incidental 3.2 cm Abdominal aortic aneurysm Incidentally seen on CT abdomen (08/14). Recommend repeat imaging in ~3 years. Coronary artery disease s/p PCI x2 Hypertension Hyperlipidemia Continue home antihypertensives. Continue statin aspirin on hold for possible surgery if medical management fails IDDM2 Sliding scale insulin. Home Lantus insulin resumed at half dose. titrate as needed. Hypothyroidism Continue home Synthroid. CKD3 Continue to monitor renal function Stable Chronic respiratory failure with hypoxia, on home O2 Uses oxygen at home chronically. Stable on baseline oxygen VTE: heparin sq Code: Full Dispo: Home, 1-2 days Pending has formed BM / surgical recs
[2023-08-16] MEDS: MINERAL OIL ENEMA 135 ML BTL PR ONE (13:11)
[2023-08-16] MEDS ORDERED: ALBUTEROL 2.5 MG/3 ML NEB SOL NEB PRN (15:16)
[2023-08-16] MEDS: MORPHINE 2 MG/ML SYR IV ONE ×2 (15:41→15:45)
[2023-08-17 04:39] LABS: Anion Gap 5.9 mEq/L (5.0-15.0); Magnesium 2.4 mg/dL (1.6-2.4); Potassium 3.9 mEq/L (3.5-5.1)
--- NOTE | 2023-08-17 09:00 | P.PN ---
Date of Service: 08/17/23 Subjective: Dr. Paredes saw patient yesterday. Was unable to manually disimpact s/p multiple enemas with minimal relief yesterday. minimal watery BMs after enemas yesterday no significant change in condition / constipation denies trouble urinating afebrile ROS: 10 point ROS as noted above, otherwise negative Physical Exam: GEN: Alert, oriented, NAD HEENT: Normal conjunctiva, sclera anicteric, CV: Regular rate and rhythm, 2+ b/l edema in lower extremities Pulm: Nonlabored respirations on 2L NC, clear bilaterally ABD: soft, nondistended, mild generalized discomfort Neuro: Normal speech, normal affect Problem List: Fecal Impaction/functional constipation Incidental 3.2 cm Abdominal aortic aneurysm Coronary artery disease s/p PCI x2 Hypertension Hyperlipidemia IDDM2 Hypothyroidism CKD3 Chronic respiratory failure with hypoxia, on home O2 Hx of vulvar cancer Fecal Impaction/functional constipation CT abd (08/11): moderate stool burden within rectal bulb. CT abd (08/14): rectum mild-mod distended with stool. 3.2 cm abdominal aortic aneurysm General surgery - Dr. Paredes following unsuccessful attempt yesterday to manually disimpact stool. s/p multiple mineral oil enema / magnesium citrate with minimal relief. Hasn't had formed BM yet. Small watery BM reported after enemas. Reports still feeling constipated / abdominal cramping pains ~same to try an additional enema this afternoon, from special pharmacy, ordered by Dr. Paredes. If no resolution, will need more aggressive measures tomorrow PRN analgesics / antiemetics Incidental 3.2 cm Abdominal aortic aneurysm Incidentally seen on CT abdomen (08/14). Recommend repeat imaging in ~3 years. Coronary artery disease s/p PCI x2 Hypertension Hyperlipidemia Continue home antihypertensives. Continue statin aspirin on hold for possible surgery if medical management fails IDDM2 Sliding scale insulin. Home Lantus insulin resumed at half dose. titrate as needed. Hypothyroidism Continue home Synthroid. CKD3 Continue to monitor renal function Stable Chronic respiratory failure with hypoxia, on home O2 Uses oxygen at home chronically. Stable on baseline oxygen VTE: heparin sq Code: Full Dispo: Home, 1-2 days Pending has formed BM / surgical recs
[2023-08-17] MEDS: LIDOCAINE PR SCH ×2 (17:15→21:00)
[2023-08-17] MEDS: NIFEDIPINE PR SCH ×2 (17:15→21:00)
[2023-08-17] MEDS: BUMETANIDE 1 MG TABLET PO SCH (17:30)
[2023-08-18 07:50] LABS: Anion Gap 7.1 mEq/L (5.0-15.0); Potassium 4.1 mEq/L (3.5-5.1)
[2023-08-18] MEDS: NA CHLORIDE 0.9% 500 ML IV ONE (07:52)
--- NOTE | 2023-08-18 09:19 | P.PN ---
Date of Service: 08/18/23 Subjective: continues with rectal pressure / constipation but feels its not as severe as past few days NPO for possible Proctoscopy with Dr. Paredes today received first dose of Rectal cream compound from [facility] [employer] yesterday evening (nifedipine-lidocaine rectal suppository compound) was noted to be more sluggish, tired that started overnight around midnight; +soft/low BP in 90s ROS: 10 point ROS as noted above, otherwise negative Physical Exam: GEN: Alert, oriented, NAD HEENT: Normal conjunctiva, sclera anicteric, CV: Regular rate and rhythm, 2+ b/l edema in lower extremities Pulm: Nonlabored respirations on room air, clear bilaterally ABD: soft, nondistended, mild generalized discomfort to palpation Neuro: Normal speech, normal affect Problem List: Fecal Impaction/functional constipation acute on Chronic diastolic CHF Incidental 3.2 cm Abdominal aortic aneurysm Coronary artery disease s/p PCI x2 Hypertension Hyperlipidemia IDDM2 Hypothyroidism CKD3 Chronic respiratory failure with hypoxia, on home O2 Hx of vulvar cancer Fecal Impaction/functional constipation CT abd (08/11): moderate stool burden within rectal bulb. CT abd (08/14): rectum mild-mod distended with stool. 3.2 cm abdominal aortic an eurysm General surgery - Dr. Paredes following s/p multiple mineral oil enema / magnesium citrate with minimal relief. unsuccessful attempt 08/16 to manually disimpact stool. Hasn't had formed BM yet. Small watery BM reported after enemas. NPO for possible Proctoscopy with Dr. Paredes today () PRN analgesics / antiemetics was noted to be more sluggish, tired that started overnight around midnight; +soft/low BP in 90s suspect secondary to new Rectal cream from [facility] [employer] (nifedipine-lidocaine rectal suppository compound) Patient received first dose last night. BP responded well to small IVF bolus hold home antihypertensives. Hold carvedilol for now. monitor BP / HR closely acute on Chronic diastolic CHF home Bumex restarted at 1mg PO daily (08/17) Incidental 3.2 cm Abdominal aortic aneurysm Incidentally seen on CT abdomen (08/14). Recommend repeat imaging in ~3 years. Coronary artery disease s/p PCI x2 Hypertension Hyperlipidemia hold home antihypertensives for now given soft / low BP aspirin on hold for possible surgery Continue statin IDDM2 Sliding scale insulin. Home Lantus insulin resumed at half dose. titrate as needed. Hypothyroidism Continue home Synthroid. CKD3 Continue to monitor renal function Stable Chronic respiratory failure with hypoxia, on home O2 Uses oxygen at home chronically. Stable on baseline oxygen duonebs PRN VTE: heparin sq Code: Full Dispo: Home, ~1-2 days Pending Proctoscopy with Dr. Paredes / formed BM with relief
[2023-08-18] MEDS: NA CHLORIDE 0.9% 1,000 ML ONE ×3 (11:29→17:57)
[2023-08-18] MEDS: SUCCINYLCHOLINE 20 MG/ML (10 ML) IV ONE (16:17)
[2023-08-18] MEDS ORDERED: FENTANYL CITR 100 MCG/2 ML ONE (16:19)
[2023-08-18] MEDS ORDERED: propofoL 200 MG/20 ML VIAL IV ONE (16:19)
[2023-08-18] MEDS ORDERED: KETAMINE HCL IN 0.9 % NACL 50 MG/5 ML SYRINGE IV ONE (17:13)
[2023-08-18] MEDS: LIDOCAINE JELLY 2% 5 ML SYRINGE TOP ONE (17:20)
--- NOTE | 2023-08-18 17:24 | P.OP ---
Preoperative diagnosis: Fecal Impaction Postoperative diagnosis: Fecal Impaction Primary procedure: Exam under anesthesia Secondary procedure: Fecal Disimpaction Anesthesia: MAC Estimated blood loss: ~ 5cc Specimen: None Findings: Firm Stool removed up to 20cm Complications: None Implants: Lidocaine Gelfoam placed in anus Transferred to: Recovery Room Condition: Good
[2023-08-18] MEDS: FENTANYL CITR 100 MCG/2 ML ONE (17:53)
[2023-08-18] MEDS: KETOROLAC 30 MG/ML INJ ONE (17:58)
--- NOTE | 2023-08-18 18:23 | OP ---
Date of Procedure: 08/18/2023 Surgeon: Reinaldo Paredes MD, Preoperative Diagnosis: Fecal impaction. Postoperative Diagnosis: Fecal impaction. Procedures: 1.Exam under anesthesia. 2.Fecal disimpaction. 3.Rigid proctoscopy. Anesthesia: MAC plus local. Estimated Blood Loss: 5 cc. Specimen: None. Findings: Firm stool removed all the way up to 20 cm confirmed on a proctoscopy. Complications: None. Implants: Lidocaine gel soaked Gelfoam was placed in the anus after appropriately hydrating. Disposition: The patient was transferred to recovery room in good condition. Procedure In Detail: After informed consent was obtained, patient was brought to the operating room, prepped and draped in the usual sterile fashion after adequate anesthesia was achieved. The patient remained in lithotomy position. I performed digital rectal examination. I felt stool at the very t ip of my finger, which could not be accessed easily. At this point, I performed sequential dilation using endoscopes, and at this point, grasped and removed significant firm stool and previously placed suppositories from the anal vault. After this was removed, I then performed rigid proctoscopy and f ound additional firm stool up to approximately 15 to 18 cm. I grasped this as well and delivered it into the field and performed anoscopy once again delivering the stool out at this point using grasper s. The stool was delivered at this point and the colon was cleared all the way up to 20 cm and confi rmed on proctoscopy. I then irrigated the anal vault at this point with irrigation through the open proctoscope to allow for hydration of the area. No hemostatic measures were required. I then soaked Gelfoam and lidocaine 2% and hydrated appropriately with saline and then placed it into the anal can al and completed the procedure. Patient tolerated the procedure without incident or complication. T ransferred to PACU in good condition. All counts were correct at the end of the case. TK/MODL Voice ID: [id number] Report ID: [id number]
[2023-08-19 04:23] LABS: Hematocrit 39.6 % (36.0-45.0); Hemoglobin 13.3 g/dL (12.0-15.0); MCH 26.9 pg (27.0-35.0); MCHC 33.5 g/dL (32.0-36.0); MCV 80.3 fL (80-100); MPV 9.2 fL (7.6-11.3); Platelets 225 thou/uL (152-406); RBC Red Blood Cell Count 4.93 M/uL (3.86-4.86); Red Cell Distribution Width 14.9 % (12.1-15.2)
[2023-08-19 04:30] LABS: Anion Gap 7.1 mEq/L (5.0-15.0); Magnesium 1.8 mg/dL (1.6-2.4); Potassium 4.1 mEq/L (3.5-5.1)
[2023-08-19] MEDS: CODEINE 30MG/APAP 300MG TAB PO PRN (06:50)
--- NOTE | 2023-08-19 08:54 | P.PN ---
Date of Service: 08/19/23 Subjective: s/p Rigid proctoscopy and fecal disimpaction with Dr. Paredes last night and was found to have a fissure Still dealing with significant rectal pain / +throat discomfort Trying to drink a lot of water to stay hydrated Had BM today. +flatus Not as tired / sluggish today ROS: 10 point ROS as noted above, otherwise negative Physical Exam: GEN: Alert, oriented, NAD HEENT: Normal conjunctiva, sclera anicteric, CV: Regular rate and rhythm, 2+ b/l edema in lower extremities Pulm: Nonlabored respirations on 2L NC, clear bilaterally ABD: soft, nondistended, mild generalized discomfort to palpation Neuro: Normal speech, normal affect Problem List: Fecal Impaction/functional constipation, s/p Rigid proctoscopy and fecal disimpaction () acute on Chronic diastolic CHF Incidental 3.2 cm Abdominal aortic aneurysm Coronary artery disease s/p PCI x2 Hypertension Hyperlipidemia IDDM2 Hypothyroidism CKD3 Chronic respiratory failure with hypoxia, on home O2 Allergies / Nasal congestion Hx of vulvar cancer Fecal Impaction/functional constipation, s/p Rigid proctoscopy and fecal disimpaction () CT abd (08/11): moderate stool burden within rectal bulb. CT abd (08/14): rectum mild-mod distended with stool. 3.2 cm abdominal aortic aneurysm s/p multiple mineral oil enema / magnesium citrate with minimal relief. unsuccessful attempt 08/16 to manually disimpact stool. s/p Rigid proctoscopy and fecal disimpaction with Dr. Paredes last night and was found to have an anal fissure Cleared up to 20 cm but some stool remains that was unable to be removed per Dr. Paredes reported very hard/dry stool mag citrate x1 ordered 08/[address] Paredes Possible small bowel series tomorrow if no / minimal improvement PRN analgesics / antiemetics Tylenol #3 added 08/18 was noted to be more sluggish, tired 08/17 evening; +soft/low BP in 90s suspect secondary to new Rectal cream from [employer] (nifedipine-lidocaine rectal suppository compound) Patient received first dose last night. BP responded well to small IVF bolus hold home antihypertensives. monitor BP / HR closely acute on Chronic diastolic CHF hold bumex for now given soft BP Incidental 3.2 cm Abdominal aortic aneurysm Incidentally seen on CT abdomen (08/14). Recommend repeat imaging in ~3 years. Coronary artery disease s/p PCI x2 Hypertension Hyperlipidemia hold home antihypertensives for now given soft / low BP aspirin on hold for possible surgery Continue statin IDDM2 Sliding scale insulin. Home Lantus insulin resumed at half dose. titrate as needed. Hypothyroidism Continue home Synthroid. CKD3 Continue to monitor renal function Stable Chronic respiratory failure with hypoxia, on home O2 Uses oxygen at home chronically. Stable on baseline oxygen duonebs PRN Allergies / Nasal congestion Zyrtec, flonase added 08/18 VTE: heparin sq Code: Full Dispo: Home, ~1-2 days Pending better pain control / surgical recs
[2023-08-19] MEDS: FLUTICASONE 50MCG NASAL SPRAY NAS SCH (10:08)
[2023-08-19] MEDS: MAGNESIUM CITRATE 300 ML BOT PO ONE (10:09)
[2023-08-19] MEDS: CETIRIZINE HCL 5 MG TABLET PO PRN (12:11)
[2023-08-20 03:59] LABS: Hematocrit 38.3 % (36.0-45.0); Hemoglobin 12.7 g/dL (12.0-15.0); MCH 26.5 pg (27.0-35.0); MCV 80.1 fL (80-100); MPV 8.8 fL (7.6-11.3); Platelets 229 thou/uL (152-406); RBC Red Blood Cell Count 4.79 M/uL (3.86-4.86)
[2023-08-20 04:23] LABS: Anion Gap 7.9 mEq/L (5.0-15.0); Magnesium 2.1 mg/dL (1.6-2.4); Potassium 3.9 mEq/L (3.5-5.1)
--- NOTE | 2023-08-20 08:42 | P.PN ---
Date of Service: 08/20/23 Subjective: ~6-7 BMs yesterday; mix of hard and soft stool rectal pain is more tolerable. +not needing as frequent pain meds no acute events overnight afebrile ROS: 10 point ROS as noted above, otherwise negative Physical Exam: GEN: Alert, oriented, NAD HEENT: Normal conjunctiva, sclera anicteric, CV: Regular rate and rhythm, 2+ b/l edema in lower extremities Pulm: Nonlabored respirations on 2L NC, clear bilaterally ABD: soft, nondistended, mild generalized discomfort to palpation Neuro: Normal speech, normal affect Problem List: Fecal Impaction/functional constipation, s/p Rigid proctoscopy and fecal disimpaction () acute on Chronic diastolic CHF Incidental 3.2 cm Abdominal aortic aneurysm Coronary artery disease s/p PCI x2 Hypertension Hyperlipidemia IDDM2 Hypothyroidism CKD3 Chronic respiratory failure with hypoxia, on home O2 Allergies / Nasal congestion Hx of vulvar cancer Fecal Impaction/functional constipation, s/p Rigid proctoscopy and fecal disimpaction () CT abd (08/11): moderate stool burden within rectal bulb. CT abd (08/14): rectum mild-mod distended with stool. 3.2 cm abdominal aortic aneurysm s/p multiple mineral oil enema / magnesium citrate with minimal relief. unsuccessful attempt 08/16 to manually disimpact stool. s/p Rigid proctoscopy and fecal disimpaction with Dr. Paredes last night and was found to have an anal fissure Cleared up to 20 cm but some stool remains that was unable to be removed per Dr. Paredes reported very hard/dry stool ~6-7 BM yesterday mix of hard and soft stool; reports pain is more tolerable and hasn't been needing as frequent pain medication Discussed with Dr. Paredes, small bowel series ordered 08/19 PRN analgesics / antiemetics Tylenol #3 added 08/18 was noted to be more sluggish, tired 08/17 evening; +soft/low BP in 90s suspect secondary to new Rectal cream from [facility]. (nifedipine-lidocaine rectal suppository compound) Patient received first dose last night. BP responded well to small IVF bolus hold home antihypertensives. monitor BP / HR closely acute on Chronic diastolic CHF hold bumex for now given soft BP Incidental 3.2 cm Abdominal aortic aneurysm Incidentally seen on CT abdomen (08/14). Recommend repeat imaging in ~3 years. Coronary artery disease s/p PCI x2 Hypertension Hyperlipidemia hold home antihypertensives for now given soft / low BP aspirin on hold for possible surgery Continue statin IDDM2 Sliding scale insulin. Home Lantus insulin resumed at half dose. titrate as needed. Hypothyroidism Continue home Synthroid. CKD3 Continue to monitor renal function Stable Chronic respiratory failure with hypoxia, on home O2 Uses oxygen at home chronically. Stable on baseline oxygen duonebs PRN Allergies / Nasal congestion Zyrtec, flonase added 08/18 VTE: heparin sq Code: Full Dispo: Home, ~1-2 days Pending small bowel series / surgical recs
--- NOTE | 2023-08-20 16:41 | RAD REPORT ---
EXAM DESCRIPTION: RAD - Small Bowel Series - 08/20/2023 4:33 pm CLINICAL HISTORY: bloated, constipated COMPARISON: Abdomen Pelvis Wo Contrast dated 08/14/2023 FINDINGS: [employer] film shows a nonspecific bowel gas pattern. No obstruction or free air. No suspiciou s calcifications. Surgical clips in right upper quadrant. Formed stool burden is low. Gastrografin administered. No small bowel obstruction identified. Enteric contrast could be seen reac nelson the transverse colon. No fluoroscopy was performed. Total images acquired: 11 IMPRESSION: No bowel obstruction identified. Low formed stool burden.
[2023-08-21 04:16] LABS: Anion Gap 7.6 mEq/L (5.0-15.0); Magnesium 1.9 mg/dL (1.6-2.4); Potassium 3.6 mEq/L (3.5-5.1)
--- NOTE | 2023-08-21 09:33 | P.PN ---
Date of Service: 08/21/23 Subjective: Feeling better today decent sized formed BMs yesterday / today. Feels significant improvement of rectal pain. reports very minimal pain today. appears more comfortable sitting tolerating liquids, asking for more "food" no new / worsening problems borderline low-normal BP/HR today ROS: 10 point ROS as noted above, otherwise negative Physical Exam: GEN: Alert, oriented, NAD HEENT: Normal conjunctiva, sclera anicteric, CV: Regular rate and rhythm, 2+ b/l edema in lower extremities Pulm: Nonlabored respirations on 2L NC, clear bilaterally ABD: soft, nondistended, minimal generalized discomfort to palpation Neuro: Normal speech, normal affect Problem List: Fecal Impaction/functional constipation, s/p Rigid proctoscopy and fecal disimpaction () acute on Chronic diastolic CHF Incidental 3.2 cm Abdominal aortic aneurysm Coronary artery disease s/p PCI x2 Hypertension Hyperlipidemia IDDM2 Hypothyroidism CKD3 Chronic respiratory failure with hypoxia, on home O2 Allergies / Nasal congestion Hx of vulvar cancer Fecal Impaction/functional constipation, s/p Rigid proctoscopy and fecal disimpaction () CT abd (08/11): moderate stool burden within rectal bulb. CT abd (08/14): rectum mild-mod distended with stool. 3.2 cm abdominal aortic aneurysm prolonged hospitalization due to minimal improvement despite multiple enemas / medical management unsuccessful/ minimally successful attempt 08/16 to manually disimpact stool. s/p Rigid proctoscopy and fecal disimpaction with Dr. Paredes last night and was found to have an anal fissure Cleared up to 20 cm but some stool remains that was unable to be removed per Dr. Paredes; reported very hard/dry stool Small bowel series (08/19): no bowel obstruction. Low formed low burden stool Multiple soft formed BM after small bowel series overnight / this morning not needing as frequent pain meds PRN analgesics / antiemetics continue bowel regimen acute on Chronic diastolic CHF Received few dose of bumex earlier this week; had to be held secondary to low- normal BP Restart bumex today at 0.5mg daily - was taking 1mg twice daily want to prevent further edema but also not contribute to further constipation / dry stool encouraged good PO intake / water intake was noted to be more sluggish, tired 08/17 evening; +soft/low BP in 90s suspect secondary to new Rectal cream from [facility]. (nifedipine-lidocaine rectal suppository compound) Patient received first dose 08/17 BP responded well to small IVF bolus hold home antihypertensives. monitor BP / HR closely Incidental 3.2 cm Abdominal aortic aneurysm Incidentally seen on CT abdomen (08/14). Recommend repeat imaging in ~3 years. Coronary artery disease s/p PCI x2 Hypertension Hyperlipidemia home coreg held given soft BP / bradycardia Continue statin IDDM2 Sliding scale insulin; Home Lantus insulin resumed at half dose due to current diet. titrate as needed. Hypothyroidism Continue home Synthroid. CKD3 Continue to monitor renal function. Stable Chronic respiratory failure with hypoxia, on home O2 - stable, duonebs PRN Allergies / Nasal congestion Zyrtec, flonase added 08/18 VTE: heparin sq Code: Full Dispo: Home, ~1 day Pending improvement of BP / edema advance diet
[2023-08-21] MEDS: BUMETANIDE 1 MG TABLET PO SCH (13:03)
[2023-08-21 23:15] VITALS: O2SAT 97
[2023-08-22 04:44] LABS: Albumin 3.1 g/dL (3.4-5.0); Anion Gap 10.5 mEq/L (5.0-15.0); Bilirubin Total 0.4 mg/dL (0.2-1.0); Globulin 3.2 g/dL (2.3-3.5); Magnesium 1.7 mg/dL (1.6-2.4); Phosphorus 3.6 mg/dL (2.5-4.9); Potassium 3.5 mEq/L (3.5-5.1); Protein, Total 6.3 g/dL (6.4-8.2)
--- NOTE | 2023-08-22 08:22 | P.DS ---
Admission Date: 08/13/23 Discharge Date: 08/22/23 Disposition: ROUTINE DISCHARGE Discharge Condition: GOOD Consultations: General Surgery - Dr. Paredes Brief History of Present Illness: 72 yo F, PMH: coronary artery disease s/p PCI, type 2 diabetes mellitus, chronic hypoxic respiratory failure, hypertension, CKD 3, dyslipidemia, hypothyroidism and vulvar cancer s/p surgery Patient had presented to ED due to abdominal pain and nausea following intractable constipation. She has been having intermittent crampy abdominal pain at the lower quadrants that radiates to the upper quadrants there is has been ongoing for about 3 days and associated with nausea but no vomiting. Her last bowel movement was 10 days ago. After she tried to daily Colace, Amitiza and Dulcolax suppository without relief, her PCP had tried to treat with MiraLAX, she took about half a goal of about 2 days ago with only liquid stool produced and mother noticed infection which was also unsuccessful. Her only pain meds is Tylenol #4 which she takes as needed. On arrival to the ED her vitals are within normal limits. Lab findings are benign and stable with Cr of 1.25. CT abdomen and pelvis revealed moderate stool burden within the rectal bulb. Hospital Course: Problem List: Fecal Impaction/functional constipation, s/p Rigid proctoscopy and fecal disimpaction () acute on Chronic diastolic CHF Incidental 3.2 cm Abdominal aortic aneurysm Coronary artery disease s/p PCI x2 Hypertension Hyperlipidemia IDDM2 Hypothyroidism CKD3 Chronic respiratory failure with hypoxia, on home O2 Allergies / Nasal congestion Hx of vulvar cancer Patient presented with lower abdominal pain, nausea, constipation x10 days and found to have a moderate amount of fecal impaction on CT. Patient was given multiple enemas / mag citrate with minimal relief. Reported only having small watery bowel movements after enemas. Dr. Paredes, General surgery was consulted and performed a minimally successful manual disimpaction on 08/16. She subsequently was taken to the OR on for Rigid proctoscopy and fecal disimpaction. Dr. Paredes found very hard / dry stool, and was able to clear up to 20 cm but some stool remained that was unable to be removed; He also reported anal fissure was seen which could be contributing to patients rectal pain. Post-operatively she continued to have further bowel movements and pain eventually resolved. Dr. Paredes recommended a regular bowel regimen on discharge and to follow up with him in a few weeks. Due to her restricted diet of clears liquids for majority of her hospitalization and dry/hard stool, her bumex was held for several days and slowly restarted at lower dose. Her blood pressure was also noted to be low / borderline low at times. Recommend to continue bumex at 1mg daily for next 3-4 days and to slowly build back to regular home dose regimen 1mg twice a day - as long as her blood pressure is good and she is having daily/regular bowel movements. Recommend follow up with her PCP and cardiology in next few weeks for further management / adjustments of medications. Patients heart rate was noted to be intermittently low-normal with heart rate in 40s during her hospitalization while on 12.5mg coreg BID. 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 This dose will be adjusted to 6.25mg twice daily on discharge. She is to check her heart rate and blood pressure, and maintain a log of her vitals to take to her follow up appointments with PCP / Cardiology for further adjustments. Incidentally seen on CT abdomen: 3.2 cm abdominal aortic aneurysm. Recommend repeat imaging in ~3 years to reeval / follow up on aneurysm. Medications: Bumex 1mg daily for 3-4 days, then increase back to 1mg twice a day Resume coreg at lower dose 6.25 mg twice a day Bowel Regimen recommended by Dr. Paredes Kefir probiotic yogurt 8oz twice daily Benefiber twice daily with twice the recommended fluid - recommended water with electrolyte solution Magnesium 500 daily Follow up: PCP 3-5 days Cardiology ~2-[address] Paredes in a few weeks. Physical Exam: GEN: Alert, oriented, NAD HEENT: Normal conjunctiva, sclera anicteric CV: Regular rate and rhythm, 1-2+ b/l edema in lower extremities up to the knees Pulm: Nonlabored respirations on 2L NC, clear bilaterally ABD: soft, nondistended, nontender Neuro: Normal speech, normal affect Vital Signs/Physical Exam: Temp Pulse Resp BP Pulse Ox 97.4 F 51 16 108/51 L 98 08/22/23 04:00 08/22/23 05:50 08/22/23 04:00 08/22/23 05:50 08/22/23 04:00 Laboratory Data at Discharge: WBC 6.30 thou/uL (4.3-10.9) 08/20/23 03:12 Hgb 12.7 g/dL (12.0-15.0) 08/20/23 03:12 Hct 38.3 % (36.0-45.0) 08/20/23 03:12 Plt Count 229 thou/uL (152-406) 08/20/23 03:12 Sodium 142 mEq/L (136-145) D 08/22/23 03:39 Potassium 3.5 mEq/L (3.5-5.1) 08/22/23 03:39 BUN 9 mg/dL (7-18) 08/22/23 03:39 Creatinine 1.29 mg/dL (0.55-1.02) H 08/22/23 03:39 Glucose 139 mg/dL (74-106) H 08/22/23 03:39 Phosphorus 3.6 mg/dL (2.5-4.9) 08/22/23 03:39 Magnesium 1.7 mg/dL (1.6-2.4) 08/22/23 03:39 Total Bilirubin 0.4 mg/dL (0.2-1.0) 08/22/23 03:39 AST 22 U/L (15-37) 08/22/23 03:39 ALT 32 U/L (13-56) 08/22/23 03:39 Alkaline Phosphatase 84 U/L (45-117) 08/22/23 03:39 Lipase 27 U/L (13-75) 08/11/23 16:22 Home Medications: Aspirin [Aspirin EC 81 MG] 81 mg PO DAILY 01/22/16 allopurinoL [Zyloprim*] 100 mg PO DAILY 01/22/16 Ezetimibe [Zetia*] 10 mg PO DAILY 01/25/17 Insulin Detemir [Levemir Flextouch] 50 units SQ BID 05/30/17 Liraglutide [Victoza 2-Rony] 1.8 mg SQ DAILY 05/30/17 Oxybutynin Chloride 1 tab PO DAILY 05/30/17 Acetaminophen with Codeine [Tylenol with Codeine #4 Tablet] 1 each PO Q8HP PRN 03/28/22 Escitalopram Oxalate [Lexapro] 20 mg PO BEDTIME 03/28/22 Gabapentin 300 mg PO BEDTIME 03/28/22 Glipizide [Glipizide Xl] 2.5 mg PO BID 03/28/22 Lubiprostone 24 mcg PO BID 03/28/22 Ondansetron HCl 4 mg PO Q12HP PRN 03/28/22 Tizanidine [Zanaflex*] 4 mg PO BEDTIME 03/28/22 Atorvastatin Calcium [Lipitor] 80 mg PO BEDTIME 11/19/22 Cholecalciferol (Vitamin D3) [Vitamin D3] 2,000 unit PO TID 11/19/22 Esomeprazole Magnesium 40 mg PO DAILY 11/19/22 Ipratropium Shirley 2 spray NS TIDP PRN 11/19/22 bisacodyL [Dulcolax*] 5 mg PO DAILYPRN PRN 11/19/22 Bumetanide [Bumex*] 2 mg PO BID 03/27/23 Levothyroxine [Synthroid*] 50 mcg PO [id number] 03/27/23 Empagliflozin [Jardiance] 10 mg PO DAILY 08/12/23 Fluticasone Propion/Salmeterol [Wixela 250-50 Inhub] 1 puff SHAHANA BID 08/12/23 Multivit-Min/FA/Lycopen/Lutein [Centrum Silver Tablet] 1 each PO DAILY 08/12/23 Potassium Chloride [Klor-Con M20] 20 meq PO DAILY 08/12/23 Nifedipine-Lidocaine Rectal 1 supp.rect PA DAILY 08/17/23 Magnesium Oxide [Mag-Oxide Magnesium] 200 mg PO DAILY 30 Days #30 tab 08/22/23 carvediloL [Carvedilol] 6.25 mg PO BID 30 Days #60 tab 08/22/23 New Medications: carvediloL [Carvedilol] 6.25 mg PO BID 30 Days #60 tab Magnesium Oxide [Mag-Oxide Magnesium] 200 mg PO DAILY 30 Days #30 tab Physician Discharge Instructions: Physician Discharge Instructions. Patient presented with lower abdominal pain, nausea, constipation x10 days and found to have a moderate amount of fecal impaction on CT. Patient was given multiple enemas / mag citrate with minimal relief. Reported only having small watery bowel movements after enemas. Dr. Paredes, General surgery was consulted and performed a minimally successful manual disimpaction on 08/16. She subsequently was taken to the OR on for Rigid proctoscopy and fecal disimpaction. Dr. Paredes found very hard / dry stool, and was able to clear up to 20 cm but some stool remained that was unable to be removed; He also reported anal fissure was seen which could be contributing to patients rectal pain. Post-operatively she continued to have further bowel movements and pain eventually resolved. Dr. Paredes recommended a regular bowel regimen on discharge and to follow up with him in a few weeks. Due to her restricted diet of clears liquids for majority of her hospitalization and dry/hard stool, her bumex was held for several days and slowly restarted at lower dose. Her blood pressure was also noted to be low / borderline low at times. Recommend to continue bumex at 1mg daily for next 3-4 days and to slowly build back to regular home dose regimen 1mg twice a day - as long as her blood pressure is good and she is having daily/regular bowel movements. Recommend follow up with her PCP and cardiology in next few weeks for further management / adjustments of medications. Patients heart rate was noted to be intermittently low-normal with heart rate in 40s during her hospitalization while on 12.5mg coreg BID. 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 This dose will be adjusted to 6.25mg twice daily on discharge. She is to check her heart rate and blood pressure, and maintain a log of her vitals to take to her follow up appointments with PCP / Cardiology for further adjustments. Incidentally seen on CT abdomen: 3.2 cm abdominal aortic aneurysm. Recommend repeat imaging in ~3 years to reeval / follow up on aneurysm. Medications: Bumex 1mg daily for 3-4 days, then increase back to 1mg twice a day Resume coreg at lower dose 6.25 mg twice a day Bowel Regimen recommended by Dr. Paredes Kefir probiotic yogurt 8oz twice daily Benefiber twice daily with twice the recommended fluid - recommended water with electrolyte solution Magnesium 500 daily Follow up: PCP 3-5 days Cardiology ~2-[address] Paredes in a few weeks. Followup: Jose A Addison, DO [Primary Care Provider] - Time spent managing pt's care (in minutes): 45
[2023-08-22] MEDS: PNEUMOCOCCAL VACCINE 0.5 ML IMVAC ONE (10:18)
[2023-08-22] MEDS: INFLUENZA VACCINE (for 6+ mo) 0.5 ML DOSE IMVAC ONE (10:19)
[2023-08-22 10:38] VITALS: BP 106/57; TEMP 97.2
== END 2023-08-22 11:16 | disposition home or self-care (01) | DRG 391 ==
LOC: ER 13:45 → ERHOLD 19:22 → 2ND 20:54 → OBSVTOIN 08-13 19:18
PROVIDERS: ADMIT Internal Medicine; ATTEND Hospitalist
PROC: 0DCQ8ZZ Extirpation of Matter from Anus, Via Natural or Artificial Opening Endoscopic (ICD-10-PCS; principal; 2023-08-18 15:15)
DX: K59.04 Chronic idiopathic constipation (principal); I50.33 Acute on chronic diastolic (congestive) heart failure; J96.11 Chronic respiratory failure with hypoxia; Z68.42 Body mass index [BMI] 45.0-49.9, adult; I13.0 Hypertensive heart and chronic kidney disease with heart failure and stage 1 through stage 4 chronic kidney disease, or unspecified chronic kidney disease; N18.30 Chronic kidney disease, stage 3 unspecified; E11.22 Type 2 diabetes mellitus with diabetic chronic kidney disease; E11.51 Type 2 diabetes mellitus with diabetic peripheral angiopathy without gangrene; E66.9 Obesity, unspecified; E78.5 Hyperlipidemia, unspecified; E86.0 Dehydration; E03.9 Hypothyroidism, unspecified; I71.40 Abdominal aortic aneurysm, without rupture, unspecified; K21.9 Gastro-esophageal reflux disease without esophagitis; I25.2 Old myocardial infarction; I25.10 Atherosclerotic heart disease of native coronary artery without angina pectoris; Z95.5 Presence of coronary angioplasty implant and graft; Z88.8 Allergy status to other drugs, medicaments and biological substances; Z79.82 Long term (current) use of aspirin; Z90.49 Acquired absence of other specified parts of digestive tract; Z79.02 Long term (current) use of antithrombotics/antiplatelets; Z79.84 Long term (current) use of oral hypoglycemic drugs; Z79.899 Other long term (current) drug therapy; Z90.710 Acquired absence of both cervix and uterus; Z79.890 Hormone replacement therapy; Z96.652 Presence of left artificial knee joint
CPT/HCPCS: 36415; 74018; 74176; 74177; 74250; 80048; 80053; 81001; 82947; 83690; 83735; 84100; 84443; 85025; 85027; 90471; 90732; 94640; 99285; G0378; J1644; J2270; J2405; J2704; J3010; J7030; J7040; J7613; J7644; Q2035; Q9967

== ENCOUNTER 2024-03-23 13:22 | Emergency (ER) | payer OTHER ==
[2024-03-23] MEDS ORDERED: MORPHINE 4 MG/ML SYR ONE (13:50)
[2024-03-23] MEDS ORDERED: FAMOTIDINE 20 MG/2 ML VIAL IV ONE (13:50)
[2024-03-23] MEDS ORDERED: ONDANSETRON 4 MG/2 ML VIAL ONE (13:50)
[2024-03-23] MEDS ORDERED: NA CHLORIDE 0.9% 1,000 ML ONE (13:50)
[2024-03-23 14:03] LABS: Protime INR 1.17
[2024-03-23 14:20] LABS: Albumin 2.9 g/dL (3.4-5.0); Albumin/Globulin Ratio 0.9 (1.1-1.8); Anion Gap 8.3 mEq/L (5.0-15.0); Bilirubin Direct 0.2 mg/dL (0-0.2); Bilirubin Indirect, Calculated 0.3 mg/dL (0.2-0.8); Bilirubin Total 0.5 mg/dL (0.2-1.0); Globulin 3.3 g/dL (2.3-3.5); Magnesium 1.7 mg/dL (1.6-2.4); Potassium 3.3 mEq/L (3.5-5.1); Protein, Total 6.2 g/dL (6.4-8.2); Troponin High Sensitivity 5.6 pg/mL (<58.9)
--- NOTE | 2024-03-23 14:22 | RAD REPORT ---
EXAMINATION: ONE VIEW CHEST XR CLINICAL INDICATION: epigastric pain TECHNIQUE: Frontal chest projection is submitted. Examination is limited by patient positioning and t echnique. COMPARISON: 01/08/2024, 04/11/2023 FINDINGS: The lungs are well inflated and clear. The heart is upper limit of normal in size. No displaced fract ures identified. Cervical hardware plate. IMPRESSION: No acute intrathoracic abnormalities.
[2024-03-23 14:31] LABS: Absolute Eosinophils 0.1 K/uL (0-0.5); Absolute Lymphocytes (CBC) 1.5 K/uL (0.7-4.9); Absolute Monocytes 0.3 K/uL (0.1-1.3); Absolute Neutrophil 3.6 K/uL (1.8-8.0); Basophils % 0.6 % (0-1.3); Eosinophils % 2.1 % (0-4.4); Hematocrit 31.2 % (36.0-45.0); Hemoglobin 9.6 g/dL (12.0-15.0); Lymphocytes % 26.7 % (15.3-44.8); MCH 20.8 pg (27.0-35.0); MCHC 30.7 g/dL (32.0-36.0); MCV 67.8 fL (80-100); MPV 8.9 fL (7.6-11.3); Monocytes % 5.9 % (3.3-12.3); Neutrophils % 64.7 % (41.7-73.7); Platelets 351 thou/uL (152-406)
[2024-03-23 14:35] LABS: Platelet Estimate ADEQ; White Blood Cell Scan OK (OK)
[2024-03-23 14:36] LABS: Anisocytosis 3+; Blood Morphology Comment NOTED (NOT SEEN); Hypochromasia 1+; Microcytosis 1+
--- NOTE | 2024-03-23 15:35 | RAD REPORT ---
EXAMINATION: CT ABDOMEN AND PELVIS WITH CONTRAST CLINICAL INDICATION: EPIGASTRIC PAIN TECHNIQUE: CT abdomen and pelvis was performed, after the administration of IV contrast, as per [facility] protocol. Axial, sagittal and coronal reconstructions were obtained. One or more of the following dose reduction techniques were used: Automated exposure control, adjustment of the mA and k V according to patient size, and iterative reconstruction. Unless otherwise specified, incidental findings do not require dedicated imaging follow-up. COMPARISON: 03/01/2024, 01/08/2024 FINDINGS: LOWER CHEST: The visualized lung bases are clear. Postsurgical changes noted about the stomach. LIVER: Mild fatty liver is present. No focal lesion or biliary dilatation is seen. Cholecystectomy clips SPLEEN: Normal size. No focal lesion. PANCREAS: No mass, ductal dilation, or diana-pancreatic fluid. ADRENALS: Normal; no mass. KIDNEYS: Normal size and contour. No hydronephrosis. GASTROINTESTINAL TRACT: No evidence of free air, significant intra-abdominal free fluid, bowel obstru ction or abscess. Moderate diffuse retained stool. APPENDIX: Appendix not visualized, but no inflammatory changes in region of appendix. LYMPH NODES: No lymphadenopathy. MUSCULOSKELETAL: Mild levoscoliosis of the lumbar spine. Moderate multilevel thoracic and lumbar spin e degenerative changes. ADDITIONAL FINDINGS: None. IMPRESSION: No acute or concerning abnormalities seen in the abdomen or pelvis.Prominent fatty liver. Postsurgical changes about the stomach without evidence of obstruction or other gross abnormality see n by CT. Lack of oral contrast limits assessment.
[2024-03-23 15:37] LABS: Specific Gravity 1.027 (1.005-1.030); Urine Bacteria None Seen /HPF (<20); Urine Bilirubin NEGATIVE (Negative); Urine Blood Negative (Negative); Urine Clarity Extremely Turbid (Clear); Urine Color Yellow (Yellow); Urine Crystals Unidentified Few /HPF (None Seen); Urine Culture Reflex Order NOT NEEDED; Urine Glucose NEGATIVE (Negative); Urine Ketones NEGATIVE (Negative); Urine Microscopic Reflex YN ORDER UMIC; Urine Mucus Slight /HPF (None Seen); Urine Nitrite NEGATIVE (Negative); Urine Protein TRACE (Negative); Urine Urobilinogen 2+ (Normal); Urine WBC Clump Rare /HPF (None Seen); Urine Yeast (Budding) Trace /HPF (None Seen)
[2024-03-23] MEDS ORDERED: POTASSIUM 25 MEQ EFFERV TAB ONE (15:50)
--- NOTE | 2024-03-23 16:05 | EDPHYS ---
Physician Documentation [facility] Name: Alejandra Coto Age: 73 yrs Sex: Female : 1950 Arrival Date: 03/23/2024 Time: 13:22 Bed 4 Private MD: KERI Physician Rakesh Sultana HPI: 03/23 13:45 This 73 yrs old Female presents to ER via Wheelchair with complaints of Abdominal Pain, cp Nausea, Vomiting. 13:45 The patient presents with abdominal pain in the epigastric area. cp 13:45 Onset: The symptoms/episode began/occurred last night. The symptoms radiate to under cp left breast. 13:45 Associated signs and symptoms: Pertinent positives: nausea and vomiting, Pertinent cp negatives: constipation, diarrhea, fever, vomiting blood. The symptoms are described as constant. Severity of pain: in the emergency department the pain is unchanged despite home interventions. Historical: - Allergies: 13:27 Niacin; mb9 - Home Meds: 13:27 Advair Diskus 250-50 mcg/dose Inhl Blister 1 inhalation [Active]; allopurinol 100 mg mb9 Oral tablet daily [Active]; atorvastatin 80 mg Oral tablet 1 tab daily [Active]; bumetanide 2 mg Oral tablet 1 tab daily [Active]; carvedilol 25 mg Oral tablet 1 tab 2 times per day [Active]; Colace oral 50 as needed [Active]; Dulcolax (bisacodyl) 5 mg Oral tablet as needed [Active]; escitalopram oxalate 20 mg Oral tablet 1 tab daily [Active]; glipizide 2.5 mg Oral Tablet 1 tab 2 times per day [Active]; tizanidine 4 mg Oral tablet once daily at bedtime [Active]; oxybutynin chloride 5 mg Oral tablet 1 tab daily [Active]; lubiprostone 24 mcg Oral capsule 1 cap 2 times per day [Active]; gabapentin 300 mg Oral capsule 1 cap 2 times per day [Active]; esomeprazole magnesium 40 mg Oral capsule 1 cap daily [Active]; levothyroxine 50 mcg capsule 1 cap daily [Active]; ezetimibe 10 mg Oral tablet 1 tab daily [Active]; Victoza 2-Rony subcutaneous 1.8 mg daily [Active]; - PMHx: 13:27 diabetes mellitus; Hypercholesterolemia; Hypertensive disorder; mb9 13:38 Meningitits; cm10 - PSHx: 13:27 Cholecystectomy; Appendectomy; Stented artery; Total abdominal hysterectomy; mb9 13:38 Gastric bypass; cm10 - Immunization history:: Adult Immunizations up to date, Adult Immunizations up to date. - Infectious Disease History:: Denies. Denies. - Social history:: Smoking status: Patient denies any tobacco usage or history of. Smoking status: Patient denies any tobacco usage or history of. ROS: 13:59 Eyes: Negative for injury, pain, redness, and discharge, cp 13:59 Constitutional: Positive for poor PO intake, Negative for body aches, chills, fever, 13:59 ENT: Negative for drainage from ear(s), ear pain, sore throat, difficulty swallowing, difficulty handling secretions, 13:59 Cardiovascular: Positive for radiating pain to under left breast, 13:59 Respiratory: Negative for cough, shortness of breath, wheezing, 13:59 Abdomen/GI: Positive for abdominal pain, nausea, vomiting, Negative for diarrhea, black/tarry stool, rectal bleeding, 13:59 Neuro: Negative for altered mental status, dizziness, headache, 13:59 All other systems are negative, Exam: 14:01 Head/Face: Normocephalic, atraumatic. cp 14:01 Constitutional: The patient appears in no acute distress, alert, awake, non-diaphoretic, non-toxic, well developed, well nourished, uncomfortable, 14:01 Eyes: Periorbital structures: appear normal, Conjunctiva: normal, no exudate, no injection, Sclera: no appreciated abnormality, Lids and lashes: appear normal, bilaterally, 14:01 ENT: External ear(s): are unremarkable, Nose: is normal, Mouth: Lips: moist, Oral mucosa: moist, 14:01 Chest/axilla: Inspection: normal, 14:01 Cardiovascular: Rate: normal, Rhythm: regular, Edema: is not appreciated, JVD: is not cp appreciated, 14:01 Respiratory: the patient does not display signs of respiratory distress, Respirations: normal, no use of accessory muscles, no retractions, labored breathing, is not present, Breath sounds: are clear throughout, no decreased breath sounds, no stridor, no wheezing, 14:01 Abdomen/GI: Inspection: abdomen appears normal, Bowel sounds: active, all quadrants, Palpation: soft, in all quadrants, severe abdominal tenderness, in the epigastric area, rebound tenderness, is not appreciated, involuntary guarding, is not appreciated, 14:01 Back: CVA tenderness, is absent, 14:01 Neuro: Orientation: to person, place \T\ time. Mentation: is normal, Motor: moves all cp fours, no focal deficit, Sensation: is normal, 14:05 ECG was reviewed by the Attending Physician. cp Vital Signs: 13:37 BP 160 / 63; Pulse 70; Resp 16; Temp 97.7; Pulse Ox 97% on R/A; Weight 103.87 kg; cm10 Height 5 ft. 3 in. ; Pain 8/10; 15:33 BP 154 / 65; Pulse 74; Resp 18; Pulse Ox 100% on R/A; mb9 13:37 Body Mass Index 40.57 (103.87 kg, 160.02 cm) cm10 13:37 Pain Scale: Adult cm10 MDM: 13:30 Patient medically screened. cp 16:04 Data reviewed: vital signs, nurses notes, lab test result(s), EKG, radiologic studies, cp CT scan, and as a result, I will discharge patient. 16:04 Differential diagnosis: AAA, bowel obstruction, gastritis, sympomatic leaking abdominal cp aortic aneurysm, pancreatitis, Peptic Ulcer Disease, Perf. Duodenal Ulcer, Perf. Gastric Ulcer, Pyelonephritis, Ureterolithiasis, urinary tract infection, choledocholithiasis. Consideration of Admission/Observation Escalation of care including admission/observation considered. I considered the following discharge prescriptions or medication management in the emergency department Medications were administered in the Emergency Department. See MAR. Independent interpretation of the following test(s) in the Emergency Department EKG: See my EKG interpretation above. 03/23 13:42 Order name: Basic Metabolic Panel; Complete Time: 14:45 cp 03/23 14:45 Interpretation: Normal except: K 3.3; CL 111; GLUC 114; GFR 71. cp 03/23 13:42 Order name: CBC with Diff; Complete Time: 14:45 cp 03/23 14:46 Interpretation: Normal except: HGB 9.6; HCT 31.2; MCV 67.8; MCH 20.8; MCHC 30.7; RDW cp 29.0. 03/23 13:42 Order name: LFT's; Complete Time: 14:45 cp 03/23 14:46 Interpretation: Normal except: AST 93; ALT 86; ALK 158; TP 6.2; ALB 2.9; A/G 0.9. cp 03/23 13:42 Order name: Magnesium; Complete Time: 14:45 cp 03/23 13:42 Order name: PT-INR; Complete Time: 14:45 cp 03/23 13:42 Order name: Troponin HS; Complete Time: 14:45 cp 03/23 13:42 Order name: Lipase; Complete Time: 14:45 cp 03/23 13:42 Order name: Urinalysis w/ reflexes; Complete Time: 15:43 cp 03/23 15:44 Interpretation: Normal except: [facility] Extremely Turbid; UPROT TRACE; UUROB 2+; UESTR 25; cp URBC 11-20; BYST Trace. 03/23 13:42 Order name: Lactate w/ 2H reflex if indic.; Complete Time: 14:45 cp 03/23 14:46 Interpretation: Reviewed. cp 03/23 14:36 Order name: CBC Smear Scan; Complete Time: 14:45 EDMS 03/23 13:42 Order name: XRAY Chest (1 view); Complete Time: 14:45 cp 03/23 14:45 Order name: CT Abd/Pelvis - IV Contrast Only; Complete Time: 15:43 cp 03/23 13:42 Order name: Cardiac monitoring; Complete Time: 13:44 cp 03/23 13:42 Order name: EKG - Nurse/Tech; Complete Time: 13:55 cp 03/23 13:42 Order name: IV Saline Lock; Complete Time: 13:44 cp 03/23 13:42 Order name: Labs collected and sent; Complete Time: 13:44 cp 03/23 13:42 Order name: O2 Per Protocol; Complete Time: 13:44 cp 03/23 13:42 Order name: O2 Sat Monitoring; Complete Time: 13:44 cp EC:05 Rate is 59 beats/min. Rhythm is regular. [place] interval is normal. QRS interval is normal. cp QT interval is normal. T waves are Inverted in lead aVL. Interpreted by me. Reviewed by me. Administered Medications: 13:48 Drug: Famotidine IVP 20 mg IVP once; dilute with 10 mL 0.9% NaCl; give over 2 minutes mb9 Route: IVP; Site: left antecubital; 14:58 Follow up: Response: No adverse reaction mb9 13:49 Drug: Ondansetron IVP 4 mg IVP once; over 2 minutes Route: IVP; Site: left antecubital; mb9 14:58 Follow up: Response: No adverse reaction mb9 13:55 Drug: morphine IVP or IV 4 mg IVP once over 4 mins Route: IVP; Infused Over: 4 mins; mb9 Site: left antecubital; 14:58 Follow up: Response: No adverse reaction mb9 13:55 Drug: NS 0.9% IV 500 ml IV at 500 ml/hr continuous Route: IV; Rate: 500 ml/hr; Site: mb9 left antecubital; 14:58 Follow up: Response: No adverse reaction; IV Status: Completed infusion mb9 13:55 Drug: NS 0.9% IV 500 ml IV at 100 ml/hr continuous Route: IV; Rate: 100 ml/hr; Site: mb9 left antecubital; 16:49 Follow up: IV Status: Completed infusion; IV Intake: 1000ml ap3 15:53 Drug: Potassium PO Effervescent Tablet 25 mEq PO once; dissolve in 4 ounces of water or mb9 juice Route: PO; 16:49 Follow up: Response: No adverse reaction ap3 Disposition Summary: 03/23/24 16:05 Discharge Ordered Notes: Location: Home cp Problem: new cp Symptoms: have improved cp Condition: Stable cp Diagnosis - Nausea with vomiting, unspecified cp - Epigastric pain cp Followup: cp - With: Dejuan Simental MD - When: 2 - 3 days - Reason: Recheck today's complaints Discharge Instructions: - Discharge Summary Sheet cp - Abdominal Pain, Adult cp - Nausea and Vomiting, Adult cp Forms: - Medication Reconciliation Form cp - Antibiotic Education cp - Prescription Opioid Use cp - Patient Portal Instructions cp - Leadership Thank You Letter cp Prescriptions: - Reglan 10 mg Oral tablet - take 1 tablet ORAL route every 6-8 hours take 30 minutes before meals and at cp bedtime; 30 tablet; Refills: 0, Product Selection Permitted Signatures: Dispatcher [employer] Rakesh Juares PA PA cp Wilkerson, Mary Beth, RN RN mb9 Kellie Cade RN RN cm10 Kia Willard RN ap3 Corrections: (The following items were deleted from the chart) 13:42 13:42 BASIC METABOLIC PANEL+C.LAB.BRZ ordered. EDMS EDMS 13:42 13:42 CBC+H.LAB.BRZ ordered. EDMS EDMS 13:42 13:42 HEPATIC FUNCTION+C.LAB.BRZ ordered. EDMS EDMS 13:42 13:42 MAGNESIUM+C.LAB.BRZ ordered. EDMS EDMS 13:42 13:42 PROTIME (+INR)+COAG.LAB.BRZ ordered. EDMS EDMS 13:42 13:42 Troponin High Sensitivity+C.LAB.BRZ ordered. EDMS EDMS 13:42 13:42 LIPASE+C.LAB.BRZ ordered. EDMS EDMS 13:42 13:42 Urinalysis+U.LAB.BRZ ordered. EDMS EDMS 13:42 13:42 Chest Single View+RAD.RAD.BRZ ordered. EDMS EDMS 13:43 13:42 LACTATE+C.LAB.BRZ ordered. EDMS EDMS
--- NOTE | 2024-03-23 16:05 | ER ---
Nurse's Notes [facility] Name: Alejandra Coto Age: 73 yrs Sex: Female : 1950 Arrival Date: 03/23/2024 Time: 13:22 Bed 4 Private MD: Diagnosis: Nausea with vomiting, unspecified;Epigastric pain Presentation: 03/23 13:37 Chief complaint: Patient states: Epigastric abdominal pain onset last night. pt reports cm10 nausea and vomiting. PT states that she has a gastric hernia and that it is acting up. Coronavirus screen: Client denies travel out of the [place] in the last 14 days. Ebola Screen: Patient denies travel to an Ebola-affected area in the 21 days before illness onset. No symptoms or risks identified at this time. Initial Sepsis Screen: Does the patient meet any 2 criteria? No. Patient's initial sepsis screen is negative. Does the patient have a suspected source of infection? No. Patient's initial sepsis screen is negative. Risk Assessment: Do you want to hurt yourself or someone else? Patient reports no desire to harm self or others. Onset of symptoms was March 23, 2024. 13:37 Method Of Arrival: Wheelchair cm10 13:37 Acuity: JACOBY 3 cm10 Triage Assessment: 13:38 General: Appears in no apparent distress. uncomfortable, Behavior is calm, cooperative. cm10 Neuro: No deficits noted. Level of Consciousness is awake, alert, obeys commands, Oriented to person, place, time, situation, Appropriate for age. Historical: - Allergies: 13:27 Niacin; mb9 - Home Meds: 13:27 Advair Diskus 250-50 mcg/dose Inhl Blister 1 inhalation [Active]; allopurinol 100 mg mb9 Oral tablet daily [Active]; atorvastatin 80 mg Oral tablet 1 tab daily [Active]; bumetanide 2 mg Oral tablet 1 tab daily [Active]; carvedilol 25 mg Oral tablet 1 tab 2 times per day [Active]; Colace oral 50 as needed [Active]; Dulcolax (bisacodyl) 5 mg Oral tablet as needed [Active]; escitalopram oxalate 20 mg Oral tablet 1 tab daily [Active]; glipizide 2.5 mg Oral Tablet 1 tab 2 times per day [Active]; tizanidine 4 mg Oral tablet once daily at bedtime [Active]; oxybutynin chloride 5 mg Oral tablet 1 tab daily [Active]; lubiprostone 24 mcg Oral capsule 1 cap 2 times per day [Active]; gabapentin 300 mg Oral capsule 1 cap 2 times per day [Active]; esomeprazole magnesium 40 mg Oral capsule 1 cap daily [Active]; levothyroxine 50 mcg capsule 1 cap daily [Active]; ezetimibe 10 mg Oral tablet 1 tab daily [Active]; Victoza 2-Rony subcutaneous 1.8 mg daily [Active]; - PMHx: 13:27 diabetes mellitus; Hypercholesterolemia; Hypertensive disorder; mb9 13:38 Meningitits; cm10 - PSHx: 13:27 Cholecystectomy; Appendectomy; Stented artery; Total abdominal hysterectomy; mb9 13:38 Gastric bypass; cm10 - Immunization history:: Adult Immunizations up to date, Adult Immunizations up to date. - Infectious Disease History:: Denies. Denies. - Social history:: Smoking status: Patient denies any tobacco usage or history of. Smoking status: Patient denies any tobacco usage or history of. Screenin:38 [facility] ED Fall Risk Assessment (Adult) History of falling in the last 3 months, mb9 including since admission No falls in past 3 months (0 pts) Confusion or Disorientation No (0 pts) Intoxicated or Sedated No (0 pts) Impaired Gait No (0 pts) Mobility Assist Device Used No (0 pt) Altered Elimination No (0 pt) Score/Fall Risk Level 0 - 2 = Low Risk Oriented to surroundings, Maintained a safe environment, Assessed \T\ reinforced patient's understanding of fall precautions. Abuse screen: Denies threats or abuse. Nutritional screening: No deficits noted. Tuberculosis screening: No symptoms or risk factors identified. Assessment: 13:37 General: Appears in no apparent distress. Behavior is calm, cooperative. Pain: mb9 Complains of pain in abdomen Pain currently is 10 out of 10 on a pain scale. Quality of pain is described as throbbing, Pain began suddenly, Is continuous. Neuro: Mcdermott Agitation-Sedation Scale (RASS): 0 - Alert and Calm Level of Consciousness is awake, alert, obeys commands, Oriented to person, place, time, situation, Appropriate for age. Cardiovascular: Patient's skin is warm and dry. Respiratory: Airway is patent Respiratory effort is even, unlabored, Respiratory pattern is regular, symmetrical, Breath sounds are clear bilaterally. Respiratory: GI: Abdomen is round non-distended, Bowel sounds present X 4 quads. Abd is soft Abdomen is tender to palpation in right upper quadrant and left upper quadrant. : No signs and/or symptoms were reported regarding the genitourinary system. EENT: No signs and/or symptoms were reported regarding the EENT system. Derm: Skin is pink, warm \T\ dry. Musculoskeletal: Range of motion: intact in all extremities. Vital Signs: 13:37 BP 160 / 63; Pulse 70; Resp 16; Temp 97.7; Pulse Ox 97% on R/A; Weight 103.87 kg; cm10 Height 5 ft. 3 in. ; Pain 8/10; 15:33 BP 154 / 65; Pulse 74; Resp 18; Pulse Ox 100% on R/A; mb9 13:37 Body Mass Index 40.57 (103.87 kg, 160.02 cm) cm10 13:37 Pain Scale: Adult cm10 ED Course: 13:25 Patient arrived in ED. mr 13:27 Rakesh Elizabeth PA is PHCP. cp 13:27 Rakesh Sultana MD is Attending Physician. cp 13:27 Rea Ortiz, DOMENICO is Primary Nurse. mb9 13:30 Arm band placed on. mb9 13:36 Initial lab(s) drawn, by pa, sent to lab. Inserted saline lock: 20 gauge in left mb9 antecubital area, using aseptic technique. Blood collected. Flushed with 10 mL NS. 13:38 Triage completed. cm10 13:38 Placed in gown. Bed in low position. Call light in reach. Side rails up X 1. Provided mb9 Education on: press call light if needing anything. 13:56 EKG done, by ED staff, reviewed by Rakesh LANDAVERDE. mb9 13:56 No provider procedures requiring assistance completed. mb9 14:15 XRAY Chest (1 view) In Process Unspecified. EDMS 15:29 CT Abd/Pelvis - IV Contrast Only In Process Unspecified. EDMS 16:04 Dejuan Simental MD is Referral Physician. cp 16:49 IV discontinued, intact, bleeding controlled, No redness/swelling at site. Pressure ap3 dressing applied. Administered Medications: 13:48 Drug: Famotidine IVP 20 mg IVP once; dilute with 10 mL 0.9% NaCl; give over 2 minutes mb9 Route: IVP; Site: left antecubital; 14:58 Follow up: Response: No adverse reaction mb9 13:49 Drug: Ondansetron IVP 4 mg IVP once; over 2 minutes Route: IVP; Site: left antecubital; mb9 14:58 Follow up: Response: No adverse reaction mb9 13:55 Drug: morphine IVP or IV 4 mg IVP once over 4 mins Route: IVP; Infused Over: 4 mins; mb9 Site: left antecubital; 14:58 Follow up: Response: No adverse reaction mb9 13:55 Drug: NS 0.9% IV 500 ml IV at 500 ml/hr continuous Route: IV; Rate: 500 ml/hr; Site: mb9 left antecubital; 14:58 Follow up: Response: No adverse reaction; IV Status: Completed infusion mb9 13:55 Drug: NS 0.9% IV 500 ml IV at 100 ml/hr continuous Route: IV; Rate: 100 ml/hr; Site: mb9 left antecubital; 16:49 Follow up: IV Status: Completed infusion; IV Intake: 1000ml ap3 15:53 Drug: Potassium PO Effervescent Tablet 25 mEq PO once; dissolve in 4 ounces of water or mb9 juice Route: PO; 16:49 Follow up: Response: No adverse reaction ap3 Medication: 13:39 VIS not applicable for this client. mb9 Intake: 16:49 IV: 1000ml; Total: 1000ml. ap3 Outcome: 16:05 Discharge ordered by . cp 16:48 Discharged to home with family, ap3 16:48 Condition: good 16:48 Discharge instructions given to patient, Instructed on discharge instructions, follow up and referral plans. medication usage, Demonstrated understanding of instructions, follow-up care, medications, Prescriptions given X 1, 16:50 Patient left the ED. ap3 Signatures: Dispatcher [employer] EDNJ Rea Bartlett, Shawn Escobar mr Rakesh Elizabeth PA PA cp Prokisch, Amanda, RN RN ap3 Rea Ortiz RN RN mb9 Kellie Cade RN RN cm10
[2024-03-23 18:18] VITALS: TEMP 97.7
[2024-03-23 18:20] VITALS: BP 154/65; O2SAT 100
--- NOTE | 2024-03-26 12:01 | EKG ---
Test Date: 2024-03-23 Test Time: 13:58:30 Test Engineering Intern: MILENA MEASUREMENT RESULTS: Intervals: Rate: 59 VA: 170 QRSD: 82 QT: 440 QTc: 435 Chloe: P: VA: 170 QRS: 184 T: 177 INTERPRETIVE STATEMENTS: Sinus bradycardia Inferior infarct, age undetermined Abnormal ECG Compared to ECG 03/27/2022 18:12:06 Sinus rhythm no longer present Myocardial infarct finding still present Electronically Signed On 03-26-24 11:55:56 CDT by Aaron Lagunas
== END 2024-03-23 16:50 | disposition home or self-care (01) ==
LOC: ER 13:22
DX: R10.13 Epigastric pain (principal); R11.2 Nausea with vomiting, unspecified; E11.9 Type 2 diabetes mellitus without complications; I10 Essential (primary) hypertension
CPT/HCPCS: 96361; 93005; 85025; 81001; 80048; 36415; 83735; 85610; 80076; 83605; 84484; 83690; 74177; 71045; 96375; 96374; 99284; Q9967; J2405; J7030

== ENCOUNTER 2024-06-24 13:14 | Emergency (ER) | payer OTHER ==
[2024-06-24] MEDS ORDERED: MORPHINE 4 MG/ML SYR ONE ×2 (14:05→17:13)
[2024-06-24] MEDS ORDERED: ONDANSETRON 4 MG/2 ML VIAL ONE ×2 (14:05→14:09)
[2024-06-24] MEDS ORDERED: NA CHLORIDE 0.9% 1,000 ML ONE (14:09)
[2024-06-24 14:17] LABS: Absolute Basophils 0.1 K/uL (0-0.5); Absolute Eosinophils 0.1 K/uL (0-0.5); Absolute Lymphocytes (CBC) 1.4 K/uL (0.7-4.9); Absolute Monocytes 0.4 K/uL (0.1-1.3); Absolute Neutrophil 7.4 K/uL (1.8-8.0); Basophils % 0.8 % (0-1.3); Eosinophils % 0.7 % (0-4.4); Hematocrit 37.6 % (36.0-45.0); Hemoglobin 12.6 g/dL (12.0-15.0); Lymphocytes % 15.1 % (15.3-44.8); MCH 26.9 pg (27.0-35.0); MCHC 33.4 g/dL (32.0-36.0); MCV 80.4 fL (80-100); MPV 8.2 fL (7.6-11.3); Monocytes % 4.7 % (3.3-12.3); Neutrophils % 78.7 % (41.7-73.7); Nucleated Red Blood Cells % 0.1 % (0-0); Platelets 534 thou/uL (152-406); RBC Red Blood Cell Count 4.68 M/uL (3.86-4.86); Red Cell Distribution Width 16.1 % (12.1-15.2)
[2024-06-24 14:40] LABS: Albumin 2.3 g/dL (3.4-5.0); Albumin/Globulin Ratio 0.6 (1.1-1.8); Anion Gap 16.8 mEq/L (5.0-15.0); Bilirubin Total 0.7 mg/dL (0.2-1.0); Globulin 3.8 g/dL (2.3-3.5); Potassium 2.8 mEq/L (3.5-5.1); Protein, Total 6.1 g/dL (6.4-8.2)
--- NOTE | 2024-06-24 15:24 | RAD REPORT ---
EXAMINATION: CT ABDOMEN AND PELVIS WITH CONTRAST CLINICAL INDICATION: Abdominal pain TECHNIQUE: CT abdomen and pelvis was performed, after the administration of 100 cc Isovue-300.. Sagit lexie and coronal reconstructions were obtained. One or more of the following dose reduction techniques were used: Automated exposure control, adjustment of the mA and kV according to patient si ze, and iterative reconstruction. Unless otherwise specified, incidental findings do not require dedicated imaging follow-up. [id number]. Oral contrast was not given which limits evaluation of bowel and appendix. COMPARISON: .March 2024 FINDINGS: The patient is status post recent gastric surgery. Several extraluminal air bubbles are present adjac ent to the stomach. 3 x 2 cm fluid collection adjacent to the stomach. It contains a couple of air bubbles. Air within the right abdominal wall probably post surgical. Cholecystectomy. Prominence of the extrahepatic biliary tree. Prominence of a right extrarenal pelvis which has progressed since the prior exam. Left kidney unrema rkable. Liver, spleen, pancreas, and adrenals appear unremarkable No evidence of diverticulitis. Small amount of ascites. Diffuse edema within the subcutaneous tissues. Abdominal aorta 2.9 cm : IMPRESSION: 3 x 2 cm ill-defined fluid collection adjacent to the stomach containing air bubbles. This could all be the sequela of the recent surgery and the fluid insignificant. Another consideration is that there is a leak. Further evaluation with a CT abdomen with oral contrast may be helpful for further e valuation. Prominence of the extrahepatic biliary tree can be physiologic in this patient status post cholecyste ctomy. Pathology such as stricture or nonvisualized stone can also have this appearance. Dilatation of a right extrarenal pelvis could be physiologic or secondary to a ureteropelvic junction stricture.
[2024-06-24] MEDS ORDERED: POTASSIUM CL SA 10 MEQ TAB PO ONE (17:13)
--- NOTE | 2024-06-24 17:27 | EDPHYS ---
Physician Documentation [facility] Name: Alejandra Coto Age: 73 yrs Sex: Female : 1950 Arrival Date: 06/24/2024 Time: 13:14 Bed 18 Private MD: KERI Physician Rakesh Sultana HPI: 06/24 18:08 This 73 yrs old Female presents to ER via Ambulatory with complaints of dr5 Constipation. 18:08 Onset: The symptoms/episode began/occurred 2 week(s) ago. 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 Patient states she has been having diarrhea and this has happened in the past. Patient reports she had gastric surgery by Dr. Weston on 06/14/24. Patient denies fever at this time. Historical: - Allergies: 13:29 Niacin; cm10 - Home Meds: 13:29 ezetimibe 10 mg Oral tablet 1 tab daily [Active]; atorvastatin 80 mg Oral tablet 1 tab cm10 daily [Active]; bumetanide 1 mg oral tablet 1 tab daily [Active]; allopurinol 100 mg Oral tablet daily [Active]; Wixela Inhub 250-50 mcg/dose inhalation Blister, With Inhalation Device 1 inhalation 2 times per day [Active]; escitalopram oxalate 20 mg Oral tablet 1 tab daily [Active]; oxybutynin chloride 5 mg Oral tablet 1 tab daily [Active]; pantoprazole 40 mg oral tablet, delayed release (enteric coated) 1 tab daily [Active]; gabapentin 300 mg Oral capsule 1 cap 2 times per day [Active]; lubiprostone 24 mcg Oral capsule 1 cap 2 times per day [Active]; carvedilol 12.5 mg oral tablet [Active]; tizanidine 4 mg Oral tablet once daily at bedtime [Active]; levothyroxine 50 mcg capsule 1 cap daily [Active]; Dulcolax (bisacodyl) 5 mg Oral tablet as needed [Active]; - PMHx: 13:29 diabetes mellitus; Hypercholesterolemia; Hypertensive disorder; Meningitits; cm10 - PSHx: 13:29 Cholecystectomy; Appendectomy; Gastric Bypass; Stented artery; Total abdominal cm10 hysterectomy; - Immunization history:: Adult Immunizations up to date. - Infectious Disease History:: Denies. - Social history:: Smoking status: Patient denies any tobacco usage or history of. ROS: 18:08 Constitutional: as per hpi dr5 Exam: 18:08 Constitutional: This is a well developed, well nourished patient who is awake, alert, dr5 and in no acute distress. Head/Face: Normocephalic, atraumatic. Eyes: Pupils equal round and reactive to light, extra-ocular motions intact. Lids and lashes normal. Conjunctiva and sclera are non-icteric and not injected. Cornea within normal limits. Periorbital areas with no swelling, redness, or edema. Chest/axilla: Normal chest wall appearance and motion. Nontender with no deformity. No lesions are appreciated. Cardiovascular: Regular rate and rhythm with a normal S1 and S2. Normal PMI, no JVD. No pulse deficits. Respiratory: Lungs have equal breath sounds bilaterally, clear to auscultation. No rales, rhonchi or wheezes noted. No increased work of breathing, no retractions or nasal flaring. 18:08 Abdomen/GI: Palpation: moderate abdominal tenderness, in all quadrants, Vital Signs: 13:27 BP 163 / 75; Pulse 73; Resp 18; Temp 97.2(TE); Pulse Ox 99% ; Weight 88.45 kg; Height 5 cm10 ft. 3 in. ; Pain 8/10; 16:30 BP 148 / 78; Pulse 76; Resp 18; Pulse Ox 98% on R/A; ph 18:01 BP 157 / 71; Pulse 78; Resp 18; Pulse Ox 98% on R/A; ph 20:44 BP 170 / 83; Pulse 83; Resp 18; Pulse Ox 95% ; cp4 13:27 Body Mass Index 34.54 (88.45 kg, 160.02 cm) cm10 13:27 Pain Scale: Adult cm10 MDM: 13:48 Medical Screening Exam initiated dr5 18:08 Differential diagnosis: Small bowel protection, abscess, electrolyte abnormality. Data dr5 reviewed: vital signs, nurses notes. Consideration of Admission/Observation Patient was admitted/placed on observation. Management of patient was discussed with the following: Dr. Weston (Surgeon). Care significantly affected by the following chronic conditions: Diabetes, Hypertension. Care significantly affected by the following Social Determinants of Health: Poor access to healthcare and/or lack of insurance, Poor access to transportation, Problems related to employment. Counseling: I had a detailed discussion with the patient and/or guardian regarding the historical points, exam findings, and any diagnostic results supporting the discharge/admit diagnosis, the presence of at least one elevated blood pressure reading (>120/80) during this emergency department visit, the need to transfer to another facility, for higher level of care, [facility] does not immediately have the required specialist, Spoke with Dr. eWston and he wants her at [facility] where surgery occurred. 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 ED course: Spoke with Dr. Weston who accepted patient. Will transfer patient. Pain medications.. 06/24 13:41 Order name: CBC with Diff; Complete Time: 14:23 dr5 06/24 13:41 Order name: CMP; Complete Time: 15:17 dr5 06/24 13:41 Order name: Lipase; Complete Time: 15:17 dr5 06/24 13:41 Order name: CT Abd/Pelvis - IV Contrast Only; Complete Time: 15:26 dr5 06/24 13:41 Order name: IV Saline Lock; Complete Time: 14:08 dr5 06/24 13:41 Order name: Labs collected and sent; Complete Time: 14:08 dr5 Administered Medications: 14:32 Drug: Ondansetron IVP 4 mg IVP once; over 2 minutes Route: IVP; Site: right antecubital;ph 18:03 Follow up: Response: No adverse reaction ph 14:32 Drug: morphine IVP or IV 4 mg IVP once over 4 mins Route: IVP; Infused Over: 4 mins; ph Site: right antecubital; 15:00 Follow up: Response: No adverse reaction; Pain is decreased ph 14:32 Drug: NS 0.9% IV 1000 ml IV at 1 bolus Per protocol; to be given as a bolus over 60 ph minutes Route: IV; Rate: 1 bolus; Site: right antecubital; 18:03 Follow up: Response: No adverse reaction; IV Status: Completed infusion; IV Intake: ph 1000ml 17:36 Drug: Potassium Chloride PO 40 mEq PO once Route: PO; ph 18:02 Follow up: Response: No adverse reaction ph 17:36 Drug: morphine IVP or IV 4 mg IVP once over 4 mins Route: IVP; Infused Over: 4 mins; ph Site: left antecubital; 18:02 Follow up: Response: No adverse reaction; Pain is decreased ph Disposition Summary: 06/24/24 17:27 Transfer Ordered Notes: Transfer Location: [place] [address] Reason: Higher level of care dr5 Condition: Stable dr5 Problem: new dr5 Symptoms: are unchanged dr5 Accepting Physician: Dr. Weston(06/24/24 22:11) cp4 Diagnosis - Cutaneous abscess of abdominal wall dr5 Forms: - Medication Reconciliation Form dr5 - SBAR form dr5 Addendum: 06/26/2024 15:28 Co-signature as Attending Physician, Rakesh Sultana MD I agree with the assessment and c torres plan of care. Signatures: Dispatcher [employer] EDRakesh Small MD MD cha Hall, Patricia RN RN Kellie Cade RN RN cmVicky Hutchinson cp4 Dom Sheridan, SET OFF PRESS OPERATOR-C SET OFF PRESS OPERATOR-Cdr5 Corrections: (The following items were deleted from the chart) 06/24 22:11 17:27 Dr. Weston dr5 cp4
--- NOTE | 2024-06-24 17:27 | ER ---
Nurse's Notes [facility] Name: Alejandra Coto Age: 73 yrs Sex: Female : 1950 Arrival Date: 06/24/2024 Time: 13:14 Bed 18 Private MD: Diagnosis: Cutaneous abscess of abdominal wall Presentation: 06/24 13:27 Chief complaint: Patient states: Constipation since 06/18. Pt reports that she has been cm10 doing OTC medicines but is just having diarrhea. Pt states that she thinks shes got a blockage. Coronavirus screen: Client denies travel out of the [place] in the last 14 days. Ebola Screen: Patient denies travel to an Ebola-affected area in the 21 days before illness onset. No symptoms or risks identified at this time. Initial Sepsis Screen: Does the patient meet any 2 criteria? No. Patient's initial sepsis screen is negative. Does the patient have a suspected source of infection? No. Patient's initial sepsis screen is negative. Risk Assessment: Do you want to hurt yourself or someone else? Patient reports no desire to harm self or others. Onset of symptoms was June 18, 2024. 13:27 Method Of Arrival: Ambulatory cm10 13:27 Acuity: JACOBY 3 cm10 Triage Assessment: 13:32 General: Appears in no apparent distress. uncomfortable, Behavior is calm, cooperative. cm10 Neuro: No deficits noted. Level of Consciousness is awake, alert, obeys commands, Oriented to person, place, time, situation, Appropriate for age. Historical: - Allergies: 13:29 Niacin; cm10 - Home Meds: 13:29 ezetimibe 10 mg Oral tablet 1 tab daily [Active]; atorvastatin 80 mg Oral tablet 1 tab cm10 daily [Active]; bumetanide 1 mg oral tablet 1 tab daily [Active]; allopurinol 100 mg Oral tablet daily [Active]; Wixela Inhub 250-50 mcg/dose inhalation Blister, With Inhalation Device 1 inhalation 2 times per day [Active]; escitalopram oxalate 20 mg Oral tablet 1 tab daily [Active]; oxybutynin chloride 5 mg Oral tablet 1 tab daily [Active]; pantoprazole 40 mg oral tablet, delayed release (enteric coated) 1 tab daily [Active]; gabapentin 300 mg Oral capsule 1 cap 2 times per day [Active]; lubiprostone 24 mcg Oral capsule 1 cap 2 times per day [Active]; carvedilol 12.5 mg oral tablet [Active]; tizanidine 4 mg Oral tablet once daily at bedtime [Active]; levothyroxine 50 mcg capsule 1 cap daily [Active]; Dulcolax (bisacodyl) 5 mg Oral tablet as needed [Active]; - PMHx: 13:29 diabetes mellitus; Hypercholesterolemia; Hypertensive disorder; Meningitits; cm10 - PSHx: 13:29 Cholecystectomy; Appendectomy; Gastric Bypass; Stented artery; Total abdominal cm10 hysterectomy; - Immunization history:: Adult Immunizations up to date. - Infectious Disease History:: Denies. - Social history:: Smoking status: Patient denies any tobacco usage or history of. Screenin:36 [facility] ED Fall Risk Assessment (Adult) History of falling in the last 3 months, ph including since admission No falls in past 3 months (0 pts) Confusion or Disorientation No (0 pts) Intoxicated or Sedated No (0 pts) Impaired Gait No (0 pts) Mobility Assist Device Used No (0 pt) Altered Elimination No (0 pt) Score/Fall Risk Level 0 - 2 = Low Risk Oriented to surroundings, Maintained a safe environment, Hourly rounding (assess needs \T\ fall precautionary measures) done. Abuse screen: Denies threats or abuse. Denies injuries from another. Nutritional screening: No deficits noted. Tuberculosis screening: No symptoms or risk factors identified. Assessment: 14:35 General: Appears in no apparent distress. uncomfortable, Behavior is calm, cooperative. ph Pain: Complains of pain in buttocks and abdomen. Neuro: Level of Consciousness is awake, alert, obeys commands, Oriented to person, place, time, situation. Cardiovascular: Capillary refill < 3 seconds. Respiratory: Airway is patent. GI: Abd is soft X 4 quads Reports lower abdominal pain, upper abdominal pain, constipation. Derm: Skin is pink, warm \T\ dry. 21:32 Reassessment: Multiple attempts to call report with no answer. Spoke with Julius and he cp4 would not take report due to giving blood. 22:10 Reassessment: Report taken by DOMENICO Morrow. cp4 Vital Signs: 13:27 BP 163 / 75; Pulse 73; Resp 18; Temp 97.2(TE); Pulse Ox 99% ; Weight 88.45 kg; Height 5 cm10 ft. 3 in. ; Pain 8/10; 16:30 BP 148 / 78; Pulse 76; Resp 18; Pulse Ox 98% on R/A; ph 18:01 BP 157 / 71; Pulse 78; Resp 18; Pulse Ox 98% on R/A; ph 20:44 BP 170 / 83; Pulse 83; Resp 18; Pulse Ox 95% ; cp4 13:27 Body Mass Index 34.54 (88.45 kg, 160.02 cm) cm10 13:27 Pain Scale: Adult cm10 ED Course: 13:20 Patient arrived in ED. ra3 13:29 Triage completed. cm10 13:32 Arm band placed on right wrist. Patient placed in an exam room, on a stretcher. cm10 13:35 Dom Sheridan FNP-C is PHCP. dr5 13:35 Rakesh Sultana MD is Attending Physician. dr5 13:57 Lalita Hannon RN is Primary Nurse. ph 14:08 Initial lab(s) drawn, by me, sent to lab. Inserted saline lock: 20 gauge in right bp forearm, using aseptic technique. Blood collected. Flushed with 10 mL NS. 14:37 Patient has correct armband on for positive identification. Bed in low position. Call ph light in reach. Side rails up X 1. Pulse ox on. NIBP on. Door closed. Noise minimized. Warm blanket given. 15:10 CT Abd/Pelvis - IV Contrast Only In Process Unspecified. EDMS 16:33 initiated a transfer with Kirstin from the [facility]. eb 18:02 No provider procedures requiring assistance completed. Patient transferred, IV remains ph in place. 20:17 Called [facility] for transfer update, Trish said we are still waiting for a bed to [facility] open up. 22:11 Provided Education on: transfer. cp4 Administered Medications: 14:32 Drug: Ondansetron IVP 4 mg IVP once; over 2 minutes Route: IVP; Site: right antecubital;ph 18:03 Follow up: Response: No adverse reaction ph 14:32 Drug: morphine IVP or IV 4 mg IVP once over 4 mins Route: IVP; Infused Over: 4 mins; ph Site: right antecubital; 15:00 Follow up: Response: No adverse reaction; Pain is decreased ph 14:32 Drug: NS 0.9% IV 1000 ml IV at 1 bolus Per protocol; to be given as a bolus over 60 ph minutes Route: IV; Rate: 1 bolus; Site: right antecubital; 18:03 Follow up: Response: No adverse reaction; IV Status: Completed infusion; IV Intake: ph 1000ml 17:36 Drug: Potassium Chloride PO 40 mEq PO once Route: PO; ph 18:02 Follow up: Response: No adverse reaction ph 17:36 Drug: morphine IVP or IV 4 mg IVP once over 4 mins Route: IVP; Infused Over: 4 mins; ph Site: left antecubital; 18:02 Follow up: Response: No adverse reaction; Pain is decreased ph Medication: 14:37 VIS not applicable for this client. ph Intake: 18:03 IV: 1000ml; Total: 1000ml. ph Outcome: 17:27 ER care complete, transfer ordered by MD. dr5 22:11 Transferred by ground EMS to [facility], Transfer form completed. cp4 X-rays sent w/ patient. 22:11 Condition: stable 22:11 Instructed on the need for transfer, 22:11 Patient left the ED. cp4 Signatures: Dispatcher [employer] Lalita Boyer RN RN ph Peltier, Brian, RN RN Kirstin Gonzalez Rebecca rv1 Kellie Cade RN RN cm10 Vicky Esposito cp4 Ruth Lowery ra3 Dom Sheridan, MARYANNE-Earnestine GUILLERMOP-[facility]5
[2024-06-24 22:33] VITALS: TEMP 97.2
[2024-06-24 22:41] VITALS: BP 170/83; O2SAT 95
== END 2024-06-24 22:11 | disposition short-term general hospital (02) ==
LOC: ER 13:14
DX: L02.211 Cutaneous abscess of abdominal wall (principal); Z98.890 Other specified postprocedural states; E11.9 Type 2 diabetes mellitus without complications; I10 Essential (primary) hypertension
CPT/HCPCS: 85025; 36415; 83690; 80053; 74177; 99285; Q9967; J2405 ×2; J7030

== ENCOUNTER 2025-01-25 07:58 | Emergency (ER) | payer OTHER ==
[2025-01-25] MEDS ORDERED: ONDANSETRON 4 MG/2 ML VIAL ONE (08:40)
[2025-01-25] MEDS ORDERED: MORPHINE 4 MG/ML SYR ONE (08:40)
[2025-01-25] MEDS ORDERED: NA CHLORIDE 0.9% 1,000 ML ONE (08:40)
[2025-01-25 08:45] LABS: Absolute Lymphocytes (CBC) 1.4 K/uL (0.7-4.9); Hematocrit 38.7 % (36.0-45.0); Hemoglobin 13.3 g/dL (12.0-15.0); MCH 29.3 pg (27.0-35.0); MCHC 34.5 g/dL (32.0-36.0); MCV 85.0 fL (80-100); MPV 8.5 fL (7.6-11.3); Nucleated RBC Absolute Count 0.0 (0-0); Nucleated Red Blood Cells % 0.1 % (0-0); RBC Red Blood Cell Count 4.55 M/uL (3.86-4.86); White Blood Count 5.70 thou/uL (4.3-10.9)
[2025-01-25 09:04] LABS: ALT/SGPT 67.0 U/L (13-56); AST/SGOT 41.0 U/L (15-37); Albumin 3.1 g/dL (3.4-5.0); Albumin/Globulin Ratio 1.1 (1.1-1.8); Alkaline Phosphatase 94.0 U/L (45-117); Anion Gap 6.3 mEq/L (5.0-15.0); BUN Blood Urea Nitrogen 13.0 mg/dL (7-18); Globulin 2.8 g/dL (2.3-3.5); Glucose Level 121.0 mg/dL (74-106); Lipase 187.0 U/L (13-75); Potassium 3.3 mEq/L (3.5-5.1)
[2025-01-25] MEDS ORDERED: HYDRALAZINE HCL 20 MG/ML VIAL ONE (09:04)
--- NOTE | 2025-01-25 09:50 | RAD REPORT ---
EXAMINATION: Abdomen Pelvis W Contrast CLINICAL INDICATION: Female, 74 years old.ABD PAIN TECHNIQUE: CT abdomen and pelvis was performed, after the administration of IV contrast, [facility]. Axial, sagittal and coronal reconstructions were obtained. One or more of the following dose reduction techniques were used: Automated exposure control, adjustment of the mA and/o r kV according to patient size, and/or iterative reconstruction. Unless otherwise specified, incidental findings do not require dedicated imaging follow-up. [id number]. COMPARISON: 06/24/2024 FINDINGS: LOWER CHEST: No acute process identified.No significant pericardial effusion. Severe coronary artery calcifications.Mild circumferential thickening of the distal esophagus which could reflect esophagitis. UPPER GI: Opal-en-Y gastric bypass. There is some enhancement of the excluded stomach. At the gastroj ejunostomy there are portions of the wall that are possibly discontinuous or thinned. There is some surrounding fluid but no free air. LIVER: Hepatic steatosis, but otherwise unremarkable. GALLBLADDER/BILE DUCTS: Cholecystectomy. Moderate extrahepatic biliary ductal dilatation. This could be secondary to the post-cholecystectomy state. Recommend correlation with LFT's. If abnormal, consider MRCP for further evaluation. ? PANCREAS: Small one of fluid along the pancreatic body is unchanged. SPLEEN: Unremarkable. ADRENALS: No adrenal masses. KIDNEYS AND URETERS: Extrarenal pelvis bilaterally.Low density and/or too small to characterize renal lesions which are statistically benign.No renal calculi.No ureteral calculi. ABDOMINAL AORTA AND OTHER VESSELS: Infrarenal abdominal aortic aneurysm measuring 3 cm. For manageme nt of fusiform aneurysmal abdominal aortas: Recommend follow-up every 3 years. Note: For AAA enlargement of > 0.5 cm in 6 months or > 1 cm in 1 year, recommend vascular consultat ion. References: J Am Carson Radiol 2013; 10(10):789-794; J Vasc Surg. 2018; 67:2-77 PERITONEUM: No abnormal free fluid. No free air. LYMPH NODES: No pathologic lymphadenopathy. ABDOMINAL WALL: Body wall edema. SMALL BOWEL/COLON: Small bowel has normal course and caliber. No colonic wall thickening or pericolon ic inflammatory changes. URINARY BLADDER: Underdistended but grossly unremarkable. REPRODUCTIVE ORGANS: Uterus surgically absent. No adnexal abnormality. MUSCULOSKELETAL: Multilevel degenerative changes in the spine. No acute fracture. ADDITIONAL FINDINGS: None. IMPRESSION: Edema with small volume of nonloculated fluid at the gastrojejunostomy and this patient who has had a prior Opal-en-Y gastric bypass. This could reflect an ulceration or inflammation. No evidence of abscess or free air. The excluded stomach also has wall thickening and enhancement which could reflec t gastritis. Similar extrahepatic biliary duct dilatation status post postcholecystectomy. Correlate with LFTs. If abnormal, could consider MRCP.
[2025-01-25] MEDS ORDERED: PROMETHAZINE INJ 25 MG/ML AMP ONE (09:56)
[2025-01-25] MEDS ORDERED: HYDROMORPHONE HCL 0.5 MG/0.5 ML INJ ONE (09:56)
[2025-01-25 10:03] LABS: Urine Culture Reflex Order NOT NEEDED; Urine Microscopic Reflex YN ORDER UMIC
--- NOTE | 2025-01-25 10:13 | EDPHYS ---
Physician Documentation [facility] Name: Alejandra Coto Age: 74 yrs Sex: Female : 1950 Arrival Date: 01/25/2025 Time: 07:58 Bed 8 Private MD: KERI Physician Brady Ziegler HPI: 01/25 09:47 This 74 yrs old Female presents to ER via Wheelchair with complaints of dr5 Abdominal Pain, Vomiting/Diarrhea. 09:47 The patient presents with abdominal pain that is diffuse. Onset: The symptoms/episode dr5 began/occurred yesterday. Patient is a 71-year-old female with history of hypertension, hyperlipidemia, GERD coming in with generalized abdominal pain that started this morning. Patient reports that she is not able to eat or drink. Patient reports she has had a cholecystectomy and hysterectomy. Patient does not know if her appendix is still there or not. Patient denies diarrhea, fever, chest pain.. Historical: - Allergies: 08:21 Niacin; nh2 - Home Meds: 08:21 ezetimibe 10 mg oral tablet 1 tab daily [Active]; allopurinol 100 mg Oral tablet 1 tabs nh2 daily [Active]; ondansetron 4 mg oral Tablet,disintegrating 1 tab every 8 hours [Active]; atorvastatin 80 mg oral tablet 1 tab daily [Active]; carvedilol 12.5 mg oral tablet 0.5 tab for hypertension [Active]; bumetanide 1 mg Oral tablet 1 tab 2 times per day [Active]; methocarbamol 750 mg Oral tablet 1 tab 2 times per day [Active]; lubiprostone 24 mcg oral capsule 1 cap 2 times per day [Active]; escitalopram oxalate 20 mg oral tablet 1 tab daily [Active]; bupropion HCl 150 mg Oral Tablet, Extended Release 24 hr 1 tab every morning for anxiety with depression [Active]; pantoprazole 40 mg oral tablet, delayed release (enteric coated) 1 tab daily for heartburn [Active]; clonazepam 0.5 mg Oral tablet 1 tabs for anxiety [Active]; tizanidine 4 mg oral capsule 1 cap every day at bedtime for muscle spasm [Active]; tramadol 50 mg Oral tablet 1 tab daily for pain [Active]; - PMHx: 08:21 Hypertensive disorder; Hypercholesterolemia; Gastroesophageal reflux disease; nh2 - PSHx: 08:21 Cholecystectomy; Stented artery; nh2 - Immunization history:: Adult Immunizations up to date. - Infectious Disease History:: Denies. - Social history:: Smoking status: Patient/guardian denies using tobacco products. ROS: :47 Constitutional: as per hpi dr5 Exam: :47 Constitutional: This is a well developed, well nourished patient who is awake, alert, dr5 and in no acute distress. Head/Face: Normocephalic, atraumatic. Eyes: Pupils equal round and reactive to light, extra-ocular motions intact. Lids and lashes normal. Conjunctiva and sclera are non-icteric and not injected. Cornea within normal limits. Periorbital areas with no swelling, redness, or edema. Neck: Trachea midline, no thyromegaly or masses palpated, and no cervical lymphadenopathy. Supple, full range of motion without nuchal rigidity, or vertebral point tenderness. No Meningismus. Chest/axilla: Normal chest wall appearance and motion. Nontender with no deformity. No lesions are appreciated. Cardiovascular: Regular rate and rhythm with a normal S1 and S2. Normal PMI, no JVD. No pulse deficits. Respiratory: Lungs have equal breath sounds bilaterally, clear to auscultation. No rales, rhonchi or wheezes noted. No increased work of breathing, no retractions or nasal flaring. Back: No spinal tenderness. No costovertebral tenderness. Full range of motion. Skin: Warm, dry with normal turgor. Normal color with no rashes, no lesions, and no evidence of cellulitis. MS/ Extremity: Pulses equal, no cyanosis. Neurovascular intact. Full, normal range of motion. Neuro: Awake and alert, GCS 15, oriented to person, place, time, and situation. Cranial nerves II-XII grossly intact. Motor strength 5/5 in all extremities. Sensory grossly intact. Cerebellar exam normal. Normal gait. :47 Abdomen/GI: Inspection: abdomen appears normal, Bowel sounds: normal, Palpation: moderate abdominal tenderness, in all quadrants, Vital Signs: 08:13 BP 207 / 88; Pulse 68; Resp 19; Temp 98(TE); Pulse Ox 95% on R/A; Weight 80.74 kg; nh2 Height 0 ft. 1 in. ; Pain 8/10; 09:52 BP 186 / 75; Pulse 64; Resp 16; Pulse Ox 94% on R/A; iw 10:30 BP 153 / 72; Pulse 75; Resp 16; Temp 97.8(TE); Pulse Ox 94% on R/A; nh2 10:55 BP 148 / 73; Pulse 69; Resp 18; Temp 97.9(T); Pulse Ox 95% on R/A; nh2 08:13 Body Mass Index 18525.49 (80.74 kg, 3 cm) nh2 08:13 Pain Scale: Adult nh2 MDM: 08:09 Medical Screening Exam initiated dr5 09:47 Differential diagnosis: appendicitis, bowel obstruction, diverticulitis, gastritis, dr5 gastroesophageal reflux disease, non-specific abd pain, pancreatitis. Data reviewed: vital signs, nurses notes, lab test result(s), amylase and lipase, CBC, white blood cell count, hemoglobin, hematocrit, platelets, electrolytes, sodium, potassium, chloride, serum bicarbonate, BUN, creatinine, serum glucose, urinalysis. 10:44 Consideration of Admission/Observation Escalation of care including dr5 admission/observation considered. Considered admission and patient found to have electrolyte abnormality or abnormality on CT scan.. I considered the following discharge prescriptions or medication management in the emergency department I discussed and recommended Over The Counter medications, Medications were administered in the Emergency Department. See MAR. Historians other than the Patient: Daughter/Son: Son at bedside. Care significantly affected by the following chronic conditions: Hypertension, GERD, hyperlipidemia. Care significantly affected by the following Social Determinants of Health: Poor access to healthcare and/or lack of insurance, Poor access to transportation, Problems related to employment. 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 Medication response: Dilaudid, Zofran, promethazine, morphine. Medication response: GI Cocktail relieved the patient's pain. The symptoms have resolved. Response to treatment: the patient's symptoms have resolved after treatment, the patient's condition has returned to base line. Special discussion: I have referred the patient to see his PCP for further evaluation of high blood pressure. I discussed with the patient/guardian in detail that at this point there is no indication for admission to the hospital. It is understood, however, that if the symptoms persist or worsen the patient needs to return immediately for re-evaluation. Further emergent ED testing is not indicated at this point in time. I discussed with the patient/guardian in detail the need to arrange with the PCP or specialist further outpatient testing, H. pylori. Based on the history and exam findings, there is no indication for further emergent testing or inpatient evaluation. I discussed with the patient/guardian the need to see the chemical engineering professor for further evaluation of the symptoms. ED course: Patient has GI appointment on Tuesday. Discussed all labs and CT scan results with patient. Will add on Pepcid to her Protonix that she is currently taking. All questions answered. Labs and CT scan were printed and given to patient to take with her to her appointment. Recommended pain medication, and nausea medicine. All question answered. Strict ER precautions given. Patient reports he is much better. 10:46 ED course: Patient was given hydralazine to help with her blood pressure and decreased dr5 down to 153/72.. 01/25 08:20 Order name: CBC with Diff; Complete Time: 08:51 dr5 01/25 08:20 Order name: CMP; Complete Time: 09:14 dr5 01/25 08:20 Order name: Lipase; Complete Time: 09:14 dr5 01/25 08:20 Order name: UA Rfx Tenzin Cult if indicated; Complete Time: 10:11 dr5 01/25 08:20 Order name: CT Abd/Pelvis - IV Contrast Only; Complete Time: 09:57 dr5 01/25 08:20 Order name: IV Saline Lock; Complete Time: 08:38 dr5 01/25 08:20 Order name: Labs collected and sent; Complete Time: 08:38 dr5 Administered Medications: 08:45 Drug: Ondansetron IVP 4 mg IVP once; over 2 minutes Route: IVP; Site: right antecubital;iw 10:00 Follow up: Response: No adverse reaction iw 08:45 Drug: morphine IVP or IV 4 mg IVP once over 4 mins Route: IVP; Infused Over: 4 mins; iw Site: right antecubital; 09:45 Follow up: Response: No adverse reaction; Pain is unchanged, physician notified iw 08:45 Drug: NS 0.9% IV 1000 ml IV at 1 bolus Per protocol; to be given as a bolus over 60 iw minutes Route: IV; Rate: 1 bolus; Site: right antecubital; 10:50 Follow up: IV Status: Completed infusion iw 09:13 Drug: carvedilol PO 12.5 mg PO once; administer with food Route: PO; nh2 10:50 Follow up: Response: No adverse reaction; Blood pressure is lowered iw 09:13 Drug: hydrALAZINE IVP 5 mg IVP once Route: IVP; Site: right antecubital; nh2 10:45 Follow up: Response: No adverse reaction; Blood pressure is lowered iw 09:55 Drug: HYDROmorphone IVP 0.5 mg IVP once Route: IVP; Site: right antecubital; iw 10:30 Follow up: Response: No adverse reaction; Pain is decreased iw 09:55 Drug: promethazine 12.5 mg IVP once Route: IVP; Site: right antecubital; iw 10:30 Follow up: Response: No adverse reaction iw 10:46 Drug: GI Cocktail without - (Maalox PO 30 ml, Lidocaine Mucous Membrane 2 % 15 iw ml) PO once Route: PO; 10:55 Follow up: Response: No adverse reaction iw Disposition: 11:29 Co-signature as Attending Physician, Dom DOMINGUEZ I agree with the assessment [id number] and plan of care. Disposition Summary: 01/25/25 10:41 Discharge Ordered Notes: Location: Home(01/25/25 10:41) dr5 Condition: Stable(01/25/25 10:41) dr5 Diagnosis - Dehydration(01/25/25 10:41) dr5 - Acute gastritis dr5 Followup: dr5 - With: Emergency Department - When: As needed - Reason: Worsening of condition Followup: dr5 - With: Private Physician - When: 1 - 2 days - Reason: Recheck today's complaints, Continuance of care, Re-evaluation by your physician Discharge Instructions: - Discharge Summary Sheet dr5 - Gastritis, Adult dr5 Forms: - Medication Reconciliation Form dr5 - Patient Portal Instructions dr5 - Leadership Thank You Letter dr5 Prescriptions: - Zofran 4 mg Oral Tablet - take 1 tablet ORAL route every 12 hours As needed; 20 tablet; Refills: 0, dr5 Product Selection Permitted - Tramadol 50 mg Oral Tablet - take 1 tablet ORAL route every 8 hours as needed; 12 tablet; Refills: 0, dr5 Product Selection Permitted - Pepcid 20 mg Oral Tablet - take 1 tablet ORAL route once daily for 10 days; 10 tablet; Refills: 0, Product dr5 Selection Permitted Critical care time excluding procedures: 09:50 Critical care time: Bedside Care: 20 minutes, Consultation: 5 minutes, Family dr5 Intervention: 5 minutes. Total time: 30 minutes Signatures: Dispatcher [employer] EDMS Anila Lopez, RN RN iw Brady Ziegler MD MD [id number] Cedrick Myles Jr, RN RN nh2 Dom Sheridan, ORGANIZATIONAL PSYCHOLOGIST-C ORGANIZATIONAL PSYCHOLOGIST-Cdr5 Corrections: (The following items were deleted from the chart) 08:18 08:17 PSHx: Cholecystectomy; 08:18 08:17 PSHx: Appendectomy; nh2 08:18 08:17 PSHx: Total abdominal hysterectomy; nh2 08:18 08:17 PSHx: Stented artery; nh2 08:18 08:17 PSHx: Gastric Bypass; 08:20 08:20 CBC+H.LAB.BRZ ordered. EDMS EDMS 08:20 08:20 COMPREHENSIVE METABOLIC PANEL+C.LAB.BRZ ordered. EDMS EDMS 08:20 08:20 LIPASE+C.LAB.BRZ ordered. EDMS EDMS 08:20 08:20 UA Rfx Tenzin Cult if indicated+U.LAB.BRZ ordered. EDMS EDMS 08:20 08:20 Abdomen Pelvis W Con+CT.RAD.BRZ ordered. EDMS EDMS 08:29 08:17 Allergies: Niacin [Inactive]; 08:17 Home Meds: ezetimibe 10 mg Oral tablet 1 tab daily [Inactive]; 08:17 Home Meds: atorvastatin 80 mg Oral tablet 1 tab daily [Inactive]; 08:17 Home Meds: bumetanide 1 mg Oral tablet 1 tab daily [Inactive]; 08:17 Home Meds: allopurinol 100 mg Oral tablet daily [Inactive]; 08:17 Home Meds: escitalopram oxalate 20 mg Oral tablet 1 tab daily [Inactive]; 08:17 Home Meds: oxybutynin chloride 5 mg Oral tablet 1 tab daily [Inactive]; 08:17 Home Meds: carvedilol 12.5 mg Oral tablet [Inactive]; 08:17 Home Meds: gabapentin 300 mg Oral capsule 1 cap 2 times per day [Inactive]; 08:17 Home Meds: lubiprostone 24 mcg Oral capsule 1 cap 2 times per day [Inactive]; 08:17 Home Meds: tizanidine 4 mg Oral tablet once daily at bedtime [Inactive]; 08:17 Home Meds: levothyroxine 50 mcg capsule 1 cap daily [Inactive]; 08:17 Home Meds: Dulcolax (bisacodyl) 5 mg Oral tablet as needed [Inactive]; 08:17 Home Meds: Wixela Inhub 250-50 mcg/dose inhalation Blister, With Inhalation nh2 Device 1 inhalation 2 times per day [Inactive]; 08:17 Home Meds: pantoprazole 40 mg Oral tablet, delayed release (enteric coated) 1 tab nh2 daily [Inactive]; 08:17 Home Meds: Victoza 2-Rony subcutaneous 1.8 mg daily [Inactive]; 08:17 Home Meds: Advair Diskus 250-50 mcg/dose Inhl Blister 1 inhalation [Inactive]; nh2nh2 08:17 Home Meds: esomeprazole magnesium 40 mg Oral capsule 1 cap daily [Inactive]; 08:17 Home Meds: glipizide 2.5 mg Oral tablet 1 tab 2 times per day [Inactive]; 08:17 Home Meds: Colace oral 50 as needed [Inactive]; 08:17 PMHx: diabetes mellitus; 08:17 PMHx: Hypercholesterolemia; 08:17 PMHx: Hypertensive disorder; nh2 08:17 PMHx: Meningitits; nh2 nh2 10:31 10:[address] dr5 dr5 10:31 10:13 [address]able dr5 dr5 10:31 10:13 Heat syncope dr5 dr5 10:31 10:[address]5 dr5
--- NOTE | 2025-01-25 10:13 | ER ---
Nurse's Notes [facility] Name: Alejandra Coto Age: 74 yrs Sex: Female : 1950 Arrival Date: 01/25/2025 Time: 07:58 Bed 8 Private MD: Diagnosis: Dehydration;Acute gastritis Presentation: 01/25 08:13 Chief complaint: Patient states: c.o abd pain that started last night with N/V/D. nh2 Coronavirus screen: At this time, the client does not indicate any symptoms associated with coronavirus-19. Ebola Screen: No symptoms or risks identified at this time. Initial Sepsis Screen: Does the patient meet any 2 criteria? No. Patient's initial sepsis screen is negative. Does the patient have a suspected source of infection? No. Patient's initial sepsis screen is negative. Risk Assessment: Do you want to hurt yourself or someone else? Patient reports no desire to harm self or others. Onset of symptoms was January 24, 2025 at 22:00. 08:13 Method Of Arrival: Wheelchair nh2 08:13 Acuity: JACOBY 3 nh2 Historical: - Allergies: 08:21 Niacin; nh2 - Home Meds: 08:21 ezetimibe 10 mg oral tablet 1 tab daily [Active]; allopurinol 100 mg Oral tablet 1 tabs nh2 daily [Active]; ondansetron 4 mg oral Tablet,disintegrating 1 tab every 8 hours [Active]; atorvastatin 80 mg oral tablet 1 tab daily [Active]; carvedilol 12.5 mg oral tablet 0.5 tab for hypertension [Active]; bumetanide 1 mg Oral tablet 1 tab 2 times per day [Active]; methocarbamol 750 mg Oral tablet 1 tab 2 times per day [Active]; lubiprostone 24 mcg oral capsule 1 cap 2 times per day [Active]; escitalopram oxalate 20 mg oral tablet 1 tab daily [Active]; bupropion HCl 150 mg Oral Tablet, Extended Release 24 hr 1 tab every morning for anxiety with depression [Active]; pantoprazole 40 mg oral tablet, delayed release (enteric coated) 1 tab daily for heartburn [Active]; clonazepam 0.5 mg Oral tablet 1 tabs for anxiety [Active]; tizanidine 4 mg oral capsule 1 cap every day at bedtime for muscle spasm [Active]; tramadol 50 mg Oral tablet 1 tab daily for pain [Active]; - PMHx: 08:21 Hypertensive disorder; Hypercholesterolemia; Gastroesophageal reflux disease; nh2 - PSHx: 08:21 Cholecystectomy; Stented artery; nh2 - Immunization history:: Adult Immunizations up to date. - Infectious Disease History:: Denies. - Social history:: Smoking status: Patient/guardian denies using tobacco products. Screenin:38 [facility] ED Fall Risk Assessment (Adult) History of falling in the last 3 months, nh2 including since admission Yes- single mechanical fall (1 pt) Confusion or Disorientation No (0 pts) Intoxicated or Sedated No (0 pts) Impaired Gait No (0 pts) Mobility Assist Device Used Yes (1 pt) Altered Elimination No (0 pt) Score/Fall Risk Level 0 - 2 = Low Risk Oriented to surroundings, Maintained a safe environment, Educated pt \T\ family on fall prevention, incl call for assistance when getting out of bed. 08:39 Abuse screen: Denies threats or abuse. Nutritional screening: No deficits noted. nh2 Tuberculosis screening: No symptoms or risk factors identified. Assessment: 08:39 General: Appears in no apparent distress. well groomed, Behavior is calm, cooperative, nh2 appropriate for age, Denies fever, feeling ill, fatigue, chills. Pain: Complains of pain in abdomen Pain radiates to chest Pain currently is 8 out of 10 on a pain scale. Quality of pain is described as dull, Pain began last night at 2200. Neuro: Level of Consciousness is awake, alert, obeys commands, Oriented to person, place, time, situation, Appropriate for age. Cardiovascular: Capillary refill < 3 seconds Clubbing of nail beds is absent JVD is absent Patient's skin is warm and dry. Respiratory: Airway is patent Respiratory effort is even, unlabored, Respiratory pattern is regular, symmetrical. 08:39 GI: Bowel sounds present X 4 quads. hypoactive in right upper quadrant, left upper nh2 quadrant, right lower quadrant and left lower quadrant Abd is soft X 4 quads Abdomen is tender to palpation X 4 quads. : Denies burning with urination, discharge. Derm: Skin is intact, is healthy with good turgor, Skin temperature is warm. Musculoskeletal: Range of motion: intact in all extremities. 09:16 Reassessment: Patient appears in no apparent distress at this time. pt medicated for iw high BP, transported to CT via wheelchair Patient states symptoms have improved. Vital Signs: 08:13 BP 207 / 88; Pulse 68; Resp 19; Temp 98(TE); Pulse Ox 95% on R/A; Weight 80.74 kg; nh2 Height 0 ft. 1 in. ; Pain 8/10; 09:52 BP 186 / 75; Pulse 64; Resp 16; Pulse Ox 94% on R/A; iw 10:30 BP 153 / 72; Pulse 75; Resp 16; Temp 97.8(TE); Pulse Ox 94% on R/A; nh2 10:55 BP 148 / 73; Pulse 69; Resp 18; Temp 97.9(T); Pulse Ox 95% on R/A; nh2 08:13 Body Mass Index 13852.49 (80.74 kg, 3 cm) nh2 08:13 Pain Scale: Adult nh2 ED Course: 08:01 Patient arrived in ED. mr 08:03 Brook Lr, DOMENICO is Primary Nurse. hb 08:08 Dom Sheridan FNP-C is PHCP. dr5 08:08 Brady Ziegler MD is Attending Physician. dr5 08:17 Triage completed. nh2 08:30 Arm band placed on right wrist. nh2 08:38 CBC with Diff Sent. nh2 08:38 CMP Sent. nh2 08:39 Lipase Sent. nh2 08:39 Inserted saline lock: 22 gauge in right antecubital area, using aseptic technique. nh2 Blood collected. Flushed with 10 mL NS. 08:39 Patient has correct armband on for positive identification. Placed in gown. Bed in low nh2 position. Side rails up X2. Provided Education on: using call light for assistance to prevent fall-related injuries. 08:42 Anila Lopez, DOMENICO is Primary Nurse. iw 09:20 CT Abd/Pelvis - IV Contrast Only In Process Unspecified. EDMS 11:02 No provider procedures requiring assistance completed. IV discontinued, intact, nh2 bleeding controlled, No redness/swelling at site. Pressure dressing applied. Administered Medications: 08:45 Drug: Ondansetron IVP 4 mg IVP once; over 2 minutes Route: IVP; Site: right antecubital;iw 10:00 Follow up: Response: No adverse reaction iw 08:45 Drug: morphine IVP or IV 4 mg IVP once over 4 mins Route: IVP; Infused Over: 4 mins; iw Site: right antecubital; 09:45 Follow up: Response: No adverse reaction; Pain is unchanged, physician notified iw 08:45 Drug: NS 0.9% IV 1000 ml IV at 1 bolus Per protocol; to be given as a bolus over 60 iw minutes Route: IV; Rate: 1 bolus; Site: right antecubital; 10:50 Follow up: IV Status: Completed infusion iw 09:13 Drug: carvedilol PO 12.5 mg PO once; administer with food Route: PO; nh2 10:50 Follow up: Response: No adverse reaction; Blood pressure is lowered iw 09:13 Drug: hydrALAZINE IVP 5 mg IVP once Route: IVP; Site: right antecubital; nh2 10:45 Follow up: Response: No adverse reaction; Blood pressure is lowered iw 09:55 Drug: HYDROmorphone IVP 0.5 mg IVP once Route: IVP; Site: right antecubital; iw 10:30 Follow up: Response: No adverse reaction; Pain is decreased iw 09:55 Drug: promethazine 12.5 mg IVP once Route: IVP; Site: right antecubital; iw 10:30 Follow up: Response: No adverse reaction iw 10:46 Drug: GI Cocktail without - (Maalox PO 30 ml, Lidocaine Mucous Membrane 2 % 15 iw ml) PO once Route: PO; 10:55 Follow up: Response: No adverse reaction iw Medication: 08:39 VIS not applicable for this client. nh2 Outcome: 10:13 Discharge ordered by MD. dr5 10:41 Discharge ordered by MD. dr5 11:00 Discharged to home ambulatory, with family, nh2 11:00 Condition: good 11:00 Discharge instructions given to patient, Instructed on discharge instructions, medication usage, Demonstrated understanding of instructions, follow-up care, medications, Prescriptions given X 3, 11:03 Patient left the ED. iw Signatures: Dispatcher [employer] EDMT Rea Bartlett, Reg Reg mr Anila Lopez, RN RN iw Brook Lr RN RN hb Hernandez Jr, Noel, RN RN nh2 Dom Sheridan, RIG BUILDER HELPER-C RIG BUILDER HELPER-Cdr5 Corrections: (The following items were deleted from the chart) 08:18 08:17 PSHx: Cholecystectomy; nh2 nh2 08 08:17 PSHx: Appendectomy; 08 08:17 PSHx: Total abdominal hysterectomy; 08 08:17 PSHx: Stented artery; 08 08:17 PSHx: Gastric Bypass; 08:17 Allergies: Niacin [Inactive]; 08:17 Home Meds: ezetimibe 10 mg Oral tablet 1 tab daily [Inactive]; 08:17 Home Meds: atorvastatin 80 mg Oral tablet 1 tab daily [Inactive]; 08:17 Home Meds: bumetanide 1 mg Oral tablet 1 tab daily [Inactive]; 08:17 Home Meds: allopurinol 100 mg Oral tablet daily [Inactive]; 08:17 Home Meds: escitalopram oxalate 20 mg Oral tablet 1 tab daily [Inactive]; 08:17 Home Meds: oxybutynin chloride 5 mg Oral tablet 1 tab daily [Inactive]; 08:17 Home Meds: carvedilol 12.5 mg Oral tablet [Inactive]; 08:17 Home Meds: gabapentin 300 mg Oral capsule 1 cap 2 times per day [Inactive]; 08:17 Home Meds: lubiprostone 24 mcg Oral capsule 1 cap 2 times per day [Inactive]; 08:17 Home Meds: tizanidine 4 mg Oral tablet once daily at bedtime [Inactive]; 08:17 Home Meds: levothyroxine 50 mcg capsule 1 cap daily [Inactive]; 08:17 Home Meds: Dulcolax (bisacodyl) 5 mg Oral tablet as needed [Inactive]; 08:17 Home Meds: Wixela Inhub 250-50 mcg/dose inhalation Blister, With Inhalation nh2 Device 1 inhalation 2 times per day [Inactive]; 08:17 Home Meds: pantoprazole 40 mg Oral tablet, delayed release (enteric coated) 1 tab nh2 daily [Inactive]; 08:17 Home Meds: Victoza 2-Rony subcutaneous 1.8 mg daily [Inactive]; nh2 08:17 Home Meds: Advair Diskus 250-50 mcg/dose Inhl Blister 1 inhalation [Inactive]; nh2nh2 08:17 Home Meds: esomeprazole magnesium 40 mg Oral capsule 1 cap daily [Inactive]; nh2 08:17 Home Meds: glipizide 2.5 mg Oral tablet 1 tab 2 times per day [Inactive]; nh2 08:17 Home Meds: Colace oral 50 as needed [Inactive]; nh2 08:17 PMHx: diabetes mellitus; nh2 08:17 PMHx: Hypercholesterolemia; 08:17 PMHx: Hypertensive disorder; 08:17 PMHx: Meningitits; nh2 09: 08:39 [facility] ED Fall Risk Assessment (Adult) History of falling in the last 3 months, nh2 including since admission No falls in past 3 months (0 pts) Confusion or Disorientation No (0 pts) Intoxicated or Sedated No (0 pts) Impaired Gait No (0 pts) Mobility Assist Device Used No (0 pt) Altered Elimination No (0 pt) Score/Fall Risk Level 0 - 2 = Low Risk [facility] : 08:39 [facility] ED Fall Risk Assessment (Adult) Score/Fall Risk Level 0 - 2 = Low Risk nh2 Oriented to surroundings, Maintained a safe environment, Educated pt \T\ family on fall prevention, incl call for assistance when getting out of bed, nh2
[2025-01-25] MEDS ORDERED: LIDOCAINE VISCOUS 2% 10ML ORAL SOLN ONE (10:43)
[2025-01-25] MEDS ORDERED: MAGNES/ALUMIN/SIMET 30ML UCUP ONE (10:43)
[2025-01-25 11:20] VITALS: BP 148/73; TEMP 97.9; O2SAT 95
== END 2025-01-25 11:03 | disposition home or self-care (01) ==
LOC: ER 07:58
DX: K29.00 Acute gastritis without bleeding (principal); E86.0 Dehydration; I10 Essential (primary) hypertension; E78.5 Hyperlipidemia, unspecified
CPT/HCPCS: 96361; 85025; 81001; 36415; 83690; 80053; 74177; 96375; 96374; 99284; Q9967; J2550; J0360; J1171; J2405; J7030